=== PATIENT | male | born 1960 | race Caucasian/White ===

== ENCOUNTER 2016-11-15 13:38 | Inpatient (IN) | payer MEDICAID ==
[~2016-11-15] VITALS: Ht 180.3 cm; Wt 97.1 kg
[~2016-11-15 13:38] MED LIST: ALB5IS NEB; ALPR1TAB2 PO; ASPI-231 PO; DOXY-216 PO; FAM20T PO; FLUT250M9 IN; FURO40TA PO; GUA5DMLQ PO; HYDR12.56 PO; IPRIH INH; LEVE500T22 PO; NOR5T PO; POTA10TA51 PO; PRE5T PO; ROFL1TAB2 PO; SERT-275 PO
[2016-11-15] MEDS ORDERED: ALBUTEROL SULF 2.5 MG/0.5ML(0.5%) NEB SOLN NEB ONE (14:00)
[2016-11-15] MEDS ORDERED: IPRATROPIUM BROM 0.5 MG/2.5ML INH SOL NEB ONE (14:00)
[2016-11-15] MEDS ORDERED: LORazepam 2MG/ML-1ML VIAL IV ONE (14:30)
[2016-11-15] MEDS ORDERED: LEVETIRACETAM INJ 1,000 MG in SODIUM CHL 0.9% 100 ML IV ONE (14:30)
[2016-11-15] MEDS ORDERED: SODIUM CHLORIDE 0.9% 1,000 ML IV ONE (14:30)
[2016-11-15 14:45] LABS: Urine Bilirubin Negative (Negative); Urine Blood Negative /uL (Negative); Urine Color Colorless (Yellow); Urine Glucose Normal (Normal); Urine Ketone Negative (Negative); Urine Nitrite Negative (Negative); Urine RBC 1 /hpf (0 - 3); Urine Urobilinogen Normal (Negative)
[2016-11-15 15:04] LABS: Basophils # (auto) 0 uL; Basophils % (auto) 0.4 % (0.0-2.0); Eosinophils # (auto) 0 uL; Eosinophils % (auto) 0.2 % (0.0-7.0); Hematocrit 45.1 % (41.0-53.0); Hemoglobin 15.2 g/dL (13.5-17.5); Lymphocytes # (auto) 1.1 uL; Lymphocytes % (auto) 10.5 % (10.0-50.0); Mean Corpuscular Hemoglobin 33.1 pg (28.0-32.0); Mean Corpuscular Hgb Conc. 33.6 g/dL (32.0-36.0); Mean Corpuscular Volume 98.6 fL (80.0-100.0); Mean Platelet Volume 6.8 fL (7.4-10.4); Monocytes # (auto) 0.4 uL; Monocytes % (auto) 3.4 % (0.0-12.0); Neutrophils # (auto) 9.2 uL; Neutrophils % (auto) 85.5 % (37.0-80.0); Platelet Count (auto) 238 10^3/uL (140-450); Red Cell Distribution Width 13.1 % (11.6-16.0); White Blood Cell 10.8 10^3/uL (4.4-10.8)
[2016-11-15 15:14] LABS: Albumin 4.1 g/dL (3.4-5.0); Alkaline Phosphatase 65 U/L (45-117); Anion Gap 11 (5-15); Aspartate Aminotransferase 12 U/L (15-37); BUN/Creatinine Ratio 12.6; Bilirubin, Total 0.7 mg/dL (0.2-1.0); Blood Urea Nitrogen 13 mg/dL (7-18); Calcium 9.6 mg/dL (8.5-10.1); Carbon Dioxide 29 mmol/L (21-32); Chloride 102 mmol/L (98-107); GFR African American 96 mL/min; GFR Non-African American 79 mL/min; Glucose 173 mg/dL (74-106); Magnesium 2.3 mg/dL (1.6-2.6); Potassium 3.6 mmol/L (3.5-5.1); Sodium 142 mmol/L (136-145); Total Protein 7.1 g/dL (6.4-8.2)
[2016-11-15 15:15] LABS: INR 1.02 (0.9-1.15); Partial Thromboplastin Time 24.3 sec (22.64-33.71); Prothrombin Time 10.5 sec (9.37-12.3)
[2016-11-15] MEDS ORDERED: ALBUTEROL SULF 2.5 MG/0.5ML(0.5%) NEB SOLN NEB PRN (16:00)
[2016-11-15] MEDS ORDERED: FLUTICASONE SALMETEROL IN SCH (16:00)
[2016-11-15] MEDS ORDERED: DEXTROSE (50%) 50ML SYRG IV PRN (16:00)
[2016-11-15] MEDS ORDERED: ACETAMINOPHEN 500 MG TAB PO PRN (16:00)
[2016-11-15] MEDS ORDERED: TEMAZEPAM 15 MG CAP PO PRN (16:00)
[2016-11-15] MEDS ORDERED: LORazepam 0.5 MG TAB PO PRN (16:00)
[2016-11-15] MEDS ORDERED: HYDROcodone-ACET 5/325MG TAB PO PRN (16:00)
[2016-11-15] MEDS ORDERED: LACTULOSE 20Gm/30ML SOLN PO PRN (16:00)
[2016-11-15] MEDS ORDERED: NITROGLYCERIN 0.4 MG SL TAB SL PRN (16:00)
[2016-11-15] MEDS ORDERED: MORPHINE SULF INJ 2 MG/ML SYRINGE 1ML IV PRN ×2 (16:00)
[2016-11-15] MEDS ORDERED: PROMETHAZINE HCL 25 MG/ML 1ML IV PRN (16:00)
[2016-11-15] MEDS ORDERED: SERTRALINE HCL 50 MG TAB PO ONE (16:45)
[2016-11-15] MEDS: POTASSIUM CHLORIDE 8 MEQ TAB PO SCH (18:00)
[2016-11-15] MEDS: predniSONE 5 MG TAB PO SCH (18:00)
[2016-11-15] MEDS: ASPirin-EC 81 mg tab PO SCH (18:00)
[2016-11-15] MEDS: FUROSEMIDE 40 MG TAB PO SCH (18:00)
[2016-11-15] MEDS: ENOXAPARIN SOD 40 MG/0.4 ML SYRINGE SC SCH (18:07)
[2016-11-15] MEDS: ACCU-CHEK COMFORT CURVE STRIP VI SCH (18:18)
[2016-11-15] MEDS: ALBUTEROL SULF 2.5 MG/0.5ML(0.5%) NEB SOLN NEB SCH (18:18)
[2016-11-15] MEDS: IPRATROPIUM BROM 0.5 MG/2.5ML INH SOL NEB SCH (18:18)
[2016-11-15] MEDS: LEVETIRACETAM 500 MG TAB PO SCH (21:59)
[2016-11-15] MEDS: FAMOTIDINE 20 MG TAB PO SCH (21:59)
[2016-11-15] MEDS: ALPRAZolam 0.5 MG TAB PO SCH (21:59)
[2016-11-15 22:02] VITALS: BP 112/75
[2016-11-15 23:24] VITALS: BP 112/75
[2016-11-16] VITALS (9 sets, daily range): BP systolic 18–132; BP diastolic 64–81
[2016-11-16] MEDS: IPRATROPIUM BROM 0.5 MG/2.5ML INH SOL NEB SCH ×4 (00:18→18:52)
[2016-11-16] MEDS: ALBUTEROL SULF 2.5 MG/0.5ML(0.5%) NEB SOLN NEB SCH ×4 (00:18→18:52)
[2016-11-16] MEDS: ACCU-CHEK COMFORT CURVE STRIP VI SCH ×3 (00:19→12:12)
[2016-11-16] MEDS: ROFLUMILAST 500 MCG PO SCH (10:00)
[2016-11-16] MEDS: FAMOTIDINE 20 MG TAB PO SCH ×2 (10:00→21:36)
[2016-11-16] MEDS: ENOXAPARIN SOD 40 MG/0.4 ML SYRINGE SC SCH (10:00)
[2016-11-16] MEDS: ASPirin-EC 81 mg tab PO SCH (10:00)
[2016-11-16] MEDS: LORazepam 2MG/ML-1ML VIAL IV PRN ×2 (11:16→11:48)
[2016-11-16] MEDS: LEVETIRACETAM 500 MG TAB PO SCH ×2 (11:39→21:36)
[2016-11-16] MEDS: SERTRALINE HCL 50 MG TAB PO SCH (11:41)
[2016-11-16] MEDS: FUROSEMIDE 40 MG TAB PO SCH (11:42)
[2016-11-16] MEDS: POTASSIUM CHLORIDE 8 MEQ TAB PO SCH (11:43)
[2016-11-16] MEDS: ALPRAZolam 0.5 MG TAB PO SCH ×2 (11:43→21:37)
[2016-11-16] MEDS: predniSONE 5 MG TAB PO SCH (11:43)
[2016-11-16] MEDS ORDERED: LEVETIRACETAM INJ 1,000 MG in SODIUM CHL 0.9% 100 ML IV ONE (13:00)
[2016-11-17] VITALS (7 sets, daily range): BP systolic 93–132; BP diastolic 54–72
[2016-11-17] MEDS: ALBUTEROL SULF 2.5 MG/0.5ML(0.5%) NEB SOLN NEB SCH ×4 (00:17→18:50)
[2016-11-17] MEDS: IPRATROPIUM BROM 0.5 MG/2.5ML INH SOL NEB SCH ×4 (00:17→18:50)
[2016-11-17] MEDS: ENOXAPARIN SOD 40 MG/0.4 ML SYRINGE SC SCH (09:51)
[2016-11-17] MEDS: LEVETIRACETAM 500 MG TAB PO SCH ×2 (09:52→21:57)
[2016-11-17] MEDS: POTASSIUM CHLORIDE 8 MEQ TAB PO SCH (09:52)
[2016-11-17] MEDS: FAMOTIDINE 20 MG TAB PO SCH ×2 (09:52→21:56)
[2016-11-17] MEDS: ALPRAZolam 0.5 MG TAB PO SCH ×3 (09:52→21:56)
[2016-11-17] MEDS: SERTRALINE HCL 50 MG TAB PO SCH (09:52)
[2016-11-17] MEDS: predniSONE 5 MG TAB PO SCH (09:52)
[2016-11-17] MEDS: ASPirin-EC 81 mg tab PO SCH (09:52)
[2016-11-17] MEDS: FUROSEMIDE 40 MG TAB PO SCH (09:53)
[2016-11-17] MEDS: ROFLUMILAST 500 MCG PO SCH (10:00)
[2016-11-17] MEDS: LORazepam 2MG/ML-1ML VIAL IV PRN (10:45)
[2016-11-18] MEDS: IPRATROPIUM BROM 0.5 MG/2.5ML INH SOL NEB SCH ×3 (00:26→12:00)
[2016-11-18] MEDS: ALBUTEROL SULF 2.5 MG/0.5ML(0.5%) NEB SOLN NEB SCH ×3 (00:26→12:00)
[2016-11-18 05:00] VITALS: BP 127/69
[2016-11-18] MEDS: ALPRAZolam 0.5 MG TAB PO SCH ×2 (06:33→14:00)
[2016-11-18 09:20] VITALS: BP 127/83
[2016-11-18] MEDS: ROFLUMILAST 500 MCG PO SCH (10:00)
[2016-11-18] MEDS ORDERED: SERTRALINE HCL 50 MG TAB PO SCH (10:00)
[2016-11-18] MEDS: ENOXAPARIN SOD 40 MG/0.4 ML SYRINGE SC SCH (10:33)
[2016-11-18] MEDS: ASPirin-EC 81 mg tab PO SCH (10:33)
[2016-11-18] MEDS: predniSONE 5 MG TAB PO SCH (10:34)
[2016-11-18] MEDS: POTASSIUM CHLORIDE 8 MEQ TAB PO SCH (10:34)
[2016-11-18] MEDS: FUROSEMIDE 40 MG TAB PO SCH (10:35)
[2016-11-18] MEDS: FAMOTIDINE 20 MG TAB PO SCH (10:35)
[2016-11-18] MEDS: LEVETIRACETAM 500 MG TAB PO SCH (10:35)
[2016-11-18 13:00] VITALS: BP 122/76
[2016-11-18] MEDS ORDERED: SERT-275 PO (14:55)
[2016-11-18] MEDS ORDERED: LEVE500T22 PO (14:55)
[2016-11-18 16:07] VITALS: BP 122/76
== END 2016-11-18 17:15 | disposition home health service (06) | DRG 756 ==
LOC: EDBD 13:38 → ER 13:42 → TELE 13:43 → TELE-EAST 18:30
PROVIDERS: ADMIT Internal Medicine; ATTEND Hospitalist
PROC: 5A09457 Assistance with Respiratory Ventilation, 24-96 Consecutive Hours, Continuous Positive Airway Pressure (ICD-10-PCS; principal; 2016-11-16)
DX: F44.5 Conversion disorder with seizures or convulsions (principal); I50.9 Heart failure, unspecified; F41.9 Anxiety disorder, unspecified; F32.9 Major depressive disorder, single episode, unspecified; J44.9 Chronic obstructive pulmonary disease, unspecified; R73.9 Hyperglycemia, unspecified; J45.909 Unspecified asthma, uncomplicated; F12.90 Cannabis use, unspecified, uncomplicated; Z87.820 Personal history of traumatic brain injury; Z82.3 Family history of stroke; Z82.49 Family history of ischemic heart disease and other diseases of the circulatory system; Z90.89 Acquired absence of other organs; Z98.890 Other specified postprocedural states; Z82.5 Family history of asthma and other chronic lower respiratory diseases; Z80.0 Family history of malignant neoplasm of digestive organs; Z79.899 Other long term (current) drug therapy; Z79.82 Long term (current) use of aspirin
CPT/HCPCS: 36415; 71010; 80053; 80320; 81001; 82542; 82962; 83036; 83735; 85025; 85610; 85652; 85730; 93005; 94640; 94660; 96365; 96375; G0434

== ENCOUNTER 2017-07-09 12:03 | Inpatient (IN) | payer MEDICARE, OTHER, MEDICAID ==
[~2017-07-09] VITALS: Ht 180.3 cm; Wt 94.2 kg
[~2017-07-09 12:03] MED LIST changes: -ALB5IS NEB; +ALBUAER3 IN; +ALPR0.5T7 PO; -ALPR1TAB2 PO; +DEXTSYP8 PO; -DOXY-216 PO; +DOXY1CAP82 PO; -FAM20T PO; +FURO20TA3 PO; -FURO40TA PO; -GUA5DMLQ PO; -NOR5T PO; +OMEP20CA74 PO
[2017-07-09] MEDS ORDERED: LORazepam 2MG/ML-1ML VIAL ONE (12:18)
[2017-07-09] MEDS ORDERED: SODIUM CHLORIDE 0.9% 1,000 ML IVB ONE (12:40)
[2017-07-09] MEDS ORDERED: LORazepam 2MG/ML-1ML VIAL IV ONE (12:45)
[2017-07-09 13:53] LABS: Basophils # (auto) 0 uL; Basophils % (auto) 0.3 % (0.0-2.0); CONDITION Y; Eosinophils # (auto) 0 uL; Eosinophils % (auto) 0.4 % (0.0-7.0); Hematocrit 48.4 % (41.0-53.0); Hemoglobin 16.6 g/dL (13.5-17.5); Lymphocytes # (auto) 2.2 uL; Lymphocytes % (auto) 23.3 % (10.0-50.0); Mean Corpuscular Hemoglobin 33.5 pg (28.0-32.0); Mean Corpuscular Hgb Conc. 34.3 g/dL (32.0-36.0); Mean Corpuscular Volume 97.7 fL (80.0-100.0); Mean Platelet Volume 7.4 fL (7.4-10.4); Monocytes # (auto) 0.4 uL; Monocytes % (auto) 4.3 % (0.0-12.0); Neutrophils # (auto) 6.8 uL; Neutrophils % (auto) 71.7 % (37.0-80.0); Platelet Count (auto) 252 10^3/uL (140-450); Red Cell Distribution Width 13.3 % (11.6-16.0); White Blood Cell 9.4 10^3/uL (4.4-10.8)
[2017-07-09 14:06] LABS: INR 0.98 (0.9-1.15); Partial Thromboplastin Time 27.1 sec (22.64-33.71); Prothrombin Time 10.7 sec (9.37-12.3)
[2017-07-09 14:18] LABS: BUN/Creatinine Ratio 23.1; Bilirubin, Total 0.7 mg/dL (0.2-1.0); Calcium 9.7 mg/dL (8.5-10.1); Magnesium 2.7 mg/dL (1.6-2.6); Potassium 3.7 mmol/L (3.5-5.1); Total Protein 7.2 g/dL (6.4-8.2)
[2017-07-09] MEDS ORDERED: LORazepam 2MG/ML-1ML VIAL IV PRN (17:15)
[2017-07-09] MEDS ORDERED: LORazepam 0.5 MG TAB PO PRN (17:15)
[2017-07-09] MEDS ORDERED: ACETAMINOPHEN 500 MG TAB PO PRN (17:15)
[2017-07-09] MEDS ORDERED: HYDROcodone-ACET 5/325MG TAB PO PRN (17:15)
[2017-07-09] MEDS ORDERED: LEVETIRACETAM 500 MG TAB PO ONE ×3 (17:15→18:00)
[2017-07-09] MEDS ORDERED: ADVAIR 250 MCG IN SCH (17:15)
[2017-07-09] MEDS ORDERED: MORPHINE SULFATE 4 MG/ML SYRG IV PRN (17:15)
[2017-07-09] MEDS ORDERED: TEMAZEPAM 15 MG CAP PO PRN (17:15)
[2017-07-09] MEDS ORDERED: PROMETHAZINE HCL 25 MG/ML 1ML IV PRN (17:15)
[2017-07-09] MEDS ORDERED: MORPHINE SULF INJ 2 MG/ML SYRINGE 1ML IV PRN (17:15)
[2017-07-09] MEDS ORDERED: ALBUTEROL SULF 2.5 MG/0.5ML(0.5%) NEB SOLN NEB PRN (17:15)
[2017-07-09] MEDS ORDERED: NITROGLYCERIN 0.4 MG SL TAB SL PRN (17:15)
[2017-07-09] MEDS: ALBUTEROL SULF 2.5 MG/0.5ML(0.5%) NEB SOLN NEB SCH (18:13)
[2017-07-09] MEDS: BUDESONIDE (INHALATION) 0.5 MG/2 ML NEB NEB SCH (18:13)
[2017-07-09] MEDS: IPRATROPIUM BROM 0.5 MG/2.5ML INH SOL NEB SCH (18:13)
[2017-07-09] MEDS: SODIUM CHLORIDE 0.9% 1,000 ML IV SCH (18:19)
[2017-07-09] MEDS ORDERED: LEVETIRACETAM 500 MG TAB PO SCH ×2 (22:00)
[2017-07-09] MEDS: ALPRAZolam 0.5 MG TAB PO SCH (22:29)
[2017-07-09] MEDS: DOXYCYCLINE 100 MG TAB/CAP PO SCH (22:29)
[2017-07-10] VITALS (9 sets, daily range): BP systolic 91–124; BP diastolic 39–72
[2017-07-10] MEDS: ALBUTEROL SULF 2.5 MG/0.5ML(0.5%) NEB SOLN NEB SCH ×4 (00:22→18:49)
[2017-07-10] MEDS: IPRATROPIUM BROM 0.5 MG/2.5ML INH SOL NEB SCH ×4 (00:22→18:49)
[2017-07-10] MEDS: BUDESONIDE (INHALATION) 0.5 MG/2 ML NEB NEB SCH ×2 (06:01→18:49)
[2017-07-10] MEDS: SODIUM CHLORIDE 0.9% 1,000 ML IV SCH (06:22)
[2017-07-10 07:08] LABS: Cholesterol 251 mg/dL (< 200); HDL Cholesterol 37 mg/dL (40-59); LDL Cholesterol 179 mg/dL (< 100); Triglycerides 280 mg/dL (< 150)
[2017-07-10 07:23] LABS: Urine Bilirubin Negative (Negative); Urine Blood 1+ /uL (Negative); Urine Color Yellow (Yellow); Urine Glucose Normal (Normal); Urine Ketone Negative (Negative); Urine Nitrite Negative (Negative); Urine RBC 2 /hpf (0 - 3); Urine Urobilinogen Normal (Negative); Urine pH 5.5 (5.0-8.0)
[2017-07-10] MEDS: FUROSEMIDE 20 MG TAB PO SCH (10:00)
[2017-07-10] MEDS: POTASSIUM CHL 10 Meq TABLET PO SCH (11:19)
[2017-07-10] MEDS: predniSONE 5 MG TAB PO SCH (11:19)
[2017-07-10] MEDS: DOXYCYCLINE 100 MG TAB/CAP PO SCH ×2 (11:19→21:22)
[2017-07-10] MEDS: ASPirin-EC 81 mg tab PO SCH (11:19)
[2017-07-10] MEDS: ALPRAZolam 0.5 MG TAB PO SCH ×2 (11:20→21:21)
[2017-07-10] MEDS: SERTRALINE HCL 50 MG TAB PO SCH (11:20)
[2017-07-10] MEDS: PANTOPRAZOLE 40 MG TAB PO SCH (11:21)
[2017-07-10] MEDS ORDERED: ATORVASTATIN 20 MG TAB PO SCH (22:00)
[2017-07-11] MEDS: IPRATROPIUM BROM 0.5 MG/2.5ML INH SOL NEB SCH ×3 (00:29→12:05)
[2017-07-11] MEDS: ALBUTEROL SULF 2.5 MG/0.5ML(0.5%) NEB SOLN NEB SCH ×3 (00:29→12:05)
[2017-07-11 05:00] VITALS: BP 91/49
[2017-07-11 05:46] VITALS: BP 107/66
[2017-07-11] MEDS: BUDESONIDE (INHALATION) 0.5 MG/2 ML NEB NEB SCH (06:26)
[2017-07-11 09:00] VITALS: BP 115/71
[2017-07-11] MEDS: PANTOPRAZOLE 40 MG TAB PO SCH (10:15)
[2017-07-11] MEDS: DOXYCYCLINE 100 MG TAB/CAP PO SCH (10:16)
[2017-07-11] MEDS: SERTRALINE HCL 50 MG TAB PO SCH (10:16)
[2017-07-11] MEDS: POTASSIUM CHL 10 Meq TABLET PO SCH (10:16)
[2017-07-11] MEDS: FUROSEMIDE 20 MG TAB PO SCH (10:16)
[2017-07-11] MEDS: ALPRAZolam 0.5 MG TAB PO SCH (10:16)
[2017-07-11] MEDS: ASPirin-EC 81 mg tab PO SCH (10:16)
[2017-07-11] MEDS: predniSONE 5 MG TAB PO SCH (10:17)
[2017-07-11 12:45] VITALS: BP 115/64
[2017-07-11 13:23] VITALS: BP 115/71
== END 2017-07-11 14:10 | disposition home or self-care (01) | DRG 101 ==
LOC: EDBD 12:03 → ER 12:03 → TELE 12:04 → TELE-EAST 21:05
PROVIDERS: ADMIT Internal Medicine; ATTEND Internal Medicine Pulmonary Disease
PROC: 5A09357 Assistance with Respiratory Ventilation, Less than 24 Consecutive Hours, Continuous Positive Airway Pressure (ICD-10-PCS; principal; 2017-07-09)
DX: G40.409 Other generalized epilepsy and epileptic syndromes, not intractable, without status epilepticus (principal); I11.0 Hypertensive heart disease with heart failure; E88.01 Alpha-1-antitrypsin deficiency; I50.9 Heart failure, unspecified; J44.1 Chronic obstructive pulmonary disease with (acute) exacerbation; G47.00 Insomnia, unspecified; G47.33 Obstructive sleep apnea (adult) (pediatric); G43.909 Migraine, unspecified, not intractable, without status migrainosus; E66.9 Obesity, unspecified; Z68.29 Body mass index [BMI] 29.0-29.9, adult; F17.210 Nicotine dependence, cigarettes, uncomplicated; F32.9 Major depressive disorder, single episode, unspecified; F41.0 Panic disorder [episodic paroxysmal anxiety]; K21.9 Gastro-esophageal reflux disease without esophagitis; Z79.899 Other long term (current) drug therapy; Z82.3 Family history of stroke; Z82.49 Family history of ischemic heart disease and other diseases of the circulatory system; Z82.5 Family history of asthma and other chronic lower respiratory diseases; Z80.0 Family history of malignant neoplasm of digestive organs; Z83.6 Family history of other diseases of the respiratory system; Z87.820 Personal history of traumatic brain injury; Z90.89 Acquired absence of other organs; Z79.82 Long term (current) use of aspirin
CPT/HCPCS: 36415; 71010; 80053; 80061; 80307; 81001; 83735; 85025; 85610; 85730; 87070; 87081; 87205; 93005; 93306; 94640; 94660; 96361; 96374

== ENCOUNTER 2017-11-04 10:18 | Inpatient (IN) | payer MEDICARE, BC, MEDICAID ==
[~2017-11-04] VITALS: Ht 180.3 cm; Wt 92.6 kg
[~2017-11-04 10:18] MED LIST changes: -DEXTSYP8 PO; -DOXY1CAP82 PO; -LEVE500T22 PO
[2017-11-04 10:57] LABS: Basophils # (auto) 0 uL; Basophils % (auto) 0.3 % (0.0-2.0); Eosinophils # (auto) 0 uL; Eosinophils % (auto) 0.4 % (0.0-7.0); Hematocrit 44.2 % (41.0-53.0); Hemoglobin 15.3 g/dL (13.5-17.5); Lymphocytes # (auto) 0.6 uL; Mean Corpuscular Hgb Conc. 34.6 g/dL (32.0-36.0); Mean Corpuscular Volume 98.4 fL (80.0-100.0); Monocytes # (auto) 0.4 uL; Monocytes % (auto) 6.2 % (0.0-12.0); Neutrophils # (auto) 5.3 uL; Neutrophils % (auto) 84.1 % (37.0-80.0); Nucleated Red Blood Cells % 0.2 %; Platelet Count (auto) 160 10^3/uL (140-450); Red Cell Distribution Width 14.6 % (11.8-14.3); White Blood Cell 6.3 10^3/uL (4.4-10.8)
[2017-11-04] MEDS ORDERED: IPRATROPIUM BROM 0.5 MG/2.5ML INH SOL NEB ONE (11:30)
[2017-11-04] MEDS ORDERED: MAGNESIUM SULFATE 1GM/100ML 100 ML IV ONE (11:30)
[2017-11-04] MEDS ORDERED: methylPREDNISolone SOD SUCC 125 MG/2 ML VL IV ONE (11:30)
[2017-11-04] MEDS ORDERED: ALBUTEROL SULF 2.5 MG/0.5ML(0.5%) NEB SOLN NEB ONE (11:30)
[2017-11-04 11:33] LABS: Alanine Aminotransferase 41 U/L (16-61); Albumin 3.8 g/dL (3.4-5.0); Alkaline Phosphatase 95 U/L (45-117); Anion Gap 10 (5-15); Aspartate Aminotransferase 17 U/L (15-37); BUN/Creatinine Ratio 12.8; Bilirubin, Total 0.7 mg/dL (0.2-1.0); Blood Urea Nitrogen 16 mg/dL (7-18); Calcium 8.9 mg/dL (8.5-10.1); Carbon Dioxide 30 mmol/L (21-32); Chloride 98 mmol/L (98-107); GFR African American 76 mL/min; GFR Non-African American 63 mL/min; Glucose 209 mg/dL (74-106); Potassium 3.5 mmol/L (3.5-5.1); Sodium 138 mmol/L (136-145); Total Protein 7.2 g/dL (6.4-8.2)
[2017-11-04] MEDS ORDERED: PROMETHAZINE HCL 25 MG/ML 1ML IV PRN (13:15)
[2017-11-04] MEDS ORDERED: TEMAZEPAM 15 MG CAP PO PRN (13:15)
[2017-11-04] MEDS ORDERED: MORPHINE SULF INJ 2 MG/ML SYRINGE 1ML IV PRN (13:15)
[2017-11-04] MEDS ORDERED: DEXTROSE (50%) 50ML SYRG IV PRN (13:15)
[2017-11-04] MEDS ORDERED: HYDROcodone-ACET 5/325MG TAB PO PRN (13:15)
[2017-11-04] MEDS ORDERED: OSELTAMIVIR 75 MG CAP PO ONE (13:15)
[2017-11-04] MEDS ORDERED: LACTULOSE 20Gm/30ML SOLN PO PRN (13:15)
[2017-11-04] MEDS ORDERED: ALBUTEROL SULF 2.5 MG/0.5ML(0.5%) NEB SOLN NEB PRN (13:15)
[2017-11-04] MEDS ORDERED: ACETAMINOPHEN 500 MG TAB PO PRN (13:15)
[2017-11-04] MEDS ORDERED: LORazepam 0.5 MG TAB PO PRN (13:15)
[2017-11-04] MEDS ORDERED: MORPHINE SULFATE 4 MG/ML SYR/VIAL IV PRN (13:15)
[2017-11-04] MEDS ORDERED: NITROGLYCERIN 0.4 MG SL TAB SL PRN (13:15)
[2017-11-04] MEDS ORDERED: ASPirin-EC 81 mg tab PO ONE (13:45)
[2017-11-04] MEDS: SODIUM CHLORIDE 0.9% 1,000 ML IV SCH (13:46)
[2017-11-04] MEDS: DOXYCYCLINE HYC 100MG/250ML 250 ML IV SCH (13:52)
[2017-11-04] MEDS ORDERED: FUROSEMIDE 20 MG TAB PO ONE (14:15)
[2017-11-04] MEDS ORDERED: PANTOPRAZOLE 40 MG TAB PO ONE (14:15)
[2017-11-04] MEDS ORDERED: BUDESONIDE (INHALATION) 0.5 MG/2 ML NEB NEB SCH (14:18)
[2017-11-04 14:23] VITALS: BP 113/76
[2017-11-04] MEDS: POTASSIUM CHL 10 Meq TABLET PO SCH (14:49)
[2017-11-04] MEDS: ALPRAZolam 0.5 MG TAB PO SCH ×2 (14:49→22:42)
[2017-11-04] MEDS: ENOXAPARIN SOD 40 MG/0.4 ML SYRINGE SC SCH (14:49)
[2017-11-04] MEDS: ACCU-CHEK COMFORT CURVE STRIP VI SCH ×2 (17:22→22:00)
[2017-11-04] MEDS: InsuLIN REG 1unit/0.01ml Soln (100units/ml) SC SCH ×2 (17:25→22:43)
[2017-11-04] MEDS: methylPREDNISolone SOD SUCC 40 MG/ML VL IV SCH (17:44)
[2017-11-04] MEDS: ALBUTEROL SULF 2.5 MG/0.5ML(0.5%) NEB SOLN NEB SCH ×2 (17:55→23:55)
[2017-11-04] MEDS: IPRATROPIUM BROM 0.5 MG/2.5ML INH SOL NEB SCH ×2 (17:55→23:55)
[2017-11-04] MEDS: BUDESONIDE (INHALATION) 0.5 MG/2 ML NEB NEB SCH (17:55)
[2017-11-04] MEDS: OSELTAMIVIR 75 MG CAP PO SCH (21:35)
[2017-11-04 22:30] VITALS: BP 117/69
[2017-11-04] MEDS: SERTRALINE HCL 50 MG TAB PO SCH (22:43)
[2017-11-04 23:45] VITALS: BP 117/69
[2017-11-05] MEDS: methylPREDNISolone SOD SUCC 40 MG/ML VL IV SCH ×4 (00:53→17:24)
[2017-11-05] MEDS: DOXYCYCLINE HYC 100MG/250ML 250 ML IV SCH ×2 (00:55→13:45)
[2017-11-05] MEDS: SODIUM CHLORIDE 0.9% 1,000 ML IV SCH ×2 (02:40→17:22)
[2017-11-05 05:29] VITALS: BP 112/75
[2017-11-05] MEDS: ACCU-CHEK COMFORT CURVE STRIP VI SCH ×4 (06:07→22:20)
[2017-11-05] MEDS: InsuLIN REG 1unit/0.01ml Soln (100units/ml) SC SCH ×4 (06:10→22:40)
[2017-11-05 06:32] LABS: Basophils # (auto) 0 uL; Eosinophils # (auto) 0 uL; Monocytes # (auto) 0.2 uL; Neutrophils # (auto) 4.3 uL; Red Blood Cells 4.13 10^6/uL (4.5-5.90)
[2017-11-05 06:34] LABS: Basophils % (auto) 0.2 % (0.0-2.0); Hemoglobin 14.1 g/dL (13.5-17.5); Lymphocytes # (auto) 0.5 uL; Lymphocytes % (auto) 9.3 % (10.0-50.0); Mean Corpuscular Hemoglobin 34.1 pg (28.0-32.0); Mean Corpuscular Hgb Conc. 35.2 g/dL (32.0-36.0); Mean Corpuscular Volume 96.8 fL (80.0-100.0); Monocytes % (auto) 3.5 % (0.0-12.0); Nucleated Red Blood Cells % 0.1 %; Platelet Count (auto) 158 10^3/uL (140-450); Red Cell Distribution Width 14.3 % (11.8-14.3)
[2017-11-05 07:00] LABS: Albumin 3.3 g/dL (3.4-5.0); BUN/Creatinine Ratio 22.1; Bilirubin, Total 0.6 mg/dL (0.2-1.0); Calcium 8.5 mg/dL (8.5-10.1); Total Protein 6.4 g/dL (6.4-8.2)
[2017-11-05] MEDS: IPRATROPIUM BROM 0.5 MG/2.5ML INH SOL NEB SCH ×4 (07:33→21:06)
[2017-11-05] MEDS: ALBUTEROL SULF 2.5 MG/0.5ML(0.5%) NEB SOLN NEB SCH ×4 (07:34→21:06)
[2017-11-05] MEDS: BUDESONIDE (INHALATION) 0.5 MG/2 ML NEB NEB SCH ×2 (07:34→21:06)
[2017-11-05 08:00] VITALS: BP 108/75
[2017-11-05 09:00] VITALS: BP 108/75
[2017-11-05] MEDS: ENOXAPARIN SOD 40 MG/0.4 ML SYRINGE SC SCH (09:23)
[2017-11-05] MEDS: ALPRAZolam 0.5 MG TAB PO SCH ×2 (09:23→22:20)
[2017-11-05] MEDS: POTASSIUM CHL 10 Meq TABLET PO SCH (09:23)
[2017-11-05] MEDS: ASPirin-EC 81 mg tab PO SCH (09:23)
[2017-11-05] MEDS: OSELTAMIVIR 75 MG CAP PO SCH ×2 (09:23→22:20)
[2017-11-05] MEDS: PANTOPRAZOLE 40 MG TAB PO SCH (09:23)
[2017-11-05] MEDS: FUROSEMIDE 20 MG TAB PO SCH (09:24)
[2017-11-05 13:00] VITALS: BP 115/79
[2017-11-05 16:37] VITALS: BP 129/69
[2017-11-05 22:00] VITALS: BP 110/70
[2017-11-05] MEDS: SERTRALINE HCL 50 MG TAB PO SCH (22:20)
[2017-11-06] MEDS: methylPREDNISolone SOD SUCC 40 MG/ML VL IV SCH ×4 (00:01→17:20)
[2017-11-06] MEDS: ALBUTEROL SULF 2.5 MG/0.5ML(0.5%) NEB SOLN NEB SCH ×7 (00:10→22:53)
[2017-11-06] MEDS: IPRATROPIUM BROM 0.5 MG/2.5ML INH SOL NEB SCH ×7 (00:10→22:53)
[2017-11-06] MEDS: DOXYCYCLINE HYC 100MG/250ML 250 ML IV SCH ×2 (00:51→12:02)
[2017-11-06 05:00] VITALS: BP 108/63
[2017-11-06] MEDS: SODIUM CHLORIDE 0.9% 1,000 ML IV SCH ×2 (05:11→18:31)
[2017-11-06] MEDS: ACCU-CHEK COMFORT CURVE STRIP VI SCH ×4 (06:28→21:05)
[2017-11-06] MEDS: InsuLIN REG 1unit/0.01ml Soln (100units/ml) SC SCH ×4 (06:41→21:38)
[2017-11-06] MEDS: BUDESONIDE (INHALATION) 0.5 MG/2 ML NEB NEB SCH ×2 (07:23→19:17)
[2017-11-06] MEDS: OSELTAMIVIR 75 MG CAP PO SCH ×2 (08:57→21:37)
[2017-11-06] MEDS: ASPirin-EC 81 mg tab PO SCH (08:57)
[2017-11-06] MEDS: ALPRAZolam 0.5 MG TAB PO SCH ×2 (08:57→21:37)
[2017-11-06] MEDS: POTASSIUM CHL 10 Meq TABLET PO SCH (08:57)
[2017-11-06] MEDS: PANTOPRAZOLE 40 MG TAB PO SCH (08:57)
[2017-11-06] MEDS: ENOXAPARIN SOD 40 MG/0.4 ML SYRINGE SC SCH (08:57)
[2017-11-06] MEDS: FUROSEMIDE 20 MG TAB PO SCH (08:59)
[2017-11-06 09:00] VITALS: BP 102/54
[2017-11-06 13:00] VITALS: BP 114/57
[2017-11-06 17:00] VITALS: BP 117/68
[2017-11-06] MEDS: SERTRALINE HCL 50 MG TAB PO SCH (21:37)
[2017-11-06 22:00] VITALS: BP 131/76
[2017-11-07] VITALS (8 sets, daily range): BP systolic 112–133; BP diastolic 59–73
[2017-11-07] MEDS: methylPREDNISolone SOD SUCC 40 MG/ML VL IV SCH ×4 (00:03→18:08)
[2017-11-07] MEDS: DOXYCYCLINE HYC 100MG/250ML 250 ML IV SCH ×2 (01:17→13:15)
[2017-11-07] MEDS: ALBUTEROL SULF 2.5 MG/0.5ML(0.5%) NEB SOLN NEB SCH ×6 (02:40→22:25)
[2017-11-07] MEDS: IPRATROPIUM BROM 0.5 MG/2.5ML INH SOL NEB SCH ×6 (02:40→22:25)
[2017-11-07] MEDS: InsuLIN REG 1unit/0.01ml Soln (100units/ml) SC SCH ×4 (06:27→21:12)
[2017-11-07] MEDS: ACCU-CHEK COMFORT CURVE STRIP VI SCH ×4 (06:27→21:12)
[2017-11-07] MEDS: PANTOPRAZOLE 40 MG TAB PO SCH (10:51)
[2017-11-07] MEDS: ENOXAPARIN SOD 40 MG/0.4 ML SYRINGE SC SCH (10:51)
[2017-11-07] MEDS: ALPRAZolam 0.5 MG TAB PO SCH ×2 (10:51→20:57)
[2017-11-07] MEDS: OSELTAMIVIR 75 MG CAP PO SCH ×2 (10:51→20:56)
[2017-11-07] MEDS: POTASSIUM CHL 10 Meq TABLET PO SCH (10:51)
[2017-11-07] MEDS: FUROSEMIDE 20 MG TAB PO SCH (10:52)
[2017-11-07] MEDS: ASPirin-EC 81 mg tab PO SCH (10:52)
[2017-11-07] MEDS: BUDESONIDE (INHALATION) 0.5 MG/2 ML NEB NEB SCH ×2 (11:01→20:05)
[2017-11-07] MEDS: SODIUM CHLORIDE 0.9% 1,000 ML IV SCH ×2 (11:45→21:13)
[2017-11-07] MEDS ORDERED: DEXTROSE (50%) 50ML SYRG IV PRN (13:30)
[2017-11-07] MEDS: SERTRALINE HCL 50 MG TAB PO SCH (20:56)
[2017-11-08] MEDS: IPRATROPIUM BROM 0.5 MG/2.5ML INH SOL NEB SCH ×6 (02:28→22:27)
[2017-11-08] MEDS: ALBUTEROL SULF 2.5 MG/0.5ML(0.5%) NEB SOLN NEB SCH ×6 (02:28→22:26)
[2017-11-08] MEDS: methylPREDNISolone SOD SUCC 40 MG/ML VL IV SCH ×4 (02:45→18:32)
[2017-11-08] MEDS: DOXYCYCLINE HYC 100MG/250ML 250 ML IV SCH ×2 (02:46→13:40)
[2017-11-08 05:00] VITALS: BP 140/81
[2017-11-08] MEDS: ACCU-CHEK COMFORT CURVE STRIP VI SCH ×4 (06:50→22:00)
[2017-11-08] MEDS: InsuLIN REG 1unit/0.01ml Soln (100units/ml) SC SCH ×4 (06:51→22:50)
[2017-11-08 08:06] VITALS: BP 126/69
[2017-11-08] MEDS: OSELTAMIVIR 75 MG CAP PO SCH ×2 (10:00→22:42)
[2017-11-08] MEDS: SODIUM CHLORIDE 0.9% 1,000 ML IV SCH (10:31)
[2017-11-08] MEDS: BUDESONIDE (INHALATION) 0.5 MG/2 ML NEB NEB SCH ×2 (10:36→22:27)
[2017-11-08] MEDS: ENOXAPARIN SOD 40 MG/0.4 ML SYRINGE SC SCH (11:30)
[2017-11-08] MEDS: ALPRAZolam 0.5 MG TAB PO SCH ×2 (11:31→22:43)
[2017-11-08] MEDS: ASPirin-EC 81 mg tab PO SCH (11:31)
[2017-11-08] MEDS: FUROSEMIDE 20 MG TAB PO SCH (11:31)
[2017-11-08] MEDS: PANTOPRAZOLE 40 MG TAB PO SCH (11:32)
[2017-11-08] MEDS: POTASSIUM CHL 10 Meq TABLET PO SCH (11:32)
[2017-11-08 13:00] VITALS: BP 143/77
[2017-11-08 16:55] VITALS: BP 136/72
[2017-11-08 21:40] VITALS: BP 137/74
[2017-11-08] MEDS: SERTRALINE HCL 50 MG TAB PO SCH (22:43)
[2017-11-09] VITALS (8 sets, daily range): BP systolic 113–145; BP diastolic 68–81
[2017-11-09] MEDS: methylPREDNISolone SOD SUCC 40 MG/ML VL IV SCH ×4 (00:01→18:04)
[2017-11-09] MEDS: DOXYCYCLINE HYC 100MG/250ML 250 ML IV SCH ×2 (01:52→12:39)
[2017-11-09] MEDS: ALBUTEROL SULF 2.5 MG/0.5ML(0.5%) NEB SOLN NEB SCH ×6 (02:21→22:35)
[2017-11-09] MEDS: IPRATROPIUM BROM 0.5 MG/2.5ML INH SOL NEB SCH ×6 (02:21→22:35)
[2017-11-09] MEDS: ACCU-CHEK COMFORT CURVE STRIP VI SCH ×4 (06:16→22:34)
[2017-11-09] MEDS: BUDESONIDE (INHALATION) 0.5 MG/2 ML NEB NEB SCH ×2 (06:22→18:57)
[2017-11-09] MEDS: InsuLIN REG 1unit/0.01ml Soln (100units/ml) SC SCH ×4 (06:29→23:07)
[2017-11-09] MEDS: ASPirin-EC 81 mg tab PO SCH (11:18)
[2017-11-09] MEDS: POTASSIUM CHL 10 Meq TABLET PO SCH (11:18)
[2017-11-09] MEDS: PANTOPRAZOLE 40 MG TAB PO SCH (11:18)
[2017-11-09] MEDS: FUROSEMIDE 20 MG TAB PO SCH (11:18)
[2017-11-09] MEDS: ALPRAZolam 0.5 MG TAB PO SCH ×2 (11:19→22:34)
[2017-11-09] MEDS: ENOXAPARIN SOD 40 MG/0.4 ML SYRINGE SC SCH (11:19)
[2017-11-09] MEDS: SERTRALINE HCL 50 MG TAB PO SCH (22:34)
[2017-11-10] MEDS: methylPREDNISolone SOD SUCC 40 MG/ML VL IV SCH ×4 (00:11→16:59)
[2017-11-10 01:25] VITALS: BP 113/81
[2017-11-10] MEDS: DOXYCYCLINE HYC 100MG/250ML 250 ML IV SCH (01:54)
[2017-11-10] MEDS: IPRATROPIUM BROM 0.5 MG/2.5ML INH SOL NEB SCH ×6 (02:55→22:20)
[2017-11-10] MEDS: ALBUTEROL SULF 2.5 MG/0.5ML(0.5%) NEB SOLN NEB SCH ×6 (02:55→22:20)
[2017-11-10 05:00] VITALS: BP 136/81
[2017-11-10] MEDS: ACCU-CHEK COMFORT CURVE STRIP VI SCH ×4 (06:38→22:05)
[2017-11-10] MEDS: InsuLIN REG 1unit/0.01ml Soln (100units/ml) SC SCH ×4 (06:39→22:08)
[2017-11-10 07:51] VITALS: BP 120/70
[2017-11-10] MEDS: POTASSIUM CHL 10 Meq TABLET PO SCH (09:38)
[2017-11-10] MEDS: ALPRAZolam 0.5 MG TAB PO SCH ×2 (09:38→22:01)
[2017-11-10] MEDS: FUROSEMIDE 20 MG TAB PO SCH (09:38)
[2017-11-10] MEDS: PANTOPRAZOLE 40 MG TAB PO SCH (09:39)
[2017-11-10] MEDS: BUDESONIDE (INHALATION) 0.5 MG/2 ML NEB NEB SCH ×2 (09:53→19:10)
[2017-11-10] MEDS: ASPirin-EC 81 mg tab PO SCH (10:00)
[2017-11-10] MEDS: ENOXAPARIN SOD 40 MG/0.4 ML SYRINGE SC SCH (10:00)
[2017-11-10 11:49] VITALS: BP 128/70
[2017-11-10 16:55] VITALS: BP 127/70
[2017-11-10 22:00] VITALS: BP 120/84
[2017-11-10] MEDS: DOXYCYCLINE 100 MG TAB/CAP PO SCH (22:01)
[2017-11-10] MEDS: SERTRALINE HCL 50 MG TAB PO SCH (22:01)
[2017-11-11] MEDS: methylPREDNISolone SOD SUCC 40 MG/ML VL IV SCH ×4 (00:39→17:34)
[2017-11-11] MEDS: ALBUTEROL SULF 2.5 MG/0.5ML(0.5%) NEB SOLN NEB SCH ×6 (02:27→22:10)
[2017-11-11] MEDS: IPRATROPIUM BROM 0.5 MG/2.5ML INH SOL NEB SCH ×6 (02:27→22:10)
[2017-11-11 05:00] VITALS: BP 118/76
[2017-11-11] MEDS: InsuLIN REG 1unit/0.01ml Soln (100units/ml) SC SCH ×4 (06:28→22:23)
[2017-11-11] MEDS: ACCU-CHEK COMFORT CURVE STRIP VI SCH ×4 (06:28→22:20)
[2017-11-11] MEDS: BUDESONIDE (INHALATION) 0.5 MG/2 ML NEB NEB SCH ×2 (07:19→22:10)
[2017-11-11 08:00] VITALS: BP 110/63
[2017-11-11 08:51] VITALS: BP 110/63
[2017-11-11] MEDS: PANTOPRAZOLE 40 MG TAB PO SCH (09:46)
[2017-11-11] MEDS: DOXYCYCLINE 100 MG TAB/CAP PO SCH ×2 (09:46→22:19)
[2017-11-11] MEDS: ALPRAZolam 0.5 MG TAB PO SCH ×2 (09:46→22:19)
[2017-11-11] MEDS: POTASSIUM CHL 10 Meq TABLET PO SCH (09:46)
[2017-11-11] MEDS: FUROSEMIDE 20 MG TAB PO SCH (09:46)
[2017-11-11] MEDS: ENOXAPARIN SOD 40 MG/0.4 ML SYRINGE SC SCH (09:47)
[2017-11-11] MEDS: ASPirin-EC 81 mg tab PO SCH (09:47)
[2017-11-11 12:00] VITALS: BP 104/66
[2017-11-11 17:00] VITALS: BP 111/68
[2017-11-11 17:09] LABS: INR 0.98 (0.9-1.15); Partial Thromboplastin Time 23.5 sec (22.64-33.71); Prothrombin Time 10.7 sec (9.37-12.3)
[2017-11-11 18:27] LABS: Urine Bacteria NONE SEEN /hpf (None Seen); Urine Blood Negative /uL (Negative); Urine Specific Gravity 1.011 (1.001-1.035); Urine WBC 1 /hpf (0 - 3)
[2017-11-11 22:00] VITALS: BP 112/72
[2017-11-11] MEDS: SERTRALINE HCL 50 MG TAB PO SCH (22:20)
[2017-11-12] MEDS: methylPREDNISolone SOD SUCC 40 MG/ML VL IV SCH ×5 (00:08→23:25)
[2017-11-12] MEDS: IPRATROPIUM BROM 0.5 MG/2.5ML INH SOL NEB SCH ×6 (02:57→22:22)
[2017-11-12] MEDS: ALBUTEROL SULF 2.5 MG/0.5ML(0.5%) NEB SOLN NEB SCH ×6 (02:57→22:22)
[2017-11-12] MEDS: ACCU-CHEK COMFORT CURVE STRIP VI SCH ×4 (04:56→20:29)
[2017-11-12 05:00] VITALS: BP 117/80
[2017-11-12] MEDS: InsuLIN REG 1unit/0.01ml Soln (100units/ml) SC SCH ×4 (05:00→20:29)
[2017-11-12 06:55] LABS: BUN/Creatinine Ratio 28.6; Calcium 8.6 mg/dL (8.5-10.1); Potassium 3.9 mmol/L (3.5-5.1)
[2017-11-12 07:11] LABS: Basophils # (auto) 0 uL; Basophils % (auto) 0.2 % (0.0-2.0); Eosinophils # (auto) 0 uL; Hematocrit 40.6 % (41.0-53.0); Hemoglobin 14.1 g/dL (13.5-17.5); Lymphocytes # (auto) 1.8 uL; Lymphocytes % (auto) 15.1 % (10.0-50.0); Mean Corpuscular Hemoglobin 33.5 pg (28.0-32.0); Mean Corpuscular Hgb Conc. 34.7 g/dL (32.0-36.0); Mean Corpuscular Volume 96.7 fL (80.0-100.0); Monocytes # (auto) 0.9 uL; Monocytes % (auto) 7.4 % (0.0-12.0); Neutrophils % (auto) 77.3 % (37.0-80.0); Nucleated Red Blood Cells % 0.2 %; Platelet Count (auto) 188 10^3/uL (140-450); Red Cell Distribution Width 13.9 % (11.8-14.3); White Blood Cell 11.6 10^3/uL (4.4-10.8)
[2017-11-12 08:00] VITALS: BP 121/73
[2017-11-12] MEDS: PANTOPRAZOLE 40 MG TAB PO SCH (09:05)
[2017-11-12] MEDS: ASPirin-EC 81 mg tab PO SCH (09:05)
[2017-11-12] MEDS: DOXYCYCLINE 100 MG TAB/CAP PO SCH ×2 (09:05→20:28)
[2017-11-12] MEDS: ALPRAZolam 0.5 MG TAB PO SCH ×2 (09:06→20:28)
[2017-11-12] MEDS: ENOXAPARIN SOD 40 MG/0.4 ML SYRINGE SC SCH (09:06)
[2017-11-12] MEDS: POTASSIUM CHL 10 Meq TABLET PO SCH (09:27)
[2017-11-12] MEDS: FUROSEMIDE 20 MG TAB PO SCH (09:27)
[2017-11-12] MEDS: BUDESONIDE (INHALATION) 0.5 MG/2 ML NEB NEB SCH ×2 (10:30→18:14)
[2017-11-12] MEDS ORDERED: ceFAZolin 1GM/50ML 50 ML IV ONE (11:31)
[2017-11-12] MEDS ORDERED: ceFAZolin 1GM VL ONE (11:46)
[2017-11-12] MEDS ORDERED: HEPARIN 1,000 UNITS/ml 1ML VIAL ONE (11:46)
[2017-11-12] MEDS ORDERED: HEPARIN SODIUM (PORCINE) 5000 UNITS/ML 1ML VIAL ONE (11:46)
[2017-11-12] MEDS ORDERED: fentaNYL CITRATE 100 MCG/2 ML VL ONE (12:15)
[2017-11-12] MEDS ORDERED: MIDAZOLAM HCL 1MG/1ML-2 ML VIAL ONE (12:15)
[2017-11-12] MEDS ORDERED: KETOROLAC TROMETH 30 MG/ML 1ML VIAL IV ONE (12:45)
[2017-11-12] MEDS ORDERED: ONDANSETRON HCL 4 MG/2 ML VIAL IV ONE (12:45)
[2017-11-12] MEDS ORDERED: HYDROmorphone HCL 2 MG/ML VL IV PRN (12:45)
[2017-11-12] MEDS ORDERED: ePHEDrine SULFATE 50 MG/ML AMP IV PRN (12:45)
[2017-11-12] MEDS ORDERED: LABETALOL HCL 5 MG/ML 4ML SYRINGE IV PRN (12:45)
[2017-11-12] MEDS ORDERED: ACCU-CHEK COMFORT CURVE STRIP VI ONE (12:45)
[2017-11-12] MEDS ORDERED: PROPOFOL 10 MG/ML 20 ML IV ONE (12:54)
[2017-11-12] MEDS ORDERED: DEXAMETHASONE SOD PHOS 10MG/1ML VIAL INJ ONE (12:54)
[2017-11-12] MEDS ORDERED: MORPHINE SULF INJ 2 MG/ML SYRINGE 1ML IV ONE (14:00)
[2017-11-12 16:58] VITALS: BP 99/65
[2017-11-12] MEDS: SERTRALINE HCL 50 MG TAB PO SCH (20:28)
[2017-11-12 22:03] VITALS: BP 113/69
[2017-11-13 01:49] VITALS: BP 113/69
[2017-11-13] MEDS: IPRATROPIUM BROM 0.5 MG/2.5ML INH SOL NEB SCH ×6 (02:32→22:14)
[2017-11-13] MEDS: ALBUTEROL SULF 2.5 MG/0.5ML(0.5%) NEB SOLN NEB SCH ×6 (02:32→22:14)
[2017-11-13 05:27] VITALS: BP 116/66
[2017-11-13] MEDS: ACCU-CHEK COMFORT CURVE STRIP VI SCH ×4 (05:51→21:42)
[2017-11-13] MEDS: methylPREDNISolone SOD SUCC 40 MG/ML VL IV SCH ×3 (05:51→18:00)
[2017-11-13] MEDS: InsuLIN REG 1unit/0.01ml Soln (100units/ml) SC SCH ×4 (05:52→21:53)
[2017-11-13] MEDS: BUDESONIDE (INHALATION) 0.5 MG/2 ML NEB NEB SCH ×2 (07:29→18:44)
[2017-11-13 08:48] VITALS: BP 98/53
[2017-11-13] MEDS: DOXYCYCLINE 100 MG TAB/CAP PO SCH ×2 (10:15→21:52)
[2017-11-13] MEDS: POTASSIUM CHL 10 Meq TABLET PO SCH (10:15)
[2017-11-13] MEDS: PANTOPRAZOLE 40 MG TAB PO SCH (10:15)
[2017-11-13] MEDS: ENOXAPARIN SOD 40 MG/0.4 ML SYRINGE SC SCH (10:15)
[2017-11-13] MEDS: FUROSEMIDE 20 MG TAB PO SCH (10:16)
[2017-11-13] MEDS: ASPirin-EC 81 mg tab PO SCH (10:16)
[2017-11-13] MEDS: ALPRAZolam 0.5 MG TAB PO SCH ×2 (10:16→21:52)
[2017-11-13 13:00] VITALS: BP 111/67
[2017-11-13 17:00] VITALS: BP 99/68
[2017-11-13 21:42] VITALS: BP_SYST 130; BP_DIAS 1; BP_DIAS 61
[2017-11-13] MEDS: SERTRALINE HCL 50 MG TAB PO SCH (21:52)
[2017-11-13] MEDS ORDERED: DEXTROSE (50%) 50ML SYRG IV PRN (23:30)
[2017-11-14] MEDS ORDERED: methylPREDNISolone SOD SUCC 125 MG/2 ML VL IV SCH
[2017-11-14] MEDS: ACCU-CHEK COMFORT CURVE STRIP VI SCH ×6 (00:34→20:02)
[2017-11-14] MEDS: InsuLIN REG 1unit/0.01ml Soln (100units/ml) SC SCH ×6 (00:35→20:09)
[2017-11-14] MEDS: IPRATROPIUM BROM 0.5 MG/2.5ML INH SOL NEB SCH ×6 (02:15→22:31)
[2017-11-14] MEDS: ALBUTEROL SULF 2.5 MG/0.5ML(0.5%) NEB SOLN NEB SCH ×6 (02:16→22:31)
[2017-11-14 04:34] VITALS: BP 118/76
[2017-11-14] MEDS: BUDESONIDE (INHALATION) 0.5 MG/2 ML NEB NEB SCH ×2 (06:50→22:31)
[2017-11-14 09:00] VITALS: BP 108/60
[2017-11-14] MEDS: FUROSEMIDE 20 MG TAB PO SCH (09:49)
[2017-11-14] MEDS: PANTOPRAZOLE 40 MG TAB PO SCH (09:49)
[2017-11-14] MEDS: POTASSIUM CHL 10 Meq TABLET PO SCH (09:49)
[2017-11-14] MEDS: ASPirin-EC 81 mg tab PO SCH (09:50)
[2017-11-14] MEDS: ENOXAPARIN SOD 40 MG/0.4 ML SYRINGE SC SCH (09:50)
[2017-11-14] MEDS: DOXYCYCLINE 100 MG TAB/CAP PO SCH ×2 (09:50→21:44)
[2017-11-14] MEDS: ALPRAZolam 0.5 MG TAB PO SCH ×2 (09:50→21:44)
[2017-11-14] MEDS: methylPREDNISolone SOD SUCC 40 MG/ML VL IV SCH ×3 (10:00→21:43)
[2017-11-14 13:00] VITALS: BP 111/67
[2017-11-14 17:17] VITALS: BP 107/69
[2017-11-14] MEDS: SERTRALINE HCL 50 MG TAB PO SCH (21:44)
[2017-11-14 22:05] VITALS: BP 119/41
[2017-11-15] MEDS: ACCU-CHEK COMFORT CURVE STRIP VI SCH ×6 (01:29→20:05)
[2017-11-15] MEDS: InsuLIN REG 1unit/0.01ml Soln (100units/ml) SC SCH ×6 (01:30→20:10)
[2017-11-15] MEDS: IPRATROPIUM BROM 0.5 MG/2.5ML INH SOL NEB SCH ×6 (02:18→21:28)
[2017-11-15] MEDS: ALBUTEROL SULF 2.5 MG/0.5ML(0.5%) NEB SOLN NEB SCH ×6 (02:18→21:28)
[2017-11-15 04:47] VITALS: BP 104/58
[2017-11-15 09:11] VITALS: BP 116/70
[2017-11-15] MEDS: BUDESONIDE (INHALATION) 0.5 MG/2 ML NEB NEB SCH ×2 (10:15→21:28)
[2017-11-15] MEDS: PANTOPRAZOLE 40 MG TAB PO SCH (10:36)
[2017-11-15] MEDS: ALPRAZolam 0.5 MG TAB PO SCH ×2 (10:36→21:18)
[2017-11-15] MEDS: POTASSIUM CHL 10 Meq TABLET PO SCH (10:36)
[2017-11-15] MEDS: methylPREDNISolone SOD SUCC 40 MG/ML VL IV SCH ×2 (10:36→21:18)
[2017-11-15] MEDS: DOXYCYCLINE 100 MG TAB/CAP PO SCH ×2 (10:36→21:18)
[2017-11-15] MEDS: FUROSEMIDE 20 MG TAB PO SCH (10:36)
[2017-11-15] MEDS: ENOXAPARIN SOD 40 MG/0.4 ML SYRINGE SC SCH (10:37)
[2017-11-15] MEDS: ASPirin-EC 81 mg tab PO SCH (10:37)
[2017-11-15 12:18] VITALS: BP 126/71
[2017-11-15 17:21] VITALS: BP 113/59
[2017-11-15] MEDS: SERTRALINE HCL 50 MG TAB PO SCH (21:18)
[2017-11-15 22:09] VITALS: BP 101/63
[2017-11-16] MEDS: ACCU-CHEK COMFORT CURVE STRIP VI SCH ×6 (00:17→20:10)
[2017-11-16] MEDS: InsuLIN REG 1unit/0.01ml Soln (100units/ml) SC SCH ×6 (00:18→20:35)
[2017-11-16 02:06] VITALS: BP 101/63
[2017-11-16] MEDS: IPRATROPIUM BROM 0.5 MG/2.5ML INH SOL NEB SCH ×6 (02:19→22:30)
[2017-11-16] MEDS: ALBUTEROL SULF 2.5 MG/0.5ML(0.5%) NEB SOLN NEB SCH ×6 (02:20→22:30)
[2017-11-16 04:56] VITALS: BP 111/78
[2017-11-16] MEDS: BUDESONIDE (INHALATION) 0.5 MG/2 ML NEB NEB SCH ×2 (07:01→22:30)
[2017-11-16 09:06] VITALS: BP 124/66
[2017-11-16] MEDS: ENOXAPARIN SOD 40 MG/0.4 ML SYRINGE SC SCH (10:18)
[2017-11-16] MEDS: PANTOPRAZOLE 40 MG TAB PO SCH (10:18)
[2017-11-16] MEDS: POTASSIUM CHL 10 Meq TABLET PO SCH (10:18)
[2017-11-16] MEDS: DOXYCYCLINE 100 MG TAB/CAP PO SCH ×2 (10:18→21:33)
[2017-11-16] MEDS: ALPRAZolam 0.5 MG TAB PO SCH ×2 (10:18→21:33)
[2017-11-16] MEDS: FUROSEMIDE 20 MG TAB PO SCH (10:19)
[2017-11-16] MEDS: ASPirin-EC 81 mg tab PO SCH (10:19)
[2017-11-16] MEDS: methylPREDNISolone SOD SUCC 40 MG/ML VL IV SCH ×2 (10:20→21:32)
[2017-11-16 12:43] VITALS: BP 120/63
[2017-11-16 17:29] VITALS: BP 115/69
[2017-11-16] MEDS: SERTRALINE HCL 50 MG TAB PO SCH (21:33)
[2017-11-16 21:59] VITALS: BP 102/50
[2017-11-17] MEDS: ACCU-CHEK COMFORT CURVE STRIP VI SCH ×7 (00:14→23:39)
[2017-11-17] MEDS: InsuLIN REG 1unit/0.01ml Soln (100units/ml) SC SCH ×7 (00:18→23:43)
[2017-11-17] MEDS: IPRATROPIUM BROM 0.5 MG/2.5ML INH SOL NEB SCH ×6 (02:15→22:26)
[2017-11-17] MEDS: ALBUTEROL SULF 2.5 MG/0.5ML(0.5%) NEB SOLN NEB SCH ×6 (02:15→22:26)
[2017-11-17 05:05] VITALS: BP 112/64
[2017-11-17 05:51] LABS: Basophils # (auto) 0 uL; Eosinophils # (auto) 0 uL; Lymphocytes # (auto) 0.6 uL; Lymphocytes % (auto) 5.2 % (10.0-50.0); Neutrophils % (auto) 91.5 % (37.0-80.0); Red Cell Distribution Width 14.2 % (11.8-14.3)
[2017-11-17 05:55] LABS: Basophils % (auto) 0.1 % (0.0-2.0); Hematocrit 39.4 % (41.0-53.0); Hemoglobin 13.5 g/dL (13.5-17.5); Mean Corpuscular Hemoglobin 33.8 pg (28.0-32.0); Mean Corpuscular Hgb Conc. 34.3 g/dL (32.0-36.0); Mean Corpuscular Volume 98.5 fL (80.0-100.0); Monocytes # (auto) 0.4 uL; Monocytes % (auto) 3.2 % (0.0-12.0); Neutrophils # (auto) 10.3 uL; Platelet Count (auto) 136 10^3/uL (140-450); White Blood Cell 11.3 10^3/uL (4.4-10.8)
[2017-11-17 06:14] LABS: Calcium 8.6 mg/dL (8.5-10.1); Potassium 4.4 mmol/L (3.5-5.1)
[2017-11-17 06:19] LABS: Albumin 2.8 g/dL (3.4-5.0); BUN/Creatinine Ratio 27.8; Bilirubin, Total 0.4 mg/dL (0.2-1.0); Total Protein 5.5 g/dL (6.4-8.2)
[2017-11-17 08:00] VITALS: BP 121/64
[2017-11-17 08:01] VITALS: BP 121/65
[2017-11-17] MEDS: methylPREDNISolone SOD SUCC 40 MG/ML VL IV SCH (09:28)
[2017-11-17] MEDS: POTASSIUM CHL 10 Meq TABLET PO SCH (09:29)
[2017-11-17] MEDS: ASPirin-EC 81 mg tab PO SCH (09:29)
[2017-11-17] MEDS: ENOXAPARIN SOD 40 MG/0.4 ML SYRINGE SC SCH (09:29)
[2017-11-17] MEDS: DOXYCYCLINE 100 MG TAB/CAP PO SCH (09:30)
[2017-11-17] MEDS: PANTOPRAZOLE 40 MG TAB PO SCH (09:30)
[2017-11-17] MEDS: ALPRAZolam 0.5 MG TAB PO SCH ×2 (09:30→21:22)
[2017-11-17] MEDS: FUROSEMIDE 20 MG TAB PO SCH (09:31)
[2017-11-17] MEDS: BUDESONIDE (INHALATION) 0.5 MG/2 ML NEB NEB SCH ×2 (10:18→22:26)
[2017-11-17 11:42] VITALS: BP 123/66
[2017-11-17 16:52] VITALS: BP 101/69
[2017-11-17] MEDS: SERTRALINE HCL 50 MG TAB PO SCH (21:23)
[2017-11-17 21:47] VITALS: BP 140/82
[2017-11-18] MEDS: IPRATROPIUM BROM 0.5 MG/2.5ML INH SOL NEB SCH ×4 (03:09→15:11)
[2017-11-18] MEDS: ALBUTEROL SULF 2.5 MG/0.5ML(0.5%) NEB SOLN NEB SCH ×4 (03:09→15:11)
[2017-11-18] MEDS: ACCU-CHEK COMFORT CURVE STRIP VI SCH ×4 (04:08→17:43)
[2017-11-18] MEDS: InsuLIN REG 1unit/0.01ml Soln (100units/ml) SC SCH ×4 (04:11→17:43)
[2017-11-18 04:51] VITALS: BP 120/72
[2017-11-18 07:54] VITALS: BP 119/69
[2017-11-18 08:00] VITALS: BP 119/69
[2017-11-18] MEDS: ENOXAPARIN SOD 40 MG/0.4 ML SYRINGE SC SCH (09:14)
[2017-11-18] MEDS: methylPREDNISolone SOD SUCC 40 MG/ML VL IV SCH (09:14)
[2017-11-18] MEDS: FUROSEMIDE 20 MG TAB PO SCH (09:15)
[2017-11-18] MEDS: POTASSIUM CHL 10 Meq TABLET PO SCH (09:15)
[2017-11-18] MEDS: ALPRAZolam 0.5 MG TAB PO SCH (09:15)
[2017-11-18] MEDS: PANTOPRAZOLE 40 MG TAB PO SCH (09:16)
[2017-11-18] MEDS: ASPirin-EC 81 mg tab PO SCH (09:16)
[2017-11-18] MEDS: BUDESONIDE (INHALATION) 0.5 MG/2 ML NEB NEB SCH (10:15)
[2017-11-18 11:32] VITALS: BP 111/71
[2017-11-18 14:27] VITALS: BP 111/71
[2017-11-18 16:52] VITALS: BP 119/64
== END 2017-11-18 18:30 | DRG 189 ==
LOC: ER 10:18 → EDBD 10:18 → TELE 10:19 → TELE-EAST 22:00
PROVIDERS: ADMIT Internal Medicine; ATTEND Specialist
PROC: 5A09557 Assistance with Respiratory Ventilation, Greater than 96 Consecutive Hours, Continuous Positive Airway Pressure (ICD-10-PCS; principal; 2017-11-04)
PROC: 0JH63XZ Insertion of Tunneled Vascular Access Device into Chest Subcutaneous Tissue and Fascia, Percutaneous Approach (ICD-10-PCS; 2017-11-12)
PROC: 05H633Z Insertion of Infusion Device into Left Subclavian Vein, Percutaneous Approach (ICD-10-PCS; 2017-11-12)
DX: J96.21 Acute and chronic respiratory failure with hypoxia (principal); J84.9 Interstitial pulmonary disease, unspecified; E88.01 Alpha-1-antitrypsin deficiency; J44.0 Chronic obstructive pulmonary disease with (acute) lower respiratory infection; Z93.0 Tracheostomy status; J45.901 Unspecified asthma with (acute) exacerbation; E11.65 Type 2 diabetes mellitus with hyperglycemia; I11.0 Hypertensive heart disease with heart failure; I50.810 Right heart failure, unspecified; J44.1 Chronic obstructive pulmonary disease with (acute) exacerbation; K21.9 Gastro-esophageal reflux disease without esophagitis; G47.33 Obstructive sleep apnea (adult) (pediatric); I25.10 Atherosclerotic heart disease of native coronary artery without angina pectoris; F32.9 Major depressive disorder, single episode, unspecified; E66.9 Obesity, unspecified; T38.0X5A Adverse effect of glucocorticoids and synthetic analogues, initial encounter; F41.9 Anxiety disorder, unspecified; J20.9 Acute bronchitis, unspecified; Z80.0 Family history of malignant neoplasm of digestive organs; Z87.891 Personal history of nicotine dependence; Z82.3 Family history of stroke; Z82.49 Family history of ischemic heart disease and other diseases of the circulatory system; Z82.5 Family history of asthma and other chronic lower respiratory diseases; Z86.73 Personal history of transient ischemic attack (TIA), and cerebral infarction without residual deficits; Y92.89 Other specified places as the place of occurrence of the external cause; Z83.49 Family history of other endocrine, nutritional and metabolic diseases; Z68.28 Body mass index [BMI] 28.0-28.9, adult
CPT/HCPCS: 36415; 71010; 71045; 80048; 80053; 80061; 81001; 82962; 83036; 83880; 84484; 85025; 85610; 85730; 86850; 86900; 86901; 87070; 87081; 87205; 87400; 93005; 94640; 94660; 96361; 96365; 96375; 97163; C1788; J0690; J1100; J1815; J2250; J2704; J3490

== ENCOUNTER 2018-06-25 10:41 | Inpatient (IN) | payer MEDICARE, MEDICAID ==
[~2018-06-25] VITALS: Ht 30.5 cm; Wt 91.8 kg
[2018-06-25] MEDS ORDERED: SODIUM CHLORIDE 0.9% 1,000 ML IV ONE (10:48)
[2018-06-25] MEDS ORDERED: IPRATROPIUM BROM 0.5 MG/2.5ML INH SOL NEB ONE (11:00)
[2018-06-25] MEDS ORDERED: methylPREDNISolone SOD SUCC 125 MG/2 ML VL IV ONE (11:00)
[2018-06-25] MEDS ORDERED: ALBUTEROL SULF 2.5 MG/0.5ML(0.5%) NEB SOLN NEB ONE (11:00)
[2018-06-25 11:20] LABS: Basophils # (auto) 0.1 uL; Eosinophils # (auto) 0.2 uL
[2018-06-25 11:23] LABS: Basophils % (auto) 0.7 % (0.0-2.0); Eosinophils % (auto) 2.3 % (0.0-7.0); Hematocrit 45.1 % (41.0-53.0); Hemoglobin 16.3 g/dL (13.5-17.5); Lymphocytes # (auto) 2.3 uL; Lymphocytes % (auto) 26.5 % (10.0-50.0); Mean Corpuscular Hemoglobin 35.2 pg (28.0-32.0); Mean Corpuscular Hgb Conc. 36.2 g/dL (32.0-36.0); Mean Corpuscular Volume 97.4 fL (80.0-100.0); Monocytes # (auto) 0.5 uL; Monocytes % (auto) 5.5 % (0.0-12.0); Neutrophils # (auto) 5.6 uL; Nucleated Red Blood Cells % 0.4 %; Red Blood Cells 4.63 10^6/uL (4.5-5.90); Red Cell Distribution Width 13.3 % (11.8-14.3); White Blood Cell 8.6 10^3/uL (4.4-10.8)
[2018-06-25 11:36] LABS: INR 0.97 (0.9-1.15); Partial Thromboplastin Time 26.1 sec (23.78-33.04); Prothrombin Time 10.4 sec (9.27-12.13)
[2018-06-25 11:38] LABS: Platelet Count (auto) 183 10^3/uL (140-450)
[2018-06-25 11:47] LABS: Albumin 3.9 g/dL (3.4-5.0); BUN/Creatinine Ratio 13.6; Bilirubin, Total 0.5 mg/dL (0.2-1.0); Calcium 9.4 mg/dL (8.5-10.1); Potassium 3.5 mmol/L (3.5-5.1); Total Protein 7.4 g/dL (6.4-8.2)
[2018-06-25] MEDS ORDERED: MORPHINE SULF INJ 2 MG/ML SYRINGE 1ML IV PRN (13:30)
[2018-06-25] MEDS ORDERED: NITROGLYCERIN 0.4 MG SL TAB SL PRN (13:30)
[2018-06-25] MEDS ORDERED: cefTRIAXone 1GM/10ml IVPUSH 10 ML IV ONE (13:30)
[2018-06-25] MEDS ORDERED: ONDANSETRON HCL 4 MG/2 ML VIAL IV PRN (14:15)
[2018-06-25] MEDS ORDERED: DEXTROSE (50%) 50ML SYRG IV PRN (14:15)
[2018-06-25 15:48] LABS: Urine Bacteria NONE SEEN /hpf (None Seen); Urine Blood Negative /uL (Negative); Urine Specific Gravity 1.006 (1.001-1.035); Urine WBC <1 /hpf (0 - 3)
[2018-06-25] MEDS ORDERED: ALPRAZolam 0.5 MG TAB PO PRN (18:00)
[2018-06-25] MEDS: IPRATROPIUM BROM 0.5 MG/2.5ML INH SOL NEB SCH ×2 (18:05→22:17)
[2018-06-25] MEDS: ALBUTEROL SULF 2.5 MG/0.5ML(0.5%) NEB SOLN NEB SCH ×2 (18:06→22:16)
[2018-06-25 21:48] VITALS: BP 102/60
[2018-06-25] MEDS: methylPREDNISolone SOD SUCC 40 MG/ML VL IV SCH (22:21)
[2018-06-25] MEDS: InsuLIN REG 1unit/0.01ml Soln (100units/ml) SC SCH (22:21)
[2018-06-25] MEDS: ACCU-CHEK COMFORT CURVE STRIP VI SCH (22:21)
[2018-06-25] MEDS: FAMOTIDINE 20 MG TAB PO SCH (22:21)
[2018-06-25 23:45] VITALS: BP 110/73
[2018-06-25 23:50] VITALS: BP 110/73
[2018-06-26] MEDS: ALBUTEROL SULF 2.5 MG/0.5ML(0.5%) NEB SOLN NEB SCH ×6 (02:18→22:43)
[2018-06-26] MEDS: IPRATROPIUM BROM 0.5 MG/2.5ML INH SOL NEB SCH ×6 (02:18→22:43)
[2018-06-26 05:00] VITALS: BP 111/64
[2018-06-26 09:16] VITALS: BP 125/76
[2018-06-26] MEDS: FAMOTIDINE 20 MG TAB PO SCH ×2 (10:00→21:51)
[2018-06-26] MEDS: methylPREDNISolone SOD SUCC 40 MG/ML VL IV SCH ×2 (10:11→21:50)
[2018-06-26] MEDS: cefTRIAXone 1GM/10ml IVPUSH 10 ML IV SCH (10:11)
[2018-06-26] MEDS: ACCU-CHEK COMFORT CURVE STRIP VI SCH ×2 (10:22→21:51)
[2018-06-26] MEDS: InsuLIN REG 1unit/0.01ml Soln (100units/ml) SC SCH ×2 (10:30→21:51)
[2018-06-26 13:32] VITALS: BP 112/66
[2018-06-26 17:22] VITALS: BP 100/66
[2018-06-27] MEDS: IPRATROPIUM BROM 0.5 MG/2.5ML INH SOL NEB SCH ×4 (02:40→14:22)
[2018-06-27] MEDS: ALBUTEROL SULF 2.5 MG/0.5ML(0.5%) NEB SOLN NEB SCH ×4 (02:40→14:21)
[2018-06-27 05:52] VITALS: BP 106/64
[2018-06-27 09:04] VITALS: BP 86/47
[2018-06-27] MEDS: InsuLIN REG 1unit/0.01ml Soln (100units/ml) SC SCH (10:00)
[2018-06-27] MEDS: cefTRIAXone 1GM/10ml IVPUSH 10 ML IV SCH (10:19)
[2018-06-27] MEDS: ACCU-CHEK COMFORT CURVE STRIP VI SCH (10:20)
[2018-06-27] MEDS: FAMOTIDINE 20 MG TAB PO SCH (10:20)
[2018-06-27] MEDS: methylPREDNISolone SOD SUCC 40 MG/ML VL IV SCH (10:20)
[2018-06-27 12:24] VITALS: BP 108/62
[2018-06-27 14:17] VITALS: BP 108/62
== END 2018-06-27 15:20 | disposition home or self-care (01) | DRG 189 ==
LOC: ER 10:41 → EDBD 10:41 → EDUNIT# 10:41 → TELE 10:42 → TELE-WESTW 23:48
PROVIDERS: ADMIT Specialist; ATTEND Specialist
PROC: 5A09357 Assistance with Respiratory Ventilation, Less than 24 Consecutive Hours, Continuous Positive Airway Pressure (ICD-10-PCS; principal; 2018-06-25)
PROC: 5A09357 Assistance with Respiratory Ventilation, Less than 24 Consecutive Hours, Continuous Positive Airway Pressure (ICD-10-PCS; 2018-06-27)
DX: J96.20 Acute and chronic respiratory failure, unspecified whether with hypoxia or hypercapnia (principal); J44.1 Chronic obstructive pulmonary disease with (acute) exacerbation; G47.33 Obstructive sleep apnea (adult) (pediatric); F41.0 Panic disorder [episodic paroxysmal anxiety]; E88.01 Alpha-1-antitrypsin deficiency; I11.0 Hypertensive heart disease with heart failure; F32.9 Major depressive disorder, single episode, unspecified; R56.9 Unspecified convulsions; I50.9 Heart failure, unspecified; J98.4 Other disorders of lung; K21.9 Gastro-esophageal reflux disease without esophagitis; Z79.82 Long term (current) use of aspirin; Z79.899 Other long term (current) drug therapy; Z82.3 Family history of stroke; Z82.49 Family history of ischemic heart disease and other diseases of the circulatory system; Z85.038 Personal history of other malignant neoplasm of large intestine
CPT/HCPCS: 36415; 36600; 71045; 80053; 81001; 82805; 82962; 83880; 84484; 85025; 85610; 85730; 87040; 93005; 94640; 94644; 94660; 96372; 96374; 96375; J0696; J1815

== ENCOUNTER 2018-11-23 09:15 | Inpatient (IN) | payer MEDICARE, MEDICAID | END 2018-11-27 16:08 | disposition home health service (06) | LOC: TELE-WESTW 21:37 → ER 09:15 → TELE 13:42 → TELE-WESTW 21:35 | DX: J96.20 Acute and chronic respiratory failure, unspecified whether with hypoxia or hypercapnia (principal); J18.9 Pneumonia, unspecified organism; J44.1 Chronic obstructive pulmonary disease with (acute) exacerbation; I50.42 Chronic combined systolic (congestive) and diastolic (congestive) heart failure; J44.0 Chronic obstructive pulmonary disease with (acute) lower respiratory infection; J20.9 Acute bronchitis, unspecified; I11.0 Hypertensive heart disease with heart failure; G40.909 Epilepsy, unspecified, not intractable, without status epilepticus; Z79.52 Long term (current) use of systemic steroids; E78.5 Hyperlipidemia, unspecified; T38.0X5A Adverse effect of glucocorticoids and synthetic analogues, initial encounter; R06.03 Acute respiratory distress ==

== ENCOUNTER 2019-05-11 09:50 | Inpatient (IN) | payer MEDICARE, MEDICAID ==
[~2019-05-11] VITALS: Ht 177.8 cm; Wt 83.1 kg
[~2019-05-11 09:50] MED LIST changes: +LEVO500T21 PO; +PRE1T PO
[2019-05-11] MEDS ORDERED: methylPREDNISolone SOD SUCC 125 MG/2 ML VL IV ONE (10:30)
[2019-05-11] MEDS ORDERED: IPRATROPIUM BROM 0.5 MG/2.5ML INH SOL NEB ONE (10:30)
[2019-05-11] MEDS ORDERED: ALBUTEROL SULF 2.5 MG/0.5ML(0.5%) NEB SOLN NEB ONE (10:30)
[2019-05-11 11:00] LABS: Basophils # (auto) 0.1 uL; Basophils % (auto) 0.6 % (0.0-2.0); Eosinophils # (auto) 0.2 uL; Eosinophils % (auto) 1.5 % (0.0-7.0); Hematocrit 48.6 % (41.0-53.0); Hemoglobin 16.8 g/dL (13.5-17.5); Lymphocytes # (auto) 1.2 uL; Lymphocytes % (auto) 11.9 % (10.0-50.0); Mean Corpuscular Hemoglobin 33.1 pg (28.0-32.0); Mean Corpuscular Hgb Conc. 34.5 g/dL (32.0-36.0); Mean Corpuscular Volume 95.9 fL (80.0-100.0); Monocytes # (auto) 0.6 uL; Monocytes % (auto) 5.5 % (0.0-12.0); Neutrophils # (auto) 8.2 uL; Neutrophils % (auto) 80.5 % (37.0-80.0); Platelet Count (auto) 192 10^3/uL (140-450); Red Blood Cells 5.07 10^6/uL (4.5-5.90); Red Cell Distribution Width 13.8 % (11.8-14.3); White Blood Cell 10.1 10^3/uL (4.4-10.8)
[2019-05-11 11:15] LABS: Albumin 4.2 g/dL (3.4-5.0); Calcium 10.1 mg/dL (8.5-10.1); Magnesium 2.6 mg/dL (1.6-2.6); Potassium 3.4 mmol/L (3.5-5.1)
[2019-05-11 11:22] LABS: BUN/Creatinine Ratio 12.9; Bilirubin, Total 0.5 mg/dL (0.2-1.0); Total Protein 7.5 g/dL (6.4-8.2)
[2019-05-11] MEDS ORDERED: MORPHINE SULF INJ 2 MG/ML SYRINGE 1ML IV PRN ×2 (12:15)
[2019-05-11] MEDS ORDERED: POTASSIUM CHL 20 Meq TABLET PO ONE (12:15)
[2019-05-11] MEDS ORDERED: ONDANSETRON HCL 4 MG/2 ML VIAL IV PRN (12:15)
[2019-05-11] MEDS ORDERED: ACETAMINOPHEN 500 MG TAB PO PRN (12:15)
[2019-05-11] MEDS ORDERED: HYDROcodone-ACET 5/325MG TAB PO PRN (12:15)
[2019-05-11] MEDS ORDERED: NITROGLYCERIN 0.4 MG SL TAB SL PRN (12:15)
[2019-05-11] MEDS: ALPRAZolam 0.5 MG TAB PO SCH ×2 (12:44→22:00)
[2019-05-11] MEDS: cefTRIAXone 1GM/50ML D5W 50 ML IV SCH (12:44)
[2019-05-11 12:50] LABS: Urine Bacteria NONE SEEN /hpf (None Seen); Urine Blood Negative /uL (Negative); Urine Hyaline Cast FEW /lpf (0 - 2); Urine Specific Gravity 1.005 (1.001-1.035); Urine WBC 1 /hpf (0 - 3)
--- NOTE | 2019-05-11 14:00 | NUR ---
Patient arrived on unit Patient is A&O x4, no s/s of distress at this time, POC discussed with patient. Vital signs are stable: BP 108/68; HR95; O2 sat: 93%; RR 22. RT has been made aware that patient has a breathing treatment at 1400. Lung sounds are diminished on the L side throughout posteriorly. Wheeze to the right upper lobe anteriorly upon expiration, patient is on 3L nasal cannula. Will continue to monitor Q1h and PRN.
[2019-05-11] MEDS: IPRATROPIUM BROM 0.5 MG/2.5ML INH SOL NEB SCH ×3 (15:14→22:10)
[2019-05-11] MEDS: ALBUTEROL SULF 2.5 MG/0.5ML(0.5%) NEB SOLN NEB SCH ×3 (15:14→22:10)
[2019-05-11] MEDS ORDERED: [UNRECOGNIZED DRUG - CODE] IV (16:01)
[2019-05-11 16:27] VITALS: BP 114/61
[2019-05-11 16:41] VITALS: BP 102/60
[2019-05-11] MEDS: AZITHROMYCIN 500MG/ 250ML 250 ML IV SCH (17:46)
--- NOTE | 2019-05-11 19:15 | NUR ---
Opening Shift Note Assumed care of patient, awake and alert. No S/S of distress/SOB or pain. Instructed on POC and to call for assist PRN. This RN will continue to monitor for changes Q1hr and PRN. Pt wants Bipap placed hour early. Bed in low position. HOB in semi -Phan's position. Nurse call light within pt's reach.
[2019-05-11] MEDS: BUDESONIDE (INHALATION) 0.5 MG/2 ML NEB NEB SCH (19:17)
[2019-05-11 21:00] VITALS: BP 106/58
--- NOTE | 2019-05-11 21:09 | NUR ---
Pt moved successfully to Rm. 290A after this RN in room to assess pt. Pt talking with RN, then coughed three times, becoming verbally unresponsive. Rubric in color. Maintaining A/R pulses WNL and RR WNL but unresponsive. Initially eyes open then closed. Not responding to voice, sternal rub and initially to trapezius squeeze. More pressure with trap squeeze, pt jumped but cont unresponsive. RT called to room STAT, CN x2 -Libra and Sophia and RNs responding to room. Pt responsive, then coughing again and again loss of responsiveness. RT placing pt on O2; HOB in high Fowlers and pt talking to this RN while moved to room closer to nurses' station. Placed on BiPap by RT.
[2019-05-11] MEDS ORDERED: HYDROCORTONE 1% TOPICAL CREAM 30 GM TUBE TOP ONE (22:00)
--- NOTE | 2019-05-11 23:45 | NUR ---
Xanax pulled to give pt. Pt sleeping soundly on Bi-pap. Med held due to previous non-responsive episode and current sound sleep. This RN accidently dropped med; waste witnessed by SHAGUFTA Bray.
[2019-05-12] VITALS (7 sets, daily range): BP systolic 97–164; BP diastolic 48–80
[2019-05-12] MEDS: ALBUTEROL SULF 2.5 MG/0.5ML(0.5%) NEB SOLN NEB SCH ×5 (06:12→22:16)
[2019-05-12] MEDS: IPRATROPIUM BROM 0.5 MG/2.5ML INH SOL NEB SCH ×5 (06:12→22:16)
[2019-05-12 07:21] LABS: Basophils # (auto) 0 uL; Basophils % (auto) 0.3 % (0.0-2.0); Eosinophils # (auto) 0.1 uL; Eosinophils % (auto) 0.5 % (0.0-7.0); Hematocrit 44.1 % (41.0-53.0); Hemoglobin 15.2 g/dL (13.5-17.5); Lymphocytes # (auto) 2.2 uL; Lymphocytes % (auto) 18.7 % (10.0-50.0); Mean Corpuscular Hemoglobin 33.2 pg (28.0-32.0); Mean Corpuscular Hgb Conc. 34.6 g/dL (32.0-36.0); Mean Corpuscular Volume 96.1 fL (80.0-100.0); Monocytes # (auto) 0.8 uL; Monocytes % (auto) 6.6 % (0.0-12.0); Neutrophils # (auto) 8.8 uL; Neutrophils % (auto) 73.9 % (37.0-80.0); Nucleated Red Blood Cells % 0.1 %; Platelet Count (auto) 188 10^3/uL (140-450); Red Blood Cells 4.59 10^6/uL (4.5-5.90); Red Cell Distribution Width 13.6 % (11.8-14.3)
[2019-05-12 08:05] LABS: BUN/Creatinine Ratio 22.9; Calcium 9.5 mg/dL (8.5-10.1); Potassium 3.1 mmol/L (3.5-5.1)
[2019-05-12] MEDS: cefTRIAXone 1GM/50ML D5W 50 ML IV SCH (08:38)
[2019-05-12] MEDS: BUDESONIDE (INHALATION) 0.5 MG/2 ML NEB NEB SCH ×2 (09:47→22:16)
[2019-05-12] MEDS ORDERED: [UNRECOGNIZED DRUG - OTHER] IV SCH ×3 (10:00→18:00)
[2019-05-12] MEDS: HCTZ 25 MG TAB PO SCH (10:00)
[2019-05-12] MEDS: AZITHROMYCIN 500MG/ 250ML 250 ML IV SCH (10:11)
[2019-05-12] MEDS: ASPirin-EC 81 mg tab PO SCH (10:12)
[2019-05-12] MEDS: ALPRAZolam 0.5 MG TAB PO SCH ×2 (10:12→21:07)
[2019-05-12] MEDS: PANTOPRAZOLE 40 MG TAB PO SCH (10:12)
[2019-05-12] MEDS: FUROSEMIDE 20 MG TAB PO SCH (10:12)
[2019-05-12] MEDS: SERTRALINE HCL 50 MG TAB PO SCH (10:12)
[2019-05-12] MEDS ORDERED: PATIENTS OWN MEDICATION PO SCH (17:15)
[2019-05-12] MEDS: methylPREDNISolone SOD SUCC 40 MG/ML VL IV SCH ×2 (19:27→23:58)
--- NOTE | 2019-05-12 19:30 | NUR ---
Opening Shift Note Assumed care of patient, awake and alert. No S/S of distress/SOB or pain. Instructed on POC and to call for assist PRN, will continue to monitor for changes Q1hr and PRN. Pt wants Bipap placed hour early. Bed in low position. HOB in Phan's position. Nurse call light within pt's reach.
[2019-05-12] MEDS ORDERED: PROLASTIN C IV SCH ×2 (19:45→22:00)
[2019-05-13 05:00] VITALS: BP 95/63
[2019-05-13] MEDS: ALBUTEROL SULF 2.5 MG/0.5ML(0.5%) NEB SOLN NEB SCH ×5 (05:57→22:49)
[2019-05-13] MEDS: IPRATROPIUM BROM 0.5 MG/2.5ML INH SOL NEB SCH ×5 (05:57→22:49)
[2019-05-13] MEDS: methylPREDNISolone SOD SUCC 40 MG/ML VL IV SCH ×3 (06:45→19:02)
[2019-05-13 08:00] VITALS: BP 93/59
[2019-05-13] MEDS: cefTRIAXone 1GM/50ML D5W 50 ML IV SCH (08:46)
[2019-05-13 09:00] VITALS: BP 93/59
[2019-05-13] MEDS: HCTZ 25 MG TAB PO SCH (09:15)
[2019-05-13] MEDS: FUROSEMIDE 20 MG TAB PO SCH (09:16)
[2019-05-13] MEDS: ASPirin-EC 81 mg tab PO SCH (09:23)
[2019-05-13] MEDS: PANTOPRAZOLE 40 MG TAB PO SCH (09:23)
[2019-05-13] MEDS: SERTRALINE HCL 50 MG TAB PO SCH (09:24)
[2019-05-13] MEDS: ALPRAZolam 0.5 MG TAB PO SCH ×2 (09:24→22:06)
[2019-05-13] MEDS: AZITHROMYCIN 500MG/ 250ML 250 ML IV SCH (10:09)
[2019-05-13] MEDS: BUDESONIDE (INHALATION) 0.5 MG/2 ML NEB NEB SCH ×2 (10:12→22:49)
[2019-05-13 12:58] VITALS: BP 123/61
[2019-05-13 17:00] VITALS: BP 111/46
[2019-05-13] MEDS ORDERED: POTASSIUM CHL 20 Meq TABLET PO ONE (17:45)
--- NOTE | 2019-05-13 19:15 | NUR ---
Opening shift note: Assumed care from day nurse. Patient is alert and oriented x4. Patient is on 3L via nc with even and unlabored breathing. Patients get sob when speaking. Patient denies pain at this time. Instructed patient on poc and to call for assistance as need. patient verbalized understanding. Bed in lowest position, side rails x 2, and call light is within reach.3
--- NOTE | 2019-05-13 19:19 | NUR ---
Respiratory note: AT BEDSIDE FOR MED NEB TX. PT TOLERATING TX WELL VIA MASK.
--- NOTE | 2019-05-13 20:21 | NUR ---
Respiratory note: PLACED PT ON BIPAP, BIPAP CONNECTED TO RED OUTLET AND O2 SOURCE, ALARMS ARE SET AND AUDIBLE, AMBU BAG AND MASK AT BEDSIDE. PLACED ON (M) MASK, NO BREAKDOWN NOTED PRIOR TO PLACEMENT, BS ARE FINE COURSE T/O, POX PROBE PLACED ON RIGHT HAND INDEX FINGER. WILL CONTINUE TO MONITOR Q2H, RT NAME AND PAGER ASSIGNMENT WRITTEN ON PTS ROOM BOARD. SHAGUFTA [place] MADE AWARE OF PLACEMENT.
[2019-05-13 22:00] VITALS: BP 121/63
[2019-05-13] MEDS: TRIAMCINOLONE ACET0.5% TOPICAL CRE 15GM TOP SCH (22:06)
--- NOTE | 2019-05-13 22:41 | NUR ---
Respiratory note: AT BEDSIDE FOR ROUTINE BIPAP CHECK. NO CHANGES MADE. MED NEB TX GIVEN INLINE WITHOUT ADVERSE REACTION. WILL CONTINUE TO MONITOR.
[2019-05-14] MEDS: methylPREDNISolone SOD SUCC 40 MG/ML VL IV SCH ×3 (00:27→11:57)
--- NOTE | 2019-05-14 00:33 | NUR ---
Respiratory note: AT BEDSIDE FOR ROUTINE BIPAP CHECK. NO CHANGES MADE. WILL CONTINUE TO MONITOR.
--- NOTE | 2019-05-14 01:59 | NUR ---
Respiratory note: AT BEDSIDE FOR ROUTINE BIPAP CHECK. NO CHANGES MADE. PT COMFORTABLY SLEEPING. WILL CONTINUE TO MONITOR.
--- NOTE | 2019-05-14 04:05 | NUR ---
Respiratory note: AT BEDSIDE FOR END OF SHIFT BIPAP CHECK. PT COMFORTABLY SLEEPING, WILL HAVE DAY SHIFT CONTINUE POC.
[2019-05-14 05:00] VITALS: BP 94/51
[2019-05-14] MEDS: ALBUTEROL SULF 2.5 MG/0.5ML(0.5%) NEB SOLN NEB SCH ×3 (06:10→13:56)
[2019-05-14] MEDS: IPRATROPIUM BROM 0.5 MG/2.5ML INH SOL NEB SCH ×3 (06:10→13:56)
[2019-05-14 06:37] LABS: Basophils # (auto) 0 uL; Basophils % (auto) 0.1 % (0.0-2.0); Eosinophils # (auto) 0 uL; Hematocrit 41.8 % (41.0-53.0); Hemoglobin 14.4 g/dL (13.5-17.5); Lymphocytes # (auto) 0.9 uL; Lymphocytes % (auto) 6.5 % (10.0-50.0); Mean Corpuscular Hemoglobin 33.1 pg (28.0-32.0); Mean Corpuscular Hgb Conc. 34.5 g/dL (32.0-36.0); Mean Corpuscular Volume 95.7 fL (80.0-100.0); Monocytes # (auto) 0.3 uL; Monocytes % (auto) 2.6 % (0.0-12.0); Neutrophils # (auto) 12.1 uL; Neutrophils % (auto) 90.8 % (37.0-80.0); Platelet Count (auto) 172 10^3/uL (140-450); Red Blood Cells 4.36 10^6/uL (4.5-5.90); Red Cell Distribution Width 13.5 % (11.8-14.3); White Blood Cell 13.3 10^3/uL (4.4-10.8)
[2019-05-14 06:53] LABS: Calcium 9.7 mg/dL (8.5-10.1); Potassium 4.2 mmol/L (3.5-5.1)
[2019-05-14 07:26] VITALS: BP 94/51
--- NOTE | 2019-05-14 08:00 | NUR ---
Opening Shift Note Assumed care of patient, awake and alert. With mild S/S of distress/SOB, no complaints of pain. Maintained on O2 at 3lpm/nasal cannula. Instructed on POC and to call for assist PRN, will continue to monitor for changes Q1hr and PRN.
[2019-05-14 08:22] VITALS: BP 108/71
[2019-05-14] MEDS: cefTRIAXone 1GM/50ML D5W 50 ML IV SCH (08:57)
[2019-05-14] MEDS: BUDESONIDE (INHALATION) 0.5 MG/2 ML NEB NEB SCH (09:47)
[2019-05-14] MEDS: ALPRAZolam 0.5 MG TAB PO SCH (09:54)
[2019-05-14] MEDS: AZITHROMYCIN 500MG/ 250ML 250 ML IV SCH (09:54)
[2019-05-14] MEDS: TRIAMCINOLONE ACET0.5% TOPICAL CRE 15GM TOP SCH (09:54)
[2019-05-14] MEDS: ASPirin-EC 81 mg tab PO SCH (09:54)
[2019-05-14] MEDS: SERTRALINE HCL 50 MG TAB PO SCH (09:54)
[2019-05-14] MEDS: PANTOPRAZOLE 40 MG TAB PO SCH (09:54)
[2019-05-14 13:00] VITALS: BP 112/66
[2019-05-14 16:32] VITALS: BP 112/58
--- NOTE | 2019-05-14 18:01 | NUR ---
Discharge instructions given as ordered. Encourage to follow up with PMD Dr. Kim Mckeon on 05/28/19 at 11:20am #[phone] located at [address] [place] [address] [address] [place], [place] as instructed. All questions and concerns addressed. Patient verbalized understanding. Medication reconciliation form completed and copy given to patient. Home medications held in Pharmacy returned to patient. IV removed with catheter intact, pressure dressing applied. Telemetry unit returned to [facility]. Patient taken to vehicle via wheelchair with all personal belongings, accompanied by staff and family member. No distress noted at time of departure.
--- NOTE | 2019-05-14 18:38 | NUR ---
Prescription of Prednisone PO was found inserted inside the chart of the patient. Left a message to the patient voicemail to have the script picked up at the [facility]. Earlier before discharge, patient verbalized that he still has prednisone PO available at home. Waiting for usha back from the patient.
== END 2019-05-14 18:01 | disposition home or self-care (01) | DRG 189 ==
LOC: EDBD 09:50 → ER 09:57 → TELE 09:58 → TELE-WESTW 13:49
PROVIDERS: ADMIT Nurse Practitioner Acute Care; ATTEND Internal Medicine Pulmonary Disease
PROC: 5A09357 Assistance with Respiratory Ventilation, Less than 24 Consecutive Hours, Continuous Positive Airway Pressure (ICD-10-PCS; principal; 2019-05-11)
PROC: 5A09357 Assistance with Respiratory Ventilation, Less than 24 Consecutive Hours, Continuous Positive Airway Pressure (ICD-10-PCS; 2019-05-12)
PROC: 5A09357 Assistance with Respiratory Ventilation, Less than 24 Consecutive Hours, Continuous Positive Airway Pressure (ICD-10-PCS; 2019-05-13)
DX: J96.20 Acute and chronic respiratory failure, unspecified whether with hypoxia or hypercapnia (principal); J44.1 Chronic obstructive pulmonary disease with (acute) exacerbation; I50.42 Chronic combined systolic (congestive) and diastolic (congestive) heart failure; J98.11 Atelectasis; E88.01 Alpha-1-antitrypsin deficiency; E87.6 Hypokalemia; I11.0 Hypertensive heart disease with heart failure; F32.9 Major depressive disorder, single episode, unspecified; F41.9 Anxiety disorder, unspecified; K21.9 Gastro-esophageal reflux disease without esophagitis; L29.9 Pruritus, unspecified; L30.9 Dermatitis, unspecified; Z79.82 Long term (current) use of aspirin; Z80.0 Family history of malignant neoplasm of digestive organs; Z80.3 Family history of malignant neoplasm of breast; Z82.3 Family history of stroke; Z82.49 Family history of ischemic heart disease and other diseases of the circulatory system; Z82.5 Family history of asthma and other chronic lower respiratory diseases; Z99.81 Dependence on supplemental oxygen
CPT/HCPCS: 36415; 71045; 71046; 80048; 80053; 81001; 83735; 84132; 84484; 85025; 85379; 87804; 93005; 94640; 94660; 94761; 96365; 96367; 96375; G0378; J0696; J1642; J2405

== ENCOUNTER 2020-02-06 21:11 | Emergency (ER) | payer MEDICARE, MEDICAID ==
[~2020-02-06] VITALS: Ht 177.8 cm; Wt 77.6 kg
[~2020-02-06 21:11] MED LIST changes: +CLOP75TA28 PO; +DOXY-286 PO; +FLUT100I IN; -FLUT250M9 IN; -LEVO500T21 PO; -PRE5T PO; +PRED20TA2 PO; +TIOTCAP IN; +[UNRECOGNIZED DRUG - CODE] IV
[2020-02-06 22:24] VITALS: BP 121/70
[2020-02-06 22:29] LABS: Basophils # (auto) 0 10 ^3/uL (0-0.2); Basophils % (auto) 0.5 % (0.0-2.0); Eosinophils # (auto) 0.1 10 ^3/uL (0-0.8); Eosinophils % (auto) 1.3 % (0.0-7.0); Hematocrit 42.3 % (41.0-53.0); Hemoglobin 14.2 g/dL (13.5-17.5); Lymphocytes # (auto) 2.1 10 ^3/uL (0.4-5.4); Lymphocytes % (auto) 29.7 % (10.0-50.0); Mean Corpuscular Hemoglobin 32.9 pg (28.0-32.0); Mean Corpuscular Hgb Conc. 33.6 g/dL (32.0-36.0); Mean Corpuscular Volume 97.8 fL (80.0-100.0); Monocytes # (auto) 0.6 10 ^3/uL (0-1.3); Monocytes % (auto) 7.8 % (0.0-12.0); Neutrophils # (auto) 4.3 10 ^3/uL (1.6-8.6); Neutrophils % (auto) 60.7 % (37.0-80.0); Nucleated Red Blood Cells % 0.1 %; Platelet Count (auto) 160 10^3/uL (140-450); Red Blood Cells 4.33 10^6/uL (4.5-5.90); Red Cell Distribution Width 13.9 % (11.8-14.3); White Blood Cell 7.1 10^3/uL (4.4-10.8)
[2020-02-06 22:57] LABS: Albumin 3.5 g/dL (3.4-5.0); Calcium 9.1 mg/dL (8.5-10.1); Potassium 3.6 mmol/L (3.5-5.1)
[2020-02-06 23:01] LABS: BUN/Creatinine Ratio 17.1; Bilirubin, Total 0.3 mg/dL (0.2-1.0); Total Protein 6.7 g/dL (6.4-8.2)
== END 2020-02-07 00:10 | disposition left against medical advice (07) ==
LOC: ER 21:11 → EDBD 21:11 → ER 02-07 00:10
DX: S09.90XA Unspecified injury of head, initial encounter (principal); G40.909 Epilepsy, unspecified, not intractable, without status epilepticus; I11.0 Hypertensive heart disease with heart failure; I50.9 Heart failure, unspecified; J44.9 Chronic obstructive pulmonary disease, unspecified; K21.9 Gastro-esophageal reflux disease without esophagitis; Z87.891 Personal history of nicotine dependence; Z79.899 Other long term (current) drug therapy; X58.XXXA Exposure to other specified factors, initial encounter; Y93.89 Activity, other specified; Y92.89 Other specified places as the place of occurrence of the external cause; Y99.8 Other external cause status
CPT/HCPCS: 36415; 70450; 72125; 80053; 85025

== ENCOUNTER 2021-02-22 23:04 | Inpatient (IN) | payer MEDICARE, MEDICAID ==
[~2021-02-22] VITALS: Ht 170.2 cm; Wt 88.7 kg
[~2021-02-22 23:04] MED LIST changes: -SERT-275 PO; +SERT25TA14 PO
[2021-02-22] MEDS ORDERED: IPRATROPIUM BROM 0.5 MG/2.5ML INH SOL ONE (23:12)
[2021-02-22] MEDS ORDERED: ALBUTEROL SULF 2.5 MG/0.5ML(0.5%) NEB SOLN ONE (23:12)
[2021-02-22 23:51] LABS: Basophils # (auto) 0 10 ^3/uL (0-0.2); Basophils % (auto) 0.3 % (0.0-2.0); Eosinophils # (auto) 0 10 ^3/uL (0-0.8); Eosinophils % (auto) 0.3 % (0.0-7.0); Hematocrit 42.8 % (41.0-53.0); Lymphocytes # (auto) 0.8 10 ^3/uL (0.4-5.4); Lymphocytes % (auto) 6.4 % (10.0-50.0); Mean Corpuscular Hemoglobin 32.9 pg (28.0-32.0); Monocytes # (auto) 0.4 10 ^3/uL (0-1.3); Monocytes % (auto) 3.6 % (0.0-12.0); Neutrophils # (auto) 10.9 10 ^3/uL (1.6-8.6); Neutrophils % (auto) 89.4 % (37.0-80.0); Platelet Count (auto) 161 10^3/uL (140-450); Red Blood Cells 4.56 10^6/uL (4.5-5.90); Red Cell Distribution Width 14.1 % (11.8-14.3); White Blood Cell 12.2 10^3/uL (4.4-10.8)
[2021-02-23] VITALS (7 sets, daily range): BP systolic 101–120; BP diastolic 53–71
[2021-02-23 00:09] LABS: INR 0.98 (0.9-1.15); Partial Thromboplastin Time 22.9 sec (23.0-31.2)
[2021-02-23 00:12] LABS: BUN/Creatinine Ratio 19.7; Potassium 3.5 mmol/L (3.5-5.1)
[2021-02-23] MEDS ORDERED: methylPREDNISolone SOD SUCC 125 MG/2 ML VL IV ONE (00:15)
[2021-02-23] MEDS ORDERED: SODIUM CHLORIDE 0.9% 1,000 ML IV ONE (00:15)
[2021-02-23 00:17] LABS: Bilirubin, Total 0.7 mg/dL (0.2-1.0)
[2021-02-23] MEDS ORDERED: ONDANSETRON HCL 4 MG/2 ML VIAL IV ONE (00:45)
[2021-02-23] MEDS ORDERED: IOHEXOL 350 MG/ML 100ML IJ ONE (01:20)
[2021-02-23] MEDS ORDERED: ACETAMINOPHEN 500 MG TAB PO ONE (01:30)
[2021-02-23] MEDS ORDERED: LORazepam 2MG/ML-1ML VIAL ONE (02:06)
[2021-02-23] MEDS ORDERED: LORazepam 2MG/ML-1ML VIAL IV ONE (02:15)
[2021-02-23] MEDS ORDERED: DOCUSATE SOD 100 MG CAP PO PRN (04:45)
[2021-02-23] MEDS ORDERED: MORPHINE SULF INJ 2 MG/ML SYRINGE 1ML IV PRN (04:45)
[2021-02-23] MEDS ORDERED: DEXTROSE (50%) 50ML SYRG IV PRN (04:45)
[2021-02-23] MEDS ORDERED: NITROGLYCERIN 0.4 MG SL TAB SL PRN (04:45)
[2021-02-23] MEDS ORDERED: HYDROcodone-ACET 5/325MG TAB PO PRN (04:45)
[2021-02-23] MEDS ORDERED: ACETAMINOPHEN 325 MG TAB PO PRN (04:45)
[2021-02-23] MEDS ORDERED: ONDANSETRON HCL 4 MG/2 ML VIAL IV PRN (04:45)
[2021-02-23] MEDS: SODIUM CHLOR 0.9% PF (SALINE LOCK) 10ML VIAL/SYR IV SCH ×3 (06:31→21:05)
[2021-02-23] MEDS: methylPREDNISolone SOD SUCC 125 MG/2 ML VL IV SCH ×3 (06:32→17:58)
[2021-02-23] MEDS: PHENYTOIN SODIUM 100 MG CAP PO SCH ×2 (06:33→14:32)
[2021-02-23] MEDS: ACCU-CHEK COMFORT CURVE STRIP VI SCH ×4 (06:43→21:06)
[2021-02-23] MEDS ORDERED: ROFL1TAB2 PO (06:48)
[2021-02-23] MEDS: InsuLIN REG 1unit/0.01ml Soln (100units/ml) SC SCH ×4 (06:51→21:10)
[2021-02-23] MEDS: ENOXAPARIN SOD 40 MG/0.4 ML SYRINGE SC SCH (09:54)
[2021-02-23] MEDS: FAMOTIDINE (10MG/ML) 2ML VL IV SCH ×2 (09:54→21:05)
[2021-02-23] MEDS ORDERED: SERTRALINE HCL 50 MG TAB PO SCH (10:00)
[2021-02-23] MEDS: MULTIPLE VITAMIN TAB PO SCH (10:00)
[2021-02-23] MEDS: ALPRAZolam 0.5 MG TAB PO SCH ×2 (10:00→21:06)
[2021-02-23] MEDS: ZINC SULFATE 220mg CAP or TAB PO SCH (10:00)
[2021-02-23] MEDS: ASCORBIC ACID 500 MG TAB PO SCH ×2 (10:00→21:06)
[2021-02-23 10:59] LABS: Hematocrit 42.3 % (41.0-53.0); Hemoglobin 14.6 g/dL (13.5-17.5); Mean Corpuscular Hemoglobin 32.7 pg (28.0-32.0); Mean Corpuscular Hgb Conc. 34.4 g/dL (32.0-36.0); Mean Corpuscular Volume 95.1 fL (80.0-100.0); Platelet Count (auto) 168 10^3/uL (140-450); Red Blood Cells 4.45 10^6/uL (4.5-5.90); Red Cell Distribution Width 14.2 % (11.8-14.3); White Blood Cell 12.6 10^3/uL (4.4-10.8)
[2021-02-23 11:03] LABS: Basophils % (manual) 0 (0.0-2.0); Blast Cells 0; Eosinophils % (manual) 0 (0-7); Metamyelocytes % 0; Myelocytes % 0; Promyelocytes % 0; Reactive Lymphocytes 0
[2021-02-23 11:16] LABS: Albumin 3.6 g/dL (3.4-5.0); Calcium 9.2 mg/dL (8.5-10.1); Potassium 4.4 mmol/L (3.5-5.1)
[2021-02-23 11:22] LABS: BUN/Creatinine Ratio 17.8; Bilirubin, Total 0.6 mg/dL (0.2-1.0); Total Protein 6.5 g/dL (6.4-8.2)
[2021-02-23] MEDS ORDERED: ALBUTEROL SULF HFA 90MCG INH 200DOSE IN PRN (13:45)
[2021-02-23] MEDS ORDERED: FUROSEMIDE 20 MG TAB PO ONE (13:45)
[2021-02-23] MEDS ORDERED: ASPirin 81 mg TAB PO ONE (13:45)
[2021-02-23] MEDS ORDERED: CLOPIDOGREL BISULFATE 75 MG TAB PO ONE (13:45)
[2021-02-23] MEDS ORDERED: POTASSIUM CHL 10 Meq TABLET PO ONE (13:45)
[2021-02-23] MEDS ORDERED: HCTZ 25 MG TAB PO ONE (13:45)
[2021-02-23 14:49] LABS: Band Neutrophils % (manual) 5; Lymphocytes % (manual) 4 (10.0-50.0); Monocytes % (manual) 1 (0-12)
[2021-02-23] MEDS: LORazepam 2MG/ML-1ML VIAL IV PRN (14:57)
[2021-02-23] MEDS ORDERED: LORazepam 2MG/ML-1ML VIAL IV PRN (15:15)
[2021-02-23] MEDS: IPRATROPIUM BROM 0.5 MG/2.5ML INH SOL NEB SCH ×3 (15:36→22:49)
[2021-02-23] MEDS: ALBUTEROL SULF 2.5 MG/0.5ML(0.5%) NEB SOLN NEB SCH ×3 (15:37→22:48)
[2021-02-23 15:54] LABS: Urine Bacteria NONE SEEN /hpf (None Seen); Urine Blood TRACE /uL (Negative); Urine Specific Gravity 1.028 (1.001-1.035); Urine WBC 2 /hpf (0 - 3)
[2021-02-23] MEDS: busPIRone HCL 10 MG TAB PO SCH (21:05)
[2021-02-23] MEDS: DOXYCYCLINE 100 MG TAB/CAP PO SCH (21:06)
[2021-02-23] MEDS: BUDESONIDE (INHALATION) 0.5 MG/2 ML NEB NEB SCH (22:48)
[2021-02-24] MEDS: methylPREDNISolone SOD SUCC 125 MG/2 ML VL IV SCH ×5 (00:01→23:35)
[2021-02-24] MEDS: IPRATROPIUM BROM 0.5 MG/2.5ML INH SOL NEB SCH ×6 (02:30→22:32)
[2021-02-24] MEDS: ALBUTEROL SULF 2.5 MG/0.5ML(0.5%) NEB SOLN NEB SCH ×6 (02:30→22:32)
[2021-02-24 05:39] VITALS: BP 113/68
[2021-02-24] MEDS: SODIUM CHLOR 0.9% PF (SALINE LOCK) 10ML VIAL/SYR IV SCH ×3 (06:07→21:43)
[2021-02-24] MEDS: InsuLIN REG 1unit/0.01ml Soln (100units/ml) SC SCH ×4 (06:29→22:01)
[2021-02-24] MEDS: ACCU-CHEK COMFORT CURVE STRIP VI SCH ×4 (06:34→21:45)
[2021-02-24 09:00] VITALS: BP 110/67
[2021-02-24 09:46] LABS: Basophils # (auto) 0 10 ^3/uL (0-0.2); Basophils % (auto) 0.1 % (0.0-2.0); Eosinophils # (auto) 0 10 ^3/uL (0-0.8); Hematocrit 38.8 % (41.0-53.0); Hemoglobin 13.6 g/dL (13.5-17.5); Lymphocytes # (auto) 0.5 10 ^3/uL (0.4-5.4); Lymphocytes % (auto) 3.9 % (10.0-50.0); Mean Corpuscular Hemoglobin 33.3 pg (28.0-32.0); Monocytes # (auto) 0.3 10 ^3/uL (0-1.3); Monocytes % (auto) 2.4 % (0.0-12.0); Neutrophils # (auto) 11.6 10 ^3/uL (1.6-8.6); Neutrophils % (auto) 93.6 % (37.0-80.0); Nucleated Red Blood Cells % 0.1 %; Platelet Count (auto) 152 10^3/uL (140-450); Red Blood Cells 4.08 10^6/uL (4.5-5.90); White Blood Cell 12.4 10^3/uL (4.4-10.8)
[2021-02-24] MEDS: ROFLUMILAST 500 MCG PO SCH ×2 (10:00→13:35)
[2021-02-24] MEDS: BUDESONIDE (INHALATION) 0.5 MG/2 ML NEB NEB SCH ×2 (10:00→18:56)
[2021-02-24] MEDS: FLUTICASONE VILANTEROL IN SCH (10:00)
[2021-02-24] MEDS ORDERED: PROLASTIN C IV SCH (10:00)
[2021-02-24 10:10] LABS: Albumin 3.6 g/dL (3.4-5.0); Anion Gap 8 (5-15); Blood Urea Nitrogen 29 mg/dL (7-18); Calcium 8.9 mg/dL (8.5-10.1); Carbon Dioxide 27 mmol/L (21-32); Chloride 99 mmol/L (98-107); Glucose 302 mg/dL (74-106); Potassium 3.9 mmol/L (3.5-5.1); Sodium 134 mmol/L (136-145)
[2021-02-24 10:17] LABS: Alanine Aminotransferase 24 U/L (16-61); Alkaline Phosphatase 54 U/L (45-117); Aspartate Aminotransferase 9 U/L (15-37); BUN/Creatinine Ratio 22.1; Bilirubin, Total 0.6 mg/dL (0.2-1.0); GFR African American 72 mL/min; GFR Non-African American 59 mL/min; Total Protein 6.3 g/dL (6.4-8.2)
[2021-02-24] MEDS: ASPirin 81 mg TAB PO SCH (10:39)
[2021-02-24] MEDS: ZINC SULFATE 220mg CAP or TAB PO SCH (10:39)
[2021-02-24] MEDS: FAMOTIDINE (10MG/ML) 2ML VL IV SCH ×2 (10:39→21:42)
[2021-02-24] MEDS: busPIRone HCL 10 MG TAB PO SCH ×2 (10:40→21:44)
[2021-02-24] MEDS: HCTZ 25 MG TAB PO SCH (10:40)
[2021-02-24] MEDS: MULTIPLE VITAMIN TAB PO SCH (10:41)
[2021-02-24] MEDS: ASCORBIC ACID 500 MG TAB PO SCH ×2 (10:41→21:44)
[2021-02-24] MEDS: ALPRAZolam 0.5 MG TAB PO SCH ×2 (10:41→21:44)
[2021-02-24] MEDS: CLOPIDOGREL BISULFATE 75 MG TAB PO SCH (10:41)
[2021-02-24] MEDS: DOXYCYCLINE 100 MG TAB/CAP PO SCH ×2 (10:41→21:44)
[2021-02-24] MEDS: POTASSIUM CHL 10 Meq TABLET PO SCH (10:42)
[2021-02-24] MEDS: FUROSEMIDE 20 MG TAB PO SCH (10:44)
[2021-02-24] MEDS: ENOXAPARIN SOD 40 MG/0.4 ML SYRINGE SC SCH (10:45)
[2021-02-24] MEDS: SERTRALINE HCL 50 MG TAB PO SCH (10:45)
[2021-02-24] MEDS: LORazepam 2MG/ML-1ML VIAL IV PRN (10:50)
[2021-02-24 12:47] VITALS: BP 102/52
[2021-02-24] MEDS ORDERED: NYSTATIN TOPICAL POWDER 15GM TOP ONE (14:00)
[2021-02-24] MEDS: NYSTATIN TOPICAL POWDER 15GM TOP SCH ×2 (16:02→21:45)
[2021-02-24 17:00] VITALS: BP 122/74
[2021-02-24 22:00] VITALS: BP 108/68
[2021-02-25] MEDS: IPRATROPIUM BROM 0.5 MG/2.5ML INH SOL NEB SCH ×6 (02:13→22:09)
[2021-02-25] MEDS: ALBUTEROL SULF 2.5 MG/0.5ML(0.5%) NEB SOLN NEB SCH ×6 (02:14→22:09)
[2021-02-25 05:00] VITALS: BP 99/53
[2021-02-25] MEDS: SODIUM CHLOR 0.9% PF (SALINE LOCK) 10ML VIAL/SYR IV SCH ×3 (05:25→22:42)
[2021-02-25] MEDS: methylPREDNISolone SOD SUCC 125 MG/2 ML VL IV SCH ×3 (05:26→17:13)
[2021-02-25 06:11] LABS: Basophils # (auto) 0 10 ^3/uL (0-0.2); Basophils % (auto) 0.1 % (0.0-2.0); Eosinophils # (auto) 0 10 ^3/uL (0-0.8); Hematocrit 38.1 % (41.0-53.0); Hemoglobin 13.5 g/dL (13.5-17.5); Lymphocytes # (auto) 0.5 10 ^3/uL (0.4-5.4); Lymphocytes % (auto) 5.1 % (10.0-50.0); Mean Corpuscular Hemoglobin 33.5 pg (28.0-32.0); Mean Corpuscular Hgb Conc. 35.5 g/dL (32.0-36.0); Mean Corpuscular Volume 94.5 fL (80.0-100.0); Monocytes # (auto) 0.2 10 ^3/uL (0-1.3); Neutrophils # (auto) 9.3 10 ^3/uL (1.6-8.6); Neutrophils % (auto) 92.8 % (37.0-80.0); Nucleated Red Blood Cells % 0.1 %; Platelet Count (auto) 155 10^3/uL (140-450); Red Blood Cells 4.03 10^6/uL (4.5-5.90); Red Cell Distribution Width 14.1 % (11.8-14.3)
[2021-02-25] MEDS: ACCU-CHEK COMFORT CURVE STRIP VI SCH ×4 (06:17→22:41)
[2021-02-25] MEDS: InsuLIN REG 1unit/0.01ml Soln (100units/ml) SC SCH ×4 (06:18→22:45)
[2021-02-25 06:27] LABS: Albumin 3.5 g/dL (3.4-5.0); BUN/Creatinine Ratio 25.6; Calcium 8.9 mg/dL (8.5-10.1); Potassium 4.2 mmol/L (3.5-5.1)
[2021-02-25 06:29] LABS: Bilirubin, Total 0.4 mg/dL (0.2-1.0); Total Protein 6.4 g/dL (6.4-8.2)
[2021-02-25] MEDS: BUDESONIDE (INHALATION) 0.5 MG/2 ML NEB NEB SCH ×2 (06:45→18:54)
[2021-02-25 09:00] VITALS: BP 108/77
[2021-02-25] MEDS: FAMOTIDINE (10MG/ML) 2ML VL IV SCH ×2 (09:27→22:42)
[2021-02-25] MEDS: FLUTICASONE VILANTEROL IN SCH (09:27)
[2021-02-25] MEDS: ASPirin 81 mg TAB PO SCH (09:28)
[2021-02-25] MEDS: ALPRAZolam 0.5 MG TAB PO SCH ×2 (09:28→22:44)
[2021-02-25] MEDS: HCTZ 25 MG TAB PO SCH (09:29)
[2021-02-25] MEDS: SERTRALINE HCL 50 MG TAB PO SCH (09:30)
[2021-02-25] MEDS: ZINC SULFATE 220mg CAP or TAB PO SCH (09:30)
[2021-02-25] MEDS: POTASSIUM CHL 10 Meq TABLET PO SCH (09:30)
[2021-02-25] MEDS: ASCORBIC ACID 500 MG TAB PO SCH ×2 (09:30→22:44)
[2021-02-25] MEDS: FUROSEMIDE 20 MG TAB PO SCH (09:31)
[2021-02-25] MEDS: DOXYCYCLINE 100 MG TAB/CAP PO SCH ×2 (09:31→22:43)
[2021-02-25] MEDS: busPIRone HCL 10 MG TAB PO SCH ×2 (09:31→22:43)
[2021-02-25] MEDS: CLOPIDOGREL BISULFATE 75 MG TAB PO SCH (09:31)
[2021-02-25] MEDS: ENOXAPARIN SOD 40 MG/0.4 ML SYRINGE SC SCH (09:32)
[2021-02-25] MEDS: ROFLUMILAST 500 MCG PO SCH (09:32)
[2021-02-25] MEDS: NYSTATIN TOPICAL POWDER 15GM TOP SCH ×2 (09:32→22:41)
[2021-02-25] MEDS: MULTIPLE VITAMIN TAB PO SCH (09:37)
[2021-02-25 13:00] VITALS: BP 118/76
[2021-02-25] MEDS ORDERED: LACTULOSE 20Gm/30ML SOLN PO ONE (14:00)
[2021-02-25 17:00] VITALS: BP 132/76
[2021-02-25 20:01] VITALS: BP 132/76
[2021-02-25 22:00] VITALS: BP 135/73
[2021-02-25] MEDS: LACTULOSE 20Gm/30ML SOLN PO SCH (22:43)
[2021-02-26] MEDS: methylPREDNISolone SOD SUCC 125 MG/2 ML VL IV SCH ×2 (00:13→06:07)
[2021-02-26] MEDS: ALBUTEROL SULF 2.5 MG/0.5ML(0.5%) NEB SOLN NEB SCH ×3 (02:14→12:18)
[2021-02-26] MEDS: IPRATROPIUM BROM 0.5 MG/2.5ML INH SOL NEB SCH ×3 (02:14→12:19)
[2021-02-26 05:00] VITALS: BP 118/66
[2021-02-26] MEDS: SODIUM CHLOR 0.9% PF (SALINE LOCK) 10ML VIAL/SYR IV SCH ×2 (06:06→11:14)
[2021-02-26] MEDS: ACCU-CHEK COMFORT CURVE STRIP VI SCH ×3 (06:07→17:00)
[2021-02-26] MEDS: InsuLIN REG 1unit/0.01ml Soln (100units/ml) SC SCH ×3 (06:08→17:00)
[2021-02-26 06:41] LABS: Basophils # (auto) 0 10 ^3/uL (0-0.2); Eosinophils # (auto) 0 10 ^3/uL (0-0.8); Lymphocytes # (auto) 0.6 10 ^3/uL (0.4-5.4); Lymphocytes % (auto) 6.5 % (10.0-50.0); Mean Corpuscular Hemoglobin 33.1 pg (28.0-32.0); Mean Corpuscular Hgb Conc. 34.9 g/dL (32.0-36.0); Mean Corpuscular Volume 94.8 fL (80.0-100.0); Monocytes # (auto) 0.3 10 ^3/uL (0-1.3); Monocytes % (auto) 2.8 % (0.0-12.0); Neutrophils # (auto) 8.9 10 ^3/uL (1.6-8.6); Neutrophils % (auto) 90.7 % (37.0-80.0); Nucleated Red Blood Cells % 0.1 %; Platelet Count (auto) 170 10^3/uL (140-450); Red Blood Cells 4.22 10^6/uL (4.5-5.90); Red Cell Distribution Width 13.8 % (11.8-14.3); White Blood Cell 9.9 10^3/uL (4.4-10.8)
[2021-02-26 07:02] LABS: Calcium 8.9 mg/dL (8.5-10.1); Potassium 3.8 mmol/L (3.5-5.1)
[2021-02-26 07:04] LABS: BUN/Creatinine Ratio 24.3
[2021-02-26] MEDS: BUDESONIDE (INHALATION) 0.5 MG/2 ML NEB NEB SCH (07:05)
[2021-02-26 08:00] VITALS: BP 109/69
[2021-02-26] MEDS: FAMOTIDINE (10MG/ML) 2ML VL IV SCH (09:16)
[2021-02-26] MEDS: FLUTICASONE VILANTEROL IN SCH (09:16)
[2021-02-26] MEDS: ASPirin 81 mg TAB PO SCH (09:17)
[2021-02-26] MEDS: ENOXAPARIN SOD 40 MG/0.4 ML SYRINGE SC SCH (09:17)
[2021-02-26] MEDS: ALPRAZolam 0.5 MG TAB PO SCH (09:17)
[2021-02-26] MEDS: MULTIPLE VITAMIN TAB PO SCH (09:17)
[2021-02-26] MEDS: ASCORBIC ACID 500 MG TAB PO SCH (09:17)
[2021-02-26] MEDS: DOXYCYCLINE 100 MG TAB/CAP PO SCH (09:17)
[2021-02-26] MEDS: LACTULOSE 20Gm/30ML SOLN PO SCH (09:17)
[2021-02-26] MEDS: CLOPIDOGREL BISULFATE 75 MG TAB PO SCH (09:18)
[2021-02-26] MEDS: HCTZ 25 MG TAB PO SCH (09:18)
[2021-02-26] MEDS: ZINC SULFATE 220mg CAP or TAB PO SCH (09:19)
[2021-02-26] MEDS: POTASSIUM CHL 10 Meq TABLET PO SCH (09:19)
[2021-02-26] MEDS: FUROSEMIDE 20 MG TAB PO SCH (09:19)
[2021-02-26] MEDS: busPIRone HCL 10 MG TAB PO SCH (09:19)
[2021-02-26] MEDS: NYSTATIN TOPICAL POWDER 15GM TOP SCH (09:20)
[2021-02-26] MEDS: SERTRALINE HCL 50 MG TAB PO SCH (09:20)
[2021-02-26] MEDS: ROFLUMILAST 500 MCG PO SCH (10:00)
[2021-02-26 12:00] VITALS: BP 121/75
[2021-02-26 14:29] VITALS: BP 139/69
[2021-02-26] MEDS ORDERED: methylPREDNISolone SOD SUCC 40 MG/ML VL IV SCH (22:00)
== END 2021-02-26 17:32 | disposition home or self-care (01) | DRG 871 ==
LOC: ER 23:04 → EDBD 23:04 → TELE 02-23 04:33 → TELE-WESTW 02-23 06:00
PROVIDERS: ADMIT Nurse Practitioner Family; ATTEND Internal Medicine
PROC: 5A09357 Assistance with Respiratory Ventilation, Less than 24 Consecutive Hours, Continuous Positive Airway Pressure (ICD-10-PCS; principal; 2021-02-23)
PROC: 5A09357 Assistance with Respiratory Ventilation, Less than 24 Consecutive Hours, Continuous Positive Airway Pressure (ICD-10-PCS; 2021-02-24)
PROC: 5A09357 Assistance with Respiratory Ventilation, Less than 24 Consecutive Hours, Continuous Positive Airway Pressure (ICD-10-PCS; 2021-02-25)
PROC: 5A09357 Assistance with Respiratory Ventilation, Less than 24 Consecutive Hours, Continuous Positive Airway Pressure (ICD-10-PCS; 2021-02-26)
DX: A41.9 Sepsis, unspecified organism (principal); J96.21 Acute and chronic respiratory failure with hypoxia; I21.A1 Myocardial infarction type 2; J18.9 Pneumonia, unspecified organism; N17.0 Acute kidney failure with tubular necrosis; I50.32 Chronic diastolic (congestive) heart failure; E87.2 Acidosis; J43.9 Emphysema, unspecified; G40.409 Other generalized epilepsy and epileptic syndromes, not intractable, without status epilepticus; D72.829 Elevated white blood cell count, unspecified; N18.9 Chronic kidney disease, unspecified; E88.01 Alpha-1-antitrypsin deficiency; E11.22 Type 2 diabetes mellitus with diabetic chronic kidney disease; E11.65 Type 2 diabetes mellitus with hyperglycemia; E66.9 Obesity, unspecified; F17.210 Nicotine dependence, cigarettes, uncomplicated; F32.9 Major depressive disorder, single episode, unspecified; F41.0 Panic disorder [episodic paroxysmal anxiety]; F41.1 Generalized anxiety disorder; G47.33 Obstructive sleep apnea (adult) (pediatric); K21.9 Gastro-esophageal reflux disease without esophagitis; J20.9 Acute bronchitis, unspecified; G43.B0 Ophthalmoplegic migraine, not intractable; H53.2 Diplopia; I25.10 Atherosclerotic heart disease of native coronary artery without angina pectoris; K59.00 Constipation, unspecified; Z79.899 Other long term (current) drug therapy; Z80.0 Family history of malignant neoplasm of digestive organs; Z80.3 Family history of malignant neoplasm of breast; Z82.3 Family history of stroke; Z82.49 Family history of ischemic heart disease and other diseases of the circulatory system; Z82.5 Family history of asthma and other chronic lower respiratory diseases; Z86.73 Personal history of transient ischemic attack (TIA), and cerebral infarction without residual deficits; Z98.61 Coronary angioplasty status; Z20.822 Contact with and (suspected) exposure to COVID-19; I11.0 Hypertensive heart disease with heart failure; Z68.33 Body mass index [BMI] 33.0-33.9, adult
CPT/HCPCS: 36415; 36600; 71275; 74176; 80048; 80053; 80185; 81001; 82728; 82805; 82962; 83036; 83605; 83880; 84443; 84484; 85007; 85025; 85027; 85379; 85610; 85730; 87040; 87070; 87205; 87426; 93005; 94640; 94660; 96361; 96372; 96374; 96375; 97163; G0378; J1815; J2405; J3490

== ENCOUNTER 2021-05-01 20:38 | Emergency (ER) | payer MEDICARE, MEDICAID ==
[~2021-05-01] VITALS: Ht 180.3 cm; Wt 79.4 kg
[~2021-05-01 20:38] MED LIST changes: -ALPR0.5T7 PO; -DOXY-286 PO; -PRED20TA2 PO
[2021-05-01 20:40] VITALS: BP 122/75
== END 2021-05-01 23:00 | disposition left against medical advice (07) ==
LOC: EDBD 20:38 → ER 20:41
DX: R55 Syncope and collapse (principal); Z53.21 Procedure and treatment not carried out due to patient leaving prior to being seen by health care provider

== ENCOUNTER 2021-06-05 17:30 | Inpatient (IN) | payer MEDICARE, MEDICAID ==
[~2021-06-05] VITALS: Ht 177.8 cm; Wt 84.7 kg
[2021-06-05] MEDS ORDERED: LORazepam 2MG/ML-1ML VIAL ONE (18:27)
[2021-06-05 18:37] LABS: Basophils # (auto) 0 10 ^3/uL (0-0.2); Basophils % (auto) 0.2 % (0.0-2.0); Eosinophils # (auto) 0 10 ^3/uL (0-0.8); Eosinophils % (auto) 0.1 % (0.0-7.0); Hematocrit 48.1 % (41.0-53.0); Hemoglobin 16.6 g/dL (13.5-17.5); Lymphocytes # (auto) 1.6 10 ^3/uL (0.4-5.4); Lymphocytes % (auto) 12.6 % (10.0-50.0); Mean Corpuscular Hemoglobin 32.6 pg (28.0-32.0); Mean Corpuscular Hgb Conc. 34.5 g/dL (32.0-36.0); Mean Corpuscular Volume 94.3 fL (80.0-100.0); Monocytes # (auto) 0.4 10 ^3/uL (0-1.3); Monocytes % (auto) 3.6 % (0.0-12.0); Neutrophils # (auto) 10.6 10 ^3/uL (1.6-8.6); Neutrophils % (auto) 83.5 % (37.0-80.0); Nucleated Red Blood Cells % 0.1 %; Red Blood Cells 5.11 10^6/uL (4.5-5.90); Red Cell Distribution Width 13.6 % (11.8-14.3); White Blood Cell 12.6 10^3/uL (4.4-10.8)
[2021-06-05 18:50] LABS: Albumin 4.3 g/dL (3.4-5.0); Calcium 9.6 mg/dL (8.5-10.1); Potassium 3.5 mmol/L (3.5-5.1)
[2021-06-05 18:54] LABS: BUN/Creatinine Ratio 15.2; Bilirubin, Total 0.5 mg/dL (0.2-1.0); Total Protein 7.9 g/dL (6.4-8.2)
[2021-06-05] MEDS ORDERED: LORazepam 2MG/ML-1ML VIAL IV ONE (19:15)
[2021-06-05 20:15] LABS: Blood Alcohol < 3.0 mg/dL (0-5); Magnesium 2.4 mg/dL (1.6-2.6)
[2021-06-05 20:31] LABS: Urine Bacteria NONE SEEN /hpf (None Seen); Urine Blood TRACE /uL (Negative); Urine Specific Gravity 1.022 (1.001-1.035); Urine WBC <1 /hpf (0 - 3)
[2021-06-05] MEDS ORDERED: ONDANSETRON HCL 4 MG/2 ML VIAL IV PRN (23:30)
[2021-06-05] MEDS ORDERED: DEXTROSE (50%) 50ML SYRG IV PRN (23:30)
[2021-06-05] MEDS ORDERED: ALBUTEROL SULF 2.5 MG/0.5ML(0.5%) NEB SOLN NEB PRN (23:30)
[2021-06-05] MEDS ORDERED: SODIUM CHLORIDE 0.9% 500 ML IV ONE (23:30)
[2021-06-05] MEDS ORDERED: MORPHINE SULF INJ 2 MG/ML SYRINGE 1ML IV PRN (23:30)
[2021-06-05] MEDS ORDERED: ACETAMINOPHEN 325 MG TAB PO PRN (23:30)
[2021-06-05] MEDS ORDERED: NITROGLYCERIN 0.4 MG SL TAB SL PRN (23:30)
[2021-06-05] MEDS ORDERED: LORazepam 2MG/ML-1ML VIAL IV PRN (23:30)
[2021-06-05] MEDS ORDERED: TEMAZEPAM 15 MG CAP PO PRN (23:30)
[2021-06-06 00:24] VITALS: BP 122/81
[2021-06-06 06:40] LABS: Albumin 3.3 g/dL (3.4-5.0); Calcium 8.4 mg/dL (8.5-10.1); Potassium 3.3 mmol/L (3.5-5.1)
[2021-06-06 06:41] LABS: Eosinophils # (auto) 0.1 10 ^3/uL (0-0.8); Hematocrit 41.1 % (41.0-53.0); Lymphocytes # (auto) 2.5 10 ^3/uL (0.4-5.4); Monocytes # (auto) 0.6 10 ^3/uL (0-1.3); Red Blood Cells 4.38 10^6/uL (4.5-5.90); White Blood Cell 8.7 10^3/uL (4.4-10.8)
[2021-06-06] MEDS: InsuLIN REG 1unit/0.01ml Soln (100units/ml) SC SCH ×4 (06:42→22:03)
[2021-06-06] MEDS: ACCU-CHEK COMFORT CURVE STRIP VI SCH ×4 (06:42→22:00)
[2021-06-06 06:44] LABS: Bilirubin, Total 0.5 mg/dL (0.2-1.0); Total Protein 6.1 g/dL (6.4-8.2)
[2021-06-06 07:08] LABS: Basophils # (auto) 0 10 ^3/uL (0-0.2); Basophils % (auto) 0.5 % (0.0-2.0); Eosinophils % (auto) 0.9 % (0.0-7.0); Hemoglobin 14.7 g/dL (13.5-17.5); Lymphocytes % (auto) 28.7 % (10.0-50.0); Mean Corpuscular Hemoglobin 33.7 pg (28.0-32.0); Mean Corpuscular Hgb Conc. 35.8 g/dL (32.0-36.0); Neutrophils # (auto) 5.5 10 ^3/uL (1.6-8.6); Neutrophils % (auto) 62.9 % (37.0-80.0); Nucleated Red Blood Cells % 0.1 %; Red Cell Distribution Width 13.7 % (11.8-14.3)
[2021-06-06] MEDS: busPIRone HCL 10 MG TAB PO SCH ×2 (09:26→22:23)
[2021-06-06] MEDS: CLOPIDOGREL BISULFATE 75 MG TAB PO SCH (09:29)
[2021-06-06] MEDS: SERTRALINE HCL 50 MG TAB PO SCH (09:29)
[2021-06-06] MEDS: PANTOPRAZOLE 40 MG TAB PO SCH (09:30)
[2021-06-06] MEDS ORDERED: HCTZ 25 MG TAB PO SCH (10:00)
[2021-06-06] MEDS ORDERED: POTASSIUM CHL 20 Meq TABLET PO SCH (10:00)
[2021-06-06] MEDS ORDERED: ENOXAPARIN SOD 40 MG/0.4 ML SYRINGE SC SCH (10:00)
[2021-06-06] MEDS ORDERED: FUROSEMIDE 20 MG TAB PO SCH (10:00)
[2021-06-06] MEDS ORDERED: SERTRALINE HCL 50 MG TAB PO SCH (10:00)
[2021-06-06] MEDS: methylPREDNISolone SOD SUCC 40 MG/ML VL IV SCH ×2 (14:38→22:24)
[2021-06-06] MEDS: IPRATROPIUM BROM 0.5 MG/2.5ML INH SOL NEB SCH ×3 (14:51→22:52)
[2021-06-06] MEDS: ALBUTEROL SULF 2.5 MG/0.5ML(0.5%) NEB SOLN NEB SCH ×3 (14:51→22:52)
[2021-06-06] MEDS ORDERED: EMPA1TAB3 PO (16:23)
[2021-06-06] MEDS ORDERED: METF-370 PO (16:23)
[2021-06-06] MEDS ORDERED: TAMS0.4C36 PO (16:23)
[2021-06-06] MEDS ORDERED: BUSP15TA60 PO (16:23)
[2021-06-06] MEDS ORDERED: SERT-160 PO (16:23)
[2021-06-06] MEDS ORDERED: SIMV-8 PO (16:23)
[2021-06-06] MEDS ORDERED: PRED20TA2 PO (16:23)
[2021-06-06 16:58] VITALS: BP 105/68
[2021-06-06] MEDS ORDERED: SERT-377 PO (17:32)
[2021-06-06] MEDS ORDERED: PRED10TA PO (18:06)
[2021-06-06] MEDS ORDERED: DEXT1SYP9 PO (18:06)
[2021-06-06] MEDS ORDERED: CHOL500033 PO (18:06)
[2021-06-06] MEDS ORDERED: IBUP800T27 PO (18:06)
[2021-06-06] MEDS ORDERED: BUDE0.5S IN (18:06)
[2021-06-06] MEDS ORDERED: TIOT17SP IN (18:06)
[2021-06-06] MEDS ORDERED: OMEP-434 PO (18:06)
[2021-06-06] MEDS ORDERED: ATOR20TA50 PO (18:06)
[2021-06-06] MEDS ORDERED: TOPI25TA43 PO (18:06)
[2021-06-06] MEDS ORDERED: ASCO500C49 PO (18:06)
[2021-06-06 22:00] VITALS: BP 111/76
[2021-06-06] MEDS: ATORVASTATIN 20 MG TAB PO SCH (22:23)
[2021-06-06] MEDS: BUDESONIDE (INHALATION) 0.5 MG/2 ML NEB NEB SCH (22:52)
[2021-06-07] MEDS: ALBUTEROL SULF 2.5 MG/0.5ML(0.5%) NEB SOLN NEB SCH ×6 (02:22→22:06)
[2021-06-07] MEDS: IPRATROPIUM BROM 0.5 MG/2.5ML INH SOL NEB SCH ×6 (02:22→22:06)
[2021-06-07 05:00] VITALS: BP 117/69
[2021-06-07] MEDS: methylPREDNISolone SOD SUCC 40 MG/ML VL IV SCH ×2 (06:02→13:23)
[2021-06-07] MEDS: ACCU-CHEK COMFORT CURVE STRIP VI SCH ×4 (06:03→21:10)
[2021-06-07] MEDS: InsuLIN REG 1unit/0.01ml Soln (100units/ml) SC SCH ×4 (06:22→21:13)
[2021-06-07] MEDS: BUDESONIDE (INHALATION) 0.5 MG/2 ML NEB NEB SCH ×2 (06:40→17:59)
[2021-06-07 09:00] VITALS: BP 106/64
[2021-06-07] MEDS: busPIRone HCL 10 MG TAB PO SCH ×2 (09:35→22:00)
[2021-06-07] MEDS: CLOPIDOGREL BISULFATE 75 MG TAB PO SCH (09:35)
[2021-06-07] MEDS: PANTOPRAZOLE 40 MG TAB PO SCH (09:35)
[2021-06-07] MEDS: SERTRALINE HCL 50 MG TAB PO SCH (09:35)
[2021-06-07] MEDS ORDERED: ROFLUMILAST PO SCH (10:00)
[2021-06-07] MEDS: DALIRESP PO SCH (11:41)
[2021-06-07 13:00] VITALS: BP 117/69
[2021-06-07 17:00] VITALS: BP 105/77
[2021-06-07 20:00] VITALS: BP 118/73
[2021-06-07 22:00] VITALS: BP 118/73
[2021-06-07] MEDS: ATORVASTATIN 20 MG TAB PO SCH (22:00)
[2021-06-08] MEDS: IPRATROPIUM BROM 0.5 MG/2.5ML INH SOL NEB SCH ×5 (04:17→18:17)
[2021-06-08] MEDS: ALBUTEROL SULF 2.5 MG/0.5ML(0.5%) NEB SOLN NEB SCH ×5 (04:17→18:17)
[2021-06-08 05:00] VITALS: BP 108/73
[2021-06-08] MEDS: ACCU-CHEK COMFORT CURVE STRIP VI SCH ×3 (05:48→17:48)
[2021-06-08] MEDS: InsuLIN REG 1unit/0.01ml Soln (100units/ml) SC SCH ×3 (05:49→18:06)
[2021-06-08] MEDS: BUDESONIDE (INHALATION) 0.5 MG/2 ML NEB NEB SCH ×2 (07:43→18:17)
[2021-06-08 08:00] VITALS: BP 102/68
[2021-06-08 09:00] VITALS: BP 102/68
[2021-06-08] MEDS: SERTRALINE HCL 50 MG TAB PO SCH (09:33)
[2021-06-08] MEDS: PANTOPRAZOLE 40 MG TAB PO SCH (09:33)
[2021-06-08] MEDS: busPIRone HCL 10 MG TAB PO SCH (09:33)
[2021-06-08] MEDS: DALIRESP PO SCH (09:33)
[2021-06-08] MEDS: CLOPIDOGREL BISULFATE 75 MG TAB PO SCH (09:33)
[2021-06-08] MEDS ORDERED: predniSONE 20 MG TAB PO SCH (10:00)
[2021-06-08 10:19] LABS: Potassium 3.4 mmol/L (3.5-5.1)
[2021-06-08 10:25] LABS: BUN/Creatinine Ratio 24.8; Calcium 8.9 mg/dL (8.5-10.1)
[2021-06-08] MEDS ORDERED: POTASSIUM CHL 20 Meq TABLET PO ONE (11:30)
[2021-06-08 13:00] VITALS: BP 107/70
[2021-06-08 16:19] VITALS: BP 107/70
== END 2021-06-08 18:30 | disposition home health service (06) | DRG 100 ==
LOC: ER 17:30 → TELE 23:18 → TELE-WESTW 06-06 15:59
PROVIDERS: ADMIT Nurse Practitioner; ATTEND Internal Medicine
DX: G40.909 Epilepsy, unspecified, not intractable, without status epilepticus (principal); J96.20 Acute and chronic respiratory failure, unspecified whether with hypoxia or hypercapnia; J44.1 Chronic obstructive pulmonary disease with (acute) exacerbation; N17.9 Acute kidney failure, unspecified; I25.10 Atherosclerotic heart disease of native coronary artery without angina pectoris; E11.9 Type 2 diabetes mellitus without complications; I10 Essential (primary) hypertension; G47.33 Obstructive sleep apnea (adult) (pediatric); E78.5 Hyperlipidemia, unspecified; E87.6 Hypokalemia; Z20.822 Contact with and (suspected) exposure to COVID-19; F41.0 Panic disorder [episodic paroxysmal anxiety]; G43.909 Migraine, unspecified, not intractable, without status migrainosus; F32.9 Major depressive disorder, single episode, unspecified; K21.9 Gastro-esophageal reflux disease without esophagitis; J44.9 Chronic obstructive pulmonary disease, unspecified; Z79.84 Long term (current) use of oral hypoglycemic drugs; Z79.899 Other long term (current) drug therapy; Z80.0 Family history of malignant neoplasm of digestive organs; Z80.3 Family history of malignant neoplasm of breast; Z82.3 Family history of stroke; Z82.49 Family history of ischemic heart disease and other diseases of the circulatory system; Z82.5 Family history of asthma and other chronic lower respiratory diseases; Z87.891 Personal history of nicotine dependence; Z98.61 Coronary angioplasty status
CPT/HCPCS: 36415; 36600; 70450; 71045; 80048; 80053; 80320; 81001; 82805; 82962; 83605; 83735; 84484; 85025; 85379; 87426; 93005; 93306; 93886; 94640; 94660; 95819; 96361; 96374; G0378; J1815

== ENCOUNTER 2021-07-31 11:23 | Inpatient (IN) | payer MEDICARE, MEDICAID ==
[~2021-07-31] VITALS: Ht 175.3 cm; Wt 89.0 kg
[~2021-07-31 11:23] MED LIST changes: +ASCO500C49 PO; +ATOR20TA50 PO; +BUDE0.5S IN; +BUSP15TA60 PO; +CHOL500033 PO; -CLOP75TA28 PO; +DEXT1SYP9 PO; +EMPA1TAB3 PO; +IBUP800T27 PO; +METF-370 PO; +OMEP-434 PO; -OMEP20CA74 PO; -POTA10TA51 PO; -PRE1T PO; +PRED10TA PO; +SERT-160 PO; -SERT25TA14 PO; +SIMV-8 PO; +TAMS0.4C36 PO; +TIOT17SP IN; -TIOTCAP IN; +TOPI25TA43 PO; -[UNRECOGNIZED DRUG - CODE] IV
[2021-07-31] MEDS ORDERED: methylPREDNISolone SOD SUCC 125 MG/2 ML VL IV ONE (11:30)
[2021-07-31 11:58] LABS: Basophils # (auto) 0 10 ^3/uL (0-0.2); Basophils % (auto) 0.4 % (0.0-2.0); Eosinophils # (auto) 0 10 ^3/uL (0-0.8); Eosinophils % (auto) 0.4 % (0.0-7.0); Hematocrit 48.6 % (41.0-53.0); Lymphocytes # (auto) 1.9 10 ^3/uL (0.4-5.4); Lymphocytes % (auto) 15.6 % (10.0-50.0); Mean Corpuscular Hemoglobin 33.4 pg (28.0-32.0); Mean Corpuscular Hgb Conc. 35.1 g/dL (32.0-36.0); Mean Corpuscular Volume 95.2 fL (80.0-100.0); Monocytes # (auto) 0.6 10 ^3/uL (0-1.3); Monocytes % (auto) 5.2 % (0.0-12.0); Neutrophils # (auto) 9.4 10 ^3/uL (1.6-8.6); Neutrophils % (auto) 78.4 % (37.0-80.0); Nucleated Red Blood Cells % 0.3 %; Red Cell Distribution Width 15.2 % (11.8-14.3)
[2021-07-31 12:11] LABS: BUN/Creatinine Ratio 19.2; Blood Urea Nitrogen 25 mg/dL (7-18); Calcium 9.7 mg/dL (8.5-10.1); Carbon Dioxide 31 mmol/L (21-32); GFR African American 72 mL/min; GFR Non-African American 59 mL/min; Glucose 176 mg/dL (74-106)
[2021-07-31 12:24] LABS: Alanine Aminotransferase 29 U/L (16-61); Alkaline Phosphatase 66 U/L (45-117); Anion Gap 6 (5-15); Aspartate Aminotransferase 11 U/L (15-37); Bilirubin, Total 0.8 mg/dL (0.2-1.0); Chloride 103 mmol/L (98-107); Potassium 3.5 mmol/L (3.5-5.1); Sodium 140 mmol/L (136-145); Total Protein 7.3 g/dL (6.4-8.2)
[2021-07-31 13:31] LABS: Lactic Acid w/Reflex 2.6 mmol/L (0.4-2.0)
[2021-07-31 13:33] LABS: Urine Bacteria NONE SEEN /hpf (None Seen); Urine Blood Negative /uL (Negative); Urine Specific Gravity 1.011 (1.001-1.035); Urine WBC 2 /hpf (0 - 3)
[2021-07-31] MEDS ORDERED: ONDANSETRON HCL 4 MG/2 ML VIAL IV PRN (13:45)
[2021-07-31] MEDS ORDERED: NITROGLYCERIN 0.4 MG SL TAB SL PRN (13:45)
[2021-07-31] MEDS ORDERED: HYDROcodone-ACET 5/325MG TAB PO PRN (13:45)
[2021-07-31] MEDS ORDERED: ACETAMINOPHEN 500 MG TAB PO PRN (13:45)
[2021-07-31] MEDS ORDERED: MORPHINE SULFATE INJECTION 2 MG/ML SYRG IV PRN ×2 (13:45)
[2021-07-31] MEDS ORDERED: DEXTROSE (50%) 50ML SYRG IV PRN (13:45)
[2021-07-31] MEDS: cefTRIAXone 1GM/50ML D5W 50 ML IV SCH (14:08)
[2021-07-31] MEDS: AZITHROMYCIN 500MG/ 250ML 250 ML IV SCH (15:11)
[2021-07-31] MEDS: IPRATROPIUM BROM 0.5 MG/2.5ML INH SOL NEB SCH ×3 (15:19→22:02)
[2021-07-31] MEDS: ALBUTEROL SULF 2.5 MG/0.5ML(0.5%) NEB SOLN NEB SCH ×3 (15:19→22:02)
[2021-07-31] MEDS: ACCU-CHEK COMFORT CURVE STRIP VI SCH ×2 (16:55→22:23)
[2021-07-31] MEDS: InsuLIN REG 1unit/0.01ml Soln (100units/ml) SC SCH ×2 (16:56→22:31)
[2021-07-31] MEDS: BUDESONIDE (INHALATION) 0.5 MG/2 ML NEB NEB SCH (22:02)
[2021-07-31 22:14] VITALS: BP 110/70
[2021-07-31] MEDS: TOPIRAMATE 25 MG TAB PO SCH (22:30)
[2021-08-01 01:55] VITALS: BP 101/53
[2021-08-01] MEDS ORDERED: INFLUENZA QUAD 2020-2021 0.5 ML SYRG IM ONE (03:30)
[2021-08-01 05:00] VITALS: BP 111/66
[2021-08-01] MEDS: ACCU-CHEK COMFORT CURVE STRIP VI SCH ×4 (06:00→22:04)
[2021-08-01] MEDS: InsuLIN REG 1unit/0.01ml Soln (100units/ml) SC SCH ×4 (06:06→22:04)
[2021-08-01] MEDS: BUDESONIDE (INHALATION) 0.5 MG/2 ML NEB NEB SCH ×2 (06:34→21:55)
[2021-08-01] MEDS: IPRATROPIUM BROM 0.5 MG/2.5ML INH SOL NEB SCH ×5 (06:34→21:55)
[2021-08-01] MEDS: ALBUTEROL SULF 2.5 MG/0.5ML(0.5%) NEB SOLN NEB SCH ×5 (06:34→21:55)
[2021-08-01 07:48] LABS: Basophils # (auto) 0 10 ^3/uL (0-0.2); Basophils % (auto) 0.1 % (0.0-2.0); Eosinophils # (auto) 0 10 ^3/uL (0-0.8); Eosinophils % (auto) 0.3 % (0.0-7.0); Hematocrit 45.4 % (41.0-53.0); Hemoglobin 15.7 g/dL (13.5-17.5); Lymphocytes # (auto) 1.9 10 ^3/uL (0.4-5.4); Lymphocytes % (auto) 17.2 % (10.0-50.0); Mean Corpuscular Hemoglobin 33.1 pg (28.0-32.0); Mean Corpuscular Hgb Conc. 34.6 g/dL (32.0-36.0); Mean Corpuscular Volume 95.6 fL (80.0-100.0); Monocytes # (auto) 0.5 10 ^3/uL (0-1.3); Monocytes % (auto) 4.3 % (0.0-12.0); Neutrophils # (auto) 8.7 10 ^3/uL (1.6-8.6); Neutrophils % (auto) 78.1 % (37.0-80.0); Red Blood Cells 4.74 10^6/uL (4.5-5.90); White Blood Cell 11.1 10^3/uL (4.4-10.8)
[2021-08-01 08:06] LABS: Calcium 9.2 mg/dL (8.5-10.1); Potassium 3.5 mmol/L (3.5-5.1)
[2021-08-01 08:10] LABS: BUN/Creatinine Ratio 24.8
[2021-08-01 09:00] VITALS: BP 119/67
[2021-08-01] MEDS: cefTRIAXone 1GM/50ML D5W 50 ML IV SCH (09:44)
[2021-08-01] MEDS: FUROSEMIDE 20 MG TAB PO SCH (09:45)
[2021-08-01] MEDS: TAMSULOSIN HYDROCHLORIDE 0.4 MG CAP PO SCH (09:45)
[2021-08-01] MEDS: ASPirin-EC 81 mg tab PO SCH (09:45)
[2021-08-01] MEDS: TOPIRAMATE 25 MG TAB PO SCH ×2 (09:46→22:05)
[2021-08-01] MEDS: ATORVASTATIN 20 MG TAB PO SCH (09:46)
[2021-08-01] MEDS ORDERED: methylPREDNISolone SOD SUCC 40 MG/ML VL IV SCH (10:00)
[2021-08-01] MEDS: AZITHROMYCIN 500MG/ 250ML 250 ML IV SCH (11:00)
[2021-08-01 13:00] VITALS: BP 111/52
[2021-08-01] MEDS ORDERED: LORazepam 0.5 MG TAB PO PRN (15:30)
[2021-08-01 16:57] VITALS: BP 103/65
[2021-08-01 22:00] VITALS: BP 108/68
[2021-08-01] MEDS: methylPREDNISolone SOD SUCC 40 MG/ML VL IV SCH (22:06)
[2021-08-02 05:00] VITALS: BP 121/75
[2021-08-02] MEDS: ACCU-CHEK COMFORT CURVE STRIP VI SCH ×4 (06:27→21:56)
[2021-08-02] MEDS: InsuLIN REG 1unit/0.01ml Soln (100units/ml) SC SCH ×4 (06:29→22:04)
[2021-08-02] MEDS: BUDESONIDE (INHALATION) 0.5 MG/2 ML NEB NEB SCH ×2 (06:57→18:23)
[2021-08-02] MEDS: IPRATROPIUM BROM 0.5 MG/2.5ML INH SOL NEB SCH ×5 (06:57→21:57)
[2021-08-02] MEDS: ALBUTEROL SULF 2.5 MG/0.5ML(0.5%) NEB SOLN NEB SCH ×5 (06:57→21:57)
[2021-08-02 08:57] VITALS: BP 103/61
[2021-08-02] MEDS: cefTRIAXone 1GM/50ML D5W 50 ML IV SCH (09:45)
[2021-08-02] MEDS: methylPREDNISolone SOD SUCC 40 MG/ML VL IV SCH ×2 (09:45→21:55)
[2021-08-02] MEDS: DALIRESP 500 MCG PO SCH (09:45)
[2021-08-02] MEDS: ASPirin-EC 81 mg tab PO SCH (09:45)
[2021-08-02] MEDS: TAMSULOSIN HYDROCHLORIDE 0.4 MG CAP PO SCH (09:45)
[2021-08-02] MEDS: ATORVASTATIN 20 MG TAB PO SCH (09:46)
[2021-08-02] MEDS: FUROSEMIDE 20 MG TAB PO SCH (09:46)
[2021-08-02] MEDS: TOPIRAMATE 25 MG TAB PO SCH ×2 (09:46→21:56)
[2021-08-02] MEDS: SERTRALINE HCL 50 MG TAB PO SCH (09:46)
[2021-08-02] MEDS: AZITHROMYCIN 500MG/ 250ML 250 ML IV SCH (10:30)
[2021-08-02 13:25] VITALS: BP 101/60
[2021-08-02 17:03] VITALS: BP 94/61
[2021-08-03 06:31] VITALS: BP 113/70
[2021-08-03] MEDS: ACCU-CHEK COMFORT CURVE STRIP VI SCH ×2 (06:39→11:30)
[2021-08-03] MEDS: InsuLIN REG 1unit/0.01ml Soln (100units/ml) SC SCH ×2 (06:43→11:30)
[2021-08-03] MEDS: ALBUTEROL SULF 2.5 MG/0.5ML(0.5%) NEB SOLN NEB SCH ×2 (06:55→10:38)
[2021-08-03] MEDS: IPRATROPIUM BROM 0.5 MG/2.5ML INH SOL NEB SCH ×2 (06:55→10:38)
[2021-08-03] MEDS: BUDESONIDE (INHALATION) 0.5 MG/2 ML NEB NEB SCH (06:56)
[2021-08-03 08:00] VITALS: BP 103/61
[2021-08-03] MEDS: cefTRIAXone 1GM/50ML D5W 50 ML IV SCH (08:49)
[2021-08-03] MEDS: methylPREDNISolone SOD SUCC 40 MG/ML VL IV SCH (08:49)
[2021-08-03] MEDS: SERTRALINE HCL 50 MG TAB PO SCH (08:50)
[2021-08-03] MEDS: DALIRESP 500 MCG PO SCH (08:50)
[2021-08-03] MEDS: TOPIRAMATE 25 MG TAB PO SCH (08:50)
[2021-08-03] MEDS: ASPirin-EC 81 mg tab PO SCH (08:50)
[2021-08-03] MEDS: FUROSEMIDE 20 MG TAB PO SCH (08:51)
[2021-08-03 09:00] VITALS: BP 97/50
[2021-08-03] MEDS: AZITHROMYCIN 500MG/ 250ML 250 ML IV SCH (09:25)
[2021-08-03] MEDS ORDERED: DOXY-340 PO (09:51)
[2021-08-03] MEDS ORDERED: PRED20TA2 PO (09:51)
[2021-08-03 10:23] VITALS: BP 97/50
[2021-08-03] MEDS ORDERED: ATORVASTATIN 20 MG TAB PO SCH (22:00)
== END 2021-08-03 11:35 | disposition home health service (06) | DRG 190 ==
LOC: EDUNIT# 11:23 → EDBD 11:23 → ER 11:23 → EDSEX 11:23 → TELE 13:37 → TELE-WESTW 23:04
PROVIDERS: ADMIT Nurse Practitioner Acute Care; ATTEND Internal Medicine
PROC: 5A09357 Assistance with Respiratory Ventilation, Less than 24 Consecutive Hours, Continuous Positive Airway Pressure (ICD-10-PCS; principal; 2021-07-31)
PROC: 5A09357 Assistance with Respiratory Ventilation, Less than 24 Consecutive Hours, Continuous Positive Airway Pressure (ICD-10-PCS; 2021-08-01)
PROC: 5A09357 Assistance with Respiratory Ventilation, Less than 24 Consecutive Hours, Continuous Positive Airway Pressure (ICD-10-PCS; 2021-08-02)
DX: J44.0 Chronic obstructive pulmonary disease with (acute) lower respiratory infection (principal); J18.9 Pneumonia, unspecified organism; J98.11 Atelectasis; J96.10 Chronic respiratory failure, unspecified whether with hypoxia or hypercapnia; E11.65 Type 2 diabetes mellitus with hyperglycemia; I25.10 Atherosclerotic heart disease of native coronary artery without angina pectoris; E88.01 Alpha-1-antitrypsin deficiency; E78.5 Hyperlipidemia, unspecified; R56.9 Unspecified convulsions; F41.9 Anxiety disorder, unspecified; I11.0 Hypertensive heart disease with heart failure; Z20.822 Contact with and (suspected) exposure to COVID-19; F32.9 Major depressive disorder, single episode, unspecified; K21.9 Gastro-esophageal reflux disease without esophagitis; I50.9 Heart failure, unspecified; Z79.51 Long term (current) use of inhaled steroids; Z79.82 Long term (current) use of aspirin; Z79.84 Long term (current) use of oral hypoglycemic drugs; Z79.899 Other long term (current) drug therapy; Z80.3 Family history of malignant neoplasm of breast; Z82.3 Family history of stroke; Z82.49 Family history of ischemic heart disease and other diseases of the circulatory system; Z82.5 Family history of asthma and other chronic lower respiratory diseases; Z87.891 Personal history of nicotine dependence; Z95.5 Presence of coronary angioplasty implant and graft; J44.1 Chronic obstructive pulmonary disease with (acute) exacerbation
CPT/HCPCS: 36415; 36600; 71045; 80048; 80053; 81001; 82805; 82962; 83036; 83605; 83735; 83880; 84484; 85025; 85379; 87040; 87077; 87186; 87426; 87804; 93005; 94640; 94660; 96374; 99291; G0378; J0696; J1815

== ENCOUNTER 2021-09-20 13:31 | Inpatient (IN) | payer MEDICARE, MEDICAID ==
[~2021-09-20] VITALS: Ht 177.8 cm; Wt 78.0 kg
[~2021-09-20 13:31] MED LIST changes: -ASPI-231 PO; +ASPI1TAB20 PO; +DOXY-340 PO; +PRED20TA2 PO; -TAMS0.4C36 PO
[2021-09-20 14:09] LABS: Basophils # (auto) 0 10 ^3/uL (0-0.2); Basophils % (auto) 0.4 % (0.0-2.0); Eosinophils # (auto) 0 10 ^3/uL (0-0.8); Eosinophils % (auto) 0.5 % (0.0-7.0); Hematocrit 45.2 % (41.0-53.0); Hemoglobin 15.6 g/dL (13.5-17.5); Lymphocytes # (auto) 1.6 10 ^3/uL (0.4-5.4); Lymphocytes % (auto) 17.2 % (10.0-50.0); Mean Corpuscular Hemoglobin 33.6 pg (28.0-32.0); Mean Corpuscular Hgb Conc. 34.5 g/dL (32.0-36.0); Mean Corpuscular Volume 97.4 fL (80.0-100.0); Monocytes # (auto) 0.7 10 ^3/uL (0-1.3); Monocytes % (auto) 7.4 % (0.0-12.0); Neutrophils # (auto) 7.1 10 ^3/uL (1.6-8.6); Neutrophils % (auto) 74.5 % (37.0-80.0); Nucleated Red Blood Cells % 0.2 %; Red Blood Cells 4.65 10^6/uL (4.5-5.90); Red Cell Distribution Width 14.9 % (11.8-14.3); White Blood Cell 9.5 10^3/uL (4.4-10.8)
[2021-09-20 14:43] LABS: Alanine Aminotransferase 26 U/L (16-61); Albumin 3.7 g/dL (3.4-5.0); Anion Gap 2 (5-15); Blood Alcohol < 3.0 mg/dL (0-5); Blood Urea Nitrogen 29 mg/dL (7-18); Carbon Dioxide 34 mmol/L (21-32); Chloride 105 mmol/L (98-107); Glucose 110 mg/dL (74-106); Potassium 3.5 mmol/L (3.5-5.1); Sodium 141 mmol/L (136-145)
[2021-09-20 14:46] LABS: Alkaline Phosphatase 59 U/L (45-117); Aspartate Aminotransferase 10 U/L (15-37); BUN/Creatinine Ratio 29.3; Bilirubin, Total 0.7 mg/dL (0.2-1.0); GFR African American 99 mL/min; GFR Non-African American 81 mL/min; Total Protein 6.7 g/dL (6.4-8.2)
[2021-09-20] MEDS ORDERED: NITROGLYCERIN 0.4 MG SL TAB SL PRN (19:00)
[2021-09-20] MEDS ORDERED: IPRATROPIUM BROM 0.5 MG/2.5ML INH SOL NEB ONE (19:00)
[2021-09-20] MEDS ORDERED: HYDROcodone-ACET 5/325MG TAB PO PRN (19:00)
[2021-09-20] MEDS ORDERED: LORazepam 2MG/ML-1ML VIAL IV PRN (19:00)
[2021-09-20] MEDS ORDERED: MORPHINE SULFATE INJECTION 2 MG/ML SYRG IV PRN (19:00)
[2021-09-20] MEDS ORDERED: METOCLOPRAMIDE HCL 5MG/ml INJ 2ml VIAL IV PRN (19:00)
[2021-09-20] MEDS ORDERED: DEXTROSE (50%) 50ML SYRG IV PRN (19:00)
[2021-09-20] MEDS ORDERED: HYDROmorphone HCL 2 MG/ML VL IV PRN (19:00)
[2021-09-20] MEDS ORDERED: ALUM & MAG HYDROX-SIMETH LIQ(MAALOX) 30 ML PO PRN (19:00)
[2021-09-20] MEDS ORDERED: ALBUTEROL SULF 2.5 MG/0.5ML(0.5%) NEB SOLN NEB ONE (19:00)
[2021-09-20] MEDS ORDERED: TEMAZEPAM 15 MG CAP PO PRN (19:00)
[2021-09-20] MEDS: SODIUM CHLOR 0.9% PF (SALINE LOCK) 10ML VIAL/SYR IV SCH (21:36)
[2021-09-20] MEDS: ACCU-CHEK COMFORT CURVE STRIP VI SCH (21:36)
[2021-09-20] MEDS: InsuLIN REG 1unit/0.01ml Soln (100units/ml) SC SCH (21:42)
[2021-09-21 01:26] VITALS: BP 108/48
[2021-09-21 05:00] VITALS: BP 120/68
[2021-09-21] MEDS: ACCU-CHEK COMFORT CURVE STRIP VI SCH ×4 (06:11→21:44)
[2021-09-21] MEDS: InsuLIN REG 1unit/0.01ml Soln (100units/ml) SC SCH ×4 (06:14→21:56)
[2021-09-21] MEDS: SODIUM CHLOR 0.9% PF (SALINE LOCK) 10ML VIAL/SYR IV SCH ×3 (06:14→22:03)
[2021-09-21 06:45] LABS: Basophils # (auto) 0 10 ^3/uL (0-0.2); Basophils % (auto) 0.3 % (0.0-2.0); Eosinophils # (auto) 0 10 ^3/uL (0-0.8); Eosinophils % (auto) 0.1 % (0.0-7.0); Hematocrit 45.8 % (41.0-53.0); Hemoglobin 15.9 g/dL (13.5-17.5); Lymphocytes # (auto) 0.7 10 ^3/uL (0.4-5.4); Lymphocytes % (auto) 8.2 % (10.0-50.0); Mean Corpuscular Hemoglobin 34.4 pg (28.0-32.0); Mean Corpuscular Hgb Conc. 34.8 g/dL (32.0-36.0); Mean Corpuscular Volume 98.9 fL (80.0-100.0); Monocytes # (auto) 0.7 10 ^3/uL (0-1.3); Monocytes % (auto) 8.4 % (0.0-12.0); Nucleated Red Blood Cells % 0.1 %; Red Blood Cells 4.63 10^6/uL (4.5-5.90); Red Cell Distribution Width 14.6 % (11.8-14.3); White Blood Cell 8.4 10^3/uL (4.4-10.8)
[2021-09-21 06:56] LABS: Albumin 3.6 g/dL (3.4-5.0); Calcium 8.5 mg/dL (8.5-10.1); Magnesium 3.1 mg/dL (1.6-2.6); Potassium 3.7 mmol/L (3.5-5.1)
[2021-09-21 07:00] LABS: Bilirubin, Total 0.9 mg/dL (0.2-1.0); Phosphorus 2.8 mg/dL (2.5-4.90); Total Protein 6.3 g/dL (6.4-8.2)
[2021-09-21 09:32] VITALS: BP 128/79
[2021-09-21] MEDS: BUDESONIDE (INHALATION) 0.5 MG/2 ML NEB NEB SCH ×2 (10:00→19:06)
[2021-09-21] MEDS: PANTOPRAZOLE 40 MG TAB PO SCH (10:29)
[2021-09-21] MEDS: ENOXAPARIN SOD 40 MG/0.4 ML SYRINGE SC SCH (10:30)
[2021-09-21 12:49] VITALS: BP 103/78
[2021-09-21] MEDS: methylPREDNISolone SOD SUCC 40 MG/ML VL IV SCH ×2 (13:48→21:19)
[2021-09-21] MEDS: IPRATROPIUM BROM 0.5 MG/2.5ML INH SOL NEB SCH ×2 (14:25→19:06)
[2021-09-21] MEDS: ALBUTEROL SULF 2.5 MG/0.5ML(0.5%) NEB SOLN NEB SCH ×2 (14:25→19:06)
[2021-09-21 16:48] VITALS: BP 110/71
[2021-09-21] MEDS ORDERED: ALPRAZolam 0.5 MG TAB PO PRN (20:00)
[2021-09-21 20:54] VITALS: BP 92/63
[2021-09-21] MEDS: busPIRone HCL 10 MG TAB PO SCH (21:19)
[2021-09-21] MEDS: TOPIRAMATE 25 MG TAB PO SCH (21:21)
[2021-09-22] MEDS: IPRATROPIUM BROM 0.5 MG/2.5ML INH SOL NEB SCH ×4 (00:36→14:21)
[2021-09-22] MEDS: ALBUTEROL SULF 2.5 MG/0.5ML(0.5%) NEB SOLN NEB SCH ×4 (00:36→14:21)
[2021-09-22 04:37] VITALS: BP 111/59
[2021-09-22] MEDS: methylPREDNISolone SOD SUCC 40 MG/ML VL IV SCH ×2 (05:49→13:49)
[2021-09-22] MEDS: SODIUM CHLOR 0.9% PF (SALINE LOCK) 10ML VIAL/SYR IV SCH ×2 (05:50→13:48)
[2021-09-22] MEDS: ACCU-CHEK COMFORT CURVE STRIP VI SCH ×3 (06:25→17:00)
[2021-09-22] MEDS: InsuLIN REG 1unit/0.01ml Soln (100units/ml) SC SCH ×3 (06:26→17:00)
[2021-09-22] MEDS: BUDESONIDE (INHALATION) 0.5 MG/2 ML NEB NEB SCH (06:53)
[2021-09-22] MEDS: busPIRone HCL 10 MG TAB PO SCH (08:58)
[2021-09-22] MEDS: PANTOPRAZOLE 40 MG TAB PO SCH (08:59)
[2021-09-22 09:00] VITALS: BP 120/69
[2021-09-22] MEDS: ENOXAPARIN SOD 40 MG/0.4 ML SYRINGE SC SCH (09:00)
[2021-09-22] MEDS: TOPIRAMATE 25 MG TAB PO SCH (09:00)
[2021-09-22 12:00] VITALS: BP 104/65
[2021-09-22 13:01] VITALS: BP 104/65
[2021-09-22 16:14] VITALS: BP 124/74
[2021-09-22 16:52] VITALS: BP 114/73
== END 2021-09-22 17:33 | disposition home or self-care (01) | DRG 190 ==
LOC: ER 13:31 → EDBD 13:31 → TELE 18:51 → TELE-WESTW 23:13
PROVIDERS: ADMIT Internal Medicine; ATTEND Internal Medicine
PROC: 5A09457 Assistance with Respiratory Ventilation, 24-96 Consecutive Hours, Continuous Positive Airway Pressure (ICD-10-PCS; principal; 2021-09-21)
DX: J44.1 Chronic obstructive pulmonary disease with (acute) exacerbation (principal); J96.21 Acute and chronic respiratory failure with hypoxia; J98.11 Atelectasis; I50.32 Chronic diastolic (congestive) heart failure; I25.10 Atherosclerotic heart disease of native coronary artery without angina pectoris; E11.9 Type 2 diabetes mellitus without complications; Z66 Do not resuscitate; I11.0 Hypertensive heart disease with heart failure; E66.9 Obesity, unspecified; F41.0 Panic disorder [episodic paroxysmal anxiety]; G43.B0 Ophthalmoplegic migraine, not intractable; G47.33 Obstructive sleep apnea (adult) (pediatric); J98.4 Other disorders of lung; Z20.822 Contact with and (suspected) exposure to COVID-19; F32.A Depression, unspecified; G43.909 Migraine, unspecified, not intractable, without status migrainosus; K21.9 Gastro-esophageal reflux disease without esophagitis; Z68.24 Body mass index [BMI] 24.0-24.9, adult; Z79.82 Long term (current) use of aspirin; Z82.3 Family history of stroke; Z79.899 Other long term (current) drug therapy; Z80.0 Family history of malignant neoplasm of digestive organs; Z80.3 Family history of malignant neoplasm of breast; Z82.49 Family history of ischemic heart disease and other diseases of the circulatory system; Z82.5 Family history of asthma and other chronic lower respiratory diseases; Z85.038 Personal history of other malignant neoplasm of large intestine; Z87.891 Personal history of nicotine dependence; Z95.5 Presence of coronary angioplasty implant and graft; Z99.81 Dependence on supplemental oxygen; R56.9 Unspecified convulsions
CPT/HCPCS: 36415; 70450; 71045; 80053; 80320; 82962; 83735; 84100; 84439; 84443; 84484; 85025; 87426; 93005; 93306; 94640; 94660; 96365; G0378; J1815; J7060

== ENCOUNTER 2021-09-26 10:13 | Inpatient (IN) | payer MEDICARE, MEDICAID ==
[~2021-09-26] VITALS: Ht 177.8 cm; Wt 77.9 kg
[~2021-09-26 10:13] MED LIST changes: -DEXT1SYP9 PO; -DOXY-340 PO; -HYDR12.56 PO; -IBUP800T27 PO; -PRED10TA PO; -PRED20TA2 PO; -SIMV-8 PO
[2021-09-26] MEDS ORDERED: ACETAMINOPHEN 325 MG TAB PO ONE (10:30)
[2021-09-26] MEDS ORDERED: ALBUTEROL SULF 2.5 MG/0.5ML(0.5%) NEB SOLN NEB ONE ×2 (10:45→16:30)
[2021-09-26] MEDS ORDERED: IPRATROPIUM BROM 0.5 MG/2.5ML INH SOL NEB ONE ×2 (10:45→16:30)
[2021-09-26 10:55] LABS: Basophils # (auto) 0 10 ^3/uL (0-0.2); Basophils % (auto) 0.4 % (0.0-2.0); Eosinophils # (auto) 0 10 ^3/uL (0-0.8); Hematocrit 45.3 % (41.0-53.0); Hemoglobin 15.5 g/dL (13.5-17.5); Lymphocytes # (auto) 0.7 10 ^3/uL (0.4-5.4); Lymphocytes % (auto) 8.3 % (10.0-50.0); Mean Corpuscular Hemoglobin 33.3 pg (28.0-32.0); Mean Corpuscular Hgb Conc. 34.3 g/dL (32.0-36.0); Mean Corpuscular Volume 97.1 fL (80.0-100.0); Monocytes # (auto) 0.5 10 ^3/uL (0-1.3); Monocytes % (auto) 6.7 % (0.0-12.0); Neutrophils # (auto) 6.7 10 ^3/uL (1.6-8.6); Neutrophils % (auto) 84.6 % (37.0-80.0); Nucleated Red Blood Cells % 0.1 %; Red Blood Cells 4.66 10^6/uL (4.5-5.90); Red Cell Distribution Width 14.4 % (11.8-14.3); White Blood Cell 7.9 10^3/uL (4.4-10.8)
[2021-09-26 11:14] LABS: Calcium 9.1 mg/dL (8.5-10.1); Potassium 3.2 mmol/L (3.5-5.1)
[2021-09-26 11:22] LABS: Albumin 3.3 g/dL (3.4-5.0); BUN/Creatinine Ratio 21.7; Bilirubin, Total 1.1 mg/dL (0.2-1.0); Total Protein 6.8 g/dL (6.4-8.2)
[2021-09-26] MEDS ORDERED: cefTRIAXone 1GM/50ML D5W 50 ML IV ONE (13:45)
[2021-09-26] MEDS ORDERED: methylPREDNISolone SOD SUCC 125 MG/2 ML VL IV ONE (14:30)
[2021-09-26] MEDS ORDERED: MORPHINE SULFATE INJECTION 2 MG/ML SYRG IV PRN ×3 (14:30→16:30)
[2021-09-26] MEDS ORDERED: NITROGLYCERIN 0.4 MG SL TAB SL PRN ×2 (14:30→16:30)
[2021-09-26] MEDS ORDERED: DOXY100C2 PO (15:42)
[2021-09-26] MEDS ORDERED: PRED20TA2 PO (15:42)
[2021-09-26 15:53] VITALS: BP 98/64
[2021-09-26] MEDS ORDERED: POTASSIUM CHL 20MEQ/100ML 100 ML IV ONE ×2 (16:15→21:00)
[2021-09-26] MEDS ORDERED: ACETAMINOPHEN 500 MG TAB PO PRN (16:30)
[2021-09-26] MEDS ORDERED: DOCUSATE SOD 100 MG CAP PO PRN (16:30)
[2021-09-26] MEDS ORDERED: BUDESONIDE (INHALATION) 0.5 MG/2 ML NEB NEB ONE (16:30)
[2021-09-26] MEDS ORDERED: DEXTROSE (50%) 50ML SYRG IV PRN (16:30)
[2021-09-26] MEDS ORDERED: ALUM & MAG HYDROX-SIMETH LIQ(MAALOX) 30 ML PO PRN (16:30)
[2021-09-26] MEDS ORDERED: LORazepam 0.5 MG TAB PO PRN (16:30)
[2021-09-26] MEDS ORDERED: ONDANSETRON HCL 4 MG/2 ML VIAL IV PRN (16:30)
[2021-09-26] MEDS ORDERED: AZITHROMYCIN 500MG/ 250ML 250 ML IV ONE (16:30)
[2021-09-26] MEDS ORDERED: HYDROcodone-ACET 5/325MG TAB PO PRN (16:30)
[2021-09-26] MEDS ORDERED: REMDESIVIR PER PHARMACY 0 ML IV SCH (16:30)
[2021-09-26] MEDS ORDERED: ALBUTEROL SULF 2.5 MG/0.5ML(0.5%) NEB SOLN NEB PRN (16:30)
[2021-09-26] MEDS ORDERED: FAMOTIDINE (10MG/ML) 2ML VL IV ONE (16:30)
[2021-09-26 16:57] LABS: Albumin 3.2 g/dL (3.4-5.0); Calcium 9.1 mg/dL (8.5-10.1); Magnesium 3.2 mg/dL (1.6-2.6); Potassium 3.4 mmol/L (3.5-5.1)
[2021-09-26] MEDS: ACCU-CHEK COMFORT CURVE STRIP VI SCH ×2 (17:00→22:34)
[2021-09-26 17:04] LABS: BUN/Creatinine Ratio 22.8; Bilirubin, Total 0.9 mg/dL (0.2-1.0); CRP High Sensitivity 10.2 mg/dL (< 0.3)
[2021-09-26 17:39] LABS: Thyroid Stimulating Hormone 0.58 uIU/mL (0.358-3.74)
[2021-09-26 18:00] LABS: Basophils # (auto) 0 10 ^3/uL (0-0.2); Basophils % (auto) 0.3 % (0.0-2.0); Eosinophils # (auto) 0 10 ^3/uL (0-0.8); Hematocrit 43.7 % (41.0-53.0); Hemoglobin 15.1 g/dL (13.5-17.5); Lymphocytes # (auto) 0.3 10 ^3/uL (0.4-5.4); Lymphocytes % (auto) 5.1 % (10.0-50.0); Mean Corpuscular Hemoglobin 33.4 pg (28.0-32.0); Mean Corpuscular Hgb Conc. 34.6 g/dL (32.0-36.0); Mean Corpuscular Volume 96.5 fL (80.0-100.0); Monocytes # (auto) 0.3 10 ^3/uL (0-1.3); Neutrophils # (auto) 5.7 10 ^3/uL (1.6-8.6); Neutrophils % (auto) 89.6 % (37.0-80.0); Nucleated Red Blood Cells % 0.3 %; Red Blood Cells 4.52 10^6/uL (4.5-5.90); Red Cell Distribution Width 14.3 % (11.8-14.3); White Blood Cell 6.4 10^3/uL (4.4-10.8)
[2021-09-26] MEDS ORDERED: REMDESIVIR 200 MG in NS 210ml LOADING DOSE ADULT IV ONE ×2 (18:00→23:00)
[2021-09-26] MEDS: InsuLIN REG 1unit/0.01ml Soln (100units/ml) SC SCH ×2 (18:49→22:35)
[2021-09-26] MEDS: FUROSEMIDE 20 MG/2 ML VIAL IV SCH (18:49)
[2021-09-26 18:57] VITALS: BP 110/79
[2021-09-26] MEDS: ALBUTEROL SULF 2.5 MG/0.5ML(0.5%) NEB SOLN NEB SCH ×2 (20:10→23:21)
[2021-09-26] MEDS: IPRATROPIUM BROM 0.5 MG/2.5ML INH SOL NEB SCH ×2 (20:14→23:22)
[2021-09-26] MEDS: BUDESONIDE (INHALATION) 0.5 MG/2 ML NEB NEB SCH (20:17)
[2021-09-26 20:22] LABS: Urine Bacteria NONE SEEN /hpf (None Seen); Urine Blood TRACE /uL (Negative); Urine Specific Gravity 1.017 (1.001-1.035); Urine WBC 1 /hpf (0 - 3)
[2021-09-26 20:38] LABS: Amphetamine Screen, Urine NEGATIVE (NEGATIVE); Barbiturate Scree,Urine NEGATIVE (NEGATIVE); Benzodiazephine Screen, Urine NEGATIVE (NEGATIVE); Cannabinoid Screen, Urine NEGATIVE (NEGATIVE); Cocaine Screen, Urine NEGATIVE (NEGATIVE); Opiate Scree,Urine NEGATIVE (NEGATIVE); Phencyclidine Screen, Urine NEGATIVE (NEGATIVE)
[2021-09-26] MEDS ORDERED: LORazepam 2MG/ML-1ML VIAL ONE (21:17)
[2021-09-26] MEDS ORDERED: LORazepam 2MG/ML-1ML VIAL IV ONE (21:45)
[2021-09-26 22:00] VITALS: BP 149/77
[2021-09-26] MEDS: busPIRone HCL 10 MG TAB PO SCH (22:33)
[2021-09-26] MEDS: POTASSIUM CHL 20 Meq TABLET PO SCH (22:33)
[2021-09-26] MEDS: ATORVASTATIN 20 MG TAB PO SCH (22:33)
[2021-09-26] MEDS: TOPIRAMATE 25 MG TAB PO SCH (22:33)
[2021-09-26] MEDS: ENOXAPARIN SOD 40 MG/0.4 ML SYRINGE SC SCH (22:34)
[2021-09-26] MEDS ORDERED: INFLUENZA QUAD 2021-2022 0.5 ML SYRG IM ONE (23:45)
[2021-09-26] MEDS ORDERED: HYDR12.56 PO (23:48)
[2021-09-27] MEDS: IPRATROPIUM BROM 0.5 MG/2.5ML INH SOL NEB SCH ×6 (02:20→21:49)
[2021-09-27] MEDS: ALBUTEROL SULF 2.5 MG/0.5ML(0.5%) NEB SOLN NEB SCH ×6 (02:20→21:48)
[2021-09-27 05:00] VITALS: BP 101/79
[2021-09-27] MEDS: BUDESONIDE (INHALATION) 0.5 MG/2 ML NEB NEB SCH ×2 (05:59→17:09)
[2021-09-27] MEDS: InsuLIN REG 1unit/0.01ml Soln (100units/ml) SC SCH ×4 (06:29→21:35)
[2021-09-27] MEDS: ACCU-CHEK COMFORT CURVE STRIP VI SCH ×4 (06:29→21:35)
[2021-09-27] MEDS: FUROSEMIDE 20 MG/2 ML VIAL IV SCH ×2 (06:29→18:00)
[2021-09-27 06:31] VITALS: BP 115/69
[2021-09-27 07:20] LABS: Basophils # (auto) 0 10 ^3/uL (0-0.2); Basophils % (auto) 0.1 % (0.0-2.0); Eosinophils # (auto) 0 10 ^3/uL (0-0.8); Hematocrit 43.9 % (41.0-53.0); Hemoglobin 15.3 g/dL (13.5-17.5); Lymphocytes # (auto) 0.5 10 ^3/uL (0.4-5.4); Lymphocytes % (auto) 8.4 % (10.0-50.0); Mean Corpuscular Hemoglobin 33.9 pg (28.0-32.0); Mean Corpuscular Hgb Conc. 34.7 g/dL (32.0-36.0); Mean Corpuscular Volume 97.7 fL (80.0-100.0); Monocytes # (auto) 0.3 10 ^3/uL (0-1.3); Monocytes % (auto) 6.2 % (0.0-12.0); Neutrophils # (auto) 4.8 10 ^3/uL (1.6-8.6); Neutrophils % (auto) 85.3 % (37.0-80.0); Nucleated Red Blood Cells % 0.2 %; Red Cell Distribution Width 14.3 % (11.8-14.3); White Blood Cell 5.7 10^3/uL (4.4-10.8)
[2021-09-27 07:28] LABS: INR 0.95 (0.9-1.15)
[2021-09-27 07:32] LABS: Calcium 8.6 mg/dL (8.5-10.1); Magnesium 3.3 mg/dL (1.6-2.6); Potassium 3.6 mmol/L (3.5-5.1)
[2021-09-27 07:39] LABS: BUN/Creatinine Ratio 26.8; Phosphorus 3.8 mg/dL (2.5-4.90); Total Protein 6.7 g/dL (6.4-8.2); Uric Acid 5.7 mg/dL (3.5-7.2)
[2021-09-27 09:00] VITALS: BP 113/65
[2021-09-27] MEDS: ROFLUMILAST 500 MCG PO SCH (10:00)
[2021-09-27] MEDS: FAMOTIDINE (10MG/ML) 2ML VL IV SCH ×2 (10:35→21:47)
[2021-09-27] MEDS: cefTRIAXone 1GM/50ML D5W 50 ML IV SCH ×2 (10:35→13:00)
[2021-09-27] MEDS: ZINC SULFATE 220mg CAP or TAB PO SCH (10:36)
[2021-09-27] MEDS: ASCORBIC ACID 1,000 MG TAB PO SCH (10:36)
[2021-09-27] MEDS: TOPIRAMATE 25 MG TAB PO SCH ×2 (10:36→21:48)
[2021-09-27] MEDS: ASPirin-EC 81 mg tab PO SCH (10:36)
[2021-09-27] MEDS: IVERMECTIN 3 MG TAB PO SCH (10:36)
[2021-09-27] MEDS: SERTRALINE HCL 50 MG TAB PO SCH (10:37)
[2021-09-27] MEDS: POTASSIUM CHL 20 Meq TABLET PO SCH ×2 (10:37→21:47)
[2021-09-27] MEDS: ENOXAPARIN SOD 40 MG/0.4 ML SYRINGE SC SCH ×2 (10:37→21:48)
[2021-09-27] MEDS: busPIRone HCL 10 MG TAB PO SCH ×2 (10:37→21:47)
[2021-09-27] MEDS: CHOLECALCIFEROL (VITD3) 2,000 UNIT CAP/TAB PO SCH (10:37)
[2021-09-27] MEDS: AZITHROMYCIN 500MG/ 250ML 250 ML IV SCH ×2 (10:38→14:00)
[2021-09-27] MEDS: DexAMETHasone SOD PHOS 10MG/1ML VIAL INJ IV SCH (10:39)
[2021-09-27 13:00] VITALS: BP 107/63
[2021-09-27 17:00] VITALS: BP 132/94
[2021-09-27] MEDS: REMDESIVIR 100mg 100 MG in SODIUM CHL 0.9% 230 ML IV SCH (18:10)
[2021-09-27] MEDS: ATORVASTATIN 20 MG TAB PO SCH (21:48)
[2021-09-27 22:00] VITALS: BP 99/71
[2021-09-28] MEDS: ALBUTEROL SULF 2.5 MG/0.5ML(0.5%) NEB SOLN NEB SCH ×6 (01:47→21:38)
[2021-09-28] MEDS: IPRATROPIUM BROM 0.5 MG/2.5ML INH SOL NEB SCH ×6 (01:47→21:38)
[2021-09-28] MEDS: FUROSEMIDE 20 MG/2 ML VIAL IV SCH (05:06)
[2021-09-28 05:47] VITALS: BP 99/68
[2021-09-28] MEDS: ACCU-CHEK COMFORT CURVE STRIP VI SCH ×4 (06:13→22:12)
[2021-09-28] MEDS: InsuLIN REG 1unit/0.01ml Soln (100units/ml) SC SCH ×4 (06:14→22:00)
[2021-09-28] MEDS: BUDESONIDE (INHALATION) 0.5 MG/2 ML NEB NEB SCH ×2 (06:17→21:38)
[2021-09-28 07:23] LABS: Potassium 3.6 mmol/L (3.5-5.1)
[2021-09-28 07:38] LABS: Albumin 2.8 g/dL (3.4-5.0); BUN/Creatinine Ratio 35.3; Calcium 8.4 mg/dL (8.5-10.1); Total Protein 5.4 g/dL (6.4-8.2)
[2021-09-28 09:00] VITALS: BP 101/73
[2021-09-28] MEDS: cefTRIAXone 1GM/50ML D5W 50 ML IV SCH (09:04)
[2021-09-28] MEDS: CHOLECALCIFEROL (VITD3) 2,000 UNIT CAP/TAB PO SCH (09:05)
[2021-09-28] MEDS: ASPirin-EC 81 mg tab PO SCH (09:05)
[2021-09-28] MEDS: TOPIRAMATE 25 MG TAB PO SCH ×2 (09:05→22:11)
[2021-09-28] MEDS: busPIRone HCL 10 MG TAB PO SCH ×2 (09:05→22:11)
[2021-09-28] MEDS: ASCORBIC ACID 1,000 MG TAB PO SCH (09:05)
[2021-09-28] MEDS: ZINC SULFATE 220mg CAP or TAB PO SCH (09:05)
[2021-09-28] MEDS: POTASSIUM CHL 20 Meq TABLET PO SCH (09:06)
[2021-09-28] MEDS: ENOXAPARIN SOD 40 MG/0.4 ML SYRINGE SC SCH ×2 (09:06→22:11)
[2021-09-28] MEDS: SERTRALINE HCL 50 MG TAB PO SCH (09:06)
[2021-09-28] MEDS: IVERMECTIN 3 MG TAB PO SCH (09:06)
[2021-09-28] MEDS: FAMOTIDINE (10MG/ML) 2ML VL IV SCH ×2 (09:24→22:10)
[2021-09-28] MEDS: DexAMETHasone SOD PHOS 10MG/1ML VIAL INJ IV SCH (09:24)
[2021-09-28] MEDS: AZITHROMYCIN 500MG/ 250ML 250 ML IV SCH (09:24)
[2021-09-28] MEDS: ROFLUMILAST 500 MCG PO SCH (10:00)
[2021-09-28 13:00] VITALS: BP 106/72
[2021-09-28] MEDS ORDERED: IOHEXOL 350 MG/ML 100ML IJ ONE (14:54)
[2021-09-28] MEDS: REMDESIVIR 100mg 100 MG in SODIUM CHL 0.9% 230 ML IV SCH (16:45)
[2021-09-28 17:00] VITALS: BP 96/64
[2021-09-28 22:00] VITALS: BP 103/65
[2021-09-28] MEDS: ATORVASTATIN 20 MG TAB PO SCH (22:11)
[2021-09-29] VITALS (7 sets, daily range): BP systolic 93–108; BP diastolic 56–70
[2021-09-29] MEDS: ALBUTEROL SULF 2.5 MG/0.5ML(0.5%) NEB SOLN NEB SCH ×6 (02:30→22:53)
[2021-09-29] MEDS: IPRATROPIUM BROM 0.5 MG/2.5ML INH SOL NEB SCH ×6 (02:30→22:53)
[2021-09-29] MEDS: InsuLIN REG 1unit/0.01ml Soln (100units/ml) SC SCH ×4 (06:05→21:27)
[2021-09-29] MEDS: ACCU-CHEK COMFORT CURVE STRIP VI SCH ×4 (06:06→21:14)
[2021-09-29] MEDS: BUDESONIDE (INHALATION) 0.5 MG/2 ML NEB NEB SCH ×2 (06:07→19:16)
[2021-09-29 07:30] LABS: Albumin 2.5 g/dL (3.4-5.0); Calcium 8.2 mg/dL (8.5-10.1); Potassium 3.8 mmol/L (3.5-5.1)
[2021-09-29 07:36] LABS: BUN/Creatinine Ratio 37.5; Bilirubin, Total 0.7 mg/dL (0.2-1.0); Total Protein 5.1 g/dL (6.4-8.2)
[2021-09-29] MEDS: cefTRIAXone 1GM/50ML D5W 50 ML IV SCH (09:46)
[2021-09-29] MEDS: ENOXAPARIN SOD 40 MG/0.4 ML SYRINGE SC SCH ×2 (09:46→21:21)
[2021-09-29] MEDS: ASPirin-EC 81 mg tab PO SCH (09:46)
[2021-09-29] MEDS: busPIRone HCL 10 MG TAB PO SCH ×2 (09:47→21:20)
[2021-09-29] MEDS: TOPIRAMATE 25 MG TAB PO SCH ×2 (09:47→21:19)
[2021-09-29] MEDS: ZINC SULFATE 220mg CAP or TAB PO SCH (09:47)
[2021-09-29] MEDS: ASCORBIC ACID 1,000 MG TAB PO SCH (09:47)
[2021-09-29] MEDS: FAMOTIDINE (10MG/ML) 2ML VL IV SCH ×2 (09:47→21:18)
[2021-09-29] MEDS: SERTRALINE HCL 50 MG TAB PO SCH (09:47)
[2021-09-29] MEDS: DexAMETHasone SOD PHOS 10MG/1ML VIAL INJ IV SCH (09:48)
[2021-09-29] MEDS: CHOLECALCIFEROL (VITD3) 2,000 UNIT CAP/TAB PO SCH (09:48)
[2021-09-29] MEDS: POTASSIUM CHL 20 Meq TABLET PO SCH (09:55)
[2021-09-29] MEDS: FUROSEMIDE 20 MG/2 ML VIAL IV SCH (10:00)
[2021-09-29] MEDS: ROFLUMILAST 500 MCG PO SCH (10:00)
[2021-09-29] MEDS: AZITHROMYCIN 500MG/ 250ML 250 ML IV SCH (11:18)
[2021-09-29] MEDS: REMDESIVIR 100mg 100 MG in SODIUM CHL 0.9% 230 ML IV SCH (15:25)
[2021-09-29] MEDS: ATORVASTATIN 20 MG TAB PO SCH (21:19)
[2021-09-30 05:00] VITALS: BP 102/67
[2021-09-30] MEDS: InsuLIN REG 1unit/0.01ml Soln (100units/ml) SC SCH ×4 (06:18→21:45)
[2021-09-30] MEDS: ACCU-CHEK COMFORT CURVE STRIP VI SCH ×4 (06:18→21:43)
[2021-09-30 06:35] LABS: Basophils # (auto) 0 10 ^3/uL (0-0.2); Basophils % (auto) 0.1 % (0.0-2.0); Eosinophils # (auto) 0 10 ^3/uL (0-0.8); Eosinophils % (auto) 0.1 % (0.0-7.0); Hematocrit 37.7 % (41.0-53.0); Lymphocytes # (auto) 0.7 10 ^3/uL (0.4-5.4); Lymphocytes % (auto) 10.5 % (10.0-50.0); Mean Corpuscular Hgb Conc. 34.4 g/dL (32.0-36.0); Monocytes # (auto) 0.4 10 ^3/uL (0-1.3); Neutrophils % (auto) 84.3 % (37.0-80.0); Nucleated Red Blood Cells % 0.1 %; Red Blood Cells 3.92 10^6/uL (4.5-5.90); Red Cell Distribution Width 14.2 % (11.8-14.3); White Blood Cell 7.1 10^3/uL (4.4-10.8)
[2021-09-30] MEDS: IPRATROPIUM BROM 0.5 MG/2.5ML INH SOL NEB SCH ×5 (06:35→22:01)
[2021-09-30] MEDS: ALBUTEROL SULF 2.5 MG/0.5ML(0.5%) NEB SOLN NEB SCH ×5 (06:35→22:01)
[2021-09-30] MEDS: BUDESONIDE (INHALATION) 0.5 MG/2 ML NEB NEB SCH ×2 (06:35→22:01)
[2021-09-30 07:11] LABS: Albumin 2.4 g/dL (3.4-5.0); BUN/Creatinine Ratio 37.5; Bilirubin, Total 0.5 mg/dL (0.2-1.0)
[2021-09-30] MEDS: cefTRIAXone 1GM/50ML D5W 50 ML IV SCH (08:31)
[2021-09-30 09:00] VITALS: BP 95/58
[2021-09-30] MEDS: DexAMETHasone SOD PHOS 10MG/1ML VIAL INJ IV SCH (10:53)
[2021-09-30] MEDS: FAMOTIDINE (10MG/ML) 2ML VL IV SCH ×2 (10:53→21:42)
[2021-09-30] MEDS: ZINC SULFATE 220mg CAP or TAB PO SCH (10:54)
[2021-09-30] MEDS: AZITHROMYCIN 500MG/ 250ML 250 ML IV SCH (10:54)
[2021-09-30] MEDS: ASPirin-EC 81 mg tab PO SCH (10:54)
[2021-09-30] MEDS: busPIRone HCL 10 MG TAB PO SCH ×2 (10:54→21:42)
[2021-09-30] MEDS: CHOLECALCIFEROL (VITD3) 2,000 UNIT CAP/TAB PO SCH (10:55)
[2021-09-30] MEDS: ASCORBIC ACID 1,000 MG TAB PO SCH (10:55)
[2021-09-30] MEDS: SERTRALINE HCL 50 MG TAB PO SCH (10:55)
[2021-09-30] MEDS: POTASSIUM CHL 20 Meq TABLET PO SCH (10:55)
[2021-09-30] MEDS: TOPIRAMATE 25 MG TAB PO SCH ×2 (10:55→21:43)
[2021-09-30] MEDS: ENOXAPARIN SOD 40 MG/0.4 ML SYRINGE SC SCH ×2 (10:56→21:43)
[2021-09-30] MEDS: ROFLUMILAST 500 MCG PO SCH (10:56)
[2021-09-30] MEDS: FUROSEMIDE 20 MG/2 ML VIAL IV SCH (10:56)
[2021-09-30 13:00] VITALS: BP 94/65
[2021-09-30] MEDS: REMDESIVIR 100mg 100 MG in SODIUM CHL 0.9% 230 ML IV SCH (14:51)
[2021-09-30] MEDS ORDERED: LORazepam 2MG/ML-1ML VIAL IV PRN (15:45)
[2021-09-30 17:00] VITALS: BP 93/52
[2021-09-30] MEDS: ATORVASTATIN 20 MG TAB PO SCH (21:43)
[2021-09-30 22:00] VITALS: BP 99/59
[2021-10-01] MEDS: ALBUTEROL SULF 2.5 MG/0.5ML(0.5%) NEB SOLN NEB SCH ×5 (02:08→21:23)
[2021-10-01] MEDS: IPRATROPIUM BROM 0.5 MG/2.5ML INH SOL NEB SCH ×5 (02:08→21:23)
[2021-10-01 05:00] VITALS: BP 95/58
[2021-10-01] MEDS: InsuLIN REG 1unit/0.01ml Soln (100units/ml) SC SCH ×4 (06:19→22:12)
[2021-10-01] MEDS: ACCU-CHEK COMFORT CURVE STRIP VI SCH ×4 (06:19→21:55)
[2021-10-01 06:35] LABS: Basophils # (auto) 0 10 ^3/uL (0-0.2); Basophils % (auto) 0.1 % (0.0-2.0); Eosinophils # (auto) 0 10 ^3/uL (0-0.8); Eosinophils % (auto) 0.1 % (0.0-7.0); Hematocrit 36.1 % (41.0-53.0); Hemoglobin 12.5 g/dL (13.5-17.5); Lymphocytes # (auto) 0.7 10 ^3/uL (0.4-5.4); Lymphocytes % (auto) 8.6 % (10.0-50.0); Mean Corpuscular Hemoglobin 33.8 pg (28.0-32.0); Mean Corpuscular Hgb Conc. 34.8 g/dL (32.0-36.0); Mean Corpuscular Volume 97.2 fL (80.0-100.0); Monocytes # (auto) 0.4 10 ^3/uL (0-1.3); Monocytes % (auto) 5.1 % (0.0-12.0); Neutrophils # (auto) 7.2 10 ^3/uL (1.6-8.6); Neutrophils % (auto) 86.1 % (37.0-80.0); Red Blood Cells 3.71 10^6/uL (4.5-5.90); Red Cell Distribution Width 14.3 % (11.8-14.3); White Blood Cell 8.4 10^3/uL (4.4-10.8)
[2021-10-01 06:48] LABS: BUN/Creatinine Ratio 41.3; Calcium 8.4 mg/dL (8.5-10.1)
[2021-10-01 08:49] VITALS: BP 93/52
[2021-10-01] MEDS: cefTRIAXone 1GM/50ML D5W 50 ML IV SCH (10:46)
[2021-10-01] MEDS: FUROSEMIDE 20 MG/2 ML VIAL IV SCH (10:46)
[2021-10-01] MEDS: DexAMETHasone SOD PHOS 10MG/1ML VIAL INJ IV SCH (10:46)
[2021-10-01] MEDS: FAMOTIDINE (10MG/ML) 2ML VL IV SCH ×2 (10:47→21:54)
[2021-10-01] MEDS: ROFLUMILAST 500 MCG PO SCH (10:47)
[2021-10-01] MEDS: AZITHROMYCIN 500MG/ 250ML 250 ML IV SCH (10:47)
[2021-10-01] MEDS: ZINC SULFATE 220mg CAP or TAB PO SCH (10:48)
[2021-10-01] MEDS: busPIRone HCL 10 MG TAB PO SCH ×2 (10:48→21:54)
[2021-10-01] MEDS: POTASSIUM CHL 20 Meq TABLET PO SCH (10:49)
[2021-10-01] MEDS: TOPIRAMATE 25 MG TAB PO SCH ×2 (10:49→21:55)
[2021-10-01] MEDS: ASCORBIC ACID 1,000 MG TAB PO SCH (10:49)
[2021-10-01] MEDS: CHOLECALCIFEROL (VITD3) 2,000 UNIT CAP/TAB PO SCH (10:49)
[2021-10-01] MEDS: ASPirin-EC 81 mg tab PO SCH (10:49)
[2021-10-01] MEDS: SERTRALINE HCL 50 MG TAB PO SCH (10:50)
[2021-10-01] MEDS: ENOXAPARIN SOD 40 MG/0.4 ML SYRINGE SC SCH ×2 (10:50→21:55)
[2021-10-01 12:34] VITALS: BP 105/63
[2021-10-01] MEDS: BUDESONIDE (INHALATION) 0.5 MG/2 ML NEB NEB SCH ×2 (15:38→18:30)
[2021-10-01 16:48] VITALS: BP 102/65
[2021-10-01] MEDS: ATORVASTATIN 20 MG TAB PO SCH (21:54)
[2021-10-01 22:18] VITALS: BP 94/58
[2021-10-02] MEDS: ALBUTEROL SULF 2.5 MG/0.5ML(0.5%) NEB SOLN NEB SCH ×4 (01:58→15:07)
[2021-10-02] MEDS: IPRATROPIUM BROM 0.5 MG/2.5ML INH SOL NEB SCH ×4 (01:58→15:07)
[2021-10-02 05:00] VITALS: BP 105/64
[2021-10-02] MEDS: ACCU-CHEK COMFORT CURVE STRIP VI SCH ×3 (06:53→17:45)
[2021-10-02] MEDS: InsuLIN REG 1unit/0.01ml Soln (100units/ml) SC SCH ×3 (06:53→17:45)
[2021-10-02 07:36] LABS: Basophils # (auto) 0 10 ^3/uL (0-0.2); Basophils % (auto) 0.1 % (0.0-2.0); Eosinophils # (auto) 0 10 ^3/uL (0-0.8); Eosinophils % (auto) 0.1 % (0.0-7.0); Hematocrit 36.5 % (41.0-53.0); Hemoglobin 12.6 g/dL (13.5-17.5); Lymphocytes % (auto) 11.1 % (10.0-50.0); Mean Corpuscular Hemoglobin 33.2 pg (28.0-32.0); Mean Corpuscular Hgb Conc. 34.5 g/dL (32.0-36.0); Mean Corpuscular Volume 96.4 fL (80.0-100.0); Monocytes # (auto) 0.5 10 ^3/uL (0-1.3); Monocytes % (auto) 5.9 % (0.0-12.0); Neutrophils # (auto) 7.5 10 ^3/uL (1.6-8.6); Neutrophils % (auto) 82.8 % (37.0-80.0); Red Blood Cells 3.79 10^6/uL (4.5-5.90); Red Cell Distribution Width 14.2 % (11.8-14.3); White Blood Cell 9.1 10^3/uL (4.4-10.8)
[2021-10-02 08:06] LABS: Potassium 3.8 mmol/L (3.5-5.1)
[2021-10-02 08:14] LABS: BUN/Creatinine Ratio 32.4; Calcium 8.2 mg/dL (8.5-10.1)
[2021-10-02] MEDS: BUDESONIDE (INHALATION) 0.5 MG/2 ML NEB NEB SCH (08:23)
[2021-10-02 09:00] VITALS: BP 85/55
[2021-10-02] MEDS: FUROSEMIDE 20 MG/2 ML VIAL IV SCH (10:00)
[2021-10-02] MEDS: ROFLUMILAST 500 MCG PO SCH (10:00)
[2021-10-02] MEDS: cefTRIAXone 1GM/50ML D5W 50 ML IV SCH (11:28)
[2021-10-02] MEDS: DexAMETHasone SOD PHOS 10MG/1ML VIAL INJ IV SCH (11:28)
[2021-10-02] MEDS: FAMOTIDINE (10MG/ML) 2ML VL IV SCH (11:29)
[2021-10-02] MEDS: busPIRone HCL 10 MG TAB PO SCH (11:31)
[2021-10-02] MEDS: ZINC SULFATE 220mg CAP or TAB PO SCH (11:31)
[2021-10-02] MEDS: ASPirin-EC 81 mg tab PO SCH (11:36)
[2021-10-02] MEDS: POTASSIUM CHL 20 Meq TABLET PO SCH (11:44)
[2021-10-02] MEDS: ASCORBIC ACID 1,000 MG TAB PO SCH (11:44)
[2021-10-02] MEDS: SERTRALINE HCL 50 MG TAB PO SCH (11:45)
[2021-10-02] MEDS: ENOXAPARIN SOD 40 MG/0.4 ML SYRINGE SC SCH (11:45)
[2021-10-02] MEDS: CHOLECALCIFEROL (VITD3) 2,000 UNIT CAP/TAB PO SCH (11:45)
[2021-10-02] MEDS: TOPIRAMATE 25 MG TAB PO SCH (12:10)
[2021-10-02 13:00] VITALS: BP 92/59
[2021-10-02 16:30] VITALS: BP 107/67
[2021-10-02 16:44] VITALS: BP 107/67
== END 2021-10-02 17:45 | disposition home or self-care (01) | DRG 177 ==
LOC: EDUNIT# 10:13 → EDSEX 10:13 → EDBD 10:13 → ER 10:13 → TELE 14:19 → TELE-EAST 18:26
PROVIDERS: ADMIT Hospitalist; ATTEND Internal Medicine
PROC: XW033E5 Introduction of Remdesivir Anti-infective into Peripheral Vein, Percutaneous Approach, New Technology Group 5 (ICD-10-PCS; principal; 2021-09-26)
PROC: 5A09357 Assistance with Respiratory Ventilation, Less than 24 Consecutive Hours, Continuous Positive Airway Pressure (ICD-10-PCS; 2021-09-29)
PROC: 5A09357 Assistance with Respiratory Ventilation, Less than 24 Consecutive Hours, Continuous Positive Airway Pressure (ICD-10-PCS; 2021-09-30)
PROC: 5A09357 Assistance with Respiratory Ventilation, Less than 24 Consecutive Hours, Continuous Positive Airway Pressure (ICD-10-PCS; 2021-10-01)
DX: U07.1 COVID-19 (principal); J96.21 Acute and chronic respiratory failure with hypoxia; J12.82 Pneumonia due to coronavirus disease 2019; I50.33 Acute on chronic diastolic (congestive) heart failure; E44.1 Mild protein-calorie malnutrition; J45.901 Unspecified asthma with (acute) exacerbation; J98.11 Atelectasis; E87.6 Hypokalemia; F32.9 Major depressive disorder, single episode, unspecified; F41.9 Anxiety disorder, unspecified; I25.5 Ischemic cardiomyopathy; E88.01 Alpha-1-antitrypsin deficiency; E78.5 Hyperlipidemia, unspecified; G40.909 Epilepsy, unspecified, not intractable, without status epilepticus; G47.33 Obstructive sleep apnea (adult) (pediatric); I11.0 Hypertensive heart disease with heart failure; I25.10 Atherosclerotic heart disease of native coronary artery without angina pectoris; J43.9 Emphysema, unspecified; F32.A Depression, unspecified; K21.9 Gastro-esophageal reflux disease without esophagitis; Z66 Do not resuscitate; Z79.82 Long term (current) use of aspirin; Z79.899 Other long term (current) drug therapy; Z98.61 Coronary angioplasty status; Z68.24 Body mass index [BMI] 24.0-24.9, adult; Z80.3 Family history of malignant neoplasm of breast; Z82.3 Family history of stroke; Z82.49 Family history of ischemic heart disease and other diseases of the circulatory system; Z82.5 Family history of asthma and other chronic lower respiratory diseases; Z85.038 Personal history of other malignant neoplasm of large intestine; Z87.891 Personal history of nicotine dependence; E11.65 Type 2 diabetes mellitus with hyperglycemia
CPT/HCPCS: 36415; 36600; 71045; 71275; 80048; 80053; 80307; 81001; 82306; 82728; 82805; 82962; 83036; 83605; 83615; 83735; 83880; 84100; 84443; 84484; 84550; 85025; 85379; 85610; 85730; 86141; 87040; 87081; 87086; 87426; 93005; 93970; 94640; 94644; 94660; 96365; 97110; 97116; 97530; G0378; J0696; J1100; J1815; J2405; J3480; J3490

== ENCOUNTER 2022-01-08 21:04 | Inpatient (IN) | payer MEDICARE, MEDICAID ==
[~2022-01-08] VITALS: Ht 172.7 cm; Wt 77.1 kg
[~2022-01-08 21:04] MED LIST changes: +DOXY100C2 PO; +HYDR12.56 PO; -IPRIH INH; -OMEP-434 PO; +PRED20TA2 PO
[2022-01-08] MEDS ORDERED: LORazepam 2MG/ML-1ML VIAL ONE (21:07)
[2022-01-08] MEDS ORDERED: LORazepam 2MG/ML-1ML VIAL IV ONE (21:15)
[2022-01-08] MEDS ORDERED: ACCU-CHEK COMFORT CURVE STRIP VI ONE (21:15)
[2022-01-08] MEDS ORDERED: IPRATROPIUM BROM 0.5 MG/2.5ML INH SOL NEB ONE (22:00)
[2022-01-08] MEDS ORDERED: ALBUTEROL SULF 2.5 MG/0.5ML(0.5%) NEB SOLN NEB ONE (22:00)
[2022-01-08] MEDS ORDERED: methylPREDNISolone SOD SUCC 125 MG/2 ML VL IV ONE (22:15)
[2022-01-08] MEDS ORDERED: levETIRAcetam 500 MG/5ML INJ IV ONE (22:33)
[2022-01-08 23:03] LABS: Basophils # (auto) 0 10 ^3/uL (0-0.2); Basophils % (auto) 0.2 % (0.0-2.0); Eosinophils # (auto) 0 10 ^3/uL (0-0.8); Hematocrit 39.4 % (41.0-53.0); Hemoglobin 13.9 g/dL (13.5-17.5); Lymphocytes # (auto) 0.3 10 ^3/uL (0.4-5.4); Mean Corpuscular Hemoglobin 33.4 pg (28.0-32.0); Mean Corpuscular Hgb Conc. 35.2 g/dL (32.0-36.0); Mean Corpuscular Volume 94.7 fL (80.0-100.0); Monocytes # (auto) 0.2 10 ^3/uL (0-1.3); Neutrophils # (auto) 8.1 10 ^3/uL (1.6-8.6); Neutrophils % (auto) 93.8 % (37.0-80.0); Nucleated Red Blood Cells % 0.2 %; Red Blood Cells 4.16 10^6/uL (4.5-5.90); Red Cell Distribution Width 14.3 % (11.8-14.3); White Blood Cell 8.7 10^3/uL (4.4-10.8)
[2022-01-08 23:15] LABS: Urine Bacteria NONE SEEN /hpf (None Seen); Urine Blood Negative /uL (Negative); Urine Specific Gravity 1.024 (1.001-1.035); Urine WBC 11 /hpf (0 - 3)
[2022-01-08 23:23] LABS: Albumin 3.5 g/dL (3.4-5.0); Calcium 9.5 mg/dL (8.5-10.1); Potassium 3.9 mmol/L (3.5-5.1)
[2022-01-08 23:26] LABS: BUN/Creatinine Ratio 16.6
[2022-01-08 23:41] LABS: Bilirubin, Total 0.4 mg/dL (0.2-1.0); Total Protein 6.5 g/dL (6.4-8.2)
[2022-01-09] MEDS ORDERED: DEXTROSE (50%) 50ML SYRG IV PRN (05:00)
[2022-01-09] MEDS ORDERED: NITROGLYCERIN 0.4 MG SL TAB SL PRN (05:00)
[2022-01-09] MEDS ORDERED: MORPHINE SULFATE INJECTION 2 MG/ML SYRG IV PRN (05:00)
[2022-01-09] MEDS: InsuLIN REG 1unit/0.01ml Soln (100units/ml) SC SCH ×3 (08:00→17:00)
[2022-01-09] MEDS: ACCU-CHEK COMFORT CURVE STRIP VI SCH ×4 (08:00→23:08)
[2022-01-09] MEDS ORDERED: ACETAMINOPHEN 325 MG TAB PO PRN (09:15)
[2022-01-09] MEDS ORDERED: ALPRAZolam 0.25 MG TAB PO PRN (09:15)
[2022-01-09 09:45] VITALS: BP 110/70
[2022-01-09] MEDS: TOPIRAMATE 25 MG TAB PO SCH ×2 (10:00→23:08)
[2022-01-09] MEDS: SERTRALINE HCL 50 MG TAB PO SCH (10:00)
[2022-01-09 13:00] VITALS: BP 131/74
[2022-01-09] MEDS ORDERED: diphenhdrAMINE HCL 50 MG/1 ML VL IV PRN (14:00)
[2022-01-09] MEDS ORDERED: LORazepam 2MG/ML-1ML VIAL IV PRN (14:00)
[2022-01-09 16:15] VITALS: BP 131/74
[2022-01-09 17:00] VITALS: BP 102/65
[2022-01-09] MEDS: IPRATROPIUM BROM 0.5 MG/2.5ML INH SOL NEB SCH (18:59)
[2022-01-09] MEDS: ALBUTEROL SULF 2.5 MG/0.5ML(0.5%) NEB SOLN NEB SCH (18:59)
[2022-01-09 22:00] VITALS: BP 106/70
[2022-01-09] MEDS ORDERED: InsuLIN REG 1unit/0.01ml Soln (100units/ml) SC SCH (22:00)
[2022-01-10] MEDS: ALBUTEROL SULF 2.5 MG/0.5ML(0.5%) NEB SOLN NEB SCH ×3 (00:35→12:45)
[2022-01-10] MEDS: IPRATROPIUM BROM 0.5 MG/2.5ML INH SOL NEB SCH ×3 (00:35→12:45)
[2022-01-10 05:00] VITALS: BP 94/65
[2022-01-10 06:14] LABS: Basophils # (auto) 0 10 ^3/uL (0-0.2); Basophils % (auto) 0.3 % (0.0-2.0); Eosinophils # (auto) 0 10 ^3/uL (0-0.8); Eosinophils % (auto) 0.2 % (0.0-7.0); Hematocrit 39.1 % (41.0-53.0); Hemoglobin 13.8 g/dL (13.5-17.5); Lymphocytes # (auto) 2.1 10 ^3/uL (0.4-5.4); Mean Corpuscular Hemoglobin 33.1 pg (28.0-32.0); Mean Corpuscular Hgb Conc. 35.2 g/dL (32.0-36.0); Mean Corpuscular Volume 94.1 fL (80.0-100.0); Monocytes # (auto) 0.6 10 ^3/uL (0-1.3); Monocytes % (auto) 5.9 % (0.0-12.0); Neutrophils # (auto) 6.8 10 ^3/uL (1.6-8.6); Neutrophils % (auto) 71.6 % (37.0-80.0); Red Blood Cells 4.16 10^6/uL (4.5-5.90); Red Cell Distribution Width 14.2 % (11.8-14.3); White Blood Cell 9.5 10^3/uL (4.4-10.8)
[2022-01-10 06:18] LABS: Albumin 3.1 g/dL (3.4-5.0); BUN/Creatinine Ratio 34.7; Calcium 8.7 mg/dL (8.5-10.1); Potassium 3.6 mmol/L (3.5-5.1)
[2022-01-10 06:21] LABS: Bilirubin, Total 0.4 mg/dL (0.2-1.0); Total Protein 5.6 g/dL (6.4-8.2)
[2022-01-10] MEDS: InsuLIN REG 1unit/0.01ml Soln (100units/ml) SC SCH ×2 (06:50→11:28)
[2022-01-10 08:00] VITALS: BP 97/60
[2022-01-10 09:00] VITALS: BP 97/60
[2022-01-10] MEDS ORDERED: PHEN1TAB38 PO (09:47)
[2022-01-10] MEDS ORDERED: LEVO-28 PO (09:47)
[2022-01-10] MEDS: SERTRALINE HCL 50 MG TAB PO SCH (10:00)
[2022-01-10] MEDS: TOPIRAMATE 25 MG TAB PO SCH (10:00)
[2022-01-10] MEDS: ACCU-CHEK COMFORT CURVE STRIP VI SCH (11:26)
[2022-01-10 13:00] VITALS: BP 103/70
[2022-01-10 14:28] VITALS: BP 125/75
== END 2022-01-10 16:00 | disposition home or self-care (01) | DRG 101 ==
LOC: EDBD 21:04 → ER 21:06 → TELE 01-09 04:57 → TELE-WESTW 01-09 09:05
PROVIDERS: ADMIT Internal Medicine; ATTEND Internal Medicine
PROC: 5A09357 Assistance with Respiratory Ventilation, Less than 24 Consecutive Hours, Continuous Positive Airway Pressure (ICD-10-PCS; principal; 2022-01-09)
DX: G40.901 Epilepsy, unspecified, not intractable, with status epilepticus (principal); N17.9 Acute kidney failure, unspecified; J44.1 Chronic obstructive pulmonary disease with (acute) exacerbation; I13.0 Hypertensive heart and chronic kidney disease with heart failure and stage 1 through stage 4 chronic kidney disease, or unspecified chronic kidney disease; N39.0 Urinary tract infection, site not specified; J96.11 Chronic respiratory failure with hypoxia; R29.6 Repeated falls; N18.9 Chronic kidney disease, unspecified; E11.65 Type 2 diabetes mellitus with hyperglycemia; F41.0 Panic disorder [episodic paroxysmal anxiety]; G47.33 Obstructive sleep apnea (adult) (pediatric); R21 Rash and other nonspecific skin eruption; E11.22 Type 2 diabetes mellitus with diabetic chronic kidney disease; Z20.822 Contact with and (suspected) exposure to COVID-19; G43.B0 Ophthalmoplegic migraine, not intractable; I50.9 Heart failure, unspecified; Z79.51 Long term (current) use of inhaled steroids; Z79.82 Long term (current) use of aspirin; Z79.84 Long term (current) use of oral hypoglycemic drugs; Z79.899 Other long term (current) drug therapy; Z80.0 Family history of malignant neoplasm of digestive organs; Z80.3 Family history of malignant neoplasm of breast; Z82.3 Family history of stroke; Z82.49 Family history of ischemic heart disease and other diseases of the circulatory system; Z82.5 Family history of asthma and other chronic lower respiratory diseases; Z87.891 Personal history of nicotine dependence
CPT/HCPCS: 36415; 70450; 71045; 80053; 81001; 82962; 83036; 84484; 85025; 87426; 93005; 94640; 94660; 95819; 96365; 96375; 97110; 97116; 97163; 97530; G0378; J1815; J7060

== ENCOUNTER 2022-02-24 19:54 | Emergency (ER) | payer MEDICARE, MEDICAID ==
[~2022-02-24] VITALS: Ht 177.8 cm; Wt 79.4 kg
[~2022-02-24 19:54] MED LIST changes: -DOXY100C2 PO; +LEVO-28 PO; +PHEN1TAB38 PO
[2022-02-24 21:41] LABS: Basophils # (auto) 0 10 ^3/uL (0-0.2); Basophils % (auto) 0.2 % (0.0-2.0); Eosinophils # (auto) 0 10 ^3/uL (0-0.8); Eosinophils % (auto) 0.1 % (0.0-7.0); Hematocrit 39.3 % (41.0-53.0); Hemoglobin 13.8 g/dL (13.5-17.5); Lymphocytes # (auto) 0.3 10 ^3/uL (0.4-5.4); Lymphocytes % (auto) 3.7 % (10.0-50.0); Mean Corpuscular Hemoglobin 33.6 pg (28.0-32.0); Mean Corpuscular Hgb Conc. 35.1 g/dL (32.0-36.0); Mean Corpuscular Volume 95.9 fL (80.0-100.0); Monocytes # (auto) 0.1 10 ^3/uL (0-1.3); Monocytes % (auto) 1.7 % (0.0-12.0); Neutrophils # (auto) 7.8 10 ^3/uL (1.6-8.6); Neutrophils % (auto) 94.3 % (37.0-80.0); Red Cell Distribution Width 15.1 % (11.8-14.3); White Blood Cell 8.2 10^3/uL (4.4-10.8)
[2022-02-24 21:58] LABS: Albumin 3.6 g/dL (3.4-5.0); Calcium 8.6 mg/dL (8.5-10.1); Potassium 4.6 mmol/L (3.5-5.1)
[2022-02-24 22:00] LABS: BUN/Creatinine Ratio 18.6
[2022-02-24] MEDS ORDERED: IPRATROPIUM BROM 0.5 MG/2.5ML INH SOL NEB ONE (22:00)
[2022-02-24] MEDS ORDERED: ALBUTEROL SULF 2.5 MG/0.5ML(0.5%) NEB SOLN NEB ONE (22:00)
[2022-02-24 22:13] LABS: Bilirubin, Total 0.4 mg/dL (0.2-1.0)
[2022-02-24] MEDS ORDERED: LIDOCAINE 1% HCL (LOCAL ANESTH.) INJ 20ML MDV ID ONE (22:45)
[2022-02-24 23:45] VITALS: BP 100/54
== END 2022-02-25 00:02 | disposition home or self-care (01) ==
LOC: ER 19:54 → EDUNIT# 19:54 → EDBD 19:54 → ER 02-25 00:02
DX: J44.1 Chronic obstructive pulmonary disease with (acute) exacerbation (principal); I11.0 Hypertensive heart disease with heart failure; I50.9 Heart failure, unspecified; E11.9 Type 2 diabetes mellitus without complications; K21.9 Gastro-esophageal reflux disease without esophagitis; Z87.891 Personal history of nicotine dependence; Z90.89 Acquired absence of other organs
CPT/HCPCS: 36415; 71045; 80053; 83880; 84484; 85025; 85379; 93005; 94640; 99285; J7644

== ENCOUNTER 2022-05-03 13:23 | Emergency (ER) | payer MEDICARE, MEDICAID ==
[~2022-05-03] VITALS: Ht 177.8 cm; Wt 83.9 kg
[2022-05-03] MEDS ORDERED: SODIUM CHLORIDE 0.9% 1,000 ML IVB ONE (14:15)
[2022-05-03 14:31] LABS: Basophils # (auto) 0.1 10 ^3/uL (0-0.2); Eosinophils # (auto) 0 10 ^3/uL (0-0.8); Eosinophils % (auto) 0.3 % (0.0-7.0); Hematocrit 40.1 % (41.0-53.0); Hemoglobin 13.5 g/dL (13.5-17.5); Lymphocytes # (auto) 0.9 10 ^3/uL (0.4-5.4); Lymphocytes % (auto) 8.9 % (10.0-50.0); Mean Corpuscular Hemoglobin 32.5 pg (28.0-32.0); Mean Corpuscular Hgb Conc. 33.8 g/dL (32.0-36.0); Mean Corpuscular Volume 96.1 fL (80.0-100.0); Monocytes # (auto) 0.4 10 ^3/uL (0-1.3); Monocytes % (auto) 3.9 % (0.0-12.0); Neutrophils % (auto) 85.9 % (37.0-80.0); Red Blood Cells 4.17 10^6/uL (4.5-5.90); Red Cell Distribution Width 14.6 % (11.8-14.3); White Blood Cell 10.5 10^3/uL (4.4-10.8)
[2022-05-03 14:45] LABS: Albumin 3.5 g/dL (3.4-5.0); Anion Gap 5 (5-15); Blood Alcohol < 3.0 mg/dL (0-5); Blood Urea Nitrogen 20 mg/dL (7-18); Carbon Dioxide 28 mmol/L (21-32); Chloride 108 mmol/L (98-107); Glucose 188 mg/dL (74-106); Magnesium 2.5 mg/dL (1.6-2.6); Sodium 141 mmol/L (136-145)
[2022-05-03 14:48] LABS: Alanine Aminotransferase 23 U/L (16-61); Alkaline Phosphatase 63 U/L (45-117); Aspartate Aminotransferase 12 U/L (15-37); BUN/Creatinine Ratio 16.9; Bilirubin, Total 0.4 mg/dL (0.2-1.0); GFR African American 80 mL/min; GFR Non-African American 66 mL/min; Total Protein 6.7 g/dL (6.4-8.2)
[2022-05-03 18:06] VITALS: BP 112/69
== END 2022-05-03 18:12 | disposition home or self-care (01) ==
LOC: EDBD 13:23 → ER 13:23
DX: R56.9 Unspecified convulsions (principal); I11.0 Hypertensive heart disease with heart failure; I50.9 Heart failure, unspecified; J44.9 Chronic obstructive pulmonary disease, unspecified; E11.9 Type 2 diabetes mellitus without complications; K21.9 Gastro-esophageal reflux disease without esophagitis; Z87.891 Personal history of nicotine dependence
CPT/HCPCS: 36415; 70450; 80053; 80320; 83735; 85025; 93005; 96365; 99285; J1953; J7030; J7060

== ENCOUNTER 2022-06-22 12:51 | Inpatient (IN) | payer MEDICARE, MEDICAID ==
[~2022-06-22] VITALS: Ht 177.8 cm; Wt 86.0 kg
[2022-06-22 14:15] LABS: Basophils # (auto) 0 10 ^3/uL (0-0.2); Basophils % (auto) 0.2 % (0.0-2.0); Eosinophils # (auto) 0 10 ^3/uL (0-0.8); Eosinophils % (auto) 0.3 % (0.0-7.0); Lymphocytes # (auto) 0.7 10 ^3/uL (0.4-5.4); Lymphocytes % (auto) 6.5 % (10.0-50.0); Mean Corpuscular Hemoglobin 31.9 pg (28.0-32.0); Mean Corpuscular Hgb Conc. 33.4 g/dL (32.0-36.0); Mean Corpuscular Volume 95.4 fL (80.0-100.0); Monocytes # (auto) 0.6 10 ^3/uL (0-1.3); Monocytes % (auto) 4.9 % (0.0-12.0); Neutrophils # (auto) 9.9 10 ^3/uL (1.6-8.6); Neutrophils % (auto) 88.1 % (37.0-80.0); Nucleated Red Blood Cells % 0.1 %; Red Cell Distribution Width 14.4 % (11.8-14.3); White Blood Cell 11.2 10^3/uL (4.4-10.8)
[2022-06-22 14:20] LABS: INR 0.97 (0.9-1.15); Partial Thromboplastin Time 26.1 sec (24.6-33.4)
[2022-06-22 14:23] LABS: Albumin 3.8 g/dL (3.4-5.0); Calcium 9.2 mg/dL (8.5-10.1); Potassium 3.7 mmol/L (3.5-5.1)
[2022-06-22 14:26] LABS: BUN/Creatinine Ratio 16.8
[2022-06-22 14:36] LABS: Bilirubin, Total 0.7 mg/dL (0.2-1.0); Total Protein 7.2 g/dL (6.4-8.2)
[2022-06-22] MEDS ORDERED: methylPREDNISolone SOD SUCC 125 MG/2 ML VL IV ONE (16:00)
[2022-06-22] MEDS ORDERED: IPRATROPIUM BROM 0.5 MG/2.5ML INH SOL NEB ONE (16:00)
[2022-06-22] MEDS ORDERED: AZITHROMYCIN 500MG/ 250ML 250 ML IV ONE (16:00)
[2022-06-22] MEDS ORDERED: ALBUTEROL SULF 2.5 MG/0.5ML(0.5%) NEB SOLN NEB ONE (16:00)
[2022-06-22 17:54] LABS: Urine Bacteria NONE SEEN /hpf (None Seen); Urine Blood Negative /uL (Negative); Urine Specific Gravity 1.018 (1.001-1.035); Urine WBC 3 /hpf (0 - 3)
[2022-06-22] MEDS ORDERED: ALBUTEROL SULF 2.5 MG/0.5ML(0.5%) NEB SOLN ONE (22:44)
[2022-06-22] MEDS ORDERED: IPRATROPIUM BROM 0.5 MG/2.5ML INH SOL ONE (22:44)
[2022-06-22] MEDS ORDERED: DEXTROSE (50%) 50ML SYRG IV PRN (23:45)
[2022-06-22] MEDS ORDERED: NITROGLYCERIN 0.4 MG SL TAB SL PRN (23:45)
[2022-06-22] MEDS ORDERED: ONDANSETRON HCL 4 MG/2 ML VIAL IV PRN (23:45)
[2022-06-22] MEDS ORDERED: DOCUSATE SOD 100 MG CAP PO PRN (23:45)
[2022-06-22] MEDS ORDERED: ACETAMINOPHEN 325 MG TAB PO PRN (23:45)
[2022-06-22] MEDS ORDERED: MORPHINE SULFATE INJ 2 MG/ml SYRG IV PRN (23:45)
[2022-06-23 00:10] VITALS: BP 128/73
[2022-06-23] MEDS: ALBUTEROL SULF 2.5 MG/0.5ML(0.5%) NEB SOLN NEB PRN ×3 (06:11→20:38)
[2022-06-23] MEDS: IPRATROPIUM BROM 0.5 MG/2.5ML INH SOL NEB PRN ×3 (06:11→20:38)
[2022-06-23] MEDS: HYDROcodone-ACET 5/325MG TAB PO PRN ×2 (06:26→16:01)
[2022-06-23] MEDS: SODIUM CHLOR 0.9% PF (SALINE LOCK) 10ML VIAL/SYR IV SCH ×3 (06:28→22:00)
[2022-06-23] MEDS: methylPREDNISolone SOD SUCC 40 MG/ML VL IV SCH ×3 (06:28→22:00)
[2022-06-23 06:38] LABS: Basophils # (auto) 0 10 ^3/uL (0-0.2); Basophils % (auto) 0.1 % (0.0-2.0); Eosinophils # (auto) 0 10 ^3/uL (0-0.8); Hemoglobin 14.1 g/dL (13.5-17.5); Lymphocytes # (auto) 0.6 10 ^3/uL (0.4-5.4); Lymphocytes % (auto) 7.3 % (10.0-50.0); Mean Corpuscular Hemoglobin 33.7 pg (28.0-32.0); Mean Corpuscular Hgb Conc. 35.3 g/dL (32.0-36.0); Mean Corpuscular Volume 95.5 fL (80.0-100.0); Monocytes # (auto) 0.3 10 ^3/uL (0-1.3); Neutrophils # (auto) 7.4 10 ^3/uL (1.6-8.6); Neutrophils % (auto) 89.6 % (37.0-80.0); Red Blood Cells 4.19 10^6/uL (4.5-5.90); Red Cell Distribution Width 14.2 % (11.8-14.3); White Blood Cell 8.3 10^3/uL (4.4-10.8)
[2022-06-23 06:53] LABS: Albumin 3.6 g/dL (3.4-5.0); Calcium 9.1 mg/dL (8.5-10.1); Potassium 4.2 mmol/L (3.5-5.1)
[2022-06-23 06:59] LABS: BUN/Creatinine Ratio 18.4; Bilirubin, Total 0.6 mg/dL (0.2-1.0); Total Protein 6.8 g/dL (6.4-8.2)
[2022-06-23] MEDS: ACCU-CHEK COMFORT CURVE STRIP VI SCH ×4 (06:59→22:00)
[2022-06-23] MEDS: InsuLIN REG 1unit/0.01ml Soln (100units/ml) SC SCH ×4 (07:10→22:02)
[2022-06-23] MEDS: CARVEDILOL 3.125 MG TAB PO SCH ×2 (09:30→22:07)
[2022-06-23] MEDS: ASPirin 81 mg TAB PO SCH (09:30)
[2022-06-23] MEDS: FAMOTIDINE (10MG/ML) 2ML VL IV SCH ×2 (09:30→22:00)
[2022-06-23] MEDS: ENOXAPARIN SOD 40 MG/0.4 ML SYRINGE SC SCH (09:31)
[2022-06-23] MEDS: ALBUTEROL SULF 2.5 MG/0.5ML(0.5%) NEB SOLN NEB SCH ×3 (18:00→22:09)
[2022-06-23] MEDS: IPRATROPIUM BROM 0.5 MG/2.5ML INH SOL NEB SCH ×3 (18:00→22:09)
[2022-06-23 20:38] VITALS: BP 143/56
[2022-06-23] MEDS ORDERED: LORazepam 2MG/ML-1ML VIAL IV PRN (20:50)
[2022-06-23] MEDS: ATORVASTATIN 20 MG TAB PO SCH (22:07)
[2022-06-23 22:09] VITALS: BP 117/67
[2022-06-24] VITALS (8 sets, daily range): BP systolic 107–122; BP diastolic 51–78
[2022-06-24] MEDS: ALBUTEROL SULF 2.5 MG/0.5ML(0.5%) NEB SOLN NEB SCH ×5 (02:06→22:56)
[2022-06-24] MEDS: IPRATROPIUM BROM 0.5 MG/2.5ML INH SOL NEB SCH ×5 (02:06→22:56)
[2022-06-24] MEDS: SODIUM CHLOR 0.9% PF (SALINE LOCK) 10ML VIAL/SYR IV SCH ×3 (06:03→23:22)
[2022-06-24] MEDS: methylPREDNISolone SOD SUCC 40 MG/ML VL IV SCH ×3 (06:04→22:01)
[2022-06-24] MEDS: ACCU-CHEK COMFORT CURVE STRIP VI SCH ×4 (06:04→23:22)
[2022-06-24] MEDS: InsuLIN REG 1unit/0.01ml Soln (100units/ml) SC SCH ×4 (06:05→21:58)
[2022-06-24] MEDS ORDERED: predniSONE 20 MG TAB PO SCH (10:00)
[2022-06-24] MEDS: ASPirin 81 mg TAB PO SCH (10:02)
[2022-06-24] MEDS: ENOXAPARIN SOD 40 MG/0.4 ML SYRINGE SC SCH (10:02)
[2022-06-24] MEDS: FAMOTIDINE (10MG/ML) 2ML VL IV SCH ×2 (10:03→22:01)
[2022-06-24] MEDS: CARVEDILOL 3.125 MG TAB PO SCH ×2 (10:03→22:00)
[2022-06-24] MEDS: BUDESONIDE (INHALATION) 0.5 MG/2 ML NEB NEB SCH (19:58)
[2022-06-24] MEDS: ATORVASTATIN 20 MG TAB PO SCH (21:59)
[2022-06-24] MEDS: TOPIRAMATE 25 MG TAB PO SCH (22:00)
[2022-06-24] MEDS ORDERED: MIDAZOLAM HCL 2MG/2ML 2ml VIAL (1mg/ml) IV PRN (22:45)
[2022-06-25] MEDS: ALBUTEROL SULF 2.5 MG/0.5ML(0.5%) NEB SOLN NEB SCH ×4 (02:52→14:12)
[2022-06-25] MEDS: IPRATROPIUM BROM 0.5 MG/2.5ML INH SOL NEB SCH ×4 (02:53→14:12)
[2022-06-25 05:00] VITALS: BP 128/64
[2022-06-25] MEDS: SODIUM CHLOR 0.9% PF (SALINE LOCK) 10ML VIAL/SYR IV SCH ×2 (05:17→13:15)
[2022-06-25 05:37] LABS: Basophils # (auto) 0 10 ^3/uL (0-0.2); Basophils % (auto) 0.1 % (0.0-2.0); Eosinophils # (auto) 0 10 ^3/uL (0-0.8); Hematocrit 39.5 % (41.0-53.0); Hemoglobin 13.4 g/dL (13.5-17.5); Lymphocytes # (auto) 0.7 10 ^3/uL (0.4-5.4); Lymphocytes % (auto) 6.2 % (10.0-50.0); Mean Corpuscular Hemoglobin 32.6 pg (28.0-32.0); Mean Corpuscular Hgb Conc. 33.9 g/dL (32.0-36.0); Mean Corpuscular Volume 96.1 fL (80.0-100.0); Monocytes # (auto) 0.4 10 ^3/uL (0-1.3); Monocytes % (auto) 3.6 % (0.0-12.0); Neutrophils # (auto) 10.1 10 ^3/uL (1.6-8.6); Neutrophils % (auto) 90.1 % (37.0-80.0); Red Blood Cells 4.11 10^6/uL (4.5-5.90); Red Cell Distribution Width 13.9 % (11.8-14.3); White Blood Cell 11.2 10^3/uL (4.4-10.8)
[2022-06-25 05:57] LABS: Potassium 4.1 mmol/L (3.5-5.1)
[2022-06-25 05:59] LABS: BUN/Creatinine Ratio 23.4
[2022-06-25] MEDS: methylPREDNISolone SOD SUCC 40 MG/ML VL IV SCH ×2 (06:08→13:15)
[2022-06-25] MEDS: ACCU-CHEK COMFORT CURVE STRIP VI SCH ×3 (06:09→17:34)
[2022-06-25] MEDS: InsuLIN REG 1unit/0.01ml Soln (100units/ml) SC SCH ×3 (06:15→17:34)
[2022-06-25 09:00] VITALS: BP 123/67
[2022-06-25] MEDS: FAMOTIDINE (10MG/ML) 2ML VL IV SCH (09:35)
[2022-06-25] MEDS: ENOXAPARIN SOD 40 MG/0.4 ML SYRINGE SC SCH (09:35)
[2022-06-25] MEDS: ASPirin 81 mg TAB PO SCH (09:35)
[2022-06-25] MEDS: TOPIRAMATE 25 MG TAB PO SCH (09:35)
[2022-06-25] MEDS: CARVEDILOL 3.125 MG TAB PO SCH (09:36)
[2022-06-25] MEDS: BUDESONIDE (INHALATION) 0.5 MG/2 ML NEB NEB SCH (09:58)
[2022-06-25] MEDS ORDERED: ASPirin-EC 81 mg tab PO SCH (10:00)
[2022-06-25] MEDS ORDERED: FUROSEMIDE 20 MG TAB PO SCH (10:00)
[2022-06-25] MEDS ORDERED: ROFLUMILAST 250 MCG PO SCH (10:00)
[2022-06-25] MEDS ORDERED: PRED20TA2 PO (10:26)
[2022-06-25 11:23] VITALS: BP 123/67
[2022-06-25 13:00] VITALS: BP 118/70
[2022-06-25 16:42] VITALS: BP 141/69
== END 2022-06-25 17:25 | disposition home or self-care (01) | DRG 191 ==
LOC: ER 12:51 → EDBD 12:51 → TELE 23:33 → TELE-WESTW 06-24 01:51
PROVIDERS: ADMIT Nurse Practitioner Family; ATTEND Internal Medicine Pulmonary Disease
PROC: 5A09357 Assistance with Respiratory Ventilation, Less than 24 Consecutive Hours, Continuous Positive Airway Pressure (ICD-10-PCS; principal; 2022-06-23)
PROC: 5A09357 Assistance with Respiratory Ventilation, Less than 24 Consecutive Hours, Continuous Positive Airway Pressure (ICD-10-PCS; 2022-06-24)
PROC: 5A09357 Assistance with Respiratory Ventilation, Less than 24 Consecutive Hours, Continuous Positive Airway Pressure (ICD-10-PCS; 2022-06-25)
DX: J44.1 Chronic obstructive pulmonary disease with (acute) exacerbation (principal); J96.11 Chronic respiratory failure with hypoxia; R65.10 Systemic inflammatory response syndrome (SIRS) of non-infectious origin without acute organ dysfunction; F41.1 Generalized anxiety disorder; I11.0 Hypertensive heart disease with heart failure; I25.10 Atherosclerotic heart disease of native coronary artery without angina pectoris; F41.0 Panic disorder [episodic paroxysmal anxiety]; G43.B0 Ophthalmoplegic migraine, not intractable; G47.33 Obstructive sleep apnea (adult) (pediatric); Z20.822 Contact with and (suspected) exposure to COVID-19; E11.9 Type 2 diabetes mellitus without complications; J45.909 Unspecified asthma, uncomplicated; G40.909 Epilepsy, unspecified, not intractable, without status epilepticus; Z79.899 Other long term (current) drug therapy; Z80.0 Family history of malignant neoplasm of digestive organs; Z82.5 Family history of asthma and other chronic lower respiratory diseases
CPT/HCPCS: 36415; 71045; 71250; 80048; 80053; 81001; 82962; 83036; 83880; 84484; 85025; 85610; 85730; 93005; 93306; 94640; 94660; 96365; 96375; G0378; J1815; J2405; J3490

== ENCOUNTER 2022-07-08 13:10 | Inpatient (IN) | payer MEDICARE, MEDICAID ==
[~2022-07-08] VITALS: Ht 177.8 cm; Wt 83.6 kg
[~2022-07-08 13:10] MED LIST changes: -ATOR20TA50 PO; -EMPA1TAB3 PO; -LEVO-28 PO; -METF-370 PO; -PHEN1TAB38 PO; -SERT-160 PO
[2022-07-08] MEDS ORDERED: methylPREDNISolone SOD SUCC 125 MG/2 ML VL ONE (15:06)
[2022-07-08] MEDS ORDERED: methylPREDNISolone SOD SUCC 125 MG/2 ML VL IV ONE (15:15)
[2022-07-08] MEDS ORDERED: ALBUTEROL SULF 2.5 MG/0.5ML(0.5%) NEB SOLN ONE (15:20)
[2022-07-08] MEDS ORDERED: IPRATROPIUM BROM 0.5 MG/2.5ML INH SOL ONE (15:20)
[2022-07-08] MEDS ORDERED: ALBUTEROL SULF 2.5 MG/0.5ML(0.5%) NEB SOLN HHN ONE (15:30)
[2022-07-08] MEDS ORDERED: IPRATROPIUM BROM 0.5 MG/2.5ML INH SOL HHN ONE (15:30)
[2022-07-08 15:52] LABS: Basophils # (auto) 0 10 ^3/uL (0-0.2); Basophils % (auto) 0.2 % (0.0-2.0); Eosinophils # (auto) 0 10 ^3/uL (0-0.8); Eosinophils % (auto) 0.1 % (0.0-7.0); Hematocrit 39.6 % (41.0-53.0); Hemoglobin 13.2 g/dL (13.5-17.5); Lymphocytes # (auto) 0.7 10 ^3/uL (0.4-5.4); Lymphocytes % (auto) 5.6 % (10.0-50.0); Mean Corpuscular Hemoglobin 32.2 pg (28.0-32.0); Mean Corpuscular Hgb Conc. 33.2 g/dL (32.0-36.0); Mean Corpuscular Volume 96.9 fL (80.0-100.0); Monocytes # (auto) 0.5 10 ^3/uL (0-1.3); Monocytes % (auto) 3.9 % (0.0-12.0); Neutrophils # (auto) 11.4 10 ^3/uL (1.6-8.6); Neutrophils % (auto) 90.2 % (37.0-80.0); Red Blood Cells 4.09 10^6/uL (4.5-5.90); Red Cell Distribution Width 14.2 % (11.8-14.3); White Blood Cell 12.6 10^3/uL (4.4-10.8)
[2022-07-08 16:09] LABS: Albumin 3.1 g/dL (3.4-5.0); BUN/Creatinine Ratio 14.4; Calcium 8.6 mg/dL (8.5-10.1); Potassium 4.6 mmol/L (3.5-5.1)
[2022-07-08 16:12] LABS: Bilirubin, Total 0.7 mg/dL (0.2-1.0); Total Protein 5.8 g/dL (6.4-8.2)
[2022-07-08 19:04] VITALS: BP 107/69
[2022-07-08 19:43] LABS: Urine Bacteria NONE SEEN /hpf (None Seen); Urine Blood Negative /uL (Negative); Urine Specific Gravity 1.015 (1.001-1.035); Urine WBC <1 /hpf (0 - 3)
[2022-07-08] MEDS ORDERED: HYDROcodone-ACET 5/325MG TAB PO PRN (22:00)
[2022-07-08] MEDS ORDERED: MORPHINE SULFATE INJ 2 MG/ml SYRG IV PRN ×2 (22:00→23:30)
[2022-07-08] MEDS ORDERED: ACETAMINOPHEN 325 MG TAB PO PRN (22:00)
[2022-07-08] MEDS ORDERED: DEXTROSE (50%) 50ML SYRG IV PRN (22:00)
[2022-07-08] MEDS ORDERED: TEMAZEPAM 15 MG CAP PO PRN (22:00)
[2022-07-08] MEDS ORDERED: ONDANSETRON HCL 4 MG/2 ML VIAL IV PRN (22:00)
[2022-07-08 22:16] VITALS: BP 128/74
[2022-07-08] MEDS: ALBUTEROL SULF 2.5 MG/0.5ML(0.5%) NEB SOLN NEB PRN (22:19)
[2022-07-08] MEDS: BUDESONIDE (INHALATION) 0.5 MG/2 ML NEB NEB SCH (22:19)
[2022-07-08] MEDS: busPIRone HCL 10 MG TAB PO SCH (22:54)
[2022-07-08] MEDS: TOPIRAMATE 25 MG TAB PO SCH (22:55)
[2022-07-08] MEDS ORDERED: NITROGLYCERIN 0.4 MG SL TAB SL PRN (23:30)
[2022-07-08] MEDS ORDERED: FLEET ENEMA(ADULT) 135 ML PR ONE (23:30)
[2022-07-09] VITALS (11 sets, daily range): BP systolic 100–116; BP diastolic 42–67
[2022-07-09] MEDS: ACCU-CHEK COMFORT CURVE STRIP VI SCH ×5 (00:13→23:22)
[2022-07-09] MEDS: InsuLIN REG 1unit/0.01ml Soln (100units/ml) SC SCH ×5 (00:15→23:23)
[2022-07-09 07:14] LABS: Basophils # (auto) 0.1 10 ^3/uL (0-0.2); Basophils % (auto) 1.5 % (0.0-2.0); Eosinophils # (auto) 0 10 ^3/uL (0-0.8); Hematocrit 38.1 % (41.0-53.0); Lymphocytes # (auto) 0.5 10 ^3/uL (0.4-5.4); Lymphocytes % (auto) 7.2 % (10.0-50.0); Mean Corpuscular Hemoglobin 32.6 pg (28.0-32.0); Mean Corpuscular Hgb Conc. 34.2 g/dL (32.0-36.0); Mean Corpuscular Volume 95.3 fL (80.0-100.0); Monocytes # (auto) 0.4 10 ^3/uL (0-1.3); Monocytes % (auto) 5.2 % (0.0-12.0); Neutrophils # (auto) 6.4 10 ^3/uL (1.6-8.6); Neutrophils % (auto) 86.1 % (37.0-80.0); Red Cell Distribution Width 13.9 % (11.8-14.3); White Blood Cell 7.4 10^3/uL (4.4-10.8)
[2022-07-09 07:35] LABS: Calcium 9.1 mg/dL (8.5-10.1); Potassium 4.3 mmol/L (3.5-5.1)
[2022-07-09 07:38] LABS: BUN/Creatinine Ratio 21.7; Bilirubin, Total 0.6 mg/dL (0.2-1.0); Total Protein 6.5 g/dL (6.4-8.2)
[2022-07-09] MEDS: ALBUTEROL SULF 2.5 MG/0.5ML(0.5%) NEB SOLN NEB PRN ×2 (08:31→18:27)
[2022-07-09] MEDS: ASPirin 81 mg TAB PO SCH (09:14)
[2022-07-09] MEDS: predniSONE 20 MG TAB PO SCH (09:14)
[2022-07-09] MEDS: busPIRone HCL 10 MG TAB PO SCH ×2 (09:15→22:35)
[2022-07-09] MEDS: CLOPIDOGREL BISULFATE 75 MG TAB PO SCH (09:16)
[2022-07-09] MEDS: FUROSEMIDE 20 MG TAB PO SCH (09:17)
[2022-07-09] MEDS: TOPIRAMATE 25 MG TAB PO SCH ×2 (09:17→22:35)
[2022-07-09] MEDS: ENOXAPARIN SOD 40 MG/0.4 ML SYRINGE SC SCH (09:22)
[2022-07-09] MEDS: BUDESONIDE (INHALATION) 0.5 MG/2 ML NEB NEB SCH ×2 (09:56→18:27)
[2022-07-09] MEDS ORDERED: DOCUSATE SOD 100 MG CAP PO SCH (10:00)
[2022-07-09] MEDS: HCTZ 25 MG TAB PO SCH (11:48)
[2022-07-09] MEDS ORDERED: MILK OF MAGNESIA 30ML SUSP PO ONE (12:15)
[2022-07-09] MEDS ORDERED: POLYETHYLENE GLYCOL 17 GM PWDR PO ONE (17:15)
[2022-07-09] MEDS: DOCUSATE SOD 100 MG CAP PO SCH (22:35)
[2022-07-09] MEDS: PANTOPRAZOLE 40 MG TAB PO SCH (22:36)
[2022-07-09] MEDS: LACTULOSE 20Gm/30ML SOLN PO SCH (22:36)
[2022-07-10] VITALS (7 sets, daily range): BP systolic 87–114; BP diastolic 40–77
[2022-07-10] MEDS: ALBUTEROL SULF 2.5 MG/0.5ML(0.5%) NEB SOLN NEB PRN ×2 (00:27→07:09)
[2022-07-10] MEDS: ACCU-CHEK COMFORT CURVE STRIP VI SCH ×3 (06:00→18:13)
[2022-07-10] MEDS: InsuLIN REG 1unit/0.01ml Soln (100units/ml) SC SCH ×3 (06:36→18:40)
[2022-07-10] MEDS: BUDESONIDE (INHALATION) 0.5 MG/2 ML NEB NEB SCH ×2 (07:09→23:20)
[2022-07-10] MEDS: ENOXAPARIN SOD 40 MG/0.4 ML SYRINGE SC SCH (09:51)
[2022-07-10] MEDS: POLYETHYLENE GLYCOL 17 GM PWDR PO SCH (09:51)
[2022-07-10] MEDS: DOCUSATE SOD 100 MG CAP PO SCH ×2 (09:52→22:01)
[2022-07-10] MEDS: LACTULOSE 20Gm/30ML SOLN PO SCH ×2 (09:52→22:00)
[2022-07-10] MEDS: FUROSEMIDE 20 MG TAB PO SCH (09:54)
[2022-07-10] MEDS: PANTOPRAZOLE 40 MG TAB PO SCH ×2 (09:55→22:01)
[2022-07-10] MEDS: predniSONE 20 MG TAB PO SCH (09:55)
[2022-07-10] MEDS: ASPirin 81 mg TAB PO SCH (09:55)
[2022-07-10] MEDS: busPIRone HCL 10 MG TAB PO SCH ×2 (09:55→22:01)
[2022-07-10] MEDS: CLOPIDOGREL BISULFATE 75 MG TAB PO SCH (09:55)
[2022-07-10] MEDS: HCTZ 25 MG TAB PO SCH (09:57)
[2022-07-10] MEDS: TOPIRAMATE 25 MG TAB PO SCH ×2 (09:57→22:01)
[2022-07-10] MEDS: IPRATROPIUM BROM 0.5 MG/2.5ML INH SOL NEB SCH ×4 (10:10→23:20)
[2022-07-10] MEDS: ALBUTEROL SULF 2.5 MG/0.5ML(0.5%) NEB SOLN NEB SCH ×4 (10:10→23:20)
[2022-07-10] MEDS ORDERED: ERGOCALCIFEROL 50,000 UNIT(1.25MG) CAP PO SCH (10:45)
[2022-07-10 11:00] LABS: Cholesterol 185 mg/dL (< 200); Triglycerides 191 mg/dL (< 150)
[2022-07-10 11:04] LABS: HDL Cholesterol 47 mg/dL (40-59); LDL Cholesterol 121 mg/dL (< 100)
[2022-07-10] MEDS ORDERED: GOLYTELY 4L KIT PO ONE (12:15)
[2022-07-11] MEDS: ALBUTEROL SULF 2.5 MG/0.5ML(0.5%) NEB SOLN NEB SCH ×4 (02:51→14:22)
[2022-07-11] MEDS: IPRATROPIUM BROM 0.5 MG/2.5ML INH SOL NEB SCH ×4 (02:51→14:22)
[2022-07-11 04:53] VITALS: BP 111/69
[2022-07-11] MEDS: InsuLIN REG 1unit/0.01ml Soln (100units/ml) SC SCH ×3 (05:58→12:17)
[2022-07-11] MEDS: ACCU-CHEK COMFORT CURVE STRIP VI SCH ×3 (05:58→12:10)
[2022-07-11] MEDS: BUDESONIDE (INHALATION) 0.5 MG/2 ML NEB NEB SCH (06:34)
[2022-07-11 08:00] VITALS: BP 99/62
[2022-07-11 09:00] VITALS: BP 99/62
[2022-07-11] MEDS: FUROSEMIDE 20 MG TAB PO SCH (10:00)
[2022-07-11] MEDS: HCTZ 25 MG TAB PO SCH (10:00)
[2022-07-11] MEDS: ENOXAPARIN SOD 40 MG/0.4 ML SYRINGE SC SCH (10:02)
[2022-07-11] MEDS: predniSONE 20 MG TAB PO SCH (10:02)
[2022-07-11] MEDS: CLOPIDOGREL BISULFATE 75 MG TAB PO SCH (10:03)
[2022-07-11] MEDS: LACTULOSE 20Gm/30ML SOLN PO SCH (10:03)
[2022-07-11] MEDS: DOCUSATE SOD 100 MG CAP PO SCH (10:03)
[2022-07-11] MEDS: TOPIRAMATE 25 MG TAB PO SCH (10:03)
[2022-07-11] MEDS: PANTOPRAZOLE 40 MG TAB PO SCH (10:03)
[2022-07-11] MEDS: busPIRone HCL 10 MG TAB PO SCH (10:03)
[2022-07-11] MEDS: POLYETHYLENE GLYCOL 17 GM PWDR PO SCH (10:04)
[2022-07-11] MEDS: ASPirin 81 mg TAB PO SCH (10:05)
[2022-07-11] MEDS ORDERED: ERGO1CAP23 PO (12:02)
[2022-07-11] MEDS ORDERED: PANT40T PO (12:02)
[2022-07-11 12:19] VITALS: BP 101/62
[2022-07-11 13:00] VITALS: BP 91/55
== END 2022-07-11 16:16 | disposition home or self-care (01) | DRG 392 ==
LOC: EDBD 13:10 → ER 13:10 → TELE 23:18 → TELE-WESTW 07-09 01:42
PROVIDERS: ADMIT Nurse Practitioner; ATTEND Internal Medicine
PROC: 5A09357 Assistance with Respiratory Ventilation, Less than 24 Consecutive Hours, Continuous Positive Airway Pressure (ICD-10-PCS; principal; 2022-07-08)
PROC: 5A09357 Assistance with Respiratory Ventilation, Less than 24 Consecutive Hours, Continuous Positive Airway Pressure (ICD-10-PCS; 2022-07-09)
PROC: 5A09357 Assistance with Respiratory Ventilation, Less than 24 Consecutive Hours, Continuous Positive Airway Pressure (ICD-10-PCS; 2022-07-10)
PROC: 5A09357 Assistance with Respiratory Ventilation, Less than 24 Consecutive Hours, Continuous Positive Airway Pressure (ICD-10-PCS; 2022-07-11)
DX: R10.9 Unspecified abdominal pain (principal); E44.0 Moderate protein-calorie malnutrition; K59.00 Constipation, unspecified; K80.20 Calculus of gallbladder without cholecystitis without obstruction; Z20.822 Contact with and (suspected) exposure to COVID-19; Z66 Do not resuscitate; Z68.26 Body mass index [BMI] 26.0-26.9, adult; E11.9 Type 2 diabetes mellitus without complications; E55.9 Vitamin D deficiency, unspecified; I11.0 Hypertensive heart disease with heart failure; I50.9 Heart failure, unspecified; Z80.0 Family history of malignant neoplasm of digestive organs; Z80.3 Family history of malignant neoplasm of breast; Z82.3 Family history of stroke; Z82.49 Family history of ischemic heart disease and other diseases of the circulatory system; Z82.5 Family history of asthma and other chronic lower respiratory diseases; Z87.891 Personal history of nicotine dependence; Z95.5 Presence of coronary angioplasty implant and graft; J44.9 Chronic obstructive pulmonary disease, unspecified
CPT/HCPCS: 36415; 36600; 71045; 74176; 80053; 80061; 81001; 82150; 82306; 82378; 82805; 82962; 83690; 84439; 84443; 85025; 86677; 87081; 93005; 94640; 94644; 94660; 96374; 99291; G0378; J1815

== ENCOUNTER 2023-04-20 09:33 | Emergency (ER) | payer MEDICARE, MEDICAID ==
[~2023-04-20] VITALS: Ht 177.8 cm; Wt 72.8 kg
[~2023-04-20 09:33] MED LIST changes: +ERGO1CAP23 PO; -HYDR12.56 PO; +HYDR12.59 PO; +PANT40T PO
[2023-04-20] MEDS ORDERED: LORazepam 2MG/ML-1ML VIAL ONE (10:30)
[2023-04-20] MEDS ORDERED: methylPREDNISolone SOD SUCC 125 MG/2 ML VL IV ONE (10:45)
[2023-04-20] MEDS ORDERED: ALBUTEROL SULF 2.5 MG/0.5ML(0.5%) NEB SOLN NEB ONE (10:45)
[2023-04-20] MEDS ORDERED: IPRATROPIUM BROM 0.5 MG/2.5ML INH SOL NEB ONE (10:45)
[2023-04-20] MEDS ORDERED: SODIUM CHLORIDE 0.9% 1,000 ML IV ONE (10:45)
[2023-04-20 11:10] LABS: Basophils # (auto) 0.1 10 ^3/uL (0-0.2); Basophils % (auto) 0.5 % (0.0-2.0); Eosinophils # (auto) 0.1 10 ^3/uL (0-0.8); Eosinophils % (auto) 1.1 % (0.0-7.0); Hematocrit 46.6 % (41.0-53.0); Hemoglobin 16.1 g/dL (13.5-17.5); Lymphocytes # (auto) 3.7 10 ^3/uL (0.4-5.4); Lymphocytes % (auto) 28.6 % (10.0-50.0); Mean Corpuscular Hemoglobin 33.6 pg (28.0-32.0); Mean Corpuscular Hgb Conc. 34.5 g/dL (32.0-36.0); Mean Corpuscular Volume 97.2 fL (80.0-100.0); Monocytes # (auto) 0.7 10 ^3/uL (0-1.3); Monocytes % (auto) 5.6 % (0.0-12.0); Neutrophils # (auto) 8.2 10 ^3/uL (1.6-8.6); Neutrophils % (auto) 64.2 % (37.0-80.0); Nucleated Red Blood Cells % 0.1 %; Red Blood Cells 4.79 10^6/uL (4.5-5.90); White Blood Cell 12.8 10^3/uL (4.4-10.8)
[2023-04-20 11:15] LABS: INR 0.92 (0.9-1.15)
[2023-04-20] MEDS ORDERED: LIDOCAINE 1% HCL (LOCAL ANESTH.) INJ 20ML MDV ID ONE (11:15)
[2023-04-20 11:19] LABS: Albumin 4.4 g/dL (3.4-5.0); Anion Gap 11 (5-15); Blood Urea Nitrogen 14 mg/dL (7-18); Calcium 9.3 mg/dL (8.5-10.1); Carbon Dioxide 27 mmol/L (21-32); Chloride 106 mmol/L (98-107); Glucose 88 mg/dL (74-106); Lipase 166 U/L (73-393); Magnesium 2.7 mg/dL (1.6-2.6); Sodium 144 mmol/L (136-145)
[2023-04-20] MEDS ORDERED: LORazepam 2MG/ML-1ML VIAL IV ONE (11:30)
[2023-04-20 11:35] LABS: Alanine Aminotransferase 41 U/L (16-61); Alkaline Phosphatase 70 U/L (45-117); Aspartate Aminotransferase 26 U/L (15-37); BUN/Creatinine Ratio 12.2 (10.0-20.0); Bilirubin, Total 0.5 mg/dL (0.2-1.0); Blood Alcohol < 3.0 mg/dL (0-5); Creatine Kinase IFCC 111 U/L (39-308); GFR African American 83 mL/min; GFR Non-African American 68 mL/min; Total Protein 7.4 g/dL (6.4-8.2)
[2023-04-20] MEDS ORDERED: TOPIRAMATE 25 MG TAB PO ONE (12:45)
[2023-04-20 13:08] LABS: Lactic Acid w/Reflex 3.9 mmol/L (0.4-2.0)
[2023-04-20 14:10] LABS: Urine Bacteria NONE SEEN /hpf (None Seen); Urine Blood Negative /uL (Negative); Urine Specific Gravity 1.006 (1.001-1.035); Urine WBC <1 /hpf (0 - 3)
[2023-04-20 14:34] LABS: Alcohol, Urine < 3.0 mg/dL (0-10); Amphetamine Screen, Urine NEGATIVE (NEGATIVE); Barbiturate Scree,Urine NEGATIVE (NEGATIVE); Benzodiazephine Screen, Urine NEGATIVE (NEGATIVE); Cannabinoid Screen, Urine NEGATIVE (NEGATIVE); Cocaine Screen, Urine NEGATIVE (NEGATIVE); Opiate Scree,Urine NEGATIVE (NEGATIVE); Phencyclidine Screen, Urine NEGATIVE (NEGATIVE)
[2023-04-20 14:35] VITALS: BP 120/76
== END 2023-04-20 14:39 | disposition home or self-care (01) ==
LOC: ER 09:33
DX: S01.111A Laceration without foreign body of right eyelid and periocular area, initial encounter (principal); J44.1 Chronic obstructive pulmonary disease with (acute) exacerbation; I11.0 Hypertensive heart disease with heart failure; I50.9 Heart failure, unspecified; K21.9 Gastro-esophageal reflux disease without esophagitis; R51.9 Headache, unspecified; Z87.891 Personal history of nicotine dependence; Z79.899 Other long term (current) drug therapy; W18.39XA Other fall on same level, initial encounter; Y93.89 Activity, other specified; Y92.89 Other specified places as the place of occurrence of the external cause; Y99.8 Other external cause status
CPT/HCPCS: 12011; 36415; 36600; 70450; 71045; 80053; 80307; 80320; 81001; 82010; 82140; 82550; 82805; 82962; 83605; 83690; 83735; 84484; 85025; 85610; 86850; 86900; 86901; 87040; 94640; 96361; 96365; 96366; 96375; 99285; J1953; J2001; J2060; J2930; J7030; J7060; J7644

== ENCOUNTER 2023-05-30 20:36 | Inpatient (IN) | payer MEDICARE, MEDICAID ==
[~2023-05-30] VITALS: Ht 172.7 cm; Wt 89.9 kg
[2023-05-30 21:00] VITALS: O2SAT 92
[2023-05-30 21:18] LABS: Basophils # (auto) 0 10 ^3/uL (0-0.2); Basophils % (auto) 0.5 % (0.0-2.0); Eosinophils # (auto) 0 10 ^3/uL (0-0.8); Eosinophils % (auto) 0.4 % (0.0-7.0); Hematocrit 40.5 % (41.0-53.0); Hemoglobin 13.9 g/dL (13.5-17.5); Lymphocytes # (auto) 1.6 10 ^3/uL (0.4-5.4); Mean Corpuscular Hemoglobin 33.5 pg (28.0-32.0); Mean Corpuscular Hgb Conc. 34.4 g/dL (32.0-36.0); Mean Corpuscular Volume 97.5 fL (80.0-100.0); Monocytes # (auto) 0.4 10 ^3/uL (0-1.3); Monocytes % (auto) 4.3 % (0.0-12.0); Neutrophils # (auto) 7.7 10 ^3/uL (1.6-8.6); Neutrophils % (auto) 78.8 % (37.0-80.0); Red Blood Cells 4.16 10^6/uL (4.5-5.90); Red Cell Distribution Width 14.7 % (11.8-14.3); White Blood Cell 9.8 10^3/uL (4.4-10.8)
[2023-05-30 21:36] LABS: Albumin 3.7 g/dL (3.4-5.0); Calcium 9.1 mg/dL (8.5-10.1); Potassium 3.8 mmol/L (3.5-5.1)
[2023-05-30 21:39] LABS: Lactic Acid w/Reflex 3.6 mmol/L (0.4-2.0)
[2023-05-30 21:40] LABS: BUN/Creatinine Ratio 14.1 (10.0-20.0); Bilirubin, Total 0.3 mg/dL (0.2-1.0); Total Protein 6.8 g/dL (6.4-8.2)
[2023-05-30] MEDS ORDERED: cefTRIAXone 1GM/50ML D5W 50 ML IV ONE (22:15)
[2023-05-30] MEDS ORDERED: AZITHROMYCIN 500MG/ 250ML 250 ML IV ONE (22:15)
[2023-05-30] MEDS ORDERED: IPRATROPIUM BROM 0.5 MG/2.5ML INH SOL NEB ONE ×2 (22:15)
[2023-05-30] MEDS ORDERED: ASPirin 81 mg TAB PO ONE (22:15)
[2023-05-30] MEDS ORDERED: ALBUTEROL SULF 2.5 MG/0.5ML(0.5%) NEB SOLN NEB ONE ×2 (22:15)
[2023-05-30] MEDS ORDERED: methylPREDNISolone SOD SUCC 40 MG/ML VL IV ONE (22:15)
[2023-05-30] MEDS ORDERED: ACETAMINOPHEN 325 MG TAB PO PRN ×2 (22:15→23:45)
[2023-05-30] MEDS ORDERED: ONDANSETRON HCL 4 MG/2 ML VIAL IV ONE (22:15)
[2023-05-30] MEDS ORDERED: SODIUM CHLORIDE 0.9% 1,000 ML IV ONE ×2 (23:00→23:15)
[2023-05-30] MEDS ORDERED: CLINDAMYCIN 900MG IV 50 ML IV ONE (23:15)
[2023-05-30 23:22] LABS: INR 0.96 (0.9-1.15)
[2023-05-30 23:45] VITALS: BP 102/55; PULSE 89; O2SAT 92; O2SAT 96
[2023-05-30] MEDS ORDERED: MORPHINE SULFATE INJ 2 MG/ml SYRG IV PRN (23:45)
[2023-05-30] MEDS ORDERED: ALBUTEROL SULF 2.5 MG/0.5ML(0.5%) NEB SOLN NEB PRN (23:45)
[2023-05-30] MEDS ORDERED: ONDANSETRON HCL 4 MG/2 ML VIAL IV PRN (23:45)
[2023-05-30] MEDS ORDERED: DOCUSATE SOD 100 MG CAP PO PRN (23:45)
[2023-05-30] MEDS ORDERED: NITROGLYCERIN 0.4 MG SL TAB SL PRN (23:45)
[2023-05-31] VITALS (13 sets, daily range): BP systolic 112–129; BP diastolic 57–76; PULSE 75–102; RESP 18–22; TEMP 98.5; O2SAT 92–99
[2023-05-31] MEDS: SODIUM CHLOR 0.9% PF (SALINE LOCK) 10ML VIAL/SYR IV SCH ×3 (06:00→22:00)
[2023-05-31 06:24] LABS: Basophils # (auto) 0 10 ^3/uL (0-0.2); Eosinophils # (auto) 0 10 ^3/uL (0-0.8); Eosinophils % (auto) 0.1 % (0.0-7.0); Hematocrit 41.7 % (41.0-53.0); Hemoglobin 14.1 g/dL (13.5-17.5); Lymphocytes # (auto) 0.4 10 ^3/uL (0.4-5.4); Lymphocytes % (auto) 4.7 % (10.0-50.0); Mean Corpuscular Hemoglobin 33.3 pg (28.0-32.0); Mean Corpuscular Hgb Conc. 33.9 g/dL (32.0-36.0); Mean Corpuscular Volume 98.2 fL (80.0-100.0); Monocytes # (auto) 0.1 10 ^3/uL (0-1.3); Monocytes % (auto) 0.6 % (0.0-12.0); Neutrophils # (auto) 8.2 10 ^3/uL (1.6-8.6); Neutrophils % (auto) 94.6 % (37.0-80.0); Nucleated Red Blood Cells % 0.1 %; Red Blood Cells 4.24 10^6/uL (4.5-5.90); Red Cell Distribution Width 15.1 % (11.8-14.3); White Blood Cell 8.6 10^3/uL (4.4-10.8)
[2023-05-31 06:45] LABS: Potassium 4.6 mmol/L (3.5-5.1)
[2023-05-31 06:51] LABS: Albumin 3.8 g/dL (3.4-5.0); BUN/Creatinine Ratio 17.2 (10.0-20.0); Calcium 8.8 mg/dL (8.5-10.1)
[2023-05-31 07:14] LABS: Bilirubin, Total 0.3 mg/dL (0.2-1.0)
[2023-05-31] MEDS: ALBUTEROL SULF 2.5 MG/0.5ML(0.5%) NEB SOLN NEB SCH ×3 (07:44→18:41)
[2023-05-31] MEDS: BUDESONIDE (INHALATION) 0.5 MG/2 ML NEB NEB SCH ×2 (07:44→18:41)
[2023-05-31] MEDS: IPRATROPIUM BROM 0.5 MG/2.5ML INH SOL NEB SCH ×3 (07:44→18:41)
[2023-05-31] MEDS ORDERED: DEXTROSE (50%) 50ML SYRG IV PRN (07:45)
[2023-05-31] MEDS ORDERED: DexAMETHasone SOD PHOS 10MG/1ML VIAL INJ IV SCH (10:00)
[2023-05-31] MEDS ORDERED: TOPIRAMATE 25 MG TAB PO SCH (10:00)
[2023-05-31] MEDS: ASPirin 81 mg TAB PO SCH ×2 (10:00→11:39)
[2023-05-31] MEDS: ACCU-CHEK COMFORT CURVE STRIP VI SCH ×3 (11:30→23:15)
[2023-05-31] MEDS: FAMOTIDINE (10MG/ML) 2ML VL IV SCH ×2 (11:39→23:24)
[2023-05-31 12:29] LABS: Urine Bacteria NONE SEEN /hpf (None Seen); Urine Blood Negative /uL (Negative); Urine Budding Yeast FEW /hpf (None Seen); Urine Mucus FEW (None Seen); Urine Specific Gravity 1.019 (1.001-1.035); Urine WBC 21 /hpf (0 - 3)
[2023-05-31 12:30] LABS: Alcohol, Urine < 3.0 mg/dL (0-10); Cannabinoid Screen, Urine NEGATIVE (NEGATIVE); Cocaine Screen, Urine NEGATIVE (NEGATIVE); Phencyclidine Screen, Urine NEGATIVE (NEGATIVE)
[2023-05-31 12:32] LABS: Amphetamine Screen, Urine NEGATIVE (NEGATIVE); Barbiturate Scree,Urine NEGATIVE (NEGATIVE); Benzodiazephine Screen, Urine NEGATIVE (NEGATIVE); Opiate Scree,Urine NEGATIVE (NEGATIVE)
[2023-05-31] MEDS: InsuLIN REG 1unit/0.01ml Soln (100units/ml) SC SCH ×3 (13:50→23:15)
[2023-05-31] MEDS: PIPERACILLIN-TAZOB 3.375GM 100 ML IV SCH (14:06)
[2023-05-31] MEDS ORDERED: FUROSEMIDE 20 MG/2 ML VIAL IV ONE (14:30)
[2023-05-31] MEDS ORDERED: LORazepam 2MG/ML-1ML VIAL ONE (18:06)
[2023-05-31] MEDS: LORazepam 2MG/ML-1ML VIAL IV PRN (18:48)
[2023-05-31] MEDS ORDERED: LORazepam 0.5 MG TAB PO PRN (22:00)
[2023-05-31] MEDS ORDERED: cefTRIAXone 1GM/50ML D5W 50 ML IV SCH (22:00)
[2023-05-31] MEDS: TOPIRAMATE 25 MG TAB PO SCH (23:23)
[2023-05-31] MEDS: AZITHROMYCIN 500MG/ 250ML 250 ML IV SCH (23:24)
[2023-06-01] VITALS (19 sets, daily range): BP systolic 110–126; BP diastolic 58–85; PULSE 74–102; RESP 17–28; TEMP 97–98.9; O2SAT 92–100
[2023-06-01] MEDS: ALBUTEROL SULF 2.5 MG/0.5ML(0.5%) NEB SOLN NEB SCH ×4 (00:09→19:02)
[2023-06-01] MEDS: IPRATROPIUM BROM 0.5 MG/2.5ML INH SOL NEB SCH ×4 (00:09→19:02)
[2023-06-01] MEDS: PIPERACILLIN-TAZOB 3.375GM 100 ML IV SCH ×4 (01:47→23:58)
[2023-06-01] MEDS: SODIUM CHLOR 0.9% PF (SALINE LOCK) 10ML VIAL/SYR IV SCH ×3 (06:00→21:42)
[2023-06-01 06:34] LABS: Potassium 3.6 mmol/L (3.5-5.1)
[2023-06-01 06:42] LABS: BUN/Creatinine Ratio 20.8 (10.0-20.0); Calcium 9.1 mg/dL (8.5-10.1); Magnesium 2.7 mg/dL (1.6-2.6)
[2023-06-01] MEDS: InsuLIN REG 1unit/0.01ml Soln (100units/ml) SC SCH ×4 (07:00→22:59)
[2023-06-01] MEDS: ACCU-CHEK COMFORT CURVE STRIP VI SCH ×4 (07:30→22:58)
[2023-06-01] MEDS: BUDESONIDE (INHALATION) 0.5 MG/2 ML NEB NEB SCH (07:33)
[2023-06-01] MEDS: ASPirin 81 mg TAB PO SCH (09:53)
[2023-06-01] MEDS: FAMOTIDINE (10MG/ML) 2ML VL IV SCH ×2 (09:53→22:58)
[2023-06-01] MEDS: TOPIRAMATE 25 MG TAB PO SCH ×2 (09:53→22:59)
[2023-06-01] MEDS: FUROSEMIDE 20 MG/2 ML VIAL IV SCH (09:54)
[2023-06-01] MEDS: AZITHROMYCIN 500MG/ 250ML 250 ML IV SCH (21:40)
[2023-06-02] VITALS (17 sets, daily range): BP systolic 96–126; BP diastolic 62–75; PULSE 70–107; RESP 17–24; TEMP 97.6–98.5; O2SAT 96–100
[2023-06-02] MEDS: IPRATROPIUM BROM 0.5 MG/2.5ML INH SOL NEB SCH ×4 (00:03→18:35)
[2023-06-02] MEDS: ALBUTEROL SULF 2.5 MG/0.5ML(0.5%) NEB SOLN NEB SCH ×4 (00:03→18:35)
[2023-06-02] MEDS: BUDESONIDE (INHALATION) 0.5 MG/2 ML NEB NEB SCH ×3 (00:03→22:00)
[2023-06-02] MEDS: PIPERACILLIN-TAZOB 3.375GM 100 ML IV SCH ×3 (05:29→22:53)
[2023-06-02] MEDS: SODIUM CHLOR 0.9% PF (SALINE LOCK) 10ML VIAL/SYR IV SCH ×3 (05:32→22:53)
[2023-06-02] MEDS: ACCU-CHEK COMFORT CURVE STRIP VI SCH ×4 (06:38→22:53)
[2023-06-02] MEDS: InsuLIN REG 1unit/0.01ml Soln (100units/ml) SC SCH ×4 (06:38→22:00)
[2023-06-02 09:31] LABS: Folate (Folic Acid) > 24.00 ng/mL (5.38-24)
[2023-06-02 09:34] LABS: Folate (Folic Acid) 20.17 ng/mL (5.38-24)
[2023-06-02] MEDS: FUROSEMIDE 20 MG/2 ML VIAL IV SCH (09:53)
[2023-06-02] MEDS: TOPIRAMATE 25 MG TAB PO SCH ×2 (09:53→22:48)
[2023-06-02] MEDS: FAMOTIDINE (10MG/ML) 2ML VL IV SCH (09:53)
[2023-06-02] MEDS: ASPirin 81 mg TAB PO SCH (09:53)
[2023-06-02] MEDS: HYDROcodone-ACET 5/325MG TAB PO PRN (10:00)
[2023-06-02] MEDS: AZITHROMYCIN 500MG/ 250ML 250 ML IV SCH (22:49)
[2023-06-03] VITALS (22 sets, daily range): BP systolic 92–110; BP diastolic 59–68; PULSE 77–106; RESP 16–24; TEMP 97.7–98.7; O2SAT 94–100
[2023-06-03] MEDS: IPRATROPIUM BROM 0.5 MG/2.5ML INH SOL NEB SCH ×4 (00:20→18:24)
[2023-06-03] MEDS: ALBUTEROL SULF 2.5 MG/0.5ML(0.5%) NEB SOLN NEB SCH ×4 (00:20→18:24)
[2023-06-03] MEDS: BUDESONIDE (INHALATION) 0.5 MG/2 ML NEB NEB SCH ×2 (06:10→22:00)
[2023-06-03] MEDS: ACCU-CHEK COMFORT CURVE STRIP VI SCH ×4 (06:30→21:57)
[2023-06-03] MEDS: SODIUM CHLOR 0.9% PF (SALINE LOCK) 10ML VIAL/SYR IV SCH ×3 (06:30→21:57)
[2023-06-03] MEDS: PIPERACILLIN-TAZOB 3.375GM 100 ML IV SCH ×3 (06:30→23:42)
[2023-06-03] MEDS: InsuLIN REG 1unit/0.01ml Soln (100units/ml) SC SCH ×4 (06:52→22:02)
[2023-06-03] MEDS: TOPIRAMATE 25 MG TAB PO SCH ×2 (09:46→21:55)
[2023-06-03] MEDS: ASPirin 81 mg TAB PO SCH (09:46)
[2023-06-03] MEDS: FUROSEMIDE 20 MG/2 ML VIAL IV SCH (09:46)
[2023-06-03] MEDS: PANTOPRAZOLE 40 MG TAB PO SCH (09:46)
[2023-06-03] MEDS: HYDROcodone-ACET 5/325MG TAB PO PRN (09:53)
[2023-06-03] MEDS: LORazepam 2MG/ML-1ML VIAL IV PRN (10:37)
[2023-06-03] MEDS: AZITHROMYCIN 500MG/ 250ML 250 ML IV SCH (21:55)
[2023-06-04] VITALS (12 sets, daily range): BP systolic 100–106; BP diastolic 65–77; PULSE 81–105; RESP 16–22; TEMP 97.9–98.4; O2SAT 94–99
[2023-06-04] MEDS: ALBUTEROL SULF 2.5 MG/0.5ML(0.5%) NEB SOLN NEB SCH ×3 (00:17→13:12)
[2023-06-04] MEDS: IPRATROPIUM BROM 0.5 MG/2.5ML INH SOL NEB SCH ×3 (00:17→13:12)
[2023-06-04] MEDS: BUDESONIDE (INHALATION) 0.5 MG/2 ML NEB NEB SCH (06:50)
[2023-06-04] MEDS: InsuLIN REG 1unit/0.01ml Soln (100units/ml) SC SCH ×2 (07:00→11:30)
[2023-06-04] MEDS: ACCU-CHEK COMFORT CURVE STRIP VI SCH ×2 (07:01→11:30)
[2023-06-04] MEDS: SODIUM CHLOR 0.9% PF (SALINE LOCK) 10ML VIAL/SYR IV SCH ×2 (07:01→13:46)
[2023-06-04] MEDS: PIPERACILLIN-TAZOB 3.375GM 100 ML IV SCH ×2 (07:18→13:46)
[2023-06-04] MEDS: PANTOPRAZOLE 40 MG TAB PO SCH (09:26)
[2023-06-04] MEDS: HYDROcodone-ACET 5/325MG TAB PO PRN (09:26)
[2023-06-04] MEDS: ASPirin 81 mg TAB PO SCH (09:26)
[2023-06-04] MEDS: TOPIRAMATE 25 MG TAB PO SCH (09:26)
[2023-06-04] MEDS: FUROSEMIDE 20 MG/2 ML VIAL IV SCH (10:00)
[2023-06-04] MEDS ORDERED: AUG875T PO (13:28)
== END 2023-06-04 15:38 | disposition home health service (06) | DRG 177 ==
LOC: ER 20:36 → EDBD 20:36 → TELE 23:50 → TELE-WESTW 06-01 18:08
PROVIDERS: ADMIT Internal Medicine; ATTEND Internal Medicine
PROC: 5A09357 Assistance with Respiratory Ventilation, Less than 24 Consecutive Hours, Continuous Positive Airway Pressure (ICD-10-PCS; principal; 2023-05-30)
PROC: 5A09357 Assistance with Respiratory Ventilation, Less than 24 Consecutive Hours, Continuous Positive Airway Pressure (ICD-10-PCS; 2023-05-31)
PROC: 5A09357 Assistance with Respiratory Ventilation, Less than 24 Consecutive Hours, Continuous Positive Airway Pressure (ICD-10-PCS; 2023-06-01)
PROC: 5A09357 Assistance with Respiratory Ventilation, Less than 24 Consecutive Hours, Continuous Positive Airway Pressure (ICD-10-PCS; 2023-06-02)
PROC: 5A09357 Assistance with Respiratory Ventilation, Less than 24 Consecutive Hours, Continuous Positive Airway Pressure (ICD-10-PCS; 2023-06-03)
PROC: 5A09357 Assistance with Respiratory Ventilation, Less than 24 Consecutive Hours, Continuous Positive Airway Pressure (ICD-10-PCS; 2023-06-04)
DX: J69.0 Pneumonitis due to inhalation of food and vomit (principal); I50.33 Acute on chronic diastolic (congestive) heart failure; J96.21 Acute and chronic respiratory failure with hypoxia; N39.0 Urinary tract infection, site not specified; J44.1 Chronic obstructive pulmonary disease with (acute) exacerbation; M48.54XA Collapsed vertebra, not elsewhere classified, thoracic region, initial encounter for fracture; F41.9 Anxiety disorder, unspecified; E11.9 Type 2 diabetes mellitus without complications; G47.30 Sleep apnea, unspecified; G43.909 Migraine, unspecified, not intractable, without status migrainosus; G40.909 Epilepsy, unspecified, not intractable, without status epilepticus; I11.0 Hypertensive heart disease with heart failure; I27.20 Pulmonary hypertension, unspecified; Z80.3 Family history of malignant neoplasm of breast; Z82.3 Family history of stroke; Z82.49 Family history of ischemic heart disease and other diseases of the circulatory system; Z82.5 Family history of asthma and other chronic lower respiratory diseases; Z87.891 Personal history of nicotine dependence; Z99.81 Dependence on supplemental oxygen; F32.A Depression, unspecified; K21.9 Gastro-esophageal reflux disease without esophagitis
CPT/HCPCS: 36415; 36600; 70450; 71045; 71250; 80048; 80053; 80307; 81001; 82306; 82607; 82746; 82805; 82962; 83036; 83605; 83735; 83880; 84443; 84484; 85025; 85379; 85610; 85730; 86850; 86900; 86901; 87040; 87081; 93005; 93306; 94640; 94660; 96365; 96367; 97110; 97116; 97163; 97530; 99291; G0378; J0696; J1815; J2543; J3490

== ENCOUNTER 2023-08-08 18:13 | Inpatient (IN) | payer MEDICARE, MEDICAID ==
[~2023-08-08] VITALS: Ht 175.3 cm; Wt 76.6 kg
[~2023-08-08 18:13] MED LIST changes: -ASPI1TAB20 PO; +AUG875T PO; -PRED20TA2 PO
[2023-08-08] MEDS ORDERED: IPRATROPIUM BROM 0.5 MG/2.5ML INH SOL NEB ONE (18:45)
[2023-08-08] MEDS ORDERED: ALBUTEROL SULF 2.5 MG/0.5ML(0.5%) NEB SOLN NEB ONE (18:45)
[2023-08-08 18:54] LABS: Base Excess 2.8 mmol/L (-2.0-2.0)
[2023-08-08 19:02] LABS: Bilirubin, Direct 0.1 mg/dL (<0.3); Bilirubin, Total 0.6 mg/dL (0.2-1.0)
[2023-08-08 19:03] LABS: Total Protein 7.1 g/dL (5.7-8.2)
[2023-08-08 19:09] VITALS: PULSE 96; RESP 24; O2SAT 96
[2023-08-08 19:09] LABS: Alkaline Phosphatase 71 U/L (46-116); Anion Gap 8 (5-15); BUN/Creatinine Ratio 13.1 (10.0-20.0); Blood Urea Nitrogen 14 mg/dL (9-23); Carbon Dioxide 27 mmol/L (20-30); Chloride 105 mmol/L (98-107); Glucose 151 mg/dL (74-106); Lipase 45 U/L (12-53); Potassium 3.9 mmol/L (3.5-5.1); Sodium 140 mmol/L (136-145)
[2023-08-08 19:10] LABS: Alanine Aminotransferase 31 U/L (7-40); Albumin 4.6 g/dL (3.2-4.8); Aspartate Aminotransferase 14 U/L (13-40); Calcium 9.9 mg/dL (8.7-10.4)
[2023-08-08 19:50] VITALS: PULSE 91; RESP 22; O2SAT 97
[2023-08-08 19:50] LABS: Basophils # (auto) 0 10 ^3/uL (0-0.2); Basophils % (auto) 0.3 % (0.0-2.0); Eosinophils # (auto) 0.1 10 ^3/uL (0-0.8); Eosinophils % (auto) 1.1 % (0.0-7.0); Hematocrit 42.7 % (41.0-53.0); Hemoglobin 14.8 g/dL (13.5-17.5); Lymphocytes # (auto) 1.3 10 ^3/uL (0.4-5.4); Lymphocytes % (auto) 14.9 % (10.0-50.0); Mean Corpuscular Hemoglobin 34.2 pg (28.0-32.0); Mean Corpuscular Hgb Conc. 34.8 g/dL (32.0-36.0); Mean Corpuscular Volume 98.3 fL (80.0-100.0); Monocytes # (auto) 0.4 10 ^3/uL (0-1.3); Monocytes % (auto) 4.8 % (0.0-12.0); Neutrophils # (auto) 7.1 10 ^3/uL (1.6-8.6); Neutrophils % (auto) 78.9 % (37.0-80.0); Nucleated Red Blood Cells % 0.1 %; Red Blood Cells 4.35 10^6/uL (4.5-5.90); Red Cell Distribution Width 14.4 % (11.8-14.3)
[2023-08-08 20:20] LABS: INR 0.98 (0.9-1.15); Prothrombin Time 10.3 sec (9.3-11.8)
[2023-08-08] MEDS ORDERED: DEXTROSE (50%) 50ML SYRG IV PRN (21:15)
[2023-08-08] MEDS ORDERED: ACETAMINOPHEN 325 MG TAB PO PRN (21:15)
[2023-08-08] MEDS ORDERED: HYDROcodone-ACET 5/325MG TAB PO PRN (21:15)
[2023-08-08] MEDS ORDERED: DOCUSATE SOD 100 MG CAP PO PRN (21:15)
[2023-08-08] MEDS ORDERED: ALBUTEROL SULF 2.5 MG/0.5ML(0.5%) NEB SOLN NEB PRN (21:15)
[2023-08-08] MEDS ORDERED: IPRATROPIUM BROM 0.5 MG/2.5ML INH SOL NEB PRN (21:15)
[2023-08-08 22:00] VITALS: BP 117/89; PULSE 85; RESP 20
[2023-08-08] MEDS: InsuLIN REG 1unit/0.01ml Soln (100units/ml) SC SCH (22:00)
[2023-08-08] MEDS: ACCU-CHEK COMFORT CURVE STRIP VI SCH (22:59)
[2023-08-08 23:00] VITALS: PULSE 75; O2SAT 99
[2023-08-08] MEDS: SODIUM CHLOR 0.9% PF (SALINE LOCK) 10ML VIAL/SYR IV SCH (23:00)
[2023-08-08] MEDS: FAMOTIDINE (10MG/ML) 2ML VL IV SCH (23:03)
[2023-08-08] MEDS ORDERED: NITROGLYCERIN 0.4 MG SL TAB SL PRN (23:45)
[2023-08-08] MEDS ORDERED: MORPHINE SULFATE INJ 2 MG/ml SYRG IV PRN (23:45)
[2023-08-09] VITALS (19 sets, daily range): BP systolic 107–126; BP diastolic 66–78; PULSE 61–99; RESP 20–32; TEMP 97.7; O2SAT 93–99
[2023-08-09] MEDS: ALBUTEROL SULF 2.5 MG/0.5ML(0.5%) NEB SOLN NEB SCH ×6 (00:25→22:14)
[2023-08-09] MEDS: IPRATROPIUM BROM 0.5 MG/2.5ML INH SOL NEB SCH ×6 (00:25→22:14)
[2023-08-09 05:14] LABS: Basophils # (auto) 0 10 ^3/uL (0-0.2); Basophils % (auto) 0.4 % (0.0-2.0); Eosinophils # (auto) 0.2 10 ^3/uL (0-0.8); Hemoglobin 14.4 g/dL (13.5-17.5); Mean Corpuscular Hemoglobin 34.2 pg (28.0-32.0)
[2023-08-09 05:15] LABS: Alanine Aminotransferase 28 U/L (7-40); Albumin 4.2 g/dL (3.2-4.8); Alkaline Phosphatase 62 U/L (46-116); Anion Gap 7 (5-15); Aspartate Aminotransferase 12 U/L (13-40); BUN/Creatinine Ratio 17.3 (10.0-20.0); Blood Urea Nitrogen 17 mg/dL (9-23); Calcium 9.3 mg/dL (8.7-10.4); Carbon Dioxide 30 mmol/L (20-30); Chloride 107 mmol/L (98-107); Glucose 92 mg/dL (74-106); Potassium 3.8 mmol/L (3.5-5.1); Sodium 144 mmol/L (136-145)
[2023-08-09 05:16] LABS: Bilirubin, Total 0.6 mg/dL (0.2-1.0); Total Protein 6.5 g/dL (5.7-8.2)
[2023-08-09 05:22] LABS: Eosinophils % (auto) 2.8 % (0.0-7.0); Lymphocytes # (auto) 1.9 10 ^3/uL (0.4-5.4); Lymphocytes % (auto) 20.9 % (10.0-50.0); Mean Corpuscular Volume 97.6 fL (80.0-100.0); Monocytes # (auto) 0.5 10 ^3/uL (0-1.3); Neutrophils # (auto) 6.3 10 ^3/uL (1.6-8.6); Neutrophils % (auto) 69.9 % (37.0-80.0); Nucleated Red Blood Cells % 0.2 %; Red Cell Distribution Width 14.1 % (11.8-14.3)
[2023-08-09 05:45] LABS: Urine Bacteria NONE SEEN /hpf (None Seen); Urine Blood Negative /uL (Negative); Urine Clarity Clear (Clear); Urine Color Yellow (Yellow); Urine Mucus FEW (None Seen); Urine Protein, UAD Negative (Negative); Urine Specific Gravity 1.026 (1.001-1.035); Urine Urobilinogen Normal (Negative); Urine WBC 4 /hpf (0 - 3); Urine pH 5.5 (5.0-8.0)
[2023-08-09] MEDS: SODIUM CHLOR 0.9% PF (SALINE LOCK) 10ML VIAL/SYR IV SCH ×3 (06:10→22:33)
[2023-08-09] MEDS: ACCU-CHEK COMFORT CURVE STRIP VI SCH ×4 (06:34→22:33)
[2023-08-09] MEDS: InsuLIN REG 1unit/0.01ml Soln (100units/ml) SC SCH ×4 (06:35→22:00)
[2023-08-09] MEDS: DexAMETHasone SOD PHOS 10MG/1ML VIAL INJ IV SCH (09:32)
[2023-08-09] MEDS: FAMOTIDINE (10MG/ML) 2ML VL IV SCH ×2 (09:32→22:32)
[2023-08-09] MEDS: ENOXAPARIN SOD 40 MG/0.4 ML SYRINGE SC SCH (09:33)
[2023-08-09] MEDS ORDERED: HYDR-4798 PO (10:34)
[2023-08-09] MEDS ORDERED: BACL10TA PO (10:34)
[2023-08-09] MEDS ORDERED: HYDROcodone-ACET 10/325MG TAB PO PRN (11:00)
[2023-08-09 13:06] LABS: COVID19 ANTIGEN SOFIA FIA NEGATIVE (NEGATIVE)
[2023-08-09] MEDS ORDERED: HYDROcodone-ACET 10/325MG TAB PO SCH (22:00)
[2023-08-09] MEDS ORDERED: BACLOFEN 10 MG TAB PO SCH (22:00)
[2023-08-09] MEDS: TOPIRAMATE 25 MG TAB PO SCH (22:32)
[2023-08-10] VITALS (20 sets, daily range): BP systolic 100–133; BP diastolic 60–78; PULSE 58–102; RESP 20–24; TEMP 97.7–98; O2SAT 96–100
[2023-08-10 00:10] LABS: Rapid Influenza A Negative (Negative); Rapid Influenza B Negative (Negative)
[2023-08-10] MEDS: IPRATROPIUM BROM 0.5 MG/2.5ML INH SOL NEB SCH ×6 (02:10→22:30)
[2023-08-10] MEDS: ALBUTEROL SULF 2.5 MG/0.5ML(0.5%) NEB SOLN NEB SCH ×6 (02:10→22:30)
[2023-08-10] MEDS: InsuLIN REG 1unit/0.01ml Soln (100units/ml) SC SCH ×4 (06:21→21:31)
[2023-08-10] MEDS: ACCU-CHEK COMFORT CURVE STRIP VI SCH ×4 (06:21→21:18)
[2023-08-10] MEDS: SODIUM CHLOR 0.9% PF (SALINE LOCK) 10ML VIAL/SYR IV SCH ×3 (06:21→22:00)
[2023-08-10] MEDS: levoFLOXacin 500MG 100 ML IV SCH (10:32)
[2023-08-10] MEDS: ENOXAPARIN SOD 40 MG/0.4 ML SYRINGE SC SCH (10:33)
[2023-08-10] MEDS: FAMOTIDINE (10MG/ML) 2ML VL IV SCH ×2 (10:34→21:16)
[2023-08-10] MEDS: DexAMETHasone SOD PHOS 10MG/1ML VIAL INJ IV SCH (10:34)
[2023-08-10] MEDS: TOPIRAMATE 25 MG TAB PO SCH ×2 (10:34→21:16)
[2023-08-10 16:24] LABS: Base Excess 0.4 mmol/L (-2.0-2.0)
[2023-08-11] VITALS (30 sets, daily range): BP systolic 95–138; BP diastolic 52–83; PULSE 64–90; RESP 14–99; TEMP 97.6–98.5; O2SAT 2–100
[2023-08-11] MEDS: IPRATROPIUM BROM 0.5 MG/2.5ML INH SOL NEB SCH ×6 (02:27→22:09)
[2023-08-11] MEDS: ALBUTEROL SULF 2.5 MG/0.5ML(0.5%) NEB SOLN NEB SCH ×6 (02:27→22:09)
[2023-08-11] MEDS: SODIUM CHLOR 0.9% PF (SALINE LOCK) 10ML VIAL/SYR IV SCH ×3 (06:12→21:55)
[2023-08-11] MEDS: InsuLIN REG 1unit/0.01ml Soln (100units/ml) SC SCH ×4 (06:13→22:00)
[2023-08-11] MEDS: ACCU-CHEK COMFORT CURVE STRIP VI SCH ×4 (06:13→21:55)
[2023-08-11 06:35] LABS: Basophils # (auto) 0 10 ^3/uL (0-0.2); Eosinophils # (auto) 0.1 10 ^3/uL (0-0.8); Hematocrit 39.1 % (41.0-53.0); Hemoglobin 13.7 g/dL (13.5-17.5)
[2023-08-11 06:37] LABS: Basophils % (auto) 0.3 % (0.0-2.0); Eosinophils % (auto) 0.9 % (0.0-7.0); Lymphocytes % (auto) 21.3 % (10.0-50.0); Mean Corpuscular Volume 97.3 fL (80.0-100.0); Monocytes # (auto) 0.6 10 ^3/uL (0-1.3); Neutrophils # (auto) 6.6 10 ^3/uL (1.6-8.6); Neutrophils % (auto) 71.5 % (37.0-80.0); Nucleated Red Blood Cells % 1.9 %; Red Blood Cells 4.02 10^6/uL (4.5-5.90); White Blood Cell 9.2 10^3/uL (4.4-10.8)
[2023-08-11 06:47] LABS: Chloride 107 mmol/L (98-107); Potassium 3.6 mmol/L (3.5-5.1); Sodium 142 mmol/L (136-145)
[2023-08-11 06:48] LABS: Anion Gap 7 (5-15); Carbon Dioxide 28 mmol/L (20-30)
[2023-08-11 06:49] LABS: Calcium 9.4 mg/dL (8.5-10.1)
[2023-08-11 06:53] LABS: Glucose 99 mg/dL (74-106)
[2023-08-11 06:54] LABS: BUN/Creatinine Ratio 17.5 (10.0-20.0); Blood Urea Nitrogen 18 mg/dL (9-23)
[2023-08-11] MEDS: levoFLOXacin 500MG 100 ML IV SCH (09:11)
[2023-08-11] MEDS: FAMOTIDINE (10MG/ML) 2ML VL IV SCH ×2 (09:12→21:55)
[2023-08-11] MEDS: DexAMETHasone SOD PHOS 10MG/1ML VIAL INJ IV SCH (09:12)
[2023-08-11] MEDS: ENOXAPARIN SOD 40 MG/0.4 ML SYRINGE SC SCH (09:12)
[2023-08-11] MEDS: TOPIRAMATE 25 MG TAB PO SCH ×2 (09:13→21:55)
[2023-08-11 09:54] LABS: Base Excess -0.8 mmol/L (-2.0-2.0)
[2023-08-11] MEDS ORDERED: AZITHROMYCIN 500MG/ 250ML 250 ML IV ONE (10:00)
[2023-08-11] MEDS: AZITHROMYCIN 500MG/ 250ML 250 ML IV SCH (10:50)
[2023-08-11] MEDS: ONDANSETRON HCL 4 MG/2 ML VIAL IV PRN (11:56)
[2023-08-11] MEDS: BACLOFEN 10 MG TAB PO PRN (22:04)
[2023-08-12] VITALS (40 sets, daily range): BP systolic 102–149; BP diastolic 58–95; PULSE 64–106; RESP 17–28; TEMP 98–98.4; O2SAT 94–100
[2023-08-12] MEDS: IPRATROPIUM BROM 0.5 MG/2.5ML INH SOL NEB SCH ×6 (02:04→22:14)
[2023-08-12] MEDS: ALBUTEROL SULF 2.5 MG/0.5ML(0.5%) NEB SOLN NEB SCH ×6 (02:04→22:14)
[2023-08-12 04:29] LABS: Basophils # (auto) 0 10 ^3/uL (0-0.2); Basophils % (auto) 0.4 % (0.0-2.0); Eosinophils # (auto) 0 10 ^3/uL (0-0.8); Eosinophils % (auto) 0.5 % (0.0-7.0); Hemoglobin 13.7 g/dL (13.5-17.5); Lymphocytes % (auto) 21.5 % (10.0-50.0); Mean Corpuscular Hemoglobin 33.9 pg (28.0-32.0); Mean Corpuscular Hgb Conc. 34.3 g/dL (32.0-36.0); Monocytes # (auto) 0.5 10 ^3/uL (0-1.3); Monocytes % (auto) 5.5 % (0.0-12.0); Neutrophils # (auto) 6.7 10 ^3/uL (1.6-8.6); Neutrophils % (auto) 72.1 % (37.0-80.0); Nucleated Red Blood Cells % 0.1 %; Red Blood Cells 4.04 10^6/uL (4.5-5.90); White Blood Cell 9.3 10^3/uL (4.4-10.8)
[2023-08-12] MEDS: SODIUM CHLOR 0.9% PF (SALINE LOCK) 10ML VIAL/SYR IV SCH ×3 (05:40→22:59)
[2023-08-12] MEDS: InsuLIN REG 1unit/0.01ml Soln (100units/ml) SC SCH ×4 (07:00→23:10)
[2023-08-12] MEDS: ACCU-CHEK COMFORT CURVE STRIP VI SCH ×4 (07:06→22:59)
[2023-08-12 07:59] LABS: Chloride 107 mmol/L (98-107); Potassium 3.8 mmol/L (3.5-5.1); Sodium 141 mmol/L (136-145)
[2023-08-12 08:00] LABS: Anion Gap 5 (5-15); Carbon Dioxide 29 mmol/L (20-30)
[2023-08-12 08:01] LABS: Calcium 9.4 mg/dL (8.5-10.1)
[2023-08-12 08:05] LABS: BUN/Creatinine Ratio 18.3 (10.0-20.0); Blood Urea Nitrogen 17 mg/dL (9-23); Glucose 83 mg/dL (74-106)
[2023-08-12 08:39] LABS: Magnesium 2.1 mg/dL (1.6-2.6)
[2023-08-12] MEDS: DexAMETHasone SOD PHOS 10MG/1ML VIAL INJ IV SCH (10:32)
[2023-08-12] MEDS: AZITHROMYCIN 500MG/ 250ML 250 ML IV SCH (10:32)
[2023-08-12] MEDS: FAMOTIDINE (10MG/ML) 2ML VL IV SCH ×2 (10:32→22:59)
[2023-08-12] MEDS: TOPIRAMATE 25 MG TAB PO SCH ×2 (10:33→22:59)
[2023-08-12] MEDS: ENOXAPARIN SOD 40 MG/0.4 ML SYRINGE SC SCH (10:33)
[2023-08-12] MEDS: ONDANSETRON HCL 4 MG/2 ML VIAL IV PRN (16:58)
[2023-08-12] MEDS ORDERED: LORazepam 2MG/ML-1ML VIAL IV PRN (17:15)
[2023-08-12] MEDS: BACLOFEN 10 MG TAB PO PRN (23:05)
[2023-08-13] VITALS (25 sets, daily range): BP systolic 102–151; BP diastolic 50–104; PULSE 66–88; RESP 17–30; TEMP 97.9–98.6; O2SAT 94–100
[2023-08-13] MEDS: ALBUTEROL SULF 2.5 MG/0.5ML(0.5%) NEB SOLN NEB SCH ×6 (01:57→22:38)
[2023-08-13] MEDS: IPRATROPIUM BROM 0.5 MG/2.5ML INH SOL NEB SCH ×6 (01:57→22:38)
[2023-08-13] MEDS: SODIUM CHLOR 0.9% PF (SALINE LOCK) 10ML VIAL/SYR IV SCH ×3 (06:17→21:28)
[2023-08-13] MEDS: ACCU-CHEK COMFORT CURVE STRIP VI SCH ×4 (06:17→21:28)
[2023-08-13] MEDS: InsuLIN REG 1unit/0.01ml Soln (100units/ml) SC SCH ×4 (06:19→21:36)
[2023-08-13] MEDS: DexAMETHasone SOD PHOS 10MG/1ML VIAL INJ IV SCH (09:55)
[2023-08-13] MEDS: ENOXAPARIN SOD 40 MG/0.4 ML SYRINGE SC SCH (09:55)
[2023-08-13] MEDS: TOPIRAMATE 25 MG TAB PO SCH ×2 (09:55→21:27)
[2023-08-13] MEDS: AZITHROMYCIN 500MG/ 250ML 250 ML IV SCH (09:55)
[2023-08-13] MEDS: FAMOTIDINE (10MG/ML) 2ML VL IV SCH ×2 (09:55→21:28)
[2023-08-13 10:28] LABS: Anion Gap 7 (5-15); Carbon Dioxide 29 mmol/L (20-30); Chloride 104 mmol/L (98-107); Potassium 3.3 mmol/L (3.5-5.1); Sodium 140 mmol/L (136-145)
[2023-08-13 10:29] LABS: Calcium 9.2 mg/dL (8.5-10.1)
[2023-08-13 10:34] LABS: Blood Urea Nitrogen 15 mg/dL (9-23)
[2023-08-13 10:35] LABS: Glucose 210 mg/dL (74-106)
[2023-08-13] MEDS ORDERED: POTASSIUM EFFERVESENT TAB 25 MEQ GT ONE (16:45)
[2023-08-13] MEDS ORDERED: POTASSIUM EFFERVESENT TAB 25 MEQ PO ONE (17:30)
[2023-08-13] MEDS: BACLOFEN 10 MG TAB PO PRN (21:27)
[2023-08-13 23:39] LABS: Base Excess -4.9 mmol/L (-2.0-2.0)
[2023-08-14] VITALS (39 sets, daily range): BP systolic 104–147; BP diastolic 40–94; PULSE 66–108; RESP 15–30; TEMP 98.2–98.7; O2SAT 89–100
[2023-08-14] MEDS: IPRATROPIUM BROM 0.5 MG/2.5ML INH SOL NEB SCH ×6 (02:32→22:55)
[2023-08-14] MEDS: ALBUTEROL SULF 2.5 MG/0.5ML(0.5%) NEB SOLN NEB SCH ×6 (02:32→22:54)
[2023-08-14 04:53] LABS: Chloride 109 mmol/L (98-107); Potassium 3.7 mmol/L (3.5-5.1); Sodium 143 mmol/L (136-145)
[2023-08-14 04:54] LABS: Anion Gap 5 (5-15); Calcium 9.6 mg/dL (8.7-10.4); Carbon Dioxide 29 mmol/L (20-30)
[2023-08-14 04:59] LABS: BUN/Creatinine Ratio 11.7 (10.0-20.0); Blood Urea Nitrogen 11 mg/dL (9-23); Magnesium 2.3 mg/dL (1.6-2.6)
[2023-08-14 05:00] LABS: Basophils # (auto) 0 10 ^3/uL (0-0.2); Basophils % (auto) 0.5 % (0.0-2.0); Eosinophils # (auto) 0.1 10 ^3/uL (0-0.8); Eosinophils % (auto) 0.7 % (0.0-7.0); Hematocrit 39.9 % (41.0-53.0); Hemoglobin 13.7 g/dL (13.5-17.5); Lymphocytes # (auto) 2.1 10 ^3/uL (0.4-5.4); Lymphocytes % (auto) 22.7 % (10.0-50.0); Mean Corpuscular Hemoglobin 33.8 pg (28.0-32.0); Mean Corpuscular Hgb Conc. 34.4 g/dL (32.0-36.0); Mean Corpuscular Volume 98.3 fL (80.0-100.0); Monocytes # (auto) 0.6 10 ^3/uL (0-1.3); Neutrophils # (auto) 6.6 10 ^3/uL (1.6-8.6); Neutrophils % (auto) 70.1 % (37.0-80.0); Nucleated Red Blood Cells % 0.2 %; Red Blood Cells 4.06 10^6/uL (4.5-5.90); Red Cell Distribution Width 14.2 % (11.8-14.3); White Blood Cell 9.4 10^3/uL (4.4-10.8)
[2023-08-14 05:05] LABS: Glucose 106 mg/dL (74-106)
[2023-08-14] MEDS: SODIUM CHLOR 0.9% PF (SALINE LOCK) 10ML VIAL/SYR IV SCH ×3 (06:21→21:59)
[2023-08-14] MEDS: ACCU-CHEK COMFORT CURVE STRIP VI SCH ×4 (06:21→21:50)
[2023-08-14] MEDS: InsuLIN REG 1unit/0.01ml Soln (100units/ml) SC SCH ×4 (06:21→22:00)
[2023-08-14] MEDS: TOPIRAMATE 25 MG TAB PO SCH ×2 (08:45→21:50)
[2023-08-14] MEDS: DexAMETHasone SOD PHOS 10MG/1ML VIAL INJ IV SCH (08:46)
[2023-08-14] MEDS: FAMOTIDINE (10MG/ML) 2ML VL IV SCH ×2 (08:46→21:50)
[2023-08-14] MEDS: ENOXAPARIN SOD 40 MG/0.4 ML SYRINGE SC SCH (08:46)
[2023-08-14] MEDS: AZITHROMYCIN 500MG/ 250ML 250 ML IV SCH (08:46)
[2023-08-14 11:36] LABS: Base Excess -0.5 mmol/L (-2.0-2.0)
[2023-08-14] MEDS: ONDANSETRON HCL 4 MG/2 ML VIAL IV PRN (20:17)
[2023-08-14] MEDS: BACLOFEN 10 MG TAB PO PRN (21:58)
[2023-08-15] VITALS (28 sets, daily range): BP systolic 100–141; BP diastolic 59–90; PULSE 59–96; RESP 18–30; TEMP 97.7–98.9; O2SAT 96–100
[2023-08-15] MEDS: ALBUTEROL SULF 2.5 MG/0.5ML(0.5%) NEB SOLN NEB SCH ×4 (02:29→15:05)
[2023-08-15] MEDS: IPRATROPIUM BROM 0.5 MG/2.5ML INH SOL NEB SCH ×4 (02:30→15:06)
[2023-08-15 04:41] LABS: Basophils # (auto) 0 10 ^3/uL (0-0.2); Eosinophils # (auto) 0.1 10 ^3/uL (0-0.8); Mean Corpuscular Hgb Conc. 35.3 g/dL (32.0-36.0); Monocytes # (auto) 0.5 10 ^3/uL (0-1.3)
[2023-08-15 04:43] LABS: Basophils % (auto) 0.4 % (0.0-2.0); Eosinophils % (auto) 0.9 % (0.0-7.0); Hematocrit 38.8 % (41.0-53.0); Hemoglobin 13.7 g/dL (13.5-17.5); Lymphocytes # (auto) 2.1 10 ^3/uL (0.4-5.4); Lymphocytes % (auto) 24.1 % (10.0-50.0); Mean Corpuscular Hemoglobin 34.2 pg (28.0-32.0); Mean Corpuscular Volume 96.7 fL (80.0-100.0); Monocytes % (auto) 5.6 % (0.0-12.0); Nucleated Red Blood Cells % 0.1 %; Red Blood Cells 4.01 10^6/uL (4.5-5.90); White Blood Cell 8.7 10^3/uL (4.4-10.8)
[2023-08-15 04:53] LABS: Chloride 109 mmol/L (98-107); Potassium 3.6 mmol/L (3.5-5.1); Sodium 141 mmol/L (136-145)
[2023-08-15 04:54] LABS: Anion Gap 5 (5-15); Calcium 9.2 mg/dL (8.7-10.4); Carbon Dioxide 27 mmol/L (20-30)
[2023-08-15 04:59] LABS: BUN/Creatinine Ratio 10.3 (10.0-20.0); Blood Urea Nitrogen 9 mg/dL (9-23); Glucose 99 mg/dL (74-106)
[2023-08-15 05:00] LABS: Magnesium 2.1 mg/dL (1.6-2.6)
[2023-08-15] MEDS: ACCU-CHEK COMFORT CURVE STRIP VI SCH (06:42)
[2023-08-15] MEDS: SODIUM CHLOR 0.9% PF (SALINE LOCK) 10ML VIAL/SYR IV SCH (06:42)
[2023-08-15] MEDS: InsuLIN REG 1unit/0.01ml Soln (100units/ml) SC SCH (06:42)
[2023-08-15] MEDS ORDERED: DEXTROSE (50%) 50ML SYRG IV PRN (08:15)
[2023-08-15] MEDS: AZITHROMYCIN 500MG/ 250ML 250 ML IV SCH (08:33)
[2023-08-15] MEDS: DexAMETHasone SOD PHOS 10MG/1ML VIAL INJ IV SCH (08:34)
[2023-08-15] MEDS: ENOXAPARIN SOD 40 MG/0.4 ML SYRINGE SC SCH (08:34)
[2023-08-15] MEDS: TOPIRAMATE 25 MG TAB PO SCH (08:34)
[2023-08-15] MEDS ORDERED: ACCU-CHEK COMFORT CURVE STRIP VI SCH (11:30)
[2023-08-15] MEDS ORDERED: InsuLIN REG 1unit/0.01ml Soln (100units/ml) SC SCH (11:30)
== END 2023-08-15 15:42 | disposition home or self-care (01) | DRG 189 ==
LOC: ER 18:13 → EDBD 18:13 → TELE 23:33 → TELE-WESTW 08-09 09:00 → ICU WEST 08-11 09:49
PROVIDERS: ADMIT Nurse Practitioner Family; ATTEND Internal Medicine Pulmonary Disease
PROC: 5A09357 Assistance with Respiratory Ventilation, Less than 24 Consecutive Hours, Continuous Positive Airway Pressure (ICD-10-PCS; principal; 2023-08-08)
PROC: 5A09357 Assistance with Respiratory Ventilation, Less than 24 Consecutive Hours, Continuous Positive Airway Pressure (ICD-10-PCS; 2023-08-09)
PROC: 5A09357 Assistance with Respiratory Ventilation, Less than 24 Consecutive Hours, Continuous Positive Airway Pressure (ICD-10-PCS; 2023-08-10)
PROC: 5A09357 Assistance with Respiratory Ventilation, Less than 24 Consecutive Hours, Continuous Positive Airway Pressure (ICD-10-PCS; 2023-08-11)
PROC: 5A09357 Assistance with Respiratory Ventilation, Less than 24 Consecutive Hours, Continuous Positive Airway Pressure (ICD-10-PCS; 2023-08-12)
PROC: 5A09357 Assistance with Respiratory Ventilation, Less than 24 Consecutive Hours, Continuous Positive Airway Pressure (ICD-10-PCS; 2023-08-13)
PROC: 5A09357 Assistance with Respiratory Ventilation, Less than 24 Consecutive Hours, Continuous Positive Airway Pressure (ICD-10-PCS; 2023-08-14)
PROC: 5A09357 Assistance with Respiratory Ventilation, Less than 24 Consecutive Hours, Continuous Positive Airway Pressure (ICD-10-PCS; 2023-08-15)
DX: J96.21 Acute and chronic respiratory failure with hypoxia (principal); J44.1 Chronic obstructive pulmonary disease with (acute) exacerbation; I50.32 Chronic diastolic (congestive) heart failure; R55 Syncope and collapse; I11.0 Hypertensive heart disease with heart failure; E11.9 Type 2 diabetes mellitus without complications; F32.A Depression, unspecified; F41.8 Other specified anxiety disorders; K27.9 Peptic ulcer, site unspecified, unspecified as acute or chronic, without hemorrhage or perforation; Z20.822 Contact with and (suspected) exposure to COVID-19; E87.6 Hypokalemia; K21.9 Gastro-esophageal reflux disease without esophagitis; R56.9 Unspecified convulsions; Z79.899 Other long term (current) drug therapy; Z80.3 Family history of malignant neoplasm of breast; Z82.3 Family history of stroke; Z82.49 Family history of ischemic heart disease and other diseases of the circulatory system; Z87.891 Personal history of nicotine dependence; Z80.0 Family history of malignant neoplasm of digestive organs
CPT/HCPCS: 36415; 36600; 70450; 70551; 71045; 80048; 80053; 81001; 82140; 82248; 82805; 82962; 83036; 83605; 83690; 83735; 83880; 84484; 85025; 85379; 85610; 87081; 87426; 87804; 92610; 93005; 94640; 94660; 96365; 97163; G0378; J1100; J1815; J1956; J2405; J3490

== ENCOUNTER 2023-09-16 00:02 | Inpatient (IN) | payer MEDICARE, MEDICAID ==
[2023-09-16] VITALS (34 sets, daily range): BP systolic 82–126; BP diastolic 53–79; PULSE 56–179; RESP 16–35; TEMP 97.3–101; O2SAT 94–99
[~2023-09-16] VITALS: Ht 182.9 cm; Wt 84.0 kg
[~2023-09-16 00:02] MED LIST changes: -AUG875T PO; +BACL10TA PO; +HYDR-4798 PO
[2023-09-16] MEDS ORDERED: SODIUM BICARBONATE 8.4% INJ 50ML SYRINGE ONE (00:09)
[2023-09-16] MEDS ORDERED: ROCURONIUM 10MG/ML 10ML VIAL IV ONE (00:09)
[2023-09-16] MEDS ORDERED: ETOMIDATE (2MG/ML) 20ML VIAL IV ONE (00:09)
[2023-09-16] MEDS ORDERED: CALCIUM GLUC 1,000mg/50ml-NS 50 ML IV ONE ×2 (00:10→00:45)
[2023-09-16] MEDS ORDERED: ADENOSINE 6 MG/2 ML INJ IV ONE ×2 (00:12→00:45)
[2023-09-16] MEDS ORDERED: METOPROLOL TARTRATE 1MG/1ML-5ML VIAL IV ONE ×2 (00:21→00:45)
[2023-09-16] MEDS ORDERED: MAGNESIUM SULFATE 1GM/100ML 200 ML IV ONE (00:21)
[2023-09-16] MEDS ORDERED: MAGNESIUM SULFATE 1GM/100ML 100 ML IV ONE (00:45)
[2023-09-16] MEDS ORDERED: SODIUM BICARBONATE 8.4 % INJ 50ML VIAL IV ONE ×2 (00:45)
[2023-09-16] MEDS ORDERED: dilTIAZem 25 MG/5 ML VIAL IV ONE (00:45)
[2023-09-16 00:55] LABS: Basophils # (auto) 0 10 ^3/uL (0-0.2); Basophils % (auto) 0.1 % (0.0-2.0); Eosinophils # (auto) 0.3 10 ^3/uL (0-0.8); Eosinophils % (auto) 2.2 % (0.0-7.0); Hemoglobin 16.1 g/dL (13.5-17.5); Lymphocytes # (auto) 2.7 10 ^3/uL (0.4-5.4); Lymphocytes % (auto) 17.4 % (10.0-50.0); Mean Corpuscular Hgb Conc. 33.5 g/dL (32.0-36.0); Mean Corpuscular Volume 101.5 fL (80.0-100.0); Monocytes # (auto) 0.7 10 ^3/uL (0-1.3); Monocytes % (auto) 4.9 % (0.0-12.0); Neutrophils # (auto) 11.5 10 ^3/uL (1.6-8.6); Neutrophils % (auto) 75.4 % (37.0-80.0); Red Blood Cells 4.74 10^6/uL (4.5-5.90); Red Cell Distribution Width 15.1 % (11.8-14.3); White Blood Cell 15.2 10^3/uL (4.4-10.8)
[2023-09-16 01:04] LABS: Lactic Acid w/Reflex 3.6 mmol/L (0.4-2.0)
[2023-09-16 01:09] LABS: INR 1.09 (0.9-1.15); Partial Thromboplastin Time 20.3 SEC (24.5-34.5); Prothrombin Time 11.4 sec (9.3-11.8)
[2023-09-16 01:18] LABS: Alanine Aminotransferase 24 U/L (7-40); Albumin 3.8 g/dL (3.2-4.8); Alkaline Phosphatase 50 U/L (46-116); Anion Gap 6 (5-15); Aspartate Aminotransferase 13 U/L (13-40); BUN/Creatinine Ratio 14.5 (10.0-20.0); Bilirubin, Total 0.9 mg/dL (0.2-1.0); Blood Urea Nitrogen 17 mg/dL (9-23); Calcium 8.8 mg/dL (8.7-10.4); Carbon Dioxide 31 mmol/L (20-30); Chloride 104 mmol/L (98-107); Glucose 226 mg/dL (74-106); Potassium 4.2 mmol/L (3.5-5.1); Sodium 141 mmol/L (136-145); Total Protein 5.8 g/dL (5.7-8.2)
[2023-09-16] MEDS ORDERED: cefTRIAXone 1GM/50ML D5W 50 ML IV ONE (02:00)
[2023-09-16] MEDS ORDERED: LEVALBUTEROL 1.25 MG INH SCH ×2 (02:00→02:15)
[2023-09-16] MEDS ORDERED: DexAMETHasone SOD PHOS 10MG/1ML VIAL INJ IV ONE (02:00)
[2023-09-16] MEDS ORDERED: AZITHROMYCIN 500MG/ 250ML 250 ML IV ONE (02:00)
[2023-09-16] MEDS ORDERED: MIDAZOLAM DRIP 50 mg/50mL 0 ML IV ONE (02:26)
[2023-09-16] MEDS: MIDAZOLAM DRIP 50 mg/50mL 50 ML IV SCH ×2 (02:35→19:44)
[2023-09-16] MEDS: fentaNYL Drip 2500mCg/250mlNS 250 ML IV SCH (02:36)
[2023-09-16 03:23] LABS: Base Excess 1.5 mmol/L (-2.0-2.0)
[2023-09-16] MEDS ORDERED: SODIUM CHLORIDE 0.9% 2,000 ML IV ONE (04:20)
[2023-09-16 04:28] LABS: Base Excess 1.9 mmol/L (-2.0-2.0)
[2023-09-16] MEDS ORDERED: PHENYLEPHRINE IV 250 ML IV ONE (05:51)
[2023-09-16] MEDS ORDERED: ACETAMINOPHEN 325 MG TAB PO PRN (06:45)
[2023-09-16] MEDS ORDERED: DEXTROSE (50%) 50ML SYRG IV PRN (06:45)
[2023-09-16] MEDS ORDERED: NITROGLYCERIN 0.4 MG SL TAB SL PRN (06:45)
[2023-09-16] MEDS ORDERED: ONDANSETRON HCL 4 MG/2 ML VIAL IV PRN (06:45)
[2023-09-16] MEDS ORDERED: MORPHINE SULFATE INJ 2 MG/ml SYRG IV PRN (06:45)
[2023-09-16 07:07] LABS: Base Excess -2.1 mmol/L (-2.0-2.0)
[2023-09-16 07:12] LABS: Urine Bacteria NONE SEEN /hpf (None Seen); Urine Blood 2+ /uL (Negative); Urine Clarity CLOUDY (Clear); Urine Color Yellow (Yellow); Urine Mucus FEW (None Seen); Urine Protein, UAD 1+ (Negative); Urine Specific Gravity 1.026 (1.001-1.035); Urine WBC 1 /hpf (0 - 3); Urine pH 5.5 (5.0-8.0)
[2023-09-16] MEDS: PHENYLEPHRINE IV 250 ML IV SCH ×3 (07:45→20:40)
[2023-09-16] MEDS ORDERED: LEVALBUTEROL HCL 1.25 MG/3 ML NEB NEB ONE (08:00)
[2023-09-16] MEDS: SODIUM CHLORIDE 0.9% 1,000 ML IV SCH ×2 (08:31→20:05)
[2023-09-16] MEDS: IPRATROPIUM BROM 0.5 MG/2.5ML INH SOL NEB PRN (09:33)
[2023-09-16] MEDS: ENOXAPARIN SOD 40 MG/0.4 ML SYRINGE SC SCH (09:40)
[2023-09-16] MEDS: methylPREDNISolone SOD SUCC 125 MG/2 ML VL IV SCH ×2 (09:40→21:48)
[2023-09-16 10:49] LABS: Base Excess -0.4 mmol/L (-2.0-2.0)
[2023-09-16] MEDS: ACCU-CHEK COMFORT CURVE STRIP VI SCH ×2 (11:54→18:03)
[2023-09-16] MEDS: InsuLIN REG 1unit/0.01ml Soln (100units/ml) SC SCH ×2 (12:03→18:11)
[2023-09-16] MEDS ORDERED: IOHEXOL 350 MG/ML 100ML IJ ONE (12:55)
[2023-09-16] MEDS ORDERED: LIDOCAINE 1% (LOCAL ANESTH.) PF 5ml SDV ID ONE (14:45)
[2023-09-16 15:18] LABS: Base Excess 0.7 mmol/L (-2.0-2.0)
[2023-09-16] MEDS: SODIUM CHLOR 0.9% PF (SALINE LOCK) 10ML VIAL/SYR IV SCH (21:48)
[2023-09-16] MEDS ORDERED: VANCOMYCIN 1GM/200ML 250 ML IV NR (23:15)
[2023-09-16] MEDS ORDERED: VANCOMYCIN PER PHARMACY 0 MG IV SCH (23:15)
[2023-09-17] VITALS (108 sets, daily range): BP systolic 78–157; BP diastolic 48–83; PULSE 47–79; RESP 20–22; TEMP 97.3–98.6; O2SAT 91–99
[2023-09-17] MEDS: fentaNYL Drip 2500mCg/250mlNS 250 ML IV SCH
[2023-09-17] MEDS: ACCU-CHEK COMFORT CURVE STRIP VI SCH ×5 (00:18→23:32)
[2023-09-17] MEDS: cefTRIAXone 1GM/50ML D5W 50 ML IV SCH (02:00)
[2023-09-17] MEDS: AZITHROMYCIN 500MG/ 250ML 250 ML IV SCH (03:00)
[2023-09-17] MEDS: MIDAZOLAM DRIP 50 mg/50mL 50 ML IV SCH ×3 (03:45→23:32)
[2023-09-17 04:25] LABS: Basophils # (auto) 0 10 ^3/uL (0-0.2); Basophils % (auto) 0.1 % (0.0-2.0); Eosinophils # (auto) 0.2 10 ^3/uL (0-0.8); Eosinophils % (auto) 1.4 % (0.0-7.0); Hemoglobin 13.1 g/dL (13.5-17.5); Lymphocytes # (auto) 0.7 10 ^3/uL (0.4-5.4); Mean Corpuscular Volume 99.4 fL (80.0-100.0); Monocytes # (auto) 0.4 10 ^3/uL (0-1.3)
[2023-09-17 04:27] LABS: Lymphocytes % (auto) 4.6 % (10.0-50.0); Mean Corpuscular Hemoglobin 34.2 pg (28.0-32.0); Mean Corpuscular Hgb Conc. 34.4 g/dL (32.0-36.0); Monocytes % (auto) 2.5 % (0.0-12.0); Neutrophils # (auto) 13.7 10 ^3/uL (1.6-8.6); Neutrophils % (auto) 91.4 % (37.0-80.0); Red Blood Cells 3.82 10^6/uL (4.5-5.90)
[2023-09-17 04:42] LABS: Alanine Aminotransferase 25 U/L (7-40); Albumin 3.7 g/dL (3.2-4.8); Alkaline Phosphatase 43 U/L (46-116); Anion Gap 4 (5-15); Aspartate Aminotransferase 8 U/L (13-40); BUN/Creatinine Ratio 22.7 (10.0-20.0); Blood Urea Nitrogen 20 mg/dL (9-23); Calcium 8.5 mg/dL (8.5-10.1); Carbon Dioxide 28 mmol/L (20-30); Chloride 108 mmol/L (98-107); Cholesterol 163 mg/dL (< 200); Glucose 147 mg/dL (74-106); HDL Cholesterol 45 mg/dL (40-59); LDL Cholesterol 100 mg/dL (< 100); Potassium 4.4 mmol/L (3.5-5.1); Sodium 140 mmol/L (136-145); Triglycerides 115 mg/dL (< 150)
[2023-09-17 04:43] LABS: Bilirubin, Total 0.5 mg/dL (0.2-1.0); Total Protein 5.8 g/dL (5.7-8.2)
[2023-09-17 04:56] LABS: Magnesium 2.2 mg/dL (1.6-2.6)
[2023-09-17] MEDS: InsuLIN REG 1unit/0.01ml Soln (100units/ml) SC SCH ×5 (06:20→23:37)
[2023-09-17] MEDS: PHENYLEPHRINE IV 250 ML IV SCH ×3 (06:26→23:40)
[2023-09-17 07:26] LABS: Base Excess 0.3 mmol/L (-2.0-2.0)
[2023-09-17] MEDS ORDERED: VANCOMYCIN 1GM/200ML 250 ML IV ONE (08:45)
[2023-09-17 08:51] LABS: Free T3 1.98 pg/mL (2.3-4.2)
[2023-09-17 08:52] LABS: Free T4 (Free Thyroxine) 0.98 ng/dL (0.89-1.76)
[2023-09-17] MEDS ORDERED: TOPIRAMATE 25 MG TAB PO SCH (10:00)
[2023-09-17] MEDS ORDERED: DULA1INJ SC (10:05)
[2023-09-17] MEDS: methylPREDNISolone SOD SUCC 125 MG/2 ML VL IV SCH ×2 (10:20→22:23)
[2023-09-17] MEDS: ENOXAPARIN SOD 40 MG/0.4 ML SYRINGE SC SCH (10:21)
[2023-09-17] MEDS: SODIUM CHLORIDE 0.9% 1,000 ML IV SCH ×2 (10:21→23:41)
[2023-09-17] MEDS: SODIUM CHLOR 0.9% PF (SALINE LOCK) 10ML VIAL/SYR IV SCH ×2 (10:47→22:24)
[2023-09-17] MEDS: CLOPIDOGREL BISULFATE 75 MG TAB PO SCH (10:55)
[2023-09-17] MEDS ORDERED: LORazepam 2MG/ML-1ML VIAL ONE (11:29)
[2023-09-17] MEDS ORDERED: LORazepam 2MG/ML-1ML VIAL IV PRN ×2 (11:30→20:00)
[2023-09-17] MEDS ORDERED: PANTOPRAZOLE 40 MG/10 ML VIAL INJ IV ONE (12:00)
[2023-09-17] MEDS ORDERED: NOREPINEPHRINE 8 MG/250ML KIT 250 ML IV SCH (18:45)
[2023-09-17] MEDS: VANCOMYCIN 1GM/200ML 250 ML IV SCH (20:56)
[2023-09-17] MEDS: ATORVASTATIN 20 MG TAB PO SCH (22:23)
[2023-09-17] MEDS: TOPIRAMATE 25 MG TAB PO SCH (22:23)
[2023-09-18] VITALS (107 sets, daily range): BP systolic 90–159; BP diastolic 57–92; PULSE 51–107; RESP 13–38; TEMP 97.7–98.8; O2SAT 87–100
[2023-09-18 01:44] LABS: Amphetamine Screen, Urine Neg (NEGATIVE); Barbiturate Scree,Urine Neg (NEGATIVE); Benzodiazephine Screen, Urine Pos (NEGATIVE); Cannabinoid Screen, Urine Neg (NEGATIVE); Cocaine Screen, Urine Neg (NEGATIVE); Opiate Scree,Urine Neg (NEGATIVE); Phencyclidine Screen, Urine Neg (NEGATIVE)
[2023-09-18] MEDS: cefTRIAXone 1GM/50ML D5W 50 ML IV SCH (01:56)
[2023-09-18] MEDS: AZITHROMYCIN 500MG/ 250ML 250 ML IV SCH (03:00)
[2023-09-18] MEDS: ACCU-CHEK COMFORT CURVE STRIP VI SCH ×4 (06:04→23:56)
[2023-09-18] MEDS: InsuLIN REG 1unit/0.01ml Soln (100units/ml) SC SCH ×4 (06:09→23:57)
[2023-09-18] MEDS: fentaNYL Drip 2500mCg/250mlNS 250 ML IV SCH (06:53)
[2023-09-18] MEDS: VANCOMYCIN 1GM/200ML 250 ML IV SCH ×2 (07:04→17:41)
[2023-09-18] MEDS: PHENYLEPHRINE IV 250 ML IV SCH ×2 (08:00→16:20)
[2023-09-18] MEDS: NOREPINEPHRINE 8 MG/250ML KIT 250 ML IV SCH (08:15)
[2023-09-18 08:22] LABS: Base Excess 0.9 mmol/L (-2.0-2.0)
[2023-09-18 08:28] LABS: Alanine Aminotransferase 17 U/L (7-40); Albumin 3.5 g/dL (3.2-4.8); Alkaline Phosphatase 42 U/L (46-116); Anion Gap 8 (5-15); Aspartate Aminotransferase 11 U/L (13-40); BUN/Creatinine Ratio 25.3 (10.0-20.0); Blood Urea Nitrogen 22 mg/dL (9-23); Calcium 8.7 mg/dL (8.5-10.1); Carbon Dioxide 25 mmol/L (20-30); Chloride 109 mmol/L (98-107); Glucose 157 mg/dL (74-106); Potassium 4.4 mmol/L (3.5-5.1); Sodium 142 mmol/L (136-145)
[2023-09-18 08:29] LABS: Bilirubin, Total 0.4 mg/dL (0.2-1.0); Total Protein 5.7 g/dL (5.7-8.2)
[2023-09-18 08:57] LABS: Basophils # (auto) 0 10 ^3/uL (0-0.2); Basophils % (auto) 0.2 % (0.0-2.0); Eosinophils # (auto) 0.1 10 ^3/uL (0-0.8); Hematocrit 36.7 % (41.0-53.0); Hemoglobin 12.4 g/dL (13.5-17.5); Lymphocytes # (auto) 0.7 10 ^3/uL (0.4-5.4); Lymphocytes % (auto) 4.9 % (10.0-50.0); Mean Corpuscular Hgb Conc. 33.9 g/dL (32.0-36.0); Mean Corpuscular Volume 100.4 fL (80.0-100.0); Monocytes # (auto) 0.4 10 ^3/uL (0-1.3); Monocytes % (auto) 3.1 % (0.0-12.0); Neutrophils % (auto) 90.8 % (37.0-80.0); Red Blood Cells 3.66 10^6/uL (4.5-5.90); Red Cell Distribution Width 14.7 % (11.8-14.3); White Blood Cell 13.3 10^3/uL (4.4-10.8)
[2023-09-18] MEDS: MIDAZOLAM DRIP 50 mg/50mL 50 ML IV SCH ×3 (09:18→21:13)
[2023-09-18] MEDS: PANTOPRAZOLE 40 MG/10 ML VIAL INJ IV SCH (09:18)
[2023-09-18] MEDS: methylPREDNISolone SOD SUCC 125 MG/2 ML VL IV SCH ×2 (09:20→22:37)
[2023-09-18] MEDS: CLOPIDOGREL BISULFATE 75 MG TAB PO SCH (09:21)
[2023-09-18] MEDS: ENOXAPARIN SOD 40 MG/0.4 ML SYRINGE SC SCH (09:22)
[2023-09-18] MEDS: SODIUM CHLOR 0.9% PF (SALINE LOCK) 10ML VIAL/SYR IV SCH ×2 (09:29→22:36)
[2023-09-18] MEDS: TOPIRAMATE 25 MG TAB PO SCH ×2 (09:45→22:44)
[2023-09-18] MEDS: SODIUM CHLORIDE 0.9% 1,000 ML IV SCH (12:05)
[2023-09-18] MEDS: CEFEPIME 2GM/50ML NS 50 ML IV SCH ×2 (14:20→22:36)
[2023-09-18 14:27] LABS: Base Excess 0.8 mmol/L (-2.0-2.0)
[2023-09-18] MEDS: DOCUSATE ORAL LIQUID 100 MG/10 ML UD GT SCH (15:47)
[2023-09-18] MEDS: ATORVASTATIN 20 MG TAB PO SCH (22:44)
[2023-09-19] VITALS (103 sets, daily range): BP systolic 96–163; BP diastolic 60–102; PULSE 59–118; RESP 14–32; TEMP 98.1–99.3; O2SAT 87–98
[2023-09-19] MEDS: PHENYLEPHRINE IV 250 ML IV SCH ×3 (00:40→16:46)
[2023-09-19] MEDS: SODIUM CHLORIDE 0.9% 1,000 ML IV SCH ×2 (01:55→14:45)
[2023-09-19] MEDS: AZITHROMYCIN 500MG/ 250ML 250 ML IV SCH (02:06)
[2023-09-19] MEDS: fentaNYL Drip 2500mCg/250mlNS 250 ML IV SCH (02:30)
[2023-09-19] MEDS: VANCOMYCIN 1GM/200ML 250 ML IV SCH ×3 (03:29→23:07)
[2023-09-19 04:15] LABS: Basophils # (auto) 0 10 ^3/uL (0-0.2); Basophils % (auto) 0.1 % (0.0-2.0); Eosinophils # (auto) 0.1 10 ^3/uL (0-0.8); Hematocrit 34.7 % (41.0-53.0); Hemoglobin 11.9 g/dL (13.5-17.5); Lymphocytes # (auto) 0.5 10 ^3/uL (0.4-5.4); Monocytes # (auto) 0.3 10 ^3/uL (0-1.3); Red Blood Cells 3.48 10^6/uL (4.5-5.90)
[2023-09-19 04:17] LABS: Lymphocytes % (auto) 5.9 % (10.0-50.0); Mean Corpuscular Hemoglobin 34.1 pg (28.0-32.0); Mean Corpuscular Hgb Conc. 34.1 g/dL (32.0-36.0); Mean Corpuscular Volume 99.8 fL (80.0-100.0); Monocytes % (auto) 3.9 % (0.0-12.0); Neutrophils # (auto) 7.1 10 ^3/uL (1.6-8.6); Neutrophils % (auto) 89.1 % (37.0-80.0); Red Cell Distribution Width 14.8 % (11.8-14.3); White Blood Cell 7.9 10^3/uL (4.4-10.8)
[2023-09-19 04:47] LABS: Alanine Aminotransferase 15 U/L (7-40); Albumin 3.3 g/dL (3.2-4.8); Alkaline Phosphatase 41 U/L (46-116); Anion Gap 6 (5-15); Aspartate Aminotransferase < 8 U/L (13-40); Calcium 8.6 mg/dL (8.7-10.4); Carbon Dioxide 27 mmol/L (20-30); Chloride 105 mmol/L (98-107); Glucose 187 mg/dL (74-106); Potassium 4.3 mmol/L (3.5-5.1); Sodium 138 mmol/L (136-145)
[2023-09-19 04:48] LABS: Bilirubin, Total 0.5 mg/dL (0.2-1.0); Total Protein 5.4 g/dL (5.7-8.2)
[2023-09-19 05:09] LABS: BUN/Creatinine Ratio 24.2 (10.0-20.0); Blood Urea Nitrogen 24 mg/dL (9-23)
[2023-09-19] MEDS: CEFEPIME 2GM/50ML NS 50 ML IV SCH ×3 (05:27→21:34)
[2023-09-19] MEDS: ACCU-CHEK COMFORT CURVE STRIP VI SCH ×4 (05:27→23:53)
[2023-09-19] MEDS: MIDAZOLAM DRIP 50 mg/50mL 50 ML IV SCH (05:27)
[2023-09-19] MEDS: InsuLIN REG 1unit/0.01ml Soln (100units/ml) SC SCH ×4 (05:30→23:53)
[2023-09-19] MEDS: NOREPINEPHRINE 8 MG/250ML KIT 250 ML IV SCH (08:15)
[2023-09-19] MEDS: TOPIRAMATE 25 MG TAB PO SCH ×2 (09:21→21:15)
[2023-09-19] MEDS: FUROSEMIDE 20 MG/2 ML VIAL IV SCH (09:21)
[2023-09-19] MEDS: SODIUM CHLOR 0.9% PF (SALINE LOCK) 10ML VIAL/SYR IV SCH ×2 (09:21→21:14)
[2023-09-19] MEDS: DOCUSATE ORAL LIQUID 100 MG/10 ML UD GT SCH (09:21)
[2023-09-19] MEDS: CLOPIDOGREL BISULFATE 75 MG TAB PO SCH (09:21)
[2023-09-19] MEDS: PANTOPRAZOLE 40 MG/10 ML VIAL INJ IV SCH (09:22)
[2023-09-19] MEDS: methylPREDNISolone SOD SUCC 125 MG/2 ML VL IV SCH ×2 (09:22→21:34)
[2023-09-19] MEDS: ENOXAPARIN SOD 40 MG/0.4 ML SYRINGE SC SCH (09:22)
[2023-09-19 12:39] LABS: Base Excess 3.4 mmol/L (-2.0-2.0)
[2023-09-19 15:18] LABS: Base Excess 3.7 mmol/L (-2.0-2.0)
[2023-09-19] MEDS: ALBUTEROL SULF 2.5 MG/0.5ML(0.5%) NEB SOLN NEB PRN (19:07)
[2023-09-19] MEDS: IPRATROPIUM BROM 0.5 MG/2.5ML INH SOL NEB PRN (19:07)
[2023-09-19] MEDS: ATORVASTATIN 20 MG TAB PO SCH (21:14)
[2023-09-20] VITALS (45 sets, daily range): BP systolic 102–194; BP diastolic 54–96; PULSE 50–134; RESP 12–31; TEMP 98.5–99.9; O2SAT 92–99
[2023-09-20] MEDS: IPRATROPIUM BROM 0.5 MG/2.5ML INH SOL NEB PRN (01:34)
[2023-09-20] MEDS: ALBUTEROL SULF 2.5 MG/0.5ML(0.5%) NEB SOLN NEB PRN (01:34)
[2023-09-20] MEDS: PHENYLEPHRINE IV 250 ML IV SCH ×2 (01:40→10:00)
[2023-09-20] MEDS: LORazepam 0.5 MG TAB PO PRN (01:56)
[2023-09-20] MEDS: fentaNYL Drip 2500mCg/250mlNS 250 ML IV SCH (02:30)
[2023-09-20] MEDS: SODIUM CHLORIDE 0.9% 1,000 ML IV SCH ×2 (04:05→17:58)
[2023-09-20 04:11] LABS: Basophils # (auto) 0 10 ^3/uL (0-0.2); Eosinophils # (auto) 0 10 ^3/uL (0-0.8); Hemoglobin 11.9 g/dL (13.5-17.5); Monocytes # (auto) 0.3 10 ^3/uL (0-1.3); Monocytes % (auto) 4.7 % (0.0-12.0); Neutrophils # (auto) 6.4 10 ^3/uL (1.6-8.6)
[2023-09-20 04:13] LABS: Basophils % (auto) 0.3 % (0.0-2.0); Eosinophils % (auto) 0.6 % (0.0-7.0); Hematocrit 33.7 % (41.0-53.0); Lymphocytes # (auto) 0.4 10 ^3/uL (0.4-5.4); Mean Corpuscular Hemoglobin 34.7 pg (28.0-32.0); Mean Corpuscular Hgb Conc. 35.2 g/dL (32.0-36.0); Mean Corpuscular Volume 98.5 fL (80.0-100.0); Neutrophils % (auto) 89.4 % (37.0-80.0); Nucleated Red Blood Cells % 0.1 %; Red Blood Cells 3.42 10^6/uL (4.5-5.90); Red Cell Distribution Width 14.1 % (11.8-14.3); White Blood Cell 7.2 10^3/uL (4.4-10.8)
[2023-09-20 04:41] LABS: Alanine Aminotransferase 14 U/L (7-40); Albumin 3.3 g/dL (3.2-4.8); Alkaline Phosphatase 42 U/L (46-116); Anion Gap 6 (5-15); Aspartate Aminotransferase 10 U/L (13-40); BUN/Creatinine Ratio 22.8 (10.0-20.0); Blood Urea Nitrogen 23 mg/dL (9-23); Calcium 8.3 mg/dL (8.7-10.4); Carbon Dioxide 28 mmol/L (20-30); Chloride 108 mmol/L (98-107); Glucose 156 mg/dL (74-106); Potassium 3.7 mmol/L (3.5-5.1); Sodium 142 mmol/L (136-145); Total Protein 5.3 g/dL (5.7-8.2)
[2023-09-20 04:57] LABS: Bilirubin, Total 0.6 mg/dL (0.2-1.0)
[2023-09-20] MEDS: AZITHROMYCIN 500MG/ 250ML 250 ML IV SCH (05:07)
[2023-09-20] MEDS: ACCU-CHEK COMFORT CURVE STRIP VI SCH ×4 (05:52→23:22)
[2023-09-20] MEDS: InsuLIN REG 1unit/0.01ml Soln (100units/ml) SC SCH ×4 (05:52→23:21)
[2023-09-20] MEDS ORDERED: ALBUTEROL MEDNEB 2.5 mg/3ml NEB ONE ×5 (05:57→23:01)
[2023-09-20] MEDS: ALBUTEROL SULF 2.5 MG/0.5ML(0.5%) NEB SOLN NEB SCH ×5 (06:19→22:45)
[2023-09-20] MEDS: IPRATROPIUM BROM 0.5 MG/2.5ML INH SOL NEB SCH ×5 (06:19→22:45)
[2023-09-20] MEDS: CEFEPIME 2GM/50ML NS 50 ML IV SCH ×3 (07:31→22:23)
[2023-09-20] MEDS: NOREPINEPHRINE 8 MG/250ML KIT 250 ML IV SCH (08:15)
[2023-09-20] MEDS: DOCUSATE ORAL LIQUID 100 MG/10 ML UD GT SCH (10:20)
[2023-09-20] MEDS: VANCOMYCIN 1GM/200ML 250 ML IV SCH ×2 (10:20→17:57)
[2023-09-20] MEDS: methylPREDNISolone SOD SUCC 125 MG/2 ML VL IV SCH ×2 (10:20→22:23)
[2023-09-20] MEDS: TOPIRAMATE 25 MG TAB PO SCH ×2 (10:21→22:22)
[2023-09-20] MEDS: ENOXAPARIN SOD 40 MG/0.4 ML SYRINGE SC SCH (10:21)
[2023-09-20] MEDS: CLOPIDOGREL BISULFATE 75 MG TAB PO SCH (10:21)
[2023-09-20] MEDS: FUROSEMIDE 20 MG/2 ML VIAL IV SCH (10:21)
[2023-09-20] MEDS: SODIUM CHLOR 0.9% PF (SALINE LOCK) 10ML VIAL/SYR IV SCH ×2 (10:24→22:23)
[2023-09-20] MEDS: PANTOPRAZOLE 40 MG/10 ML VIAL INJ IV SCH (10:24)
[2023-09-20] MEDS ORDERED: IPRATROPIUM BROM 0.5 MG/2.5ML INH SOL ONE (18:16)
[2023-09-20] MEDS: ATORVASTATIN 20 MG TAB PO SCH (22:22)
[2023-09-21] VITALS (20 sets, daily range): BP systolic 121–136; BP diastolic 72–85; PULSE 50–95; RESP 18–24; TEMP 97.3–98.3; O2SAT 94–100
[2023-09-21] MEDS: AZITHROMYCIN 500MG/ 250ML 250 ML IV SCH (03:14)
[2023-09-21] MEDS: VANCOMYCIN 1GM/200ML 250 ML IV SCH ×2 (05:20→15:44)
[2023-09-21] MEDS ORDERED: ALBUTEROL MEDNEB 2.5 mg/3ml NEB ONE ×5 (05:51→21:09)
[2023-09-21] MEDS: IPRATROPIUM BROM 0.5 MG/2.5ML INH SOL NEB SCH ×5 (05:59→21:39)
[2023-09-21] MEDS: ALBUTEROL SULF 2.5 MG/0.5ML(0.5%) NEB SOLN NEB SCH ×5 (06:00→21:39)
[2023-09-21] MEDS: ACCU-CHEK COMFORT CURVE STRIP VI SCH ×4 (06:06→23:33)
[2023-09-21] MEDS: SODIUM CHLORIDE 0.9% 1,000 ML IV SCH ×2 (06:06→20:05)
[2023-09-21] MEDS: InsuLIN REG 1unit/0.01ml Soln (100units/ml) SC SCH ×4 (06:08→23:37)
[2023-09-21] MEDS: CEFEPIME 2GM/50ML NS 50 ML IV SCH ×3 (06:14→22:33)
[2023-09-21] MEDS: ENOXAPARIN SOD 40 MG/0.4 ML SYRINGE SC SCH (10:40)
[2023-09-21] MEDS: DOCUSATE ORAL LIQUID 100 MG/10 ML UD GT SCH (10:40)
[2023-09-21] MEDS: PANTOPRAZOLE 40 MG/10 ML VIAL INJ IV SCH (10:41)
[2023-09-21] MEDS: methylPREDNISolone SOD SUCC 125 MG/2 ML VL IV SCH ×2 (10:41→22:33)
[2023-09-21] MEDS: TOPIRAMATE 25 MG TAB PO SCH ×2 (10:42→22:33)
[2023-09-21] MEDS: CLOPIDOGREL BISULFATE 75 MG TAB PO SCH (10:42)
[2023-09-21] MEDS: FUROSEMIDE 20 MG/2 ML VIAL IV SCH (10:43)
[2023-09-21] MEDS: SODIUM CHLOR 0.9% PF (SALINE LOCK) 10ML VIAL/SYR IV SCH ×2 (10:43→22:33)
[2023-09-21] MEDS ORDERED: LACTULOSE 20Gm/30ML SOLN PO PRN (13:45)
[2023-09-21 14:12] LABS: Basophils # (auto) 0 10 ^3/uL (0-0.2); Eosinophils # (auto) 0.1 10 ^3/uL (0-0.8); Monocytes # (auto) 0.3 10 ^3/uL (0-1.3); Monocytes % (auto) 3.8 % (0.0-12.0); Nucleated Red Blood Cells % 0.1 %
[2023-09-21 14:14] LABS: Basophils % (auto) 0.1 % (0.0-2.0); Eosinophils % (auto) 1.1 % (0.0-7.0); Hematocrit 40.3 % (41.0-53.0); Hemoglobin 13.9 g/dL (13.5-17.5); Lymphocytes # (auto) 0.6 10 ^3/uL (0.4-5.4); Lymphocytes % (auto) 6.4 % (10.0-50.0); Mean Corpuscular Hemoglobin 34.4 pg (28.0-32.0); Mean Corpuscular Hgb Conc. 34.5 g/dL (32.0-36.0); Mean Corpuscular Volume 99.8 fL (80.0-100.0); Neutrophils % (auto) 88.6 % (37.0-80.0); Red Blood Cells 4.04 10^6/uL (4.5-5.90); Red Cell Distribution Width 14.3 % (11.8-14.3)
[2023-09-21 14:32] LABS: Alanine Aminotransferase 26 U/L (7-40); Alkaline Phosphatase 49 U/L (46-116); Anion Gap 8 (5-15); Aspartate Aminotransferase 17 U/L (13-40); BUN/Creatinine Ratio 21.9 (10.0-20.0); Bilirubin, Total 1.1 mg/dL (0.2-1.0); Blood Urea Nitrogen 21 mg/dL (9-23); Calcium 9.4 mg/dL (8.5-10.1); Carbon Dioxide 30 mmol/L (20-30); Chloride 105 mmol/L (98-107); Glucose 200 mg/dL (74-106); Potassium 3.9 mmol/L (3.5-5.1); Sodium 143 mmol/L (136-145); Total Protein 6.2 g/dL (5.7-8.2)
[2023-09-21] MEDS: ATORVASTATIN 20 MG TAB PO SCH (22:32)
[2023-09-22] VITALS (20 sets, daily range): BP systolic 121–134; BP diastolic 71–80; PULSE 64–99; RESP 18–22; TEMP 97.4–98.2; O2SAT 91–100
[2023-09-22] MEDS: LORazepam 0.5 MG TAB PO PRN ×2 (00:42→22:14)
[2023-09-22] MEDS: VANCOMYCIN 1GM/200ML 250 ML IV SCH (00:47)
[2023-09-22] MEDS: AZITHROMYCIN 500MG/ 250ML 250 ML IV SCH (02:35)
[2023-09-22] MEDS: SODIUM CHLORIDE 0.9% 1,000 ML IV SCH (02:35)
[2023-09-22] MEDS ORDERED: ALBUTEROL MEDNEB 2.5 mg/3ml NEB ONE ×5 (06:03→21:55)
[2023-09-22] MEDS: ALBUTEROL SULF 2.5 MG/0.5ML(0.5%) NEB SOLN NEB SCH ×5 (06:13→22:08)
[2023-09-22] MEDS: ACCU-CHEK COMFORT CURVE STRIP VI SCH ×3 (06:13→17:48)
[2023-09-22] MEDS: IPRATROPIUM BROM 0.5 MG/2.5ML INH SOL NEB SCH ×5 (06:13→22:08)
[2023-09-22] MEDS: CEFEPIME 2GM/50ML NS 50 ML IV SCH ×3 (06:13→22:23)
[2023-09-22] MEDS: InsuLIN REG 1unit/0.01ml Soln (100units/ml) SC SCH ×3 (06:26→17:50)
[2023-09-22 07:01] LABS: Basophils # (auto) 0 10 ^3/uL (0-0.2); Basophils % (auto) 0.2 % (0.0-2.0); Eosinophils # (auto) 0 10 ^3/uL (0-0.8); Eosinophils % (auto) 0.5 % (0.0-7.0); Hematocrit 38.1 % (41.0-53.0); Lymphocytes % (auto) 9.7 % (10.0-50.0); Mean Corpuscular Hemoglobin 33.7 pg (28.0-32.0); Mean Corpuscular Hgb Conc. 34.1 g/dL (32.0-36.0); Mean Corpuscular Volume 98.9 fL (80.0-100.0); Monocytes # (auto) 0.4 10 ^3/uL (0-1.3); Monocytes % (auto) 3.8 % (0.0-12.0); Neutrophils # (auto) 8.8 10 ^3/uL (1.6-8.6); Neutrophils % (auto) 85.8 % (37.0-80.0); Red Blood Cells 3.85 10^6/uL (4.5-5.90); Red Cell Distribution Width 14.3 % (11.8-14.3); White Blood Cell 10.3 10^3/uL (4.4-10.8)
[2023-09-22 07:51] LABS: Alanine Aminotransferase 30 U/L (7-40); Albumin 3.7 g/dL (3.2-4.8); Alkaline Phosphatase 47 U/L (46-116); Anion Gap 6 (5-15); Aspartate Aminotransferase 15 U/L (13-40); BUN/Creatinine Ratio 15.1 (10.0-20.0); Blood Urea Nitrogen 13 mg/dL (9-23); Calcium 9.2 mg/dL (8.5-10.1); Carbon Dioxide 27 mmol/L (20-30); Chloride 106 mmol/L (98-107); Glucose 181 mg/dL (74-106); Potassium 4.2 mmol/L (3.5-5.1); Sodium 139 mmol/L (136-145)
[2023-09-22 07:52] LABS: Bilirubin, Total 0.9 mg/dL (0.2-1.0)
[2023-09-22] MEDS: ENOXAPARIN SOD 40 MG/0.4 ML SYRINGE SC SCH (09:19)
[2023-09-22] MEDS: DOCUSATE ORAL LIQUID 100 MG/10 ML UD GT SCH (09:19)
[2023-09-22] MEDS: SODIUM CHLOR 0.9% PF (SALINE LOCK) 10ML VIAL/SYR IV SCH ×2 (09:20→22:24)
[2023-09-22] MEDS: FUROSEMIDE 20 MG/2 ML VIAL IV SCH (09:20)
[2023-09-22] MEDS: PANTOPRAZOLE 40 MG/10 ML VIAL INJ IV SCH (09:20)
[2023-09-22] MEDS: TOPIRAMATE 25 MG TAB PO SCH ×2 (09:20→22:14)
[2023-09-22] MEDS: CLOPIDOGREL BISULFATE 75 MG TAB PO SCH (09:20)
[2023-09-22] MEDS: methylPREDNISolone SOD SUCC 125 MG/2 ML VL IV SCH ×2 (09:20→22:14)
[2023-09-22] MEDS ORDERED: FLEET ENEMA(ADULT) 135 ML PR ONE (09:45)
[2023-09-22] MEDS: ATORVASTATIN 20 MG TAB PO SCH (22:14)
[2023-09-23] VITALS (19 sets, daily range): BP systolic 109–128; BP diastolic 64–78; PULSE 69–108; RESP 18–21; TEMP 97.8–98.2; O2SAT 93–100
[2023-09-23] MEDS: ACCU-CHEK COMFORT CURVE STRIP VI SCH ×5 (00:13→23:58)
[2023-09-23] MEDS: SODIUM CHLORIDE 0.9% 1,000 ML IV SCH ×3 (00:13→23:58)
[2023-09-23] MEDS: InsuLIN REG 1unit/0.01ml Soln (100units/ml) SC SCH ×4 (00:22→18:26)
[2023-09-23] MEDS: AZITHROMYCIN 500MG/ 250ML 250 ML IV SCH (02:47)
[2023-09-23] MEDS: CEFEPIME 2GM/50ML NS 50 ML IV SCH ×3 (06:11→22:31)
[2023-09-23] MEDS ORDERED: ALBUTEROL MEDNEB 2.5 mg/3ml NEB ONE ×3 (06:19→13:42)
[2023-09-23] MEDS: ALBUTEROL SULF 2.5 MG/0.5ML(0.5%) NEB SOLN NEB SCH ×5 (07:27→22:12)
[2023-09-23] MEDS: IPRATROPIUM BROM 0.5 MG/2.5ML INH SOL NEB SCH ×5 (07:27→22:12)
[2023-09-23] MEDS: PANTOPRAZOLE 40 MG/10 ML VIAL INJ IV SCH (11:11)
[2023-09-23] MEDS: FUROSEMIDE 20 MG/2 ML VIAL IV SCH (11:11)
[2023-09-23] MEDS: DOCUSATE ORAL LIQUID 100 MG/10 ML UD GT SCH ×2 (11:11→11:15)
[2023-09-23] MEDS: ENOXAPARIN SOD 40 MG/0.4 ML SYRINGE SC SCH (11:12)
[2023-09-23] MEDS: CLOPIDOGREL BISULFATE 75 MG TAB PO SCH (11:12)
[2023-09-23] MEDS: TOPIRAMATE 25 MG TAB PO SCH ×2 (11:12→22:26)
[2023-09-23] MEDS: SODIUM CHLOR 0.9% PF (SALINE LOCK) 10ML VIAL/SYR IV SCH ×2 (11:13→22:19)
[2023-09-23] MEDS: methylPREDNISolone SOD SUCC 125 MG/2 ML VL IV SCH ×2 (11:54→22:16)
[2023-09-23] MEDS: DOCUSATE ORAL LIQUID 100 MG/10 ML UD PO SCH (11:54)
[2023-09-23] MEDS: ATORVASTATIN 20 MG TAB PO SCH (22:17)
[2023-09-23] MEDS: LORazepam 0.5 MG TAB PO PRN (22:36)
[2023-09-24] VITALS (20 sets, daily range): BP systolic 105–119; BP diastolic 48–69; PULSE 64–104; RESP 17–22; TEMP 97.9–98.1; O2SAT 94–100
[2023-09-24] MEDS: InsuLIN REG 1unit/0.01ml Soln (100units/ml) SC SCH ×4 (00:05→17:17)
[2023-09-24] MEDS: ACCU-CHEK COMFORT CURVE STRIP VI SCH ×3 (05:49→17:17)
[2023-09-24] MEDS: CEFEPIME 2GM/50ML NS 50 ML IV SCH ×3 (05:58→22:10)
[2023-09-24] MEDS ORDERED: ALBUTEROL MEDNEB 2.5 mg/3ml NEB ONE ×5 (05:58→21:53)
[2023-09-24] MEDS: IPRATROPIUM BROM 0.5 MG/2.5ML INH SOL NEB SCH ×5 (06:18→22:26)
[2023-09-24] MEDS: ALBUTEROL SULF 2.5 MG/0.5ML(0.5%) NEB SOLN NEB SCH ×5 (06:18→22:26)
[2023-09-24] MEDS: CLOPIDOGREL BISULFATE 75 MG TAB PO SCH (08:18)
[2023-09-24] MEDS: DOCUSATE ORAL LIQUID 100 MG/10 ML UD PO SCH (08:18)
[2023-09-24] MEDS: FUROSEMIDE 20 MG/2 ML VIAL IV SCH (08:18)
[2023-09-24] MEDS: PANTOPRAZOLE 40 MG TAB PO SCH (08:18)
[2023-09-24] MEDS: SODIUM CHLOR 0.9% PF (SALINE LOCK) 10ML VIAL/SYR IV SCH ×2 (08:19→22:09)
[2023-09-24] MEDS: methylPREDNISolone SOD SUCC 125 MG/2 ML VL IV SCH ×2 (08:19→22:10)
[2023-09-24] MEDS: ENOXAPARIN SOD 40 MG/0.4 ML SYRINGE SC SCH (08:19)
[2023-09-24] MEDS: TOPIRAMATE 25 MG TAB PO SCH ×2 (08:38→22:08)
[2023-09-24] MEDS: SODIUM CHLORIDE 0.9% 1,000 ML IV SCH (14:45)
[2023-09-24] MEDS: ATORVASTATIN 20 MG TAB PO SCH (22:08)
[2023-09-25] VITALS (15 sets, daily range): BP systolic 100–120; BP diastolic 48–72; PULSE 70–92; RESP 16–23; TEMP 97.8–98.4; O2SAT 96–100
[2023-09-25] MEDS: SODIUM CHLORIDE 0.9% 1,000 ML IV SCH (00:13)
[2023-09-25] MEDS: ACCU-CHEK COMFORT CURVE STRIP VI SCH ×3 (00:13→12:03)
[2023-09-25] MEDS: InsuLIN REG 1unit/0.01ml Soln (100units/ml) SC SCH ×3 (00:21→12:03)
[2023-09-25] MEDS: CEFEPIME 2GM/50ML NS 50 ML IV SCH ×2 (05:51→14:00)
[2023-09-25] MEDS ORDERED: ALBUTEROL MEDNEB 2.5 mg/3ml NEB ONE ×5 (06:08→18:06)
[2023-09-25] MEDS: ALBUTEROL SULF 2.5 MG/0.5ML(0.5%) NEB SOLN NEB SCH ×3 (07:05→14:23)
[2023-09-25] MEDS: IPRATROPIUM BROM 0.5 MG/2.5ML INH SOL NEB SCH ×3 (07:05→14:23)
[2023-09-25] MEDS: ENOXAPARIN SOD 40 MG/0.4 ML SYRINGE SC SCH (08:41)
[2023-09-25] MEDS: SODIUM CHLOR 0.9% PF (SALINE LOCK) 10ML VIAL/SYR IV SCH (08:41)
[2023-09-25] MEDS: DOCUSATE ORAL LIQUID 100 MG/10 ML UD PO SCH (08:42)
[2023-09-25] MEDS: methylPREDNISolone SOD SUCC 125 MG/2 ML VL IV SCH (08:42)
[2023-09-25] MEDS: PANTOPRAZOLE 40 MG TAB PO SCH (08:42)
[2023-09-25] MEDS: CLOPIDOGREL BISULFATE 75 MG TAB PO SCH (08:42)
[2023-09-25] MEDS: FUROSEMIDE 20 MG/2 ML VIAL IV SCH (08:43)
[2023-09-25] MEDS: TOPIRAMATE 25 MG TAB PO SCH (10:00)
[2023-09-25] MEDS ORDERED: LEVO500T91 PO (10:09)
[2023-09-25] MEDS ORDERED: CLOP75TA70 PO (10:09)
[2023-09-25] MEDS ORDERED: AZIT500T66 PO (10:09)
[2023-09-25] MEDS ORDERED: METH4PAK PO (10:09)
[2023-09-25] MEDS ORDERED: ATOR80TA PO (10:09)
== END 2023-09-25 18:17 | disposition home health service (06) | DRG 871 ==
LOC: ER 00:02 → EDSEX 00:02 → EDBD 00:02 → TELE 06:49 → ICU WEST 23:46 → TELE-EAST 09-20 16:25
PROVIDERS: ADMIT Nurse Practitioner; ATTEND Nurse Practitioner
PROC: 5A1945Z Respiratory Ventilation, 24-96 Consecutive Hours (ICD-10-PCS; principal; 2023-09-16)
PROC: 0BH17EZ Insertion of Endotracheal Airway into Trachea, Via Natural or Artificial Opening (ICD-10-PCS; 2023-09-16)
PROC: 02HV33Z Insertion of Infusion Device into Superior Vena Cava, Percutaneous Approach (ICD-10-PCS; 2023-09-16)
PROC: B548ZZA Ultrasonography of Superior Vena Cava, Guidance (ICD-10-PCS; 2023-09-16)
PROC: 5A09357 Assistance with Respiratory Ventilation, Less than 24 Consecutive Hours, Continuous Positive Airway Pressure (ICD-10-PCS; 2023-09-16)
PROC: 5A09357 Assistance with Respiratory Ventilation, Less than 24 Consecutive Hours, Continuous Positive Airway Pressure (ICD-10-PCS; 2023-09-19)
PROC: 5A09357 Assistance with Respiratory Ventilation, Less than 24 Consecutive Hours, Continuous Positive Airway Pressure (ICD-10-PCS; 2023-09-20)
PROC: 5A09357 Assistance with Respiratory Ventilation, Less than 24 Consecutive Hours, Continuous Positive Airway Pressure (ICD-10-PCS; 2023-09-21)
PROC: 5A09357 Assistance with Respiratory Ventilation, Less than 24 Consecutive Hours, Continuous Positive Airway Pressure (ICD-10-PCS; 2023-09-22)
PROC: 5A09357 Assistance with Respiratory Ventilation, Less than 24 Consecutive Hours, Continuous Positive Airway Pressure (ICD-10-PCS; 2023-09-23)
PROC: 5A09357 Assistance with Respiratory Ventilation, Less than 24 Consecutive Hours, Continuous Positive Airway Pressure (ICD-10-PCS; 2023-09-24)
PROC: 5A09357 Assistance with Respiratory Ventilation, Less than 24 Consecutive Hours, Continuous Positive Airway Pressure (ICD-10-PCS; 2023-09-25)
DX: A41.9 Sepsis, unspecified organism (principal); G93.41 Metabolic encephalopathy; J18.9 Pneumonia, unspecified organism; I50.43 Acute on chronic combined systolic (congestive) and diastolic (congestive) heart failure; J96.21 Acute and chronic respiratory failure with hypoxia; I21.A1 Myocardial infarction type 2; J96.22 Acute and chronic respiratory failure with hypercapnia; E87.29 Other acidosis; G93.1 Anoxic brain damage, not elsewhere classified; Z66 Do not resuscitate; D75.89 Other specified diseases of blood and blood-forming organs; E11.65 Type 2 diabetes mellitus with hyperglycemia; I11.0 Hypertensive heart disease with heart failure; I25.10 Atherosclerotic heart disease of native coronary artery without angina pectoris; F41.9 Anxiety disorder, unspecified; G40.909 Epilepsy, unspecified, not intractable, without status epilepticus; J43.9 Emphysema, unspecified; G43.909 Migraine, unspecified, not intractable, without status migrainosus; K59.00 Constipation, unspecified; Z79.899 Other long term (current) drug therapy; Z80.0 Family history of malignant neoplasm of digestive organs; Z80.3 Family history of malignant neoplasm of breast; Z82.3 Family history of stroke; Z82.49 Family history of ischemic heart disease and other diseases of the circulatory system; Z82.5 Family history of asthma and other chronic lower respiratory diseases
CPT/HCPCS: 31500; 36415; 36569; 36600; 71045; 71275; 74018; 80053; 80061; 80202; 80307; 81001; 82306; 82565; 82607; 82805; 82962; 83036; 83605; 83735; 83880; 84439; 84443; 84481; 84484; 85025; 85379; 85610; 85730; 87040; 87070; 87077; 87081; 87186; 87205; 93005; 93306; 93970; 94002; 94003; 94640; 94660; 96361; 96365; 96366; 96367; 96368; 96375; 97110; 97116; 97163; 97530; 99291; C9113; G0378; J0153; J0692; J0696; J1100; J1815; J2250; J7060

== ENCOUNTER 2023-10-20 16:30 | Inpatient (IN) | payer MEDICARE, MEDICAID ==
[~2023-10-20] VITALS: Ht 177.8 cm; Wt 80.0 kg
[~2023-10-20 16:30] MED LIST changes: +ATOR80TA PO; +AZIT500T66 PO; +CLOP75TA70 PO; +DULA1INJ SC; +LEVO500T91 PO; +METH4PAK PO
[2023-10-20 17:42] LABS: Basophils # (auto) 0 10 ^3/uL (0-0.2); Basophils % (auto) 0.3 % (0.0-2.0); Eosinophils # (auto) 0 10 ^3/uL (0-0.8); Eosinophils % (auto) 0.3 % (0.0-7.0); Hematocrit 37.9 % (41.0-53.0); Hemoglobin 12.9 g/dL (13.5-17.5); Lymphocytes # (auto) 0.8 10 ^3/uL (0.4-5.4); Lymphocytes % (auto) 8.2 % (10.0-50.0); Mean Corpuscular Hemoglobin 33.4 pg (28.0-32.0); Mean Corpuscular Volume 98.4 fL (80.0-100.0); Monocytes # (auto) 0.2 10 ^3/uL (0-1.3); Neutrophils % (auto) 89.2 % (37.0-80.0); Red Blood Cells 3.85 10^6/uL (4.5-5.90); Red Cell Distribution Width 15.9 % (11.8-14.3); White Blood Cell 10.1 10^3/uL (4.4-10.8)
[2023-10-20 17:54] LABS: Alanine Aminotransferase 47 U/L (7-40); Albumin 4.2 g/dL (3.2-4.8); Alkaline Phosphatase 89 U/L (46-116); Anion Gap 7 (5-15); Aspartate Aminotransferase 27 U/L (13-40); BUN/Creatinine Ratio 10.3 (10.0-20.0); Blood Urea Nitrogen 10 mg/dL (9-23); Calcium 10.3 mg/dL (8.5-10.1); Carbon Dioxide 29 mmol/L (20-30); Chloride 105 mmol/L (98-107); Glucose 173 mg/dL (74-106); Potassium 4.4 mmol/L (3.5-5.1); Sodium 141 mmol/L (136-145)
[2023-10-20 17:55] LABS: Bilirubin, Total 0.7 mg/dL (0.2-1.0); Total Protein 6.8 g/dL (5.7-8.2)
[2023-10-20] MEDS ORDERED: TETRACAINE HCL 0.5% OPTH(EYE) SOLN 4ML LEFTEYE ONE ×2 (19:45→20:45)
[2023-10-20] MEDS ORDERED: ALBUTEROL SULF 2.5 MG/0.5ML(0.5%) NEB SOLN NEB ONE (21:30)
[2023-10-20] MEDS ORDERED: IPRATROPIUM BROM 0.5 MG/2.5ML INH SOL NEB ONE (21:30)
[2023-10-20] MEDS ORDERED: AZITHROMYCIN 500MG/ 250ML 250 ML IV ONE (21:30)
[2023-10-20] MEDS ORDERED: MAGNESIUM SULFATE 1GM/100ML 100 ML IV ONE (21:30)
[2023-10-20] MEDS ORDERED: DexAMETHasone SOD PHOS 10MG/1ML VIAL INJ IV ONE (21:30)
[2023-10-20] MEDS ORDERED: ONDANSETRON HCL 4 MG/2 ML VIAL IV PRN (23:00)
[2023-10-20] MEDS ORDERED: MORPHINE SULFATE INJ 2 MG/ml SYRG IV PRN ×2 (23:00)
[2023-10-20] MEDS ORDERED: DOCUSATE SOD 100 MG CAP PO PRN (23:00)
[2023-10-20] MEDS ORDERED: ACETAMINOPHEN 325 MG TAB PO PRN (23:00)
[2023-10-20] MEDS ORDERED: NITROGLYCERIN 0.4 MG SL TAB SL PRN (23:00)
[2023-10-20] MEDS ORDERED: HYDROcodone-ACET 5/325MG TAB PO PRN (23:00)
[2023-10-20] MEDS ORDERED: TOPIRAMATE 25 MG TAB PO ONE (23:30)
[2023-10-20] MEDS ORDERED: LORazepam 2MG/ML-1ML VIAL IV ONE (23:30)
[2023-10-20 23:43] VITALS: PULSE 104; RESP 24; O2SAT 98
[2023-10-21] VITALS (17 sets, daily range): BP systolic 100–114; BP diastolic 64–65; PULSE 56–105; RESP 18–24; TEMP 97.4–98.6; O2SAT 91–100
[2023-10-21] MEDS: DOXYCYCLINE 100MG/250ML 250 ML IV SCH ×3 (00:01→23:11)
[2023-10-21] MEDS: methylPREDNISolone SOD SUCC 40 MG/ML VL IV SCH ×3 (06:05→23:12)
[2023-10-21] MEDS: ALBUTEROL SULF 2.5 MG/0.5ML(0.5%) NEB SOLN NEB PRN ×3 (06:17→14:09)
[2023-10-21 06:27] LABS: Basophils # (auto) 0 10 ^3/uL (0-0.2); Basophils % (auto) 0.1 % (0.0-2.0); Eosinophils # (auto) 0 10 ^3/uL (0-0.8); Hematocrit 35.9 % (41.0-53.0); Hemoglobin 12.4 g/dL (13.5-17.5); Lymphocytes # (auto) 0.6 10 ^3/uL (0.4-5.4); Lymphocytes % (auto) 7.1 % (10.0-50.0); Mean Corpuscular Hemoglobin 33.6 pg (28.0-32.0); Mean Corpuscular Hgb Conc. 34.4 g/dL (32.0-36.0); Mean Corpuscular Volume 97.8 fL (80.0-100.0); Monocytes # (auto) 0.1 10 ^3/uL (0-1.3); Neutrophils % (auto) 91.8 % (37.0-80.0); Nucleated Red Blood Cells % 0.1 %; Red Blood Cells 3.68 10^6/uL (4.5-5.90); Red Cell Distribution Width 15.8 % (11.8-14.3); White Blood Cell 8.7 10^3/uL (4.4-10.8)
[2023-10-21 06:34] LABS: Alanine Aminotransferase 44 U/L (7-40); Albumin 4.1 g/dL (3.2-4.8); Alkaline Phosphatase 85 U/L (46-116); Anion Gap 9 (5-15); Aspartate Aminotransferase 21 U/L (13-40); BUN/Creatinine Ratio 14.6 (10.0-20.0); Bilirubin, Total 0.7 mg/dL (0.2-1.0); Blood Urea Nitrogen 14 mg/dL (9-23); Calcium 9.6 mg/dL (8.5-10.1); Carbon Dioxide 26 mmol/L (20-30); Chloride 103 mmol/L (98-107); Glucose 187 mg/dL (74-106); Potassium 4.2 mmol/L (3.5-5.1); Sodium 138 mmol/L (136-145); Total Protein 6.6 g/dL (5.7-8.2)
[2023-10-21 08:39] LABS: Urine Bacteria FEW /hpf (None Seen); Urine Blood Negative /uL (Negative); Urine Clarity Clear (Clear); Urine Color Yellow (Yellow); Urine Mucus FEW (None Seen); Urine Protein, UAD Negative (Negative); Urine Urobilinogen Normal (Negative); Urine WBC 1 /hpf (0 - 3); Urine pH 5.5 (5.0-8.0)
[2023-10-21] MEDS: BUDESONIDE (INHALATION) 0.5 MG/2 ML NEB NEB SCH ×2 (10:05→20:37)
[2023-10-21] MEDS: PANTOPRAZOLE 40 MG/10 ML VIAL INJ IV SCH (10:24)
[2023-10-21] MEDS: ENOXAPARIN SOD 40 MG/0.4 ML SYRINGE SC SCH (10:25)
[2023-10-21] MEDS ORDERED: DEXTROSE (50%) 50ML SYRG IV PRN (13:45)
[2023-10-21] MEDS: InsuLIN REG 1unit/0.01ml Soln (100units/ml) SC SCH (17:00)
[2023-10-21] MEDS: ACCU-CHEK COMFORT CURVE STRIP VI SCH ×2 (17:00→23:04)
[2023-10-21] MEDS ORDERED: TAMS1CAP25 PO (18:20)
[2023-10-21] MEDS ORDERED: FLUT1AER3 IN (18:22)
[2023-10-21] MEDS ORDERED: SERT-206 PO (18:22)
[2023-10-21] MEDS ORDERED: PRED-1055 PO (18:24)
[2023-10-21] MEDS: ALBUTEROL SULF 2.5 MG/0.5ML(0.5%) NEB SOLN NEB SCH ×2 (20:36→22:22)
[2023-10-21] MEDS ORDERED: InsuLIN REG 1unit/0.01ml Soln (100units/ml) SC SCH (22:00)
[2023-10-21] MEDS: busPIRone HCL 10 MG TAB PO SCH (23:00)
[2023-10-21] MEDS: TOPIRAMATE 25 MG TAB PO SCH (23:03)
[2023-10-22] VITALS (15 sets, daily range): BP systolic 106–112; BP diastolic 58–67; PULSE 72–99; RESP 16–22; TEMP 97.6–98.2; O2SAT 96–100
[2023-10-22] MEDS: ALBUTEROL SULF 2.5 MG/0.5ML(0.5%) NEB SOLN NEB SCH ×4 (01:33→14:40)
[2023-10-22] MEDS: BUDESONIDE (INHALATION) 0.5 MG/2 ML NEB NEB SCH (06:38)
[2023-10-22] MEDS: methylPREDNISolone SOD SUCC 40 MG/ML VL IV SCH ×2 (06:50→14:18)
[2023-10-22] MEDS: ACCU-CHEK COMFORT CURVE STRIP VI SCH ×2 (06:51→11:30)
[2023-10-22] MEDS: InsuLIN REG 1unit/0.01ml Soln (100units/ml) SC SCH ×2 (06:57→11:30)
[2023-10-22] MEDS ORDERED: ATORVASTATIN 20 MG TAB PO SCH (10:00)
[2023-10-22] MEDS ORDERED: TIOTROPIUM BROMIDE MONOHYDRATE IN SCH (10:00)
[2023-10-22] MEDS ORDERED: CLOPIDOGREL BISULFATE 75 MG TAB PO SCH (10:00)
[2023-10-22] MEDS ORDERED: FUROSEMIDE 20 MG TAB PO SCH (10:00)
[2023-10-22] MEDS ORDERED: ASCORBIC ACID 500 MG TAB PO SCH (10:00)
[2023-10-22] MEDS: DOXYCYCLINE 100MG/250ML 250 ML IV SCH (10:38)
[2023-10-22] MEDS: PANTOPRAZOLE 40 MG/10 ML VIAL INJ IV SCH (10:38)
[2023-10-22] MEDS: ENOXAPARIN SOD 40 MG/0.4 ML SYRINGE SC SCH (10:39)
[2023-10-22] MEDS: TOPIRAMATE 25 MG TAB PO SCH (10:39)
[2023-10-22] MEDS: busPIRone HCL 10 MG TAB PO SCH (10:40)
[2023-10-22] MEDS ORDERED: DOXY-447 PO (11:58)
[2023-10-22] MEDS ORDERED: METH4PAK PO (11:58)
[2023-10-22] MEDS ORDERED: DOXYCYCLINE 100 MG TAB/CAP PO SCH (22:00)
== END 2023-10-22 16:35 | disposition home health service (06) | DRG 189 ==
LOC: EDBD 16:30 → ER 16:30 → TELE 22:58 → TELE-WESTW 10-21 15:35
PROVIDERS: ADMIT Nurse Practitioner; ATTEND Nurse Practitioner
PROC: 5A09357 Assistance with Respiratory Ventilation, Less than 24 Consecutive Hours, Continuous Positive Airway Pressure (ICD-10-PCS; principal; 2023-10-21)
DX: J96.21 Acute and chronic respiratory failure with hypoxia (principal); J44.1 Chronic obstructive pulmonary disease with (acute) exacerbation; E11.65 Type 2 diabetes mellitus with hyperglycemia; K21.9 Gastro-esophageal reflux disease without esophagitis; G40.909 Epilepsy, unspecified, not intractable, without status epilepticus; I11.0 Hypertensive heart disease with heart failure; I50.9 Heart failure, unspecified; Z80.0 Family history of malignant neoplasm of digestive organs; Z80.3 Family history of malignant neoplasm of breast; Z82.3 Family history of stroke; Z82.49 Family history of ischemic heart disease and other diseases of the circulatory system; Z82.5 Family history of asthma and other chronic lower respiratory diseases; Z87.891 Personal history of nicotine dependence
CPT/HCPCS: 36415; 71045; 80053; 81001; 82962; 85025; 93005; 94640; 94660; 97163; 99291; C9113; G0378; J1100; J1815; J3490

== ENCOUNTER 2024-01-13 13:38 | Inpatient (IN) | payer MEDICARE, MEDICAID ==
[~2024-01-13] VITALS: Ht 177.8 cm; Wt 74.3 kg
[2024-01-13] VITALS (9 sets, daily range): BP systolic 103–119; BP diastolic 63–76; PULSE 97–137; RESP 18–25; TEMP 97.9–98.9; O2SAT 95–100
[~2024-01-13 13:38] MED LIST changes: -AZIT500T66 PO; +DOXY-447 PO; +FLUT1AER3 IN; -LEVO500T91 PO; +SERT-206 PO; +TAMS1CAP25 PO
[2024-01-13] MEDS: LORazepam MDV 2MG/ML 10 ML IV ONE (13:42)
[2024-01-13] MEDS: MAGNESIUM SULFATE 1GM/100ML 100 ML IV ONE (13:56)
[2024-01-13] MEDS: methylPREDNISolone SOD SUCC 125 MG/2 ML VL IV ONE (13:56)
[2024-01-13] MEDS: IPRATROPIUM BROM 0.5 MG/2.5ML INH SOL NEB ONE (13:58)
[2024-01-13] MEDS: ALBUTEROL SULF 2.5 MG/0.5ML(0.5%) NEB SOLN NEB ONE (13:59)
[2024-01-13 14:13] LABS: Basophils # (auto) 0 10 ^3/uL (0-0.2); Basophils % (auto) 0.3 % (0.0-2.0); Eosinophils # (auto) 0 10 ^3/uL (0-0.8); Eosinophils % (auto) 0.3 % (0.0-7.0); Hemoglobin 14.7 g/dL (13.5-17.5); Lymphocytes # (auto) 0.8 10 ^3/uL (0.4-5.4); Lymphocytes % (auto) 7.9 % (10.0-50.0); Mean Corpuscular Hemoglobin 33.3 pg (28.0-32.0); Mean Corpuscular Hgb Conc. 34.2 g/dL (32.0-36.0); Mean Corpuscular Volume 97.2 fL (80.0-100.0); Monocytes # (auto) 0.1 10 ^3/uL (0-1.3); Monocytes % (auto) 1.2 % (0.0-12.0); Neutrophils % (auto) 90.3 % (37.0-80.0); Nucleated Red Blood Cells % 0.1 %; Red Blood Cells 4.43 10^6/uL (4.5-5.90); Red Cell Distribution Width 14.6 % (11.8-14.3); White Blood Cell 9.9 10^3/uL (4.4-10.8)
[2024-01-13 14:17] LABS: Alanine Aminotransferase 60 U/L (7-40); Albumin 4.7 g/dL (3.2-4.8); Alkaline Phosphatase 93 U/L (46-116); Anion Gap 8 (5-15); Aspartate Aminotransferase 29 U/L (13-40); BUN/Creatinine Ratio 16.2 (10.0-20.0); Blood Urea Nitrogen 18 mg/dL (9-23); Carbon Dioxide 28 mmol/L (20-30); Chloride 105 mmol/L (98-107); Glucose 218 mg/dL (74-106); Potassium 4.5 mmol/L (3.5-5.1); Sodium 141 mmol/L (136-145)
[2024-01-13 14:18] LABS: Bilirubin, Total 0.8 mg/dL (0.2-1.0); Total Protein 6.8 g/dL (5.7-8.2)
[2024-01-13] MEDS: LORazepam 2MG/ML-1ML VIAL IV ONE ×2 (14:21→15:30)
[2024-01-13 14:31] LABS: Base Excess 3.1 mmol/L (-2.0-2.0)
[2024-01-13] MEDS ORDERED: DEXTROSE (50%) 50ML SYRG IV PRN (16:15)
[2024-01-13] MEDS ORDERED: ACETAMINOPHEN 325 MG TAB PO PRN (16:15)
[2024-01-13] MEDS ORDERED: HYDROcodone-ACET 5/325MG TAB PO PRN (16:15)
[2024-01-13] MEDS ORDERED: NITROGLYCERIN 0.4 MG SL TAB SL PRN (16:15)
[2024-01-13] MEDS ORDERED: ONDANSETRON HCL 4 MG/2 ML VIAL IV PRN (16:15)
[2024-01-13] MEDS ORDERED: MORPHINE SULFATE INJ 2 MG/ml SYRG IV PRN ×2 (16:15)
[2024-01-13] MEDS ORDERED: DOCUSATE SOD 100 MG CAP PO PRN (16:15)
[2024-01-13] MEDS: ACCU-CHEK COMFORT CURVE STRIP VI SCH (17:17)
[2024-01-13] MEDS: InsuLIN REG 1unit/0.01ml Soln (100units/ml) SC SCH ×2 (17:21→23:23)
[2024-01-13] MEDS: BUDESONIDE (INHALATION) 0.5 MG/2 ML NEB NEB SCH (18:24)
[2024-01-13] MEDS: ALBUTEROL SULF 2.5 MG/0.5ML(0.5%) NEB SOLN NEB PRN (18:24)
[2024-01-13] MEDS: ASPirin 81 mg TAB PO ONE (18:51)
[2024-01-13] MEDS: ENOXAPARIN SOD 100 MG/1 ML SYRINGE SC ONE (18:52)
[2024-01-13 21:04] LABS: Urine Bacteria NONE SEEN /hpf (None Seen); Urine Blood TRACE /uL (Negative); Urine Clarity Clear (Clear); Urine Color Yellow (Yellow); Urine Mucus FEW (None Seen); Urine Protein, UAD Negative (Negative); Urine WBC <1 /hpf (0 - 3)
[2024-01-13] MEDS: METOPROLOL TARTRATE 25 MG TAB PO SCH (22:00)
[2024-01-13] MEDS: BACLOFEN 10 MG TAB PO SCH (22:15)
[2024-01-13] MEDS: TOPIRAMATE 25 MG TAB PO SCH (22:15)
[2024-01-13] MEDS: busPIRone HCL 10 MG TAB PO SCH (22:15)
[2024-01-13] MEDS: DOXYCYCLINE 100MG/250ML 250 ML IV SCH (22:16)
[2024-01-14] VITALS (21 sets, daily range): BP systolic 107–117; BP diastolic 66–80; PULSE 78–109; RESP 18–22; TEMP 97.6–98.2; O2SAT 95–100
[2024-01-14] MEDS ORDERED: ALBUAER3 IN (05:09)
[2024-01-14] MEDS ORDERED: REVE175S IN (05:09)
[2024-01-14] MEDS ORDERED: BUSP15TA60 PO (05:09)
[2024-01-14] MEDS ORDERED: ATOR80TA PO (05:09)
[2024-01-14] MEDS ORDERED: TOPI25CA5 PO (05:09)
[2024-01-14] MEDS ORDERED: CLOP75TA70 PO (05:09)
[2024-01-14] MEDS ORDERED: PRED10TA PO (05:09)
[2024-01-14] MEDS ORDERED: FLUT1AER17 INH (05:09)
[2024-01-14] MEDS ORDERED: BACL10TA PO (05:09)
[2024-01-14] MEDS ORDERED: FURO20TA3 PO (05:09)
[2024-01-14] MEDS ORDERED: TAMS1CAP25 PO (05:09)
[2024-01-14] MEDS ORDERED: ALBU1.258 IN (05:09)
[2024-01-14] MEDS ORDERED: HYDR-4798 PO (05:09)
[2024-01-14] MEDS ORDERED: POTA-180 PO (05:09)
[2024-01-14] MEDS ORDERED: ROFL1TAB2 PO (05:09)
[2024-01-14] MEDS: PANTOPRAZOLE 40 MG/10 ML VIAL INJ IV SCH (11:01)
[2024-01-14] MEDS: ENOXAPARIN SOD 40 MG/0.4 ML SYRINGE SC SCH (11:01)
[2024-01-14] MEDS: FUROSEMIDE 20 MG TAB PO SCH (11:02)
[2024-01-14] MEDS: TAMSULOSIN HYDROCHLORIDE 0.4 MG CAP PO SCH (11:03)
[2024-01-14] MEDS: ASPirin 81 mg TAB PO SCH (11:03)
[2024-01-14] MEDS: SERTRALINE HCL 50 MG TAB PO SCH (11:05)
[2024-01-14] MEDS: ALBUTEROL SULF 2.5 MG/0.5ML(0.5%) NEB SOLN NEB SCH (14:57)
[2024-01-14] MEDS: LORazepam 2MG/ML-1ML VIAL IV PRN (19:58)
[2024-01-14] MEDS ORDERED: LORazepam 0.5 MG TAB PO PRN (20:45)
[2024-01-14] MEDS: ATORVASTATIN 20 MG TAB PO SCH (22:07)
[2024-01-14] MEDS: TOPIRAMATE 25 MG TAB PO SCH (22:08)
[2024-01-15] VITALS (21 sets, daily range): BP systolic 99–120; BP diastolic 51–73; PULSE 80–101; RESP 16–28; TEMP 97.9–98.9; O2SAT 94–100
[2024-01-15] MEDS: DOXYCYCLINE 100 MG TAB/CAP PO SCH (09:35)
[2024-01-15] MEDS: PANTOPRAZOLE 40 MG TAB PO SCH (09:36)
[2024-01-16] VITALS (21 sets, daily range): BP systolic 102–131; BP diastolic 59–80; PULSE 72–98; RESP 16–22; TEMP 97.9–98.4; O2SAT 86–98
[2024-01-17] VITALS (20 sets, daily range): BP systolic 100–137; BP diastolic 50–97; PULSE 60–104; RESP 16–24; TEMP 97.6–98.3; O2SAT 96–100
[2024-01-17] MEDS: methylPREDNISolone SOD SUCC 125 MG/2 ML VL IV SCH (14:00)
[2024-01-18] VITALS (21 sets, daily range): BP systolic 87–109; BP diastolic 51–71; PULSE 61–106; RESP 18–20; TEMP 97.9–98.5; O2SAT 94–99
[2024-01-18 06:02] LABS: Alanine Aminotransferase 35 U/L (7-40); Albumin 3.9 g/dL (3.2-4.8); Alkaline Phosphatase 78 U/L (46-116); Anion Gap 5 (5-15); Aspartate Aminotransferase 20 U/L (13-40); BUN/Creatinine Ratio 15.4 (10.0-20.0); Blood Urea Nitrogen 16 mg/dL (9-23); Calcium 9.5 mg/dL (8.7-10.4); Carbon Dioxide 27 mmol/L (20-30); Chloride 104 mmol/L (98-107); Glucose 152 mg/dL (74-106); Magnesium 2.3 mg/dL (1.6-2.6); Potassium 4.1 mmol/L (3.5-5.1); Sodium 136 mmol/L (136-145)
[2024-01-18 06:03] LABS: Bilirubin, Total 0.9 mg/dL (0.2-1.0); Total Protein 6.1 g/dL (5.7-8.2)
[2024-01-18 06:04] LABS: Basophils # (auto) 0 10 ^3/uL (0-0.2); Eosinophils # (auto) 0 10 ^3/uL (0-0.8); Hematocrit 40.1 % (41.0-53.0); Hemoglobin 13.7 g/dL (13.5-17.5); Lymphocytes # (auto) 0.8 10 ^3/uL (0.4-5.4); Lymphocytes % (auto) 10.6 % (10.0-50.0); Monocytes # (auto) 0.1 10 ^3/uL (0-1.3); Monocytes % (auto) 0.9 % (0.0-12.0); Neutrophils # (auto) 6.3 10 ^3/uL (1.6-8.6); Neutrophils % (auto) 88.5 % (37.0-80.0); Nucleated Red Blood Cells % 0.1 %; Red Blood Cells 4.14 10^6/uL (4.5-5.90); Red Cell Distribution Width 14.2 % (11.8-14.3); White Blood Cell 7.2 10^3/uL (4.4-10.8)
[2024-01-19] VITALS (22 sets, daily range): BP systolic 93–111; BP diastolic 56–68; PULSE 68–91; RESP 15–22; TEMP 97.6–98.3; O2SAT 96–99
[2024-01-20] VITALS (15 sets, daily range): BP systolic 94–117; BP diastolic 36–62; PULSE 62–84; RESP 16–22; TEMP 98–98.3; O2SAT 96–100
[2024-01-20] MEDS ORDERED: POTA-228 PO (09:54)
[2024-01-20] MEDS ORDERED: IPRA0.00 NEB (10:08)
[2024-01-20] MEDS ORDERED: METH4PAK PO (11:50)
[2024-01-20] MEDS ORDERED: DOXY-447 PO (11:50)
== END 2024-01-20 14:58 | disposition home health service (06) | DRG 189 ==
LOC: ER 13:38 → EDBD 13:38 → TELE 16:14 → TELE-WESTW 21:59
PROVIDERS: ADMIT Nurse Practitioner; ATTEND Nurse Practitioner
PROC: 5A09357 Assistance with Respiratory Ventilation, Less than 24 Consecutive Hours, Continuous Positive Airway Pressure (ICD-10-PCS; principal; 2024-01-13)
PROC: 5A09357 Assistance with Respiratory Ventilation, Less than 24 Consecutive Hours, Continuous Positive Airway Pressure (ICD-10-PCS; 2024-01-14)
PROC: 5A09357 Assistance with Respiratory Ventilation, Less than 24 Consecutive Hours, Continuous Positive Airway Pressure (ICD-10-PCS; 2024-01-15)
PROC: 5A09357 Assistance with Respiratory Ventilation, Less than 24 Consecutive Hours, Continuous Positive Airway Pressure (ICD-10-PCS; 2024-01-16)
PROC: 5A09357 Assistance with Respiratory Ventilation, Less than 24 Consecutive Hours, Continuous Positive Airway Pressure (ICD-10-PCS; 2024-01-17)
PROC: 5A09357 Assistance with Respiratory Ventilation, Less than 24 Consecutive Hours, Continuous Positive Airway Pressure (ICD-10-PCS; 2024-01-18)
PROC: 5A09357 Assistance with Respiratory Ventilation, Less than 24 Consecutive Hours, Continuous Positive Airway Pressure (ICD-10-PCS; 2024-01-19)
PROC: 5A09357 Assistance with Respiratory Ventilation, Less than 24 Consecutive Hours, Continuous Positive Airway Pressure (ICD-10-PCS; 2024-01-20)
DX: J96.20 Acute and chronic respiratory failure, unspecified whether with hypoxia or hypercapnia (principal); J44.1 Chronic obstructive pulmonary disease with (acute) exacerbation; I50.32 Chronic diastolic (congestive) heart failure; K21.9 Gastro-esophageal reflux disease without esophagitis; G43.909 Migraine, unspecified, not intractable, without status migrainosus; G40.909 Epilepsy, unspecified, not intractable, without status epilepticus; E10.65 Type 1 diabetes mellitus with hyperglycemia; E78.5 Hyperlipidemia, unspecified; Z66 Do not resuscitate; E88.01 Alpha-1-antitrypsin deficiency; G47.30 Sleep apnea, unspecified; I11.0 Hypertensive heart disease with heart failure; I25.10 Atherosclerotic heart disease of native coronary artery without angina pectoris; J43.9 Emphysema, unspecified; F41.9 Anxiety disorder, unspecified; Z87.891 Personal history of nicotine dependence; Z80.0 Family history of malignant neoplasm of digestive organs; Z80.59 Family history of malignant neoplasm of other urinary tract organ; Z80.3 Family history of malignant neoplasm of breast; Z82.3 Family history of stroke
CPT/HCPCS: 36415; 36600; 70450; 71045; 80053; 81001; 82805; 82962; 83735; 83880; 84443; 84484; 85025; 85379; 87081; 93005; 93306; 94640; 94660; 95819; 96365; 96372; 96375; 96376; C9113; G0378; J1815; J3490

== ENCOUNTER 2024-03-29 16:34 | Inpatient (IN) | payer MEDICARE, MEDICAID ==
[~2024-03-29] VITALS: Ht 177.8 cm; Wt 81.3 kg
[~2024-03-29 16:34] MED LIST changes: +ALBU1.258 IN; -CHOL500033 PO; -ERGO1CAP23 PO; -FLUT100I IN; +FLUT1AER17 INH; -FLUT1AER3 IN; +IPRA0.00 NEB; +POTA-228 PO; +REVE175S NEB
[2024-03-29 17:27] VITALS: RESP 22; O2SAT 93
[2024-03-29 19:29] LABS: Hematocrit 39.5 % (41.0-53.0); Hemoglobin 13.2 g/dL (13.5-17.5); Mean Corpuscular Hemoglobin 33.2 pg (28.0-32.0); Mean Corpuscular Hgb Conc. 33.4 g/dL (32.0-36.0); Mean Corpuscular Volume 99.5 fL (80.0-100.0); Red Blood Cells 3.97 10^6/uL (4.5-5.90); White Blood Cell 11.1 10^3/uL (4.4-10.8)
[2024-03-29 19:30] VITALS: PULSE 104; RESP 24; O2SAT 97
[2024-03-29 19:33] LABS: Basophils % (manual) 0 (0.0-2.0); Blast Cells 0; Eosinophils % (manual) 0 (0-7); Metamyelocytes % 0; Myelocytes % 0; Promyelocytes % 0; Reactive Lymphocytes 0
[2024-03-29] MEDS: ASPirin 81 mg TAB PO ONE (19:37)
[2024-03-29 19:38] LABS: Alanine Aminotransferase 36 U/L (7-40); Alkaline Phosphatase 87 U/L (46-116); Anion Gap 7 (5-15); Aspartate Aminotransferase 12 U/L (13-40); BUN/Creatinine Ratio 14.2 (10.0-20.0); Bilirubin, Total 0.7 mg/dL (0.2-1.0); Blood Urea Nitrogen 16 mg/dL (9-23); Calcium 10.3 mg/dL (8.7-10.4); Carbon Dioxide 28 mmol/L (20-30); Chloride 105 mmol/L (98-107); Glucose 338 mg/dL (74-106); Potassium 4.3 mmol/L (3.5-5.1); Sodium 140 mmol/L (136-145); Total Protein 6.4 g/dL (5.7-8.2)
[2024-03-29 19:44] LABS: INR 0.97 (0.9-1.15); Prothrombin Time 10.3 sec (9.3-11.8)
[2024-03-29 20:30] LABS: Band Neutrophils % (manual) 9; Lymphocytes % (manual) 6 (10.0-50.0); Monocytes % (manual) 2 (0-12); Platelet Estimate Adequate
[2024-03-29 21:41] LABS: Urine Bacteria None Seen /hpf (None Seen)
[2024-03-29 21:50] LABS: Urine Blood Negative /uL (Negative); Urine Budding Yeast OCCASIONAL /hpf (None Seen); Urine Clarity Clear (Clear); Urine Color Light-Yellow (Yellow); Urine Protein, UAD Negative (Negative); Urine Urobilinogen Normal (Negative); Urine WBC 42 /hpf (0 - 3); Urine pH 5.5 (5.0-9.0)
[2024-03-29] MEDS ORDERED: VANCOMYCIN PER PHARMACY 0 MG IV SCH (22:30)
[2024-03-29] MEDS: SODIUM CHLORIDE 0.9% 1,000 ML IV ONE (22:32)
[2024-03-29] MEDS: cefTRIAXone 1GM/50ML D5W 50 ML IV ONE (22:32)
[2024-03-29 22:34] VITALS: PULSE 89; RESP 18; O2SAT 98
[2024-03-29] MEDS: ALBUTEROL SULF 2.5 MG/0.5ML(0.5%) NEB SOLN NEB ONE (22:34)
[2024-03-29 22:41] VITALS: PULSE 91; RESP 18; O2SAT 100
[2024-03-29] MEDS: InsuLIN REG 1unit/0.01ml Soln (100units/ml) IV ONE (22:44)
[2024-03-29] MEDS: methylPREDNISolone SOD SUCC 125 MG/2 ML VL IV ONE (22:44)
[2024-03-29] MEDS: ACETAMINOPHEN 325 MG TAB PO ONE (22:45)
[2024-03-29] MEDS: ONDANSETRON HCL 4 MG/2 ML VIAL IV ONE (22:45)
[2024-03-29 23:00] VITALS: BP 123/68; PULSE 87; O2SAT 97
[2024-03-29] MEDS ORDERED: HYDROcodone-ACET 5/325MG TAB PO PRN (23:00)
[2024-03-29] MEDS ORDERED: DEXTROSE (50%) 50ML SYRG IV PRN (23:00)
[2024-03-29] MEDS ORDERED: DOCUSATE SOD 100 MG CAP PO PRN (23:00)
[2024-03-29] MEDS ORDERED: ACETAMINOPHEN 325 MG TAB PO PRN (23:00)
[2024-03-29] MEDS ORDERED: NITROGLYCERIN 0.4 MG SL TAB SL PRN (23:00)
[2024-03-29] MEDS ORDERED: MORPHINE SULFATE INJ 2 MG/ml SYRG IV PRN ×2 (23:00)
[2024-03-29] MEDS ORDERED: ONDANSETRON HCL 4 MG/2 ML VIAL IV PRN (23:00)
[2024-03-29 23:15] VITALS: BP 128/74; PULSE 89; RESP 22; TEMP 97.9; O2SAT 99
[2024-03-30] VITALS (22 sets, daily range): BP systolic 95–121; BP diastolic 50–76; PULSE 72–104; RESP 18–22; TEMP 97.4–98.7; O2SAT 96–100
[2024-03-30] MEDS: VANCOMYCIN 1GM/200ML 200 ML IV ONE (00:07)
[2024-03-30] MEDS: InsuLIN REG 1unit/0.01ml Soln (100units/ml) SC SCH ×2 (06:05→21:58)
[2024-03-30] MEDS: ACCU-CHEK COMFORT CURVE STRIP VI SCH (06:05)
[2024-03-30] MEDS: methylPREDNISolone SOD SUCC 125 MG/2 ML VL IV SCH (06:09)
[2024-03-30] MEDS: BUDESONIDE (INHALATION) 0.5 MG/2 ML NEB NEB SCH (06:10)
[2024-03-30] MEDS: ALBUTEROL SULF 2.5 MG/0.5ML(0.5%) NEB SOLN NEB PRN (06:10)
[2024-03-30] MEDS: IPRATROPIUM BROM 0.5 MG/2.5ML INH SOL NEB PRN (06:10)
[2024-03-30 06:30] LABS: Hematocrit 37.9 % (41.0-53.0); Hemoglobin 12.8 g/dL (13.5-17.5); Mean Corpuscular Hemoglobin 33.6 pg (28.0-32.0); Mean Corpuscular Hgb Conc. 33.9 g/dL (32.0-36.0); Mean Corpuscular Volume 99.2 fL (80.0-100.0); Red Blood Cells 3.82 10^6/uL (4.5-5.90); Red Cell Distribution Width 14.5 % (11.8-14.3); White Blood Cell 9.4 10^3/uL (4.4-10.8)
[2024-03-30 06:49] LABS: Band Neutrophils % (manual) 0; Basophils % (manual) 0 (0.0-2.0); Blast Cells 0; Eosinophils % (manual) 0 (0-7); Metamyelocytes % 0; Myelocytes % 0; Promyelocytes % 0; Reactive Lymphocytes 0
[2024-03-30 06:53] LABS: Alanine Aminotransferase 31 U/L (7-40); Alkaline Phosphatase 80 U/L (46-116); Anion Gap 3 (5-15); BUN/Creatinine Ratio 19.3 (10.0-20.0); Blood Urea Nitrogen 17 mg/dL (9-23); Carbon Dioxide 29 mmol/L (20-30); Chloride 107 mmol/L (98-107); Glucose 257 mg/dL (74-106); Potassium 4.6 mmol/L (3.5-5.1); Sodium 139 mmol/L (136-145)
[2024-03-30 06:54] LABS: Albumin 3.8 g/dL (3.2-4.8); Aspartate Aminotransferase 14 U/L (13-40); Bilirubin, Total 0.7 mg/dL (0.2-1.0); Total Protein 5.7 g/dL (5.7-8.2)
[2024-03-30 09:03] LABS: Lymphocytes % (manual) 3 (10.0-50.0); Monocytes % (manual) 1 (0-12); Platelet Estimate Decreased
[2024-03-30] MEDS: Roflumilast (Daliresp) 500 MCG) PO SCH (10:00)
[2024-03-30] MEDS ORDERED: NITROGLYCERIN 0.4 MG SL TAB SL ONE (10:00)
[2024-03-30] MEDS: DOXYCYCLINE 100MG/250ML 250 ML IV SCH (11:01)
[2024-03-30] MEDS: busPIRone HCL 10 MG TAB PO SCH (11:02)
[2024-03-30] MEDS: ASCORBIC ACID 500 MG TAB PO SCH (11:03)
[2024-03-30] MEDS: CLOPIDOGREL BISULFATE 75 MG TAB PO SCH (11:04)
[2024-03-30] MEDS: BACLOFEN 10 MG TAB PO SCH (11:04)
[2024-03-30] MEDS: ATORVASTATIN 20 MG TAB PO SCH (11:05)
[2024-03-30] MEDS: FUROSEMIDE 20 MG TAB PO SCH (11:05)
[2024-03-30] MEDS: ENOXAPARIN SOD 40 MG/0.4 ML SYRINGE SC SCH (11:06)
[2024-03-30] MEDS: SERTRALINE HCL 50 MG TAB PO SCH (11:34)
[2024-03-30] MEDS: TAMSULOSIN HYDROCHLORIDE 0.4 MG CAP PO SCH (11:34)
[2024-03-30] MEDS: TOPIRAMATE 25 MG TAB PO SCH (11:34)
[2024-03-30] MEDS ORDERED: IPRATROPIUM BROM 0.5 MG/2.5ML INH SOL NEB SCH (12:00)
[2024-03-30] MEDS: ALBUTEROL SULF 2.5 MG/0.5ML(0.5%) NEB SOLN NEB SCH (14:08)
[2024-03-30] MEDS: IPRATROPIUM BROM 0.5 MG/2.5ML INH SOL NEB SCH (14:09)
[2024-03-30] MEDS: VANCOMYCIN 1GM/200ML 200 ML IV SCH (15:00)
[2024-03-30] MEDS: INSULIN LANTUS (GLARGINE) 1 /0.01ml (100units/ml) SC SCH (22:12)
[2024-03-30] MEDS: TEMAZEPAM 15 MG CAP PO PRN (22:12)
[2024-03-31] VITALS (23 sets, daily range): BP systolic 115–130; BP diastolic 64–82; PULSE 71–103; RESP 17–21; TEMP 97.5–98.9; O2SAT 97–100
[2024-03-31] MEDS: LORazepam 2MG/ML-1ML VIAL ONE (15:31)
[2024-03-31 16:16] LABS: Alanine Aminotransferase 36 U/L (7-40); Albumin 3.9 g/dL (3.2-4.8); Alkaline Phosphatase 78 U/L (46-116); Anion Gap 5 (5-15); Aspartate Aminotransferase 14 U/L (13-40); BUN/Creatinine Ratio 17.6 (10.0-20.0); Blood Urea Nitrogen 18 mg/dL (9-23); Calcium 9.6 mg/dL (8.7-10.4); Carbon Dioxide 29 mmol/L (20-30); Chloride 105 mmol/L (98-107); Magnesium 2.1 mg/dL (1.6-2.6); Potassium 4.2 mmol/L (3.5-5.1); Sodium 139 mmol/L (136-145)
[2024-03-31 16:17] LABS: Bilirubin, Total 0.6 mg/dL (0.2-1.0); Total Protein 6.1 g/dL (5.7-8.2)
[2024-03-31 16:18] LABS: Glucose 145 mg/dL (74-106)
[2024-03-31 16:31] LABS: Lactic Acid w/Reflex 3.1 mmol/L (0.4-2.0)
[2024-03-31 18:55] LABS: Basophils # (auto) 0 10 ^3/uL (0-0.2); Basophils % (auto) 0.1 % (0.0-2.0); Eosinophils # (auto) 0 10 ^3/uL (0-0.8); Hematocrit 37.5 % (41.0-53.0); Hemoglobin 12.8 g/dL (13.5-17.5); Lymphocytes # (auto) 0.6 10 ^3/uL (0.4-5.4); Lymphocytes % (auto) 4.3 % (10.0-50.0); Mean Corpuscular Hemoglobin 33.4 pg (28.0-32.0); Mean Corpuscular Volume 98.2 fL (80.0-100.0); Monocytes # (auto) 0.3 10 ^3/uL (0-1.3); Neutrophils # (auto) 12.2 10 ^3/uL (1.6-8.6); Neutrophils % (auto) 93.6 % (37.0-80.0); Red Blood Cells 3.82 10^6/uL (4.5-5.90); Red Cell Distribution Width 14.6 % (11.8-14.3); White Blood Cell 13.1 10^3/uL (4.4-10.8)
[2024-03-31] MEDS ORDERED: LORazepam 0.5 MG TAB PO PRN (23:30)
[2024-04-01] VITALS (23 sets, daily range): BP systolic 109–135; BP diastolic 62–74; PULSE 69–110; RESP 18–22; TEMP 97–99.6; O2SAT 94–100
[2024-04-01] MEDS: cefTRIAXone 1GM/50ML D5W 50 ML IV SCH (08:58)
[2024-04-01 08:59] LABS: Hepatitis B Surface Antigen Negative (Negative)
[2024-04-01] MEDS ORDERED: METF-370 PO (09:03)
[2024-04-01 09:20] LABS: Hepatitis C Antibody Negative (Negative)
[2024-04-01] MEDS: TOPIRAMATE 25 MG TAB PO SCH (10:45)
[2024-04-01] MEDS: LORazepam 2MG/ML-1ML VIAL IV PRN (13:25)
[2024-04-02] VITALS (20 sets, daily range): BP systolic 106–141; BP diastolic 67–78; PULSE 61–80; RESP 15–20; TEMP 96.9–98.7; O2SAT 95–99
[2024-04-02 13:57] LABS: COVID19 ANTIGEN SOFIA FIA NEGATIVE (NEGATIVE)
[2024-04-03] VITALS (18 sets, daily range): BP systolic 110–155; BP diastolic 52–75; PULSE 61–88; RESP 16–20; TEMP 97.9–98.7; O2SAT 96–100
[2024-04-03 13:41] LABS: Alanine Aminotransferase 32 U/L (7-40); Albumin 3.8 g/dL (3.2-4.8); Alkaline Phosphatase 65 U/L (46-116); Anion Gap 4 (5-15); Aspartate Aminotransferase 13 U/L (13-40); Bilirubin, Total 0.5 mg/dL (0.2-1.0); Blood Urea Nitrogen 23 mg/dL (9-23); Calcium 9.2 mg/dL (8.5-10.1); Carbon Dioxide 31 mmol/L (20-30); Chloride 104 mmol/L (98-107); Glucose 208 mg/dL (74-106); Potassium 4.3 mmol/L (3.5-5.1); Sodium 139 mmol/L (136-145); Total Protein 5.5 g/dL (5.7-8.2)
[2024-04-04] VITALS (12 sets, daily range): BP systolic 119–154; BP diastolic 64–75; PULSE 61–95; RESP 17–20; TEMP 97.4–98.7; O2SAT 96–100
[2024-04-04] MEDS: LACTULOSE 20Gm/30ML SOLN PO ONE (05:35)
[2024-04-04] MEDS ORDERED: TOPI25TA84 PO (10:50)
[2024-04-04] MEDS: GOLYTELY 4L KIT PO ONE (11:00)
== END 2024-04-04 14:00 | disposition home health service (06) | DRG 189 ==
LOC: EDBD 16:34 → ER 16:34 → TELE 23:07 → TELE-WESTW 03-30 04:07
PROVIDERS: ADMIT Nurse Practitioner; ATTEND Nurse Practitioner
PROC: 5A09357 Assistance with Respiratory Ventilation, Less than 24 Consecutive Hours, Continuous Positive Airway Pressure (ICD-10-PCS; principal; 2024-03-29)
PROC: 5A09357 Assistance with Respiratory Ventilation, Less than 24 Consecutive Hours, Continuous Positive Airway Pressure (ICD-10-PCS; 2024-03-30)
PROC: 5A09357 Assistance with Respiratory Ventilation, Less than 24 Consecutive Hours, Continuous Positive Airway Pressure (ICD-10-PCS; 2024-03-31)
PROC: 5A09357 Assistance with Respiratory Ventilation, Less than 24 Consecutive Hours, Continuous Positive Airway Pressure (ICD-10-PCS; 2024-04-01)
PROC: 5A09357 Assistance with Respiratory Ventilation, Less than 24 Consecutive Hours, Continuous Positive Airway Pressure (ICD-10-PCS; 2024-04-02)
PROC: 5A09357 Assistance with Respiratory Ventilation, Less than 24 Consecutive Hours, Continuous Positive Airway Pressure (ICD-10-PCS; 2024-04-03)
PROC: 5A09357 Assistance with Respiratory Ventilation, Less than 24 Consecutive Hours, Continuous Positive Airway Pressure (ICD-10-PCS; 2024-04-04)
DX: J96.21 Acute and chronic respiratory failure with hypoxia (principal); J44.1 Chronic obstructive pulmonary disease with (acute) exacerbation; J98.11 Atelectasis; I50.32 Chronic diastolic (congestive) heart failure; E88.01 Alpha-1-antitrypsin deficiency; I11.0 Hypertensive heart disease with heart failure; E78.5 Hyperlipidemia, unspecified; G40.909 Epilepsy, unspecified, not intractable, without status epilepticus; K21.9 Gastro-esophageal reflux disease without esophagitis; E11.65 Type 2 diabetes mellitus with hyperglycemia; F41.9 Anxiety disorder, unspecified; G43.909 Migraine, unspecified, not intractable, without status migrainosus; G47.30 Sleep apnea, unspecified; I25.10 Atherosclerotic heart disease of native coronary artery without angina pectoris; F32.A Depression, unspecified; Z20.822 Contact with and (suspected) exposure to COVID-19; Z80.3 Family history of malignant neoplasm of breast; Z82.5 Family history of asthma and other chronic lower respiratory diseases; Z82.3 Family history of stroke; Z82.49 Family history of ischemic heart disease and other diseases of the circulatory system; Z79.899 Other long term (current) drug therapy; Z79.02 Long term (current) use of antithrombotics/antiplatelets; Z79.51 Long term (current) use of inhaled steroids; Z85.038 Personal history of other malignant neoplasm of large intestine; Z86.73 Personal history of transient ischemic attack (TIA), and cerebral infarction without residual deficits; Z80.0 Family history of malignant neoplasm of digestive organs; Z87.891 Personal history of nicotine dependence
CPT/HCPCS: 36415; 36600; 71045; 80053; 80202; 81001; 82565; 82805; 82962; 83605; 83735; 83880; 84443; 84484; 85007; 85027; 85379; 85610; 85730; 86803; 87040; 87081; 87086; 87088; 87340; 87426; 93005; 94640; 94660; 94668; 95819; 96365; 96367; 96375; 97110; 97116; 97163; 97530; G0378; J1815; J2405; J3490

== ENCOUNTER 2024-05-24 19:54 | Inpatient (IN) | payer MEDICARE, MEDICAID ==
[~2024-05-24] VITALS: Ht 172.7 cm; Wt 78.0 kg
[~2024-05-24 19:54] MED LIST changes: -DOXY-447 PO; +METF-370 PO; -METH4PAK PO; -TOPI25TA43 PO; +TOPI25TA84 PO
[2024-05-25] MEDS: IPRATROPIUM BROM 0.5 MG/2.5ML INH SOL NEB ONE (01:35)
[2024-05-25] MEDS: ALBUTEROL SULF 2.5 MG/0.5ML(0.5%) NEB SOLN NEB ONE (01:35)
[2024-05-25 02:16] LABS: Basophils # (auto) 0 10 ^3/uL (0-0.2); Eosinophils # (auto) 0 10 ^3/uL (0-0.8); Monocytes # (auto) 0.6 10 ^3/uL (0-1.3); Nucleated Red Blood Cells % 0.1 %; White Blood Cell 10.4 10^3/uL (4.4-10.8)
[2024-05-25 02:17] LABS: Basophils % (auto) 0.3 % (0.0-2.0); Eosinophils % (auto) 0.3 % (0.0-7.0); Hemoglobin 13.4 g/dL (13.5-17.5); Lymphocytes % (auto) 19.1 % (10.0-50.0); Mean Corpuscular Hemoglobin 34.4 pg (28.0-32.0); Mean Corpuscular Hgb Conc. 35.2 g/dL (32.0-36.0); Monocytes % (auto) 5.9 % (0.0-12.0); Neutrophils # (auto) 7.7 10 ^3/uL (1.6-8.6); Neutrophils % (auto) 74.4 % (37.0-80.0); Red Blood Cells 3.88 10^6/uL (4.5-5.90); Red Cell Distribution Width 14.7 % (11.8-14.3)
[2024-05-25 02:30] LABS: Alanine Aminotransferase 44 U/L (7-40); Albumin 4.2 g/dL (3.2-4.8); Alkaline Phosphatase 73 U/L (46-116); Anion Gap 5 (5-15); Aspartate Aminotransferase 15 U/L (13-40); BUN/Creatinine Ratio 13.6 (10.0-20.0); Blood Urea Nitrogen 15 mg/dL (9-23); Calcium 9.9 mg/dL (8.7-10.4); Carbon Dioxide 29 mmol/L (20-30); Chloride 109 mmol/L (98-107); Glucose 138 mg/dL (74-106); Potassium 3.2 mmol/L (3.5-5.1); Sodium 143 mmol/L (136-145); Total Protein 6.3 g/dL (5.7-8.2)
[2024-05-25 02:47] LABS: Bilirubin, Total 0.6 mg/dL (0.2-1.0)
[2024-05-25] MEDS ORDERED: ONDANSETRON HCL 4 MG/2 ML VIAL IV PRN (05:30)
[2024-05-25] MEDS ORDERED: NITROGLYCERIN 0.4 MG SL TAB SL PRN (05:30)
[2024-05-25] MEDS ORDERED: HYDROcodone-ACET 10/325MG TAB PO PRN (05:30)
[2024-05-25] MEDS ORDERED: ALBUTEROL SULF 2.5 MG/0.5ML(0.5%) NEB SOLN NEB PRN ×2 (05:30→09:00)
[2024-05-25] MEDS ORDERED: ACETAMINOPHEN 325 MG TAB PO PRN (05:30)
[2024-05-25] MEDS ORDERED: MORPHINE SULFATE INJ 2 MG/ml SYRG IV PRN ×2 (05:30)
[2024-05-25 06:30] VITALS: BP 107/65; PULSE 80; RESP 18; TEMP 98; O2SAT 100
[2024-05-25] MEDS: methylPREDNISolone SOD SUCC 125 MG/2 ML VL IV ONE (06:59)
[2024-05-25] MEDS ORDERED: IPRATROPIUM BROM 0.5 MG/2.5ML INH SOL NEB PRN (09:00)
[2024-05-25] MEDS ORDERED: PANTOPRAZOLE 40 MG/10 ML VIAL INJ IV SCH (10:00)
[2024-05-25] MEDS ORDERED: TAMSULOSIN HYDROCHLORIDE 0.4 MG CAP PO SCH (10:00)
[2024-05-25] MEDS ORDERED: busPIRone HCL 10 MG TAB PO SCH (10:00)
[2024-05-25] MEDS ORDERED: BACLOFEN 10 MG TAB PO PRN (10:00)
[2024-05-25] MEDS ORDERED: levoFLOXacin 500MG 100 ML IV SCH (10:00)
[2024-05-25] MEDS ORDERED: FUROSEMIDE 20 MG TAB PO SCH (10:00)
[2024-05-25] MEDS ORDERED: BUDESONIDE (INHALATION) 0.5 MG/2 ML NEB HHN SCH (10:00)
[2024-05-25] MEDS ORDERED: ATORVASTATIN 20 MG TAB PO SCH (10:00)
[2024-05-25] MEDS ORDERED: CLOPIDOGREL BISULFATE 75 MG TAB PO SCH (10:00)
[2024-05-25] MEDS ORDERED: metFORMIN HYDROCHLORIDE 500 MG TAB PO SCH (10:00)
[2024-05-25] MEDS ORDERED: TOPIRAMATE 25 MG TAB PO SCH (10:00)
[2024-05-25] MEDS ORDERED: SERTRALINE HCL 50 MG TAB PO SCH (10:00)
[2024-05-25] MEDS ORDERED: POTASSIUM CHL 10 Meq TABLET PO SCH (10:00)
[2024-05-25] MEDS ORDERED: ASCORBIC ACID 500 MG TAB PO SCH (10:00)
[2024-05-25] MEDS ORDERED: hydroCHLOROthiazide 25 MG TAB PO SCH (10:00)
[2024-05-25] MEDS ORDERED: IPRATROPIUM BROM 0.5 MG/2.5ML INH SOL NEB SCH (12:00)
== END 2024-05-25 07:51 | disposition left against medical advice (07) | DRG 191 ==
LOC: EDUNIT# 19:54 → EDBD 19:54 → ER 19:54 → TELE 05-25 05:38
PROVIDERS: ADMIT Nurse Practitioner; ATTEND Nurse Practitioner
DX: J44.1 Chronic obstructive pulmonary disease with (acute) exacerbation (principal); J96.11 Chronic respiratory failure with hypoxia; I11.0 Hypertensive heart disease with heart failure; I50.9 Heart failure, unspecified; F41.9 Anxiety disorder, unspecified; K21.9 Gastro-esophageal reflux disease without esophagitis; F32.A Depression, unspecified; J43.9 Emphysema, unspecified; G40.909 Epilepsy, unspecified, not intractable, without status epilepticus; E11.65 Type 2 diabetes mellitus with hyperglycemia; Z53.29 Procedure and treatment not carried out because of patient's decision for other reasons; Z87.891 Personal history of nicotine dependence; Z99.81 Dependence on supplemental oxygen; Z82.5 Family history of asthma and other chronic lower respiratory diseases; Z80.0 Family history of malignant neoplasm of digestive organs; Z80.3 Family history of malignant neoplasm of breast; Z82.3 Family history of stroke; Z82.49 Family history of ischemic heart disease and other diseases of the circulatory system
CPT/HCPCS: 36415; 71045; 80053; 83880; 84484; 93005; 94640; G0378

== ENCOUNTER 2024-09-27 11:49 | Emergency (ER) | payer MEDICARE, MEDICAID ==
[~2024-09-27] VITALS: Ht 175.3 cm; Wt 86.3 kg
[2024-09-27 12:06] VITALS: BP 145/89; PULSE 110
--- NOTE | 2024-09-27 12:21 | ED.PDOC ---
HPI Comments HPI: Poor Historian. 64-year-old male presents to the emergency department for evaluation one day history generalized body tremors. Patient states that this happens usually when he misses his albuterol treatment. Patient had albuterol this morning at 5:30 a.m. in the morning. Patient then went to see his doctor PCP and to get some routine labs in preparation for a a colonoscopy. Patient missed his 2nd dose of albuterol. Patient denies any other acute symptoms. Patient has no history of seizures. Patient states he did not take any of his medications today. Past Medcial History: COPD, CHF, diabetes, atrial fibrillation, oxygen dependent at home 2 L nasal cannula. Past Surgical History: Denies any Patient is on Plavix REVIEW OF SYSTEMS: CONSTITUTIONAL: Denies acute: fever, diaphoresis, chills, generalized weakness. HEAD: Denies acute: headache, photophobia Eyes: Denies acute: Double vision, vision loss, eye pain, eye discharge. EARS: Denies acute: tinnitus, hearing loss, ear discharge, ear pain, THROAT: Denies acute: sore throat, swelling, difficulty swallowing , pain with swallowing, change in voice. NECK: Denies acute: neck pain, neck swelling, stiff neck. HEART: Denies acute : chest pain, palpitations, LUNGS: Denies acute: SOB, wheezing, cough, hemoptysis ABDOMEN: Denies acute: abdominal pain, Nausea, Vomiting, diarrhea, melena , hematemesis, hematochezia SKIN: Denies acute: rash, redness, lesions, itchiness. EXTREMITIES: Denies acute: calf pain, numbness, tingling, weakness, denies pain in extremity. Denies acute: Low back pain. Neuro: Denies acute: focal neurological deficit, motor or sensory focal neurological deficit, seizure like activity, confusion, dizziness, change in mental status, loss of bowel or bladder function, cauda equina like symptoms. : Denies acute: dysuria, hematuria, flank pain, increase in urinary frequency. PSYCH: Denies acute: hallucination, suicidal ideation, homicidal ideation. PHYSICAL EXAM: General: no acute distress, awake and alert. Head: normocephalic, atraumatic. Neck: supple, trachea is midline, no swelling. Throat: Normal phonation. Eyes:, no erythema, no purulent discharge, no proptosis, no icterus. Heart: regular rate, regular rhythm, no significant murmur appreciated. Lungs: no apparent respiratory distress, Able to speak in full sentences. No wheezing, no rhonchi, no crackles. No stridors Clear to auscultation bilaterally. Abdomen: non tender to palpation, non distended, soft, no guarding, no rebound, + bowel sounds. Neuro: Awake, Alert, oriented to name, self, situation, follows commands GCS=15. Speech is normal. Skin: no petechia, no purpura, no cyanosis, non-pale, not jaundice. Lower extremities: --no - Pitting edema no deformity, no focal swelling, no calf TTP. Makes eye contact. moves all four extremities. Face: no apparent facial droop. When patient extends his arms forward. There is noted resting tremors. Chief Complaint: Tremors Time Seen by MD: 12:00 Primary Care Provider: UNKNOWN Reviewed Notes: Nurses Notes, Allergies Allergies: Coded Allergies: NO KNOWN ALLERGIES (Unverified , 01/13/24) Home Meds Active Scripts Topiramate (Topiramate) 25 Mg Tab, 75 MG PO BID for 30 Days, #180 TAB Prov:JENISE CRAMER TOOL LATHE OPERATOR 04/04/24 Atorvastatin Calcium (Lipitor) 80 Mg Tab, 1 TAB PO DAILY, #30 TAB 5 Refills Prov:TAMRA DEL CID NP 09/25/23 Pantoprazole Sodium Sesquihydr (Pantoprazole Sodium) 40 Mg Tab, 40 MG PO BID for 30 Days, #60 TAB Prov:ABRAHAM LINCOLN MD 07/11/22 Reported Medications Metformin Hydrochloride (Metformin Hcl) 500 Mg Tab, 1 TAB PO DAILY 04/01/24 Ipratropium-Albuterol (Ipratropium Langdon/Albut) 1 Rizwana Rizwana, 3 ML NEB Q4HR PRN for COPD Ipratropium/Albuterol 0.5 mg/3 mL 01/20/24 Potassium Chloride (Potassium Chloride ER) 10 Meq Tab, 1 TAB PO BID 01/20/24 Revefenacin (Yupelri) 175 Mcg/3 Ml Rizwana, 175 MCG NEB DAILY 01/14/24 Albuterol Sulfate (Albuterol Sulfate) 1.25 Mg/3 Ml Neb, 105 MG IN, INH 01/14/24 Albuterol Sulfate (VENTOLIN MDI) 90 Mcg Ih, 90 MCG IN Q4HR, INH 01/14/24 Mhgiksmndun-Xlepqovlpcaf-Znyvo (Trelegy Ellipta 200-62.5-25 Mcg/INH) 1 Aer Aer, 1 PUFF INH DAILY 01/14/24 Clopidogrel Bisulfate (CLOPIDOGREL) 75 Mg Tab, 75 MG PO DAILY for 30 Days, MG 01/14/24 Sertraline Hcl (Sertraline Hcl) 50 Mg Tab, 100 MG PO DAILY for 30 Days, MG 10/21/23 Tamsulosin HCl (Tamsulosin Hydrochloride) 0.4 Mg Cap, 0.4 MG PO DAILY, CAP 10/21/23 Dulaglutide (Trulicity) 0.75 Mg/0.5 Ml Inj, 0.75 MG SC QWEEKLY, INJ 09/17/23 Baclofen (Baclofen) 10 Mg Tab, 10 MG PO BIDPRN for 30 Days, MG 08/09/23 Hydrocodone-Acetaminophen (Hydrocodone Bitartrate/AC 10-325 mg) 1 Tab Tab, 1 TAB PO [id number], TAB 08/09/23 Hydrochlorothiazide (Hydrochlorothiazide) 12.5 Mg Cap, 12.5 MG PO DAILY for 30 Days, MG 09/26/21 Budesonide (Inhalation) (Budesonide) 0.5 Mg/2 Ml Jaelyn, 0.5 MG IN BID Patient's fiancee reports patient is taking Q4Hrs 06/06/21 Ascorbic Acid (VITAMIN C) 500 Mg Cap, 1000 MG PO DAILY, CAP 06/06/21 Tiotropium Langdon Monohydrate (Spiriva Respimat) 2.5 Mcg/Act Spr, 1 SPRAY IN DAILY 06/06/21 Buspirone Hcl (Buspirone Hcl) 15 Mg Tab, 1 TAB PO BID Patient's fiancee reports patient is taking PRN 06/06/21 Roflumilast (DALIRESP) 500 Mcg Tab, 500 MCG PO DAILY 02/23/21 Furosemide (Furosemide) 20 Mg Tab, 1 TAB PO DAILY 05/31/17 Mode of Arrival: EMS Past Medical History PAST MEDICAL HISTORY: Anxiety, Cancer, CHF, COPD, Depression, DM, GERD, HTN, Seizures Surgical History: PTCA, Tonsillectomy Family History Family History: Unknown Social History Smoker: Quit Greater Than 1 Year Alcohol: Denies ETOH Use Drugs: Denies Drug Use Lives In: Home Was a procedure done? Was a procedure done?: No CP Differential Dx Differential Diagnosis: N/A Differential Diagnosis: N/A Differential Diagnosis: Other Comment Electrolyte abnormality, medication side effect, X-Ray, Labs, Meds, VS Vital Signs Date Time Temp Pulse Resp B/P (MAP) Pulse Ox O2 Delivery O2 Flow Rate FiO2 09/27/24 13:01 18 100 Nasal Cannula* 2 28 09/27/24 12:06 98.8 110 20 145/89 (107) 98 09/27/24 11:56 105 Lab Test 09/27/24 13:03 Range/Units White Blood Count 10.6 4.4-10.8 10^3/uL Red Blood Count 4.20 L 4.5-5.90 10^6/uL Hemoglobin 14.5 13.5-17.5 g/dL Hematocrit 40.8 L 41.0-53.0 % Mean Corpuscular Volume 97.3 80.0-100.0 fL Mean Corpuscular Hemoglobin 34.6 H 28.0-32.0 pg Mean Corpuscular Hemoglobin Concent 35.6 32.0-36.0 g/dL Red Cell Distribution Width 14.8 H 11.8-14.3 % Platelet Count 167 140-450 10^3/uL Mean Platelet Volume 7.0 6.9-10.8 fL Neutrophils (%) (Auto) 71.3 37.0-80.0 % Lymphocytes (%) (Auto) 20.9 10.0-50.0 % Monocytes (%) (Auto) 5.9 0.0-12.0 % Eosinophils (%) (Auto) 1.5 0.0-7.0 % Basophils (%) (Auto) 0.4 0.0-2.0 % Neutrophils # (Auto) 7.5 1.6-8.6 10 ^3/uL Lymphocytes # (Auto) 2.2 0.4-5.4 10 ^3/uL Monocytes # (Auto) 0.6 0-1.3 10 ^3/uL Eosinophils # (Auto) 0.2 0-0.8 10 ^3/uL Basophils # (Auto) 0 0-0.2 10 ^3/uL Nucleated Red Blood Cells 0.0 % Sodium Level 144 136-145 mmol/L Potassium Level 4.0 3.5-5.1 mmol/L Chloride Level 106 98-107 mmol/L Carbon Dioxide Level 30 20-31 mmol/L Anion Gap 8 5-15 Blood Urea Nitrogen 17 9-23 mg/dL Creatinine 1.13 0.700-1.30 mg/dL Glomerular Filtration Rate Calc 72 >90 mL/min BUN/Creatinine Ratio 15.0 10.0-20.0 Serum Glucose 97 74-106 mg/dL Lactic Acid Level 1.3 0.4-2.0 mmol/L Calcium Level 10.3 8.7-10.4 mg/dL Magnesium Level 2.4 1.6-2.6 mg/dL Total Bilirubin 1.0 0.2-1.0 mg/dL Aspartate Amino Transferase (AST) 18 13-40 U/L Alanine Aminotransferase (ALT) 32 7-40 U/L Alkaline Phosphatase 78 46-116 U/L Troponin I High Sensitivity 21 </=54 ng/L B-Type Natriuretic Peptide 26.54 0-100 pg/mL Total Protein 6.3 5.7-8.2 g/dL Albumin 4.4 3.2-4.8 g/dL Time of 1ST Reevaluation: 00:00 Reevaluation 1ST: N/A (Patient eloped) Patient Education/Counseling: Other (Patient eloped) Family Education/Counseling: No Family Present Comments Patient eloped Patient presented with the above HPI.---tremors and COPD---workup was initiated. patient was found with the above mentioned diagnosis. Patient was given: DuoNeb treatment. She was shoes any intervention Departure 1 Departure Time of Disposition: 00:00 Impression: Primary Impression: Mixed action and resting tremor Additional Impression: Eloped from emergency department Disposition: 07 LEFT AWOL/ELOPED Condition: Guarded Additional Instructions: Patient eloped Discharged With: Self Critical Care Note Critical Care Time?: No RACQUEL NAVARRO DO Sep 27, 2024 12:21
--- NOTE | 2024-09-27 12:43 | ECG ---
[facility] Test Date: 2024-09-27 Test Time: 11:56:38 Pat Name: TALI JANSEN Department: eer Room: Gender: M Acquisition Professional: santana : 1960 Requested By: RACQUEL NAVARRO Order Number: [id number] Reading MD: Measurements Intervals [place] Rate: 105 P: 66 NV: 171 QRS: 91 QRSD: 99 T: 43 QT: 341 QTc: 451 Interpretive Statements Sinus tachycardia Low voltage with right axis deviation Please click the below link to view image of tracing.
[2024-09-27 13:01] VITALS: RESP 18; O2SAT 100
[2024-09-27] MEDS: IPRATROPIUM BROM 0.5 MG/2.5ML INH SOL NEB ONE (13:01)
[2024-09-27] MEDS: ALBUTEROL SULF 2.5 MG/0.5ML(0.5%) NEB SOLN NEB ONE (13:01)
[2024-09-27 13:30] LABS: Eosinophils # (auto) 0.2 10 ^3/uL (0-0.8); Eosinophils % (auto) 1.5 % (0.0-7.0); Lymphocytes # (auto) 2.2 10 ^3/uL (0.4-5.4); Monocytes # (auto) 0.6 10 ^3/uL (0-1.3); Red Cell Distribution Width 14.8 % (11.8-14.3); White Blood Cell 10.6 10^3/uL (4.4-10.8)
[2024-09-27 13:32] LABS: Basophils # (auto) 0 10 ^3/uL (0-0.2); Basophils % (auto) 0.4 % (0.0-2.0); Hematocrit 40.8 % (41.0-53.0); Hemoglobin 14.5 g/dL (13.5-17.5); Lymphocytes % (auto) 20.9 % (10.0-50.0); Mean Corpuscular Hemoglobin 34.6 pg (28.0-32.0); Mean Corpuscular Hgb Conc. 35.6 g/dL (32.0-36.0); Mean Corpuscular Volume 97.3 fL (80.0-100.0); Monocytes % (auto) 5.9 % (0.0-12.0); Neutrophils # (auto) 7.5 10 ^3/uL (1.6-8.6); Neutrophils % (auto) 71.3 % (37.0-80.0); Platelet Count (auto) 167 10^3/uL (140-450)
[2024-09-27 13:50] LABS: Alanine Aminotransferase 32 U/L (7-40); Albumin 4.4 g/dL (3.2-4.8); Alkaline Phosphatase 78 U/L (46-116); Anion Gap 8 (5-15); Aspartate Aminotransferase 18 U/L (13-40); Blood Urea Nitrogen 17 mg/dL (9-23); Calcium 10.3 mg/dL (8.7-10.4); Carbon Dioxide 30 mmol/L (20-31); Chloride 106 mmol/L (98-107); Glucose 97 mg/dL (74-106); Magnesium 2.4 mg/dL (1.6-2.6); Sodium 144 mmol/L (136-145); Total Protein 6.3 g/dL (5.7-8.2)
== END 2024-09-27 13:45 | disposition left against medical advice (07) ==
LOC: ER 11:49 → EDBD 11:49 → ER 13:45
DX: R25.1 Tremor, unspecified (principal); R07.9 Chest pain, unspecified; F41.9 Anxiety disorder, unspecified; I11.0 Hypertensive heart disease with heart failure; I50.9 Heart failure, unspecified; J44.9 Chronic obstructive pulmonary disease, unspecified; K21.9 Gastro-esophageal reflux disease without esophagitis; I48.91 Unspecified atrial fibrillation; F32.A Depression, unspecified; E11.9 Type 2 diabetes mellitus without complications; Z79.84 Long term (current) use of oral hypoglycemic drugs; Z79.02 Long term (current) use of antithrombotics/antiplatelets; Z79.85 Long-term (current) use of injectable non-insulin antidiabetic drugs; Z79.899 Other long term (current) drug therapy; Z90.89 Acquired absence of other organs; Z99.81 Dependence on supplemental oxygen; Z87.891 Personal history of nicotine dependence
CPT/HCPCS: 36415; 80053; 83605; 83735; 83880; 84484; 85025; 93005; 94640

== ENCOUNTER 2025-06-03 11:56 | Inpatient (IN) | payer MEDICARE, MEDICAID ==
[2025-06-03] VITALS (15 sets, daily range): BP systolic 93–110; BP diastolic 68–83; PULSE 68–91; RESP 16–20; TEMP 96.9–97.7; O2SAT 95–100
[~2025-06-03] VITALS: Ht 177.8 cm; Wt 74.0 kg
--- NOTE | 2025-06-03 12:06 | ED.PDOC ---
HPI (NEURO) HPI Comments This is a 64 year old male JONH presenting to the ED with chief complaint of seizure. 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 EMS relays that the patient had a recent fall about 2 days ago according to him. Patient notes he is on home O2 for COPD. Patient denies any chest pain, SOB, dizziness, headache, N/V/D, numbness, or weakness. Time Seen by MD: 12:03 Primary Care Provider: UNKNOWN Reviewed Notes: Nurses Notes, Silk Blocker Notes, Medications, Allergies Information Source: Patient, Emergency Med Personnel Mode of Arrival: EMS Severity: Moderate Timing: Hours Duration: Since onset Prehospital treatment: None Seizure Quality: Tonic-clonic, Mulitple Episodes Seizure Location: Generalized Onset: At rest Circumstances: Spontaneous History of: DM, Hypertension, Seizure Disorder Past Medical History PAST MEDICAL HISTORY: Anxiety, CAD, Cancer, CHF, COPD, Depression, DM, GERD, HTN, Seizures Surgical History: PTCA, Tonsillectomy Family History Family History: Reviewed,noncontributory to illness, Unknown Social History Smoker: Quit Greater Than 1 Year Alcohol: Denies ETOH Use Drugs: Denies Drug Use Lives In: Home Constitutional: denies: chills, diaphoresis, fatigue, fever, malaise, sweats, weakness, others EENTM: denies: blurred vision, double vision, ear bleeding, ear discharge, ear drainage, ear pain, ear ringing, eye pain, eye redness, hearing loss, mouth pain, mouth swelling, nasal discharge, nose bleeding, nose congestion, nose pain, photophobia, tearing, throat pain, throat swelling, voice changes, others Respiratory: denies: cough, hemoptysis, orthopnea, SOB at rest, shortness of breath, SOB with excertion, stridor, wheezing, others Cardiovascular: denies: chest pain, dizzy spells, diaphoresis, Dyspnea on exertion, edema, irregular heart beat, left arm pain, lightheadedness, pal pitations, PND, syncope, others Gastrointestinal: denies: abdomen distended, abdominal pain, blood streaked bowels, constipated, diarrhea, dysphagia, difficulty swallowing, hematemesis, melena, nausea, poor appetite, poor fluid intake, rectal bleeding, rectal pain, vomiting, others Genitourinary: denies: burning, dysuria, flank pain, frequency, hematuria, incontinence, penile discharge, penile sore, pain, testicle pain, testicle swelling, urgency, others Neurological: denies: dizziness, fainting, headache, left sided numbness, left sided weakness, numbness, paresthesia, pre-existing deficit, right sided numbness, right sided weakness, seizure, speech problems, tingling, tremors, weakness, others Musculoskeletal: denies: back pain, gout, joint pain, joint swelling, muscle pain, muscle stiffness, neck pain, others Integumetry: denies: bruises, change in color, change in hair/nails, dryness, laceration, lesions, lumps, rash, wounds, others Allergic/Immunocompromised: denies: Difficulty Healing, Frequent Infections, Hives, Itching, others Hematologic/Lymphatic: denies: anemia, blood clots, easy bleeding, easy bru ising, swollen glands, others Endocrine: denies: excessive hunger, excessive sweating, excessive thirst, e xcessive urination, flushing, intolerance to cold, intolerance to heat, unexplained weight gain, unexplained weight loss, others Psychiatric: denies: anxiety, bipolar disorder, depression, hopeless, panic disorder, schizophrenia, sleepless, suicidal, others All Other Systems: Reviewed and Negative Physical Exam General Appearance: Moderate Distress, Normal HEENT: Normal ENT Inspection, Pharynx Normal, TMs Normal Neck: Full Range of Motion, Non-Tender, Normal, Normal Inspection Respiratory: Chest Non-Tender, Lungs Clear, No Accessory Muscle Use, No Respiratory Distress, Normal Breath Sounds Cardiovascular: No Edema, No JVD, No Murmur, No Gallop, Normal Peripheral Pulses, Regular Rate/Rhythm Breast Exam: Deferred Gastrointestinal: No Organomegaly, Non Tender, No Pulsatile Mass, Normal Bowel Sounds, Soft Genitalia: Deferred Pelvic: Deferred Rectal: Deferred Extremities: No calf tenderness, Normal capillary refill, Non-tender, No pedal edema Musculoskeletal : Apperance: Normal Neurologic: Alert, wedding photographer II-XII nml as Tested, No Motor Deficits, Normal Affect, Normal Mood, No Sensory Deficits Cerebellar Function: NOT DONE Reflexes: NOT DONE Skin: Dry, Normal Color, Warm Peripheral Pulses: 3+ Radial (R), 3+ Radial (L) Lymphatic: No Adenopathy EKG EKG : Pulse Rate (adult): 94 Niland: Normal Cardiac Rhythm: NSR Block: None Hypertrophy: None ST: Normal Was a procedure done? Was a procedure done?: No Differential Diagnosis (SZ) Seizure: Psychogenic Seizure, Closed Head Injury, CVA/TIA X-Ray, Labs, Meds, VS Vital Signs Date Time Temp Pulse Resp B/P (MAP) Pulse Ox O2 Delivery O2 Flow Rate FiO2 06/03/25 12:06 94 06/03/25 12:05 98.5 94 18 128/81 (97) 94 98.5 06/03/25 11:57 94 Patient alert. Complaining of shortness a breath seizure. Had a seizure yesterday. Vitals stable. He is on oxygen. Referred from cardiology office. Establish intravenous access. Was given fluids. Explained to the patient. Continue to monitor. Time of 1ST Reevaluation: 13:01 Reevaluation 1ST: Unchanged Patient Education/Counseling: Diagnosis, Treatment Family Education/Counseling: No Family Present Additional Information Previous visits reviewed: 09/27/24 for chest pain The following tests were ordered, and results were reviewed by me: Head CT, CBC, BMP, UA Additional Information was gathered from interviewing the following independent historians: EMS I reviewed and agreed with the following test results read by other providers: Head CT I discussed treatment and results with medical personnel and: patient Comprehensive systems review obtained and negative except for what is stated in the HPI. Departure 1 Departure Time of Disposition: 13:06 Impression: Primary Impression: Seizure disorder Additional Impression: COPD exacerbation Disposition: ADMITTED INPATIENT Admit to: Med Surg Condition: Guarded Critical Care Note Critical Care Time?: Yes (90 min-critical care time only) Stability Stability form required: No Heart Score Heart Score: Heart Score Response (Comments) Value History N/A 0 EKG N/A 0 Age N/A 0 Risk Factors N/A 0 Troponin N/A 0 Total 0 I personally scribed for AMISHA MCNEILL MD ([email or web address]) on 06/03/25 at 12:06. Electronically submitted by Brayden Hollingsworth ([email or web address]). AMISHA MCNEILL MD Jun 03, 2025 12:06
[2025-06-03 13:39] LABS: Hemoglobin 14.6 g/dL (13.5-17.5); Mean Corpuscular Hemoglobin 34.3 pg (28.0-32.0); Nucleated Red Blood Cells % 0.1 %
[2025-06-03 13:40] LABS: Hematocrit 41.5 % (41.0-53.0); Mean Corpuscular Volume 97.2 fL (80.0-100.0)
[2025-06-03 13:48] LABS: Chloride 103 mmol/L (98-107); Potassium 3.9 mmol/L (3.5-5.1); Sodium 141 mmol/L (136-145)
[2025-06-03 13:49] LABS: Anion Gap 10 (5-15); Calcium 10.2 mg/dL (8.7-10.4); Carbon Dioxide 28 mmol/L (20-31)
[2025-06-03 13:54] LABS: BUN/Creatinine Ratio 12.7 (10.0-20.0); Blood Urea Nitrogen 16 mg/dL (9-23)
[2025-06-03 13:56] LABS: Glucose 193 mg/dL (74-106)
[2025-06-03 14:10] LABS: Urine Protein, UAD Negative (Negative)
--- NOTE | 2025-06-03 14:51 | DVH ---
EXAM: CT HEAD WITHOUT CONTRAST HISTORY: seizure COMPARISON: CT HEAD WITHOUT CONTRAST on DOS: 01/13/24, CT HEAD WITHOUT CONTRAST on DOS: 08/08/23, CT HEA D WITHOUT CONTRAST on DOS: 06/03/23, CT HEAD WITHOUT CONTRAST on DOS: 05/30/23, CT HEAD WITHOUT CONTRAS T on DOS: 04/20/23 TECHNIQUE: Noncontrast axial CT images of the head were performed. Sagittal and coronal reformatted i mages were obtained. This CT exam was performed using 1 or more of the following dose reduction techn iques: Automated exposure control, adjustment of the mA and/or kv according to patient size, or the u se of iterative reconstruction techniques. Radiation Dose: CTDI volume is 65.45 mGy. Dose-length product is 1287.85 mGy*cm FINDINGS: No intracranial hemorrhage, mass, midline shift, hydrocephalus, or evidence of acute large vessel inf arct. The paranasal sinuses are clear. The bilateral mastoid air cells and middle ear spaces are joseph ar. The patient is edentulous. No cranial fracture. There may be mild right frontal supraorbital sca lp edema versus artifactual appearance. IMPRESSION: No acute intracranial process.
[2025-06-03] MEDS ORDERED: NITROGLYCERIN 0.4 MG SL TAB SL PRN (15:00)
[2025-06-03] MEDS ORDERED: MORPHINE SULFATE INJ 2 MG/ml SYRG IV PRN (15:00)
--- NOTE | 2025-06-03 15:03 | DVHHP2 ---
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 Patient has underlying history of COPD on home O2 2 L. Patient denies any chest pain fever chills. Review of Systems Constitutional: No: Fever, Chills, Sweats, Weakness, Malaise, Other Respiratory: Cough, Dry, Shortness of breath Gastrointestinal: No: Nausea, Vomiting, Abdominal Pain, Diarrhea, Constipation, Melena, Hematochezia, Other Skin: No: Rash, Lesions, Jaundice, Bruising, Other Allergies: Coded Allergies: NO KNOWN ALLERGIES (Unverified , 01/13/24) Medications Current Medications Medications Dose Ordered Sig/Romina Route Start Time Stop Time Status Last Admin Dose Admin Acetaminophen/ Hydrocodone Bitart 1 tab Q4HP PRN PO 06/03/25 15:00 UNV Enoxaparin Sodium 30 mg DAILY SC 06/04/25 10:00 UNV Nitroglycerin 0.4 mg Q5MINP PRN SL 06/03/25 15:00 UNV Morphine Sulfate 2 mg Q30M PRN IV 06/03/25 15:00 UNV Albuterol 2.5 mg Q4HWA NEB 06/03/25 18:00 UNV Budesonide 0.5 mg BID NEB 06/03/25 22:00 UNV Baclofen 10 mg BIDPRN PO 06/03/25 22:00 UNV Clopidogrel Bisulfate 75 mg DAILY PO 06/04/25 10:00 UNV Furosemide 20 mg DAILY PO 06/04/25 10:00 UNV Sertraline HCl 100 mg DAILY PO 06/04/25 10:00 UNV Tamsulosin HCl 0.4 mg DAILY PO 06/04/25 10:00 UNV Topiramate 75 mg BID PO 06/03/25 22:00 UNV Patient Own Medication 1 tab DAILY PO 06/04/25 10:00 UNV Patient Own Medication 1 tab BID PO 06/03/25 22:00 UNV Patient Own Medication 500 mcg DAILY PO 06/04/25 10:00 UNV Exam Vital Signs Vital Signs Date Time Temp Pulse Resp B/P (MAP) Pulse Ox O2 Delivery O2 Flow Rate FiO2 06/03/25 14:46 91 18 98 Nasal Cannula 2.0 06/03/25 14:46 97.5 93/68 (76) 97.5 General Appearance: Alert, Oriented X3, Cooperative, No acute distress Respiratory: Other (Diminished in anterior lobes) Cardiovascular: Regular rate, Normal S1, Normal S2, No murmurs Abdominal: Normal bowel sounds, No tenderness, No hepatospenomegaly Extremities: No clubbing, No edema Labs/Xrays Labs Test 06/03/25 13:45 06/03/25 13:24 Range/Units Urine Color Light-yellow Yellow Urine Clarity Clear Clear Urine pH 5.5 5.0-9.0 Urine Specific [place] 1.008 1.001-1.035 Urine Protein Negative Negative Urine Ketones Negative Negative Urine Blood Negative Negative /uL Urine Nitrite Negative Negative Urine Bilirubin Negative Negative Urine Urobilinogen Normal Negative mg/dL Urine Leukocyte Esterase Negative Negative /uL Urine RBC 2 0 - 3 /hpf Urine Microscopic WBC 1 0-3 /HPF Urine Squamous Epithelial Cells None seen <5 /hpf Urine Bacteria None seen None Seen /hpf Urine Glucose Normal Normal mg/dL White Blood Count 9.5 4.4-10.8 10^3/uL Red Blood Count 4.27 L 4.5-5.90 10^6/uL Hemoglobin 14.6 13.5-17.5 g/dL Hematocrit 41.5 41.0-53.0 % Mean Corpuscular Volume 97.2 80.0-100.0 fL Mean Corpuscular Hemoglobin 34.3 H 28.0-32.0 pg Mean Corpuscular Hemoglobin Concent 35.3 32.0-36.0 g/dL Red Cell Distribution Width 15.1 H 11.8-14.3 % Platelet Count 164 140-450 10^3/uL Mean Platelet Volume 7.1 6.9-10.8 fL Neutrophils (%) (Auto) 88.6 H 37.0-80.0 % Lymphocytes (%) (Auto) 9.4 L 10.0-50.0 % Monocytes (%) (Auto) 1.7 0.0-12.0 % Eosinophils (%) (Auto) 0.2 0.0-7.0 % Basophils (%) (Auto) 0.1 0.0-2.0 % Neutrophils # (Auto) 8.4 1.6-8.6 10 ^3/uL Lymphocytes # (Auto) 0.9 0.4-5.4 10 ^3/uL Monocytes # (Auto) 0.2 0-1.3 10 ^3/uL Eosinophils # (Auto) 0 0-0.8 10 ^3/uL Basophils # (Auto) 0 0-0.2 10 ^3/uL Nucleated Red Blood Cells 0.1 % Sodium Level 141 136-145 mmol/L Potassium Level 3.9 3.5-5.1 mmol/L Chloride Level 103 98-107 mmol/L Carbon Dioxide Level 28 20-31 mmol/L Anion Gap 10 5-15 Blood Urea Nitrogen 16 9-23 mg/dL Creatinine 1.26 0.700-1.30 mg/dL Glomerular Filtration Rate Calc 63 >90 mL/min BUN/Creatinine Ratio 12.7 10.0-20.0 Serum Glucose 193 H 74-106 mg/dL Calcium Level 10.2 8.7-10.4 mg/dL SEPSIS Sepsis Screen Date sepsis recognized/suspect: Jun 03, 2025 Time Sepsis recognized/suspect: 1204 Recent Procedure: No On Antibiotic Therapy: No Respiratory Rate >20: No Heart Rate >90: No Temp<36 C (96.8 F) or >38.3 C: No SBP <90 or MAP <65 mmHG: No New Acute Mental Status Change: No Is the patient on CPAP, BIPAP,: No Physician Orders Head Without Contrast (06/03/25 12:15) Electrocardigram (06/03/25 12:46) Admit (06/03/25 14:55) Allergies (06/03/25 14:55) Code Status (06/03/25 14:55) 2 Gm Sodium Diet (06/03/25 Dinner) Hydrocodone-Acet 5/325mg Tab ([place] 5/32 (06/03/25 15:00) Condition: Fair (06/03/25 14:55) Enoxaparin Sodium (Lovenox) (06/04/25 10:00) Nitroglycerin Sublingual (Ntrostat Subli (06/03/25 15:00) Morphine Sulfate Injection (06/03/25 15:00) Stat Ekg For Chest Pain (06/03/25 14:55) Notify Md Of Changes From Base (06/03/25 14:55) Green Chain Puller For 24 Hours (06/03/25 14:55) Emergency Dysrhythmia Protocol (06/03/25 14:55) Rhythm Strips Once Every Shift (06/03/25 14:55) Oxygen By Nasal Cannula (06/03/25 14:55) Albuterol Medneb (Ventolin Medneb) (06/03/25 18:00) Budesonide (Inhalation) (Pulmicort) (06/03/25 22:00) Baclofen Tablet (Liorisal Tablet) (06/03/25 22:00) Clopidogrel Bisulfate (Plavix) (06/04/25 10:00) Furosemide Tablet (Lasix Tablet) (06/04/25 10:00) Sertraline Hcl (Zoloft) (06/04/25 10:00) Tamsulosin Hydrochloride (Flomax) (06/04/25 10:00) Topiramate (Topamax) (06/03/25 22:00) (Nf) Atorvastatin Calcium (Lipitor) (06/04/25 10:00) (Nf) Buspirone Hcl (06/03/25 22:00) (Nf) Roflumilast (Daliresp) (06/04/25 10:00) *Consult Dr. Pietro Mcdonald (06/03/25 14:59) *Consult Dr. Jayme Castillo (06/03/25 14:59) *Consult / (06/03/25 14:59) Vital Signs Date Time Temp Pulse Resp B/P (MAP) Pulse Ox O2 Delivery O2 Flow Rate FiO2 06/03/25 14:46 91 18 98 Nasal Cannula 2.0 06/03/25 14:46 97.5 91 18 93/68 (76) 98 97.5 06/03/25 12:06 94 06/03/25 12:05 98.5 94 18 128/81 (97) 94 98.5 06/03/25 11:57 94 Laboratory Tests Test 06/03/25 13:24 White Blood Count 9.5 10^3/uL (4.4-10.8) Assessment/Plan Assessment/Plan 1. Loss of consciousness possibly Seizures which are likely psychogenic Neurology consult, continue seizure medication 2. COPD exacerbation Med neb treatments, pulmonary consult 3. GERD Continue Protonix 4. DM II with hyperglycemia Insulin sliding scale 5. End-stage COPD 6. Acute on chronic respiratory failure due to COPD exacerbation 7. History of alpha one antitrypsin deficiency 8. Hypertension Continue home meds 9. Hyperlipidemia Monitor, continue home meds 10. Chronic diastolic heart failure Cardiology consult, continue home meds Plan discussed with: Patient My Orders Orders - JENISE CRAMER Procedure Category Date Status Time Admit ADMIT 06/03/25 Transmitted 14:55 Allergies [facility] 06/03/25 In Process 14:55 Code Status CODE 06/03/25 Transmitted 14:55 2 Gm Sodium Diet DIET 06/03/25 Transmitted Dinner Hydrocodone-Acet PHA 06/03/25 Logged 5/325mg Tab ([place] 15:00 Condition: Fair [facility] 06/03/25 In Process 14:55 Enoxaparin Sodium PHA 06/04/25 Logged (Lovenox) 10:00 Nitroglycerin [facility] 06/03/25 Logged Sublingual (Ntrostat 15:00 Morphine Sulfate PHA 06/03/25 Logged Injection 15:00 Stat Ekg For Chest [facility] 06/03/25 In Process Pain 14:55 Notify Md Of Changes [facility] 06/03/25 In Process From Base 14:55 Green Chain Puller For [facility] 06/03/25 In Process 24 Hours 14:55 Emergency Dysrhythmia [facility] 06/03/25 In Process Protocol 14:55 Rhythm Strips Once [facility] 06/03/25 In Process Every Shift 14:55 Oxygen By Nasal RT 06/03/25 Transmitted Cannula 14:55 Albuterol Medneb [facility] 06/03/25 Logged (Ventolin Medneb) 18:00 Budesonide PHA 06/03/25 Logged (Inhalation) 22:00 Baclofen Tablet [facility] 06/03/25 Logged (Liorisal Tablet) 22:00 Clopidogrel Bisulfate PH[facility] 06/04/25 Logged (Plavix) 10:00 Furosemide Tablet [facility] 06/04/25 Logged (Lasix Tablet) 10:00 Sertraline Hcl PHA 06/04/25 Logged (Zoloft) 10:00 Tamsulosin PHA 06/04/25 Logged Hydrochloride (Flomax) 10:00 Topiramate (Topamax) PHA 06/03/25 Logged 22:00 (Nf) Atorvastatin PHA 06/04/25 Logged Calcium (Lipitor) 10:00 (Nf) Buspirone Hcl PHA 06/03/25 Logged 22:00 (Nf) Roflumilast PHA 06/04/25 Logged (Richardiresp) 10:00 *Consult Dr. Westbrook CONS 06/03/25 Transmitted Harry 14:59 *Consult Dr. Delacruz CONS 06/03/25 Transmitted Jonathan 14:59 *Consult CONS 06/03/25 Transmitted / 14:59 Date of Service: Jun 03, 2025 Billing Provider: DON TAMEZ MD Common Visit Codes: [id number] INP/OBS CARE (MOD) JENISE CRAMER JEWEL DIAMETER GAUGER Jun 03, 2025 15:03
--- NOTE | 2025-06-03 16:14 | DVHINCON2 ---
Date of service: Jun 03, 2025 History of Present Illness HPI Patient is a 64-year-old gentleman who was sent to the hospital for repeated loss of consciousness. He was seen in our cardiology office as outpatient earlier before coming to the hospital. While in the office and in waiting room, patient had repeated presyncopal episodes. He was caught before falling to the ground. Loss of consciousness was not accompanied with any major loss of composure. Presentation questioned Pet[place]. It is of note that the patient became significantly more short of breath than baseline during the episodes. It is of note that the patient does have baseline chronic respiratory failure and is on chronic oxygen supplementation. He usually goes to pulmonary (Dr. Melendez). He was recently started on a new medication by Pulmonary (Dupixent). Patient also complains of more than usual headaches and some chest discomforts for the past few days. Mentions that he is compliant with his medications. He does have history of baseline advanced COPD and alpha-1 antitrypsin deficiency. Home Meds Active Scripts Topiramate (Topiramate) 25 Mg Tab, 75 MG PO BID for 30 Days, #180 TAB Prov:JENISE CRAMER 04/04/24 Atorvastatin Calcium (Lipitor) 80 Mg Tab, 1 TAB PO DAILY, #30 TAB 5 Refills Prov:TAMRA DEL CID NP 09/25/23 Pantoprazole Sodium Sesquihydr (Pantoprazole Sodium) 40 Mg Tab, 40 MG PO BID for 30 Days, #60 TAB Prov:ABRAHAM LINCOLN MD 07/11/22 Reported Medications Metformin Hydrochloride (Metformin Hcl) 500 Mg Tab, 1 TAB PO DAILY 04/01/24 Ipratropium-Albuterol (Ipratropium [place]/Albut) 1 Rizwana Rizwana, 3 ML NEB Q4HR PRN for COPD Ipratropium/Albuterol 0.5 mg/3 mL 01/20/24 Potassium Chloride (Potassium Chloride ER) 10 Meq Tab, 1 TAB PO BID 01/20/24 Revefenacin (Yupelri) 175 Mcg/3 Ml Rizwana, 175 MCG NEB DAILY 01/14/24 Albuterol Sulfate (Albuterol Sulfate) 1.25 Mg/3 Ml Neb, 105 MG IN, INH 01/14/24 Albuterol Sulfate (VENTOLIN MDI) 90 Mcg Ih, 90 MCG IN Q4HR, INH 3/6/24 Phxpokzpext-Qhgbmvxntlyq-Agwix (Trelegy Ellipta 200-62.5-25 Mcg/INH) 1 Aer Aer, 1 PUFF INH DAILY 01/14/24 Clopidogrel Bisulfate (CLOPIDOGREL) 75 Mg Tab, 75 MG PO DAILY for 30 Days, MG 01/14/24 Sertraline Hcl (Sertraline Hcl) 50 Mg Tab, 100 MG PO DAILY for 30 Days, MG 10/21/23 Tamsulosin HCl (Tamsulosin Hydrochloride) 0.4 Mg Cap, 0.4 MG PO DAILY, CAP 10/21/23 Dulaglutide (Trulicity) 0.75 Mg/0.5 Ml Inj, 0.75 MG SC QWEEKLY, INJ 09/17/23 Baclofen (Baclofen) 10 Mg Tab, 10 MG PO BIDPRN for 30 Days, MG 08/09/23 Hydrocodone-Acetaminophen (Hydrocodone Bitartrate/AC 10-325 mg) 1 Tab Tab, 1 TAB PO [id number], TAB 08/09/23 Hydrochlorothiazide (Hydrochlorothiazide) 12.5 Mg Cap, 12.5 MG PO DAILY for 30 Days, MG 09/26/21 Budesonide (Inhalation) (Budesonide) 0.5 Mg/2 Ml Jaelyn, 0.5 MG IN BID Patient's fiancee reports patient is taking Q4Hrs 06/06/21 Ascorbic Acid (VITAMIN C) 500 Mg Cap, 1000 MG PO DAILY, CAP 06/06/21 Tiotropium [place] Monohydrate (Spiriva Respimat) 2.5 Mcg/Act Spr, 1 SPRAY IN DAILY 06/06/21 Buspirone Hcl (Buspirone Hcl) 15 Mg Tab, 1 TAB PO BID Patient's fiancee reports patient is taking PRN 06/06/21 Roflumilast (DALIRESP) 500 Mcg Tab, 500 MCG PO DAILY 02/23/21 Furosemide (Furosemide) 20 Mg Tab, 1 TAB PO DAILY 05/31/17 Past Medical History Others Past medical history includes hypertension, hyperlipidemia, diabetes mellitus, depression/anxiety disorder, GERD, advanced COPD (on chronic oxygen supplementation), chronic respiratory failure, history of alpha 1 antitrypsin deficiency, coronary artery disease (status post multiple PCI many years ago), diastolic congestive heart failure, anemia and seizure disorder. He is on 24 hour oxygen supplementation. His history also includes psychogenic seizures. Patient Family History: Cancer Cancer of colon G8 FATHER, Chronic obstructive lung disease (situation) G8 MOTHER, G8 FATHER, FH: breast cancer G8 MOTHER, FH: chronic obstructive pulmonary disease FH: stroke G8 BROTHER FH: uterine cancer G8 MOTHER, Family history: Cardiovascular disease G8 MOTHER, G8 FATHER, Family history: Thyroid disorder G8 SISTER Stroke G8 BROTHER Smoker: No Hx (Negative) Alocohol: None Drugs: None Lives with: With family Review of Systems Constitutional: Weakness Ears, Nose, & Throat: No symptom reported Pulmonary/Respiratory: Dyspnea Cardiovascular: Chest Pain All Other Systems Fourteen point review of system was performed. Relevant findings as per above and as per HPI. Otherwise negative. H&P Exam Vital Signs Vital Signs Date Time Temp Pulse Resp B/P (MAP) Pulse Ox O2 Delivery O2 Flow Rate FiO2 06/03/25 15:35 91 18 98 Nasal Cannula* 2 28 06/03/25 15:07 97.5 93/68 97.5 General Appeara: Well developed Head Exam: Normal inspection Neck Exam: Normal inspection Eye Exam: bilateral eye PERRL Mouth: Normal Inspection Pulmonary/Respiratory: Rhonci Cardiovascular/Chest: Regular rate, Systolic murmur Peripheral Pulses: 2+ carotid (R), 2+ carotid (L), 2+ femoral (R), 2+ femoral (L), 2+ dorsalis pedis (R), 2+ dorsalis pedis (L), 2+ Radial (R), 2+ Radial (L) Abdominal Exam: Normal bowel sounds, Soft Neuro/Mental St: Alert, Oriented Eye contact/ Speech: Cooperative Labs/Xrays Labs Test 06/03/25 13:45 06/03/25 13:24 Range/Units Urine Color Light-yellow Yellow Urine Clarity Clear Clear Urine pH 5.5 5.0-9.0 Urine Specific [place] 1.008 1.001-1.035 Urine Protein Negative Negative Urine Ketones Negative Negative Urine Blood Negative Negative /uL Urine Nitrite Negative Negative Urine Bilirubin Negative Negative Urine Urobilinogen Normal Negative mg/dL Urine Leukocyte Esterase Negative Negative /uL Urine RBC 2 0 - 3 /hpf Urine Microscopic WBC 1 0-3 /HPF Urine Squamous Epithelial Cells None seen <5 /hpf Urine Bacteria None seen None Seen /hpf Urine Glucose Normal Normal mg/dL White Blood Count 9.5 4.4-10.8 10^3/uL Red Blood Count 4.27 L 4.5-5.90 10^6/uL Hemoglobin 14.6 13.5-17.5 g/dL Hematocrit 41.5 41.0-53.0 % Mean Corpuscular Volume 97.2 80.0-100.0 fL Mean Corpuscular Hemoglobin 34.3 H 28.0-32.0 pg Mean Corpuscular Hemoglobin Concent 35.3 32.0-36.0 g/dL Red Cell Distribution Width 15.1 H 11.8-14.3 % Platelet Count 164 140-450 10^3/uL Mean Platelet Volume 7.1 6.9-10.8 fL Neutrophils (%) (Auto) 88.6 H 37.0-80.0 % Lymphocytes (%) (Auto) 9.4 L 10.0-50.0 % Monocytes (%) (Auto) 1.7 0.0-12.0 % Eosinophils (%) (Auto) 0.2 0.0-7.0 % Basophils (%) (Auto) 0.1 0.0-2.0 % Neutrophils # (Auto) 8.4 1.6-8.6 10 ^3/uL Lymphocytes # (Auto) 0.9 0.4-5.4 10 ^3/uL Monocytes # (Auto) 0.2 0-1.3 10 ^3/uL Eosinophils # (Auto) 0 0-0.8 10 ^3/uL Basophils # (Auto) 0 0-0.2 10 ^3/uL Nucleated Red Blood Cells 0.1 % Sodium Level 141 136-145 mmol/L Potassium Level 3.9 3.5-5.1 mmol/L Chloride Level 103 98-107 mmol/L Carbon Dioxide Level 28 20-31 mmol/L Anion Gap 10 5-15 Blood Urea Nitrogen 16 9-23 mg/dL Creatinine 1.26 0.700-1.30 mg/dL Glomerular Filtration Rate Calc 63 >90 mL/min BUN/Creatinine Ratio 12.7 10.0-20.0 Serum Glucose 193 H 74-106 mg/dL Calcium Level 10.2 8.7-10.4 mg/dL Assessment/Plan Plan Patient is a 64-year-old gentleman who was sent to the hospital for repeated loss of consciousness. He was seen in our cardiology office as outpatient earlier before coming to the hospital. While in the office and in waiting room, patient had repeated presyncopal episodes. He was caught before falling to the ground. Loss of consciousness was not accompanied with any major loss of composure. Presentation questioned Pet[place]. It is of note that the patient became significantly more short of breath than baseline during the episodes. It is of note that the patient does have baseline chronic respiratory failure and is on chronic oxygen supplementation. He usually goes to pulmonary (Dr. Melendez). He was recently started on a new medication by Pulmonary (Dupixent). Patient also complains of more than usual headaches and some chest discomforts for the past few days. Mentions that he is compliant with his medications. He does have history of baseline advanced COPD and alpha-1 antitrypsin deficiency. [place] and wet mucosa, no goiter, no carotid bruit. Chest: Poor air entry with positive rhonchi, cardiac: Distant sounds, no thrill/gallop/murmur. Abdomen: Soft, positive bowel sounds, no gross mass. Extremities: No edema. Dorsalis pedis 2+ bilateral. Past medical history includes hypertension, hyperlipidemia, diabetes mellitus, depression/anxiety disorder, GERD, advanced COPD (on chronic oxygen supplementation), chronic respiratory failure, history of alpha 1 antitrypsin deficiency, coronary artery disease (status post multiple PCI many years ago), diastolic congestive heart failure, anemia and seizure disorder. He is on 24 hour oxygen supplementation. His history also includes psychogenic seizures. Echocardiogram on May 2021 had reported ejection fraction of 40% Echocardiogram of September 21, 2021 revealed: Technically limited study secondary to poor acoustic windows. Left ventricle: Left ventricle is normal sized. LVEF was assessed at 50-55%. Right ventricle was normal size with normal systolic function. Left and right atrium were normal size. Aortic valve was not well visualized. There was no gross aortic insufficiency/stenosis. Mitral valve: Trivial mitral regurgitation. Tricuspid valve had grossly normal anatomy. Pulmonary valve was not well visualized Echocardiogram of June 23, 2022 revealed ejection fraction of 50 to 55%, mild MR/TR Echocardiogram of June 04, 2023 revealed ejection fraction of 65%, dilated right-sided chambers Echocardiogram of September 18, 2023 revealed ejection fraction of 55% and normal- sized right-sided chambers Echocardiogram of January 14, 2024 revealed ejection fraction of 50%, no wall motion abnormality, mild MR/TR and right ventricular systolic pressure of 25 mmHg Echocardiogram of February 15, 2025 (performed in the office) revealed ejection fraction of 60-65%, trace MR/TR, right ventricular systolic pressure of less than 35, right-sided chambers were normal-sized with normal systolic function Nuclear stress test of June 30, 2024 (performed in the office) revealed fixed defect, no ischemia and ejection fraction of 63%. Left heart catheterization of July 2022 (performed in [facility] had revealed patent stents in LAD and RCA. LCX was small-caliber vessel. Creatinine: 1.26 Potassium: 3.9 CT of the head revealed: IMPRESSION: No acute intracranial process. Patient is a 64-year-old gentleman who presented with repeated loss of cons ciousness/presyncope/questionable Petit mal. He also had significant shortness of breath prior to presentation. Does have baseline history of chronic respiratory failure and is usually on 24 hour oxygen supplementation. He has history also includes advanced COPD/emphysema secondary to alpha-1 antitrypsin deficiency. Usually follows with Pulmonary who has recently started the patient on a new medicine (Dupixent). Could the presentation be a side effect secondary to Dupixent? Few days prior to presentation patient started to have more chest discomfort and headaches. Presentation is less likely cardiac. Still, the patient does have baseline history of coronary artery disease and has had multiple stents before. Last nuclear stress test of June 2024 brief only revealed fixed defects and there was no ischemia. Evaluation by Neurology and Pulmonary can be justified. Loss of consciousness Presyncope Seizures, history of Breakthrough seizure, less likely Acute on chronic respiratory failure COPD exacerbation History of alpha-1 antitrypsin deficiency Diabetes mellitus Hypertension Hyperlipidemia Diastolic heart failure, history of Seizure disorder, psychogenic Suggestion for management: Manage on telemetry floor Follow-up electrolytes and kidney function test and correct abnormalities. Keep potassium above 4 magnesium above 2 EKG Chest xry Continue Plavix at 75 mg daily, Lipitor at 80 mg daily, ranolazine at 500 twice daily Serial troponin is advised ProBNP Echocardiogram Neurology evaluation is suggested Pulmonary evaluation is suggested Further evaluation and management depends on the above and clinical course Thank you for consultation A total of 75 minutes was spent reviewing the patient record, examining the patient, making a diagnostic and therapeutic plan, discussing this plan with medical personnel, following up on diagnostic studies and following the patient for clinical stability excluding any and all procedures. At least 50% of this time was spent in direct, [id number] contact. Thank you for allowing me to participate in this patient's care. Further recommendations will depend on patient's clinical course. Please do not hesitate to contact me if you have any questions or concerns. This medical document was created using electronic medical record system with [employer] computerized dictation system. Although this document has been carefully reviewed, there may still be some phonetic and typographical errors. These areas are purely typographical due to the imperfection of the software programs, and do not reflect any compromise in the patient's medical care. Plan discussed with: Patient, Other (nurse) DEVORAH WALLACE MD Jun 03, 2025 16:14
[2025-06-03] MEDS: ALBUTEROL SULF 2.5 MG/0.5ML(0.5%) NEB SOLN ONE (16:15)
--- NOTE | 2025-06-03 18:46 | DVH ---
CHEST RADIOGRAPH Indication: PMHX Technique: Single frontal view of the chest was obtained Comparison: XY CHEST XRAY 1 VIEW on DOS: 05/25/24, XY CHEST PORTABLE on DOS: 03/29/24, XY CHEST XRAY 1 VIEW on DOS: 01/18/24 FINDINGS: Lines and Tubes: Port-A-Cath in place from a left internal jugular vein with the tip in the superior vena cava above the right atrium. Lungs: No focal consolidation. Unchanged from 03/29/2024 Pleura: No effusion. No pneumothorax. Cardiomediastinal contours: Unremarkable Bones: No acute osseous abnormality. IMPRESSION: 1. No acute cardiopulmonary disease. No change from 03/29/2024. 2. Port-A-Cath in place unchanged.
[2025-06-03] MEDS: ALBUTEROL SULF 2.5 MG/0.5ML(0.5%) NEB SOLN NEB SCH (18:52)
[2025-06-03] MEDS: BACLOFEN 10 MG TAB PO SCH (21:33)
--- NOTE | 2025-06-03 21:33 | DVHINCON2 ---
Date of service: Jun 03, 2025 Referring Physician Riki Dutton NP [facility] Reason for Consultation Acute on chronic hypoxic respiratory failure and COPD exacerbation. 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 Pt had a witnessed fall and seizure-like activity at the potato chip maker's office. Per EMS, pt had a recent fall about 2 days ago. He denied any chest pain, fever or chills. Patient was admitted for further care, and pulmonary consultation is requested for evaluation and management of acute on chronic hypoxic respiratory failure and COPD exacerbation. Review of Systems: 14-point review of systems negative unless otherwise noted above. Past Medical History: COPD, CAD, Cancer, CHF, DM, GERD, HTN, Seizures, Depression, Anxiety Past Surgical History: PTCA, Tonsillectomy Medications: Reviewed. Allergies: No known drug allergies. Family History: No family history of premature CAD. No family history of lung disorders. Social History: Former smoker, quit greater than 1 year ago. No alcohol or illicit drug use. Family History: Cancer Cancer of colon G8 FATHER, Chronic obstructive lung disease (situation) G8 MOTHER, G8 FATHER, FH: breast cancer G8 MOTHER, FH: chronic obstructive pulmonary disease FH: stroke G8 BROTHER FH: uterine cancer G8 MOTHER, Family history: Cardiovascular disease G8 MOTHER, G8 FATHER, Family history: Thyroid disorder G8 SISTER Stroke G8 BROTHER Allergies: Coded Allergies: NO KNOWN ALLERGIES (Unverified , 01/13/24) Home Meds Active Scripts Topiramate (Topiramate) 25 Mg Tab, 75 MG PO BID for 30 Days, #180 TAB Prov:RIKI CRAMER 04/04/24 Atorvastatin Calcium (Lipitor) 80 Mg Tab, 1 TAB PO DAILY, #30 TAB 5 Refills Prov:TAMRA DEL CID NP 09/25/23 Pantoprazole Sodium Sesquihydr (Pantoprazole Sodium) 40 Mg Tab, 40 MG PO BID for 30 Days, #60 TAB Prov:ABRAHAM LINCOLN MD 07/11/22 Reported Medications Metformin Hydrochloride (Metformin Hcl) 500 Mg Tab, 1 TAB PO DAILY 04/01/24 Ipratropium-Albuterol (Ipratropium [place]/Albut) 1 Rizwana Rizwana, 3 ML NEB Q4HR PRN for COPD Ipratropium/Albuterol 0.5 mg/3 mL 01/20/24 Potassium Chloride (Potassium Chloride ER) 10 Meq Tab, 1 TAB PO BID 01/20/24 Revefenacin (Yupelri) 175 Mcg/3 Ml Rizwana, 175 MCG NEB DAILY 01/14/24 Albuterol Sulfate (Albuterol Sulfate) 1.25 Mg/3 Ml Neb, 105 MG IN, INH 01/14/24 Albuterol Sulfate (VENTOLIN MDI) 90 Mcg Ih, 90 MCG IN Q4HR, INH 01/14/24 Dzkufhhtayx-Jlmlbtoeptbs-Ndsfq (Trelegy Ellipta 200-62.5-25 Mcg/INH) 1 Aer Aer, 1 PUFF INH DAILY 01/14/24 Clopidogrel Bisulfate (CLOPIDOGREL) 75 Mg Tab, 75 MG PO DAILY for 30 Days, MG 01/14/24 Sertraline Hcl (Sertraline Hcl) 50 Mg Tab, 100 MG PO DAILY for 30 Days, MG 10/21/23 Tamsulosin HCl (Tamsulosin Hydrochloride) 0.4 Mg Cap, 0.4 MG PO DAILY, CAP 10/21/23 Dulaglutide (Trulicity) 0.75 Mg/0.5 Ml Inj, 0.75 MG SC QWEEKLY, INJ 09/17/23 Baclofen (Baclofen) 10 Mg Tab, 10 MG PO BIDPRN for 30 Days, MG 08/09/23 Hydrocodone-Acetaminophen (Hydrocodone Bitartrate/AC 10-325 mg) 1 Tab Tab, 1 TAB PO [id number], TAB 08/09/23 Hydrochlorothiazide (Hydrochlorothiazide) 12.5 Mg Cap, 12.5 MG PO DAILY for 30 Days, MG 09/26/21 Budesonide (Inhalation) (Budesonide) 0.5 Mg/2 Ml Jaelyn, 0.5 MG IN BID Patient's fiancee reports patient is taking Q4Hrs 06/06/21 Ascorbic Acid (VITAMIN C) 500 Mg Cap, 1000 MG PO DAILY, CAP 06/06/21 Tiotropium [place] Monohydrate (Spiriva Respimat) 2.5 Mcg/Act Spr, 1 SPRAY IN DAILY 06/06/21 Buspirone Hcl (Buspirone Hcl) 15 Mg Tab, 1 TAB PO BID Patient's fiancee reports patient is taking PRN 06/06/21 Roflumilast (DALIRESP) 500 Mcg Tab, 500 MCG PO DAILY 02/23/21 Furosemide (Furosemide) 20 Mg Tab, 1 TAB PO DAILY 05/31/17 Current Medications Current Medications Medications (Trade) Dose Ordered Sig/Romina Route PRN Reason Start Time Stop Time Status Last Admin Acetaminophen/ Hydrocodone Bitart ([place] 5/325MG Tab) 1 tab Q4HP PRN PO MODERATE PAIN (4-6 PAIN SCALE) 06/03/25 15:00 Enoxaparin Sodium (Lovenox) 30 mg DAILY SC 06/04/25 10:00 Nitroglycerin (Ntrostat Sublingual) 0.4 mg Q5MINP PRN SL FOR CHEST PAIN 06/03/25 15:00 UNV Morphine Sulfate 2 mg Q30M PRN IV FOR CHEST PAIN 06/03/25 15:00 UNV Albuterol (Ventolin Medneb) 2.5 mg Q4HWA NEB 06/03/25 18:00 06/03/25 18:52 Budesonide (Pulmicort) 0.5 mg BID NEB 06/03/25 22:00 Baclofen (Liorisal Tablet) 10 mg BIDPRN PO 06/03/25 22:00 Clopidogrel Bisulfate (Plavix) 75 mg DAILY PO 06/04/25 10:00 Furosemide (Lasix Tablet) 20 mg DAILY PO 06/04/25 10:00 UNV Sertraline HCl (Zoloft) 100 mg DAILY PO 06/04/25 10:00 UNV Tamsulosin HCl (Flomax) 0.4 mg DAILY PO 06/04/25 10:00 UNV Topiramate (Topamax) 75 mg BID PO 06/03/25 22:00 UNV Patient Own Medication 1 tab DAILY PO 06/04/25 10:00 UNV Patient Own Medication 1 tab BID PO 06/03/25 22:00 UNV Patient Own Medication 500 mcg DAILY PO 06/04/25 10:00 UNV Vital Signs Vital Signs Date Time Temp Pulse Resp B/P (MAP) Pulse Ox O2 Delivery O2 Flow Rate FiO2 06/03/25 18:58 97.7 86 19 110/79 (89 96 97.7 06/03/25 18:52 Nasal Cannula 2.0 06/03/25 18:52 28 Physical Exam Gen.: Patient lying in bed in no apparent distress. On supplemental oxygen. Head: Normocephalic, atraumatic. Eyes: EOMI/PERRLA. Ears: Normal hearing. Normal anatomy. Neck/trachea: Trachea midline, supple. Nose: Normal external anatomy. Mouth: Moist mucous membranes. Chest: Decreased air entry bilaterally. No wheezing or rhonchi. Cardiovascular: Positive S1, positive S2. Regular rate and rhythm. Abdomen: Positive bowel sounds in all 4 quadrants. Soft, non-tender, non- distended. : Deferred. Rectal: Deferred. Skin: Warm, dry. Intact. Extremities: 2+ radial pulses bilaterally. No lower extremity edema. Neuro: Awake, alert, oriented x3. No gross motor or sensory deficits. Cranial nerves II through XII intact. Gait not assessed. Labs/Diagnostic Data Labs Test 06/03/25 17:13 06/03/25 13:45 06/03/25 13:24 Range/Units Troponin I High Sensitivity 7 </=54 ng/L Urine Color Light-yellow Yellow Urine Clarity Clear Clear Urine pH 5.5 5.0-9.0 Urine Specific [place] 1.008 1.001-1.035 Urine Protein Negative Negative Urine Ketones Negative Negative Urine Blood Negative Negative /uL Urine Nitrite Negative Negative Urine Bilirubin Negative Negative Urine Urobilinogen Normal Negative mg/dL Urine Leukocyte Esterase Negative Negative /uL Urine RBC 2 0 - 3 /hpf Urine Microscopic WBC 1 0-3 /HPF Urine Squamous Epithelial Cells None seen <5 /hpf Urine Bacteria None seen None Seen /hpf Urine Glucose Normal Normal mg/dL White Blood Count 9.5 4.4-10.8 10^3/uL Red Blood Count 4.27 L 4.5-5.90 10^6/uL Hemoglobin 14.6 13.5-17.5 g/dL Hematocrit 41.5 41.0-53.0 % Mean Corpuscular Volume 97.2 80.0-100.0 fL Mean Corpuscular Hemoglobin 34.3 H 28.0-32.0 pg Mean Corpuscular Hemoglobin Concent 35.3 32.0-36.0 g/dL Red Cell Distribution Width 15.1 H 11.8-14.3 % Platelet Count 164 140-450 10^3/uL Mean Platelet Volume 7.1 6.9-10.8 fL Neutrophils (%) (Auto) 88.6 H 37.0-80.0 % Lymphocytes (%) (Auto) 9.4 L 10.0-50.0 % Monocytes (%) (Auto) 1.7 0.0-12.0 % Eosinophils (%) (Auto) 0.2 0.0-7.0 % Basophils (%) (Auto) 0.1 0.0-2.0 % Neutrophils # (Auto) 8.4 1.6-8.6 10 ^3/uL Lymphocytes # (Auto) 0.9 0.4-5.4 10 ^3/uL Monocytes # (Auto) 0.2 0-1.3 10 ^3/uL Eosinophils # (Auto) 0 0-0.8 10 ^3/uL Basophils # (Auto) 0 0-0.2 10 ^3/uL Nucleated Red Blood Cells 0.1 % Sodium Level 141 136-145 mmol/L Potassium Level 3.9 3.5-5.1 mmol/L Chloride Level 103 98-107 mmol/L Carbon Dioxide Level 28 20-31 mmol/L Anion Gap 10 5-15 Blood Urea Nitrogen 16 9-23 mg/dL Creatinine 1.26 0.700-1.30 mg/dL Glomerular Filtration Rate Calc 63 >90 mL/min BUN/Creatinine Ratio 12.7 10.0-20.0 Serum Glucose 193 H 74-106 mg/dL Calcium Level 10.2 8.7-10.4 mg/dL B-Type Natriuretic Peptide 14.51 0-100 pg/mL Assessment Impression: Acute on chronic hypoxic respiratory failure Acute exacerbation of COPD Chronic obstructive pulmonary disease 2/2 A1AT deficiency Diastolic congestive heart failure Alpha-1 antitrypsin deficiency Syncope Hx of nicotine dependence Obesity Plan: Supplemental oxygen Titrate to keep O2 sats above 92%. Continue bronchodilators. Continue steroids Cardiology recommendations appreciated. Patient received Dupixent on Friday He has been having dizziness for several days prior to Dupixent. Maintain euvolemia Monitor renal function. Monitor electrolytes. Supplement as necessary. Monitor ins and outs. Diet and lifestyle modifications for weight reduction Obesity - complicates all care DVT prophylaxis. Prognosis: Poor given patient's multiple co-morbidities. Rest of plan per hospitalist and other consultants. Thank you, [employer] Dax Dutton, for allowing me to participate in this patient's care. Further recommendations will depend on the patient's clinical course. Please do not hesitate to contact me if you have any questions or concerns. This medical document was created using an electronic medical record system with [employer] dictation system. Although these documentations are being carefully reviewed, there may still be some phonetic and typographical changes. The errors are purely typographical, due to imperfection on the software program, and do not reflect any compromise in the patient's medical care. Plan discussed with: Other ([employer]/SHAGUFTA Malave/) QUINTEN TOBIAS MD Jun 03, 2025 21:33
--- NOTE | 2025-06-03 21:47 | DVHINCON2 ---
Date of service: Jun 03, [address] Osullivan Reason for Consultation Seizure History of Present Illness Mr. Beltre is a 64 years old gentleman with a history of COPD, alpha-1 antitrypsin deficiency, anxiety, migraine headache, traumatic brain injury, sleep apnea, the patient came to the hospital on 06/03/25 with a chief complaint of seizure activity. At this time he is alert and fully oriented, he is able to provide history I saw him on 09/08/2015, 10/03/2015, 02/2016, 05/31/17, 07/09/17, 08/17/17, 11/25/2018, 02/23/2021 (atypical features), 06/06/2021, 09/21/2021, 01/09/22, 05/03/2022, 06/24/2022, 05/31/2023, 09/17/2023, 01/14/2024, 03/31/[address] Ramirez saw him in 10/2016, 11/2016, for seizure. At this time, he is alert and fully oriented, he provided the following history. 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 He had one more seizure in the [facility] again with company amnesia, He has a long history of seizure disorder. He went through a lot of testing, after continuous video EEG in the [facility], he was said to have nonepileptic seizure and his seizure medication was discontinued by the [facility] He has a history of migraine headache, he is on topiramate 75 mg b.i.d. but he has headache every day, intense headache once weekly, for 1-2 days He is on [place] 4 times daily for low back pain He has sleep apnea, he sees a sleep specialist, he is on CPAP Urinalysis, 06/03/2025: Unremarkable CBC, 06/03/2025: Unremarkable BMP 06/03/2025: Unremarkable TG/CHO L/LDL/HDL, 09/2023: 115/163/100/45 Vitamin B12, 09/2023: 547 TSH, 09/17/2023: 0.17 CT head, 06/03/2025:No acute intracranial process MRI head, 08/14/2023: No acute abnormal MRI findings of the brain. Past Medical History Hypertension, coronary artery disease, congestive heart failure, COPD, anxiety, migraine headache, traumatic brain injury, seizure, sleep apnea, GERD Past Surgical History PTCA, Tonsillectomy, soft tissue tumor removal from the neck Family History: Cancer Cancer of colon G8 FATHER, Chronic obstructive lung disease (situation) G8 MOTHER, G8 FATHER, FH: breast cancer G8 MOTHER, FH: chronic obstructive pulmonary disease FH: stroke G8 BROTHER FH: uterine cancer G8 MOTHER, Family history: Cardiovascular disease G8 MOTHER, G8 FATHER, Family history: Thyroid disorder G8 SISTER Stroke G8 BROTHER Family History COPD, heart disease, stroke, thyroid disease, cancer Social History Smoker: Quit Greater Than 1 Year Alcohol: Denies ETOH Use Drugs: Denies Drug Use Lives In: Home Allergies: Coded Allergies: NO KNOWN ALLERGIES (Unverified , 01/13/24) Home Meds Active Scripts Topiramate (Topiramate) 25 Mg Tab, 75 MG PO BID for 30 Days, #180 TAB Prov:JENISE CRAMER 04/04/24 Atorvastatin Calcium (Lipitor) 80 Mg Tab, 1 TAB PO DAILY, #30 TAB 5 Refills Prov:TAMRA DEL CID NP 09/25/23 Pantoprazole Sodium Sesquihydr (Pantoprazole Sodium) 40 Mg Tab, 40 MG PO BID for 30 Days, #60 TAB Prov:ABRAHAM LINCOLN MD 07/11/22 Reported Medications Metformin Hydrochloride (Metformin Hcl) 500 Mg Tab, 1 TAB PO DAILY 04/01/24 Ipratropium-Albuterol (Ipratropium [place]/Albut) 1 Rizwana Rizwana, 3 ML NEB Q4HR PRN for COPD Ipratropium/Albuterol 0.5 mg/3 mL 01/20/24 Potassium Chloride (Potassium Chloride ER) 10 Meq Tab, 1 TAB PO BID 01/20/24 Revefenacin (Yupelri) 175 Mcg/3 Ml Rizwana, 175 MCG NEB DAILY 01/14/24 Albuterol Sulfate (Albuterol Sulfate) 1.25 Mg/3 Ml Neb, 105 MG IN, INH 01/14/24 Albuterol Sulfate (VENTOLIN MDI) 90 Mcg Ih, 90 MCG IN Q4HR, INH 01/14/24 Svlxkflfpgs-Bzdrnpiezxml-Ydrkh (Trelegy Ellipta 200-62.5-25 Mcg/INH) 1 Aer Aer, 1 PUFF INH DAILY 01/14/24 Clopidogrel Bisulfate (CLOPIDOGREL) 75 Mg Tab, 75 MG PO DAILY for 30 Days, MG 01/14/24 Sertraline Hcl (Sertraline Hcl) 50 Mg Tab, 100 MG PO DAILY for 30 Days, MG 10/21/23 Tamsulosin HCl (Tamsulosin Hydrochloride) 0.4 Mg Cap, 0.4 MG PO DAILY, CAP 10/21/23 Dulaglutide (Trulicity) 0.75 Mg/0.5 Ml Inj, 0.75 MG SC QWEEKLY, INJ 09/17/23 Baclofen (Baclofen) 10 Mg Tab, 10 MG PO BIDPRN for 30 Days, MG 08/09/23 Hydrocodone-Acetaminophen (Hydrocodone Bitartrate/AC 10-325 mg) 1 Tab Tab, 1 TAB PO [id number], TAB 08/09/23 Hydrochlorothiazide (Hydrochlorothiazide) 12.5 Mg Cap, 12.5 MG PO DAILY for 30 Days, MG 09/26/21 Budesonide (Inhalation) (Budesonide) 0.5 Mg/2 Ml Jaelyn, 0.5 MG IN BID Patient's fiancee reports patient is taking Q4Hrs 06/06/21 Ascorbic Acid (VITAMIN C) 500 Mg Cap, 1000 MG PO DAILY, CAP 06/06/21 Tiotropium [place] Monohydrate (Spiriva Respimat) 2.5 Mcg/Act Spr, 1 SPRAY IN DAILY 06/06/21 Buspirone Hcl (Buspirone Hcl) 15 Mg Tab, 1 TAB PO BID Patient's fiancee reports patient is taking PRN 06/06/21 Roflumilast (DALIRESP) 500 Mcg Tab, 500 MCG PO DAILY 02/23/21 Furosemide (Furosemide) 20 Mg Tab, 1 TAB PO DAILY 05/31/17 Current Medications Current Medications Medications (Trade) Dose Ordered Sig/Romina Route PRN Reason Start Time Stop Time Status Last Admin Acetaminophen/ Hydrocodone Bitart ([place] 5/325MG Tab) 1 tab Q4HP PRN PO MODERATE PAIN (4-6 PAIN SCALE) 06/03/25 15:00 Enoxaparin Sodium (Lovenox) 30 mg DAILY SC 06/04/25 10:00 Nitroglycerin (Ntrostat Sublingual) 0.4 mg Q5MINP PRN SL FOR CHEST PAIN 06/03/25 15:00 UNV Morphine Sulfate 2 mg Q30M PRN IV FOR CHEST PAIN 06/03/25 15:00 UNV Albuterol (Ventolin Medneb) 2.5 mg Q4HWA NEB 06/03/25 18:00 06/03/25 18:52 Budesonide (Pulmicort) 0.5 mg BID NEB 06/03/25 22:00 Baclofen (Liorisal Tablet) 10 mg BIDPRN PO 06/03/25 22:00 06/03/25 21:33 Clopidogrel Bisulfate (Plavix) 75 mg DAILY PO 06/04/25 10:00 Furosemide (Lasix Tablet) 20 mg DAILY PO 06/04/25 10:00 UNV Sertraline HCl (Zoloft) 100 mg DAILY PO 06/04/25 10:00 UNV Tamsulosin HCl (Flomax) 0.4 mg DAILY PO 06/04/25 10:00 UNV Topiramate (Topamax) 75 mg BID PO 06/03/25 22:00 UNV Patient Own Medication 1 tab DAILY PO 06/04/25 10:00 UNV Patient Own Medication 1 tab BID PO 06/03/25 22:00 UNV Patient Own Medication 500 mcg DAILY PO 06/04/25 10:00 UNV Review of Systems As above, the other system negative Vital Signs Vital Signs Date Time Temp Pulse Resp B/P (MAP) Pulse Ox O2 Delivery O2 Flow Rate FiO2 06/03/25 18:58 97.7 86 19 110/79 (89) 96 97.7 06/03/25 18:52 Nasal Cannula 2.0 06/03/25 18:52 28 Physical Exam GENERAL EXAM: General: the patient is well developed and nourished. No acute distress. HEENT: Normocephalic, neck is supple, no carotid bruits. No mass. RESPIRATORY: Normal respiratory effort with symmetrical lung expansion. Lungs clear to auscultation. CARDIOVASCULAR: Regular rate and rhythm with no murmurs. S1, S2. ABDOMEN: Soft, nontender, normal bowel sound NEUROLOGICAL: MENTAL STATUS: Awake and alert. Oriented to person, place, time and general circumstances. Able to give personal history SPEECH, LANGUAGE, HIGHER CORTICAL FUNCTION: no aphasia or dysathria. CRANIAL NERVES: #2: Intact visual iqbal to confrontation. The optic discs were sharp. Retinal background was uniformly pink in appearance. There was no hemorrhages or exudates. #3,4,6: Pupils are equal, round and reactive. EOMs full and conjugate #5: Facial sensation intact in all three divisions bilaterally. Mandibular strength intact. #7: Facial muscles symmetrical and strength intact. #8: Hearing grossly normal to voice. #9,10: Uvula and soft palate rise in the midline. Swallow and voice are normal. #11: Trapezius and sternomastoid strength intact bilaterally. #12: Tongue midline. No fasciculations or atrophy. SENSATION: Sensation to touch and pinprick is normal. MOTOR: Normal tone in the upper and lower extremity. Normal muscle bulk. No fasciculations. No abnormal movements or posturing. Muscle strength of the major groups in the upper extremities is 5/5. Muscle strength of the major groups in the lower extremities is 5/5. REFLEXES: Deep tendon reflexes normal and symmetrical. No pathological reflexes. CEREBELLAR/COORDINATION: Finger to nose and heel to leos are normal bilaterally. GAIT/STATION: deferred Labs/Diagnostic Data Labs Test 06/03/25 17:13 06/03/25 13:45 06/03/25 13:24 Range/Units Troponin I High Sensitivity 7 </=54 ng/L Urine Color Light-yellow Yellow Urine Clarity Clear Clear Urine pH 5.5 5.0-9.0 Urine Specific [place] 1.008 1.001-1.035 Urine Protein Negative Negative Urine Ketones Negative Negative Urine Blood Negative Negative /uL Urine Nitrite Negative Negative Urine Bilirubin Negative Negative Urine Urobilinogen Normal Negative mg/dL Urine Leukocyte Esterase Negative Negative /uL Urine RBC 2 0 - 3 /hpf Urine Microscopic WBC 1 0-3 /HPF Urine Squamous Epithelial Cells None seen <5 /hpf Urine Bacteria None seen None Seen /hpf Urine Glucose Normal Normal mg/dL White Blood Count 9.5 4.4-10.8 10^3/uL Red Blood Count 4.27 L 4.5-5.90 10^6/uL Hemoglobin 14.6 13.5-17.5 g/dL Hematocrit 41.5 41.0-53.0 % Mean Corpuscular Volume 97.2 80.0-100.0 fL Mean Corpuscular Hemoglobin 34.3 H 28.0-32.0 pg Mean Corpuscular Hemoglobin Concent 35.3 32.0-36.0 g/dL Red Cell Distribution Width 15.1 H 11.8-14.3 % Platelet Count 164 140-450 10^3/uL Mean Platelet Volume 7.1 6.9-10.8 fL Neutrophils (%) (Auto) 88.6 H 37.0-80.0 % Lymphocytes (%) (Auto) 9.4 L 10.0-50.0 % Monocytes (%) (Auto) 1.7 0.0-12.0 % Eosinophils (%) (Auto) 0.2 0.0-7.0 % Basophils (%) (Auto) 0.1 0.0-2.0 % Neutrophils # (Auto) 8.4 1.6-8.6 10 ^3/uL Lymphocytes # (Auto) 0.9 0.4-5.4 10 ^3/uL Monocytes # (Auto) 0.2 0-1.3 10 ^3/uL Eosinophils # (Auto) 0 0-0.8 10 ^3/uL Basophils # (Auto) 0 0-0.2 10 ^3/uL Nucleated Red Blood Cells 0.1 % Sodium Level 141 136-145 mmol/L Potassium Level 3.9 3.5-5.1 mmol/L Chloride Level 103 98-107 mmol/L Carbon Dioxide Level 28 20-31 mmol/L Anion Gap 10 5-15 Blood Urea Nitrogen 16 9-23 mg/dL Creatinine 1.26 0.700-1.30 mg/dL Glomerular Filtration Rate Calc 63 >90 mL/min BUN/Creatinine Ratio 12.7 10.0-20.0 Serum Glucose 193 H 74-106 mg/dL Calcium Level 10.2 8.7-10.4 mg/dL B-Type Natriuretic Peptide 14.51 0-100 pg/mL Assessment Respiratory failure Seizure disorder: He has psychogenic seizure Seizure breakthrough Anxiety COPD/respiratory failure Migraine headache Sleep apnea Plan/Recommendation Monitoring Supportive treatment Telemetry Increase Topamax to 100 mg twice daily for migraine headache Ativan for seizure breakthrough Ativan 1 mg p.o. 4 times daily as needed anxiety Zoloft 100 mg daily Buspirone DVT prophylaxis GI prophylaxis PAP in the hospital Prognosis: Poor This medical document was created using an electronic medical record system with [employer] computerized dictation system. Although this document has been carefully reviewed, there may still be some phonetic and typographical errors. These areas are purely typographical due to imperfections of the software programs, and do not reflect any compromise in the patient's medical care Plan discussed with: Patient, Other WENDY LYONS MD Jun 03, 2025 21:47
[2025-06-03] MEDS ORDERED: PATIENTS OWN MEDICATION (Buspirone Hcl 1 TAB) PO SCH (22:00)
[2025-06-03] MEDS ORDERED: LORazepam 0.5 MG TAB PO PRN (22:00)
[2025-06-03] MEDS ORDERED: LORazepam 2MG/ML-1ML VIAL IV PRN (22:00)
[2025-06-03] MEDS: BUDESONIDE (INHALATION) 0.5 MG/2 ML NEB NEB SCH (22:25)
[2025-06-03] MEDS: TOPIRAMATE 25 MG TAB PO SCH (23:16)
[2025-06-03] MEDS: ATORVASTATIN 20 MG TAB PO ONE (23:17)
[2025-06-04] VITALS (22 sets, daily range): BP systolic 90–115; BP diastolic 58–74; PULSE 73–105; RESP 17–26; TEMP 97.6–98.3; O2SAT 90–100
--- NOTE | 2025-06-04 01:50 | ECG ---
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
[2025-06-04] MEDS: ALBUTEROL SULF 2.5 MG/0.5ML(0.5%) NEB SOLN NEB ONE (05:51)
[2025-06-04 08:05] LABS: Anion Gap 9 (5-15); Chloride 104 mmol/L (98-107); Sodium 144 mmol/L (136-145)
[2025-06-04 08:06] LABS: Calcium 10.0 mg/dL (8.7-10.4)
[2025-06-04 08:07] LABS: Hemoglobin 13.4 g/dL (13.5-17.5)
[2025-06-04 08:09] LABS: Hematocrit 36.7 % (41.0-53.0); Mean Corpuscular Hemoglobin 35.0 pg (28.0-32.0); Mean Corpuscular Volume 95.6 fL (80.0-100.0); Nucleated Red Blood Cells % 0.0 %
[2025-06-04 08:11] LABS: BUN/Creatinine Ratio 15.5 (10.0-20.0); Blood Urea Nitrogen 17 mg/dL (9-23); Carbon Dioxide 31 mmol/L (20-31); Glucose 86 mg/dL (74-106); Potassium 3.4 mmol/L (3.5-5.1)
[2025-06-04] MEDS: SERTRALINE HCL 50 MG TAB PO SCH (09:09)
[2025-06-04] MEDS: CLOPIDOGREL BISULFATE 75 MG TAB PO SCH (09:11)
[2025-06-04] MEDS: ENOXAPARIN SOD 30 MG/0.3 ML SYRINGE SC SCH (09:13)
[2025-06-04] MEDS: HYDROcodone-ACET 5/325MG TAB PO PRN (09:34)
[2025-06-04] MEDS: FUROSEMIDE 20 MG TAB PO SCH (09:36)
[2025-06-04] MEDS ORDERED: PATIENTS OWN MEDICATION (Atorvastatin Calcium (Lipitor) 1 TAB) PO SCH (10:00)
--- NOTE | 2025-06-04 11:40 | DVHSR ---
APPROVED REPORT EXAM: Two-dimensional and M-mode echocardiogram with Doppler and color Doppler. Blood Pressure: 93/68 mmHg INDICATION PMHX RISK FACTORS Height: 70, Weight: 205 DIMENSIONS LVDd4.3 (3.8-5.7cm)LA (2D) (1.9-4.0cm)Aortic Root4.2 (2.0-3.7cm) LVDs2.9 (2.5-4.0cm)LA (MM) (1.9-4.0cm)Aortic Cusp Exc1.9 (1.5-2.0cm) EF (%) 60.0 (55-70%)Rt. Atrium (1.9-4.0cm)Asc. Aorta cm IVSd1.1 (0.7-1.1cm)RV (D) (1.8-2.4cm) PWd1.0 (0.7-1.1cm) Mitral Valve MitralMitral Stenosis E/A ratio0.02D MVAcm2 Aortic Valve Aortic ValveAortic Stenosis LVOT Diameter2.1 (1.8-2.4cm)Doppler AVAcm2 Pulmonic Valve V20.89m/s Other Information Technically limited study due to body habitus. Conclusion Left ventricle: Mild concentric left ventricular hypertrophy was seen. LVEF is around 60%. There w as no gross wall motion abnormality. Right ventricle was normal sized with normal systolic function. Both atria were normal sized. Aortic valve was not well visualized. There was no aortic insufficiency/stenosis. There was trace m itral regurgitation. There was no tricuspid regurgitation. Pulmonary valve was not well visualized. As there was no good tricuspid regurgitation jet, right ventricular systolic pressure could not be es timated. There was no pericardial effusion.
--- NOTE | 2025-06-04 11:47 | DVHPN2 ---
Progress Note - Dictate Date Seen: Jun 04, 2025 Medical Necessity Reason Pt with a Central, PICC or Fol: No vital signs Vital Sign Date Time Temp Pulse Resp B/P (MAP) Pulse Ox O2 Delivery O2 Flow Rate FiO2 06/04/25 09:46 76 26 100 06/04/25 09:40 Nasal Cannula* 3 32 06/04/25 09:36 105/61 06/04/25 09:00 97.8 97.8 Total Intake and Output 06/03/25 06/03/25 06/04/25 15:00 23:00 07:00 Intake Total 480 ml 1075 ml Output Total 0 ml Balance 480 ml 1075 ml medications Current Medications Medications Dose Ordered Sig/Ormina Route Start Time Stop Time Status Last Admin Dose Admin Acetaminophen/ Hydrocodone Bitart 1 tab Q4HP PRN PO 06/03/25 15:00 06/04/25 09:34 1 TAB Enoxaparin Sodium 30 mg DAILY SC 06/04/25 10:00 06/04/25 09:13 30 MG Nitroglycerin 0.4 mg Q5MINP PRN SL 06/03/25 15:00 Morphine Sulfate 2 mg Q30M PRN IV 06/03/25 15:00 Albuterol 2.5 mg Q4HWA NEB 06/03/25 18:00 06/04/25 09:40 2.5 MG Budesonide 0.5 mg BID NEB 06/03/25 22:00 06/04/25 05:51 0.5 MG Baclofen 10 mg BIDPRN PO 06/03/25 22:00 06/04/25 09:11 10 MG Clopidogrel Bisulfate 75 mg DAILY PO 06/04/25 10:00 06/04/25 09:11 75 MG Furosemide 20 mg DAILY PO 06/04/25 10:00 06/04/25 09:36 20 MG Sertraline HCl 100 mg DAILY PO 06/04/25 10:00 06/04/25 09:09 100 MG Tamsulosin HCl 0.4 mg QPM PO 06/04/25 18:00 Topiramate 75 mg BID PO 06/03/25 22:00 06/04/25 09:08 75 MG Patient Own Medication 500 mcg DAILY PO 06/04/25 10:00 Lorazepam 1 mg Q5MINP PRN IV 06/03/25 22:00 Lorazepam 1 mg Q6HP PRN PO 06/03/25 22:00 Atorvastatin Calcium 80 mg HS PO 06/04/25 22:00 Buspirone HCl 15 mg BID PO 06/04/25 10:00 06/04/25 09:09 15 MG laboratory and microbiology Laboratory Tests 06/04/25 06:30 Test 06/04/25 06:30 Range/Units Serum Glucose 86 # 74-106 mg/dL Assessment/Plan Patient is a 64-year-old gentleman who was sent to the hospital for repeated loss of consciousness. He was seen in our cardiology office as outpatient earlier before coming to the hospital. While in the office and in waiting room, patient had repeated presyncopal episodes. He was caught before falling to the ground. Loss of consciousness was not accompanied with any major loss of composure. Presentation questioned Petit Mal. It is of note that the patient became significantly more short of breath than baseline during the episodes. It is of note that the patient does have baseline chronic respiratory failure and is on chronic oxygen supplementation. He usually goes to pulmonary (Dr. Melendez). He was recently started on a new medication by Pulmonary (Dupixent). Patient also complains of more than usual headaches and some chest discomforts for the past few days. Mentions that he is compliant with his medications. He does have history of baseline advanced COPD and alpha-1 antitrypsin deficiency. Neotsu and wet mucosa, no goiter, no carotid bruit. Chest: Poor air entry with positive rhonchi, cardiac: Distant sounds, no thrill/gallop/murmur. Abdomen: Soft, positive bowel sounds, no gross mass. Extremities: No edema. Dorsalis pedis 2+ bilateral. Past medical history includes hypertension, hyperlipidemia, diabetes mellitus, depression/anxiety disorder, GERD, advanced COPD (on chronic oxygen supplementation), chronic respiratory failure, history of alpha 1 antitrypsin deficiency, coronary artery disease (status post multiple PCI many years ago), diastolic congestive heart failure, anemia and seizure disorder. He is on 24 hour oxygen supplementation. His history also includes psychogenic seizures. Echocardiogram on May 2021 had reported ejection fraction of 40% Echocardiogram of September 21, 2021 revealed: Technically limited study secondary to poor acoustic windows. Left ventricle: Left ventricle is normal sized. LVEF was assessed at 50-55%. Right ventricle was normal size with normal systolic function. Left and right atrium were normal size. Aortic valve was not well visualized. There was no gross aortic insufficiency/stenosis. Mitral valve: Trivial mitral regurgitation. Tricuspid valve had grossly normal anatomy. Pulmonary valve was not well visualized Echocardiogram of June 23, 2022 revealed ejection fraction of 50 to 55%, mild MR/TR Echocardiogram of June 04, 2023 revealed ejection fraction of 65%, dilated right-sided chambers Echocardiogram of September 18, 2023 revealed ejection fraction of 55% and normal- sized right-sided chambers Echocardiogram of January 14, 2024 revealed ejection fraction of 50%, no wall motion abnormality, mild MR/TR and right ventricular systolic pressure of 25 mmHg Echocardiogram of February 15, 2025 (performed in the office) revealed ejection fraction of 60-65%, trace MR/TR, right ventricular systolic pressure of less than 35, right-sided chambers were normal-sized with normal systolic function Nuclear stress test of June 30, 2024 (performed in the office) revealed fixed defect, no ischemia and ejection fraction of 63%. Left heart catheterization of July 2022 (performed in [facility] had revealed patent stents in LAD and RCA. LCX was small-caliber vessel. Creatinine: 1.26 - 1.10 Potassium: 3.9 - 3.4 Trop (high sensitive): 8 - 7 - 8 BNP: 14.51 CT of the head revealed: IMPRESSION: No acute intracranial process. Chest xry reported: IMPRESSION: 1. No acute cardiopulmonary disease. No change from 03/29/2024. 2. Port-A-Cath in place unchanged. Echocardiogram revealed: Left ventricle: Mild concentric left ventricular hypertrophy was seen. LVEF is around 60%. There was no gross wall motion abnormality. Right ventricle was normal sized with normal systolic function. Both atria were normal sized. Aortic valve was not well visualized. There was no aortic insufficiency/stenosis. There was trace mitral regurgitation. There was no tricuspid regurgitation. Pulmonary valve was not well visualized. As there was no good tricuspid regurgitation jet, right ventricular systolic pressure could not be estimated. There was no pericardial effusion. Patient is a 64-year-old gentleman who presented with repeated loss of consciousness/presyncope/questionable Petit mal. He also had significant shortness of breath prior to presentation. Does have baseline history of chronic respiratory failure and is usually on 24 hour oxygen supplementation. He has history also includes advanced COPD/emphysema secondary to alpha-1 antitrypsin deficiency. Usually follows with Pulmonary who has recently started the patient on a new medicine (Dupixent). Could the presentation be a side effect secondary to Dupixent? Few days prior to presentation patient started to have more chest discomfort and headaches. Presentation is less likely cardiac. Still, the patient does have baseline history of coronary artery disease and has had multiple stents before. Serial high sensitive trop has been negative. Last nuclear stress test of June 2024 brief only revealed fixed defects and there was no ischemia. Being followed by Neurology and Pulmonary. Loss of consciousness Presyncope Seizures, history of Breakthrough seizure, less likely Acute on chronic respiratory failure COPD exacerbation History of alpha-1 antitrypsin deficiency Diabetes mellitus Hypertension Hyperlipidemia Diastolic heart failure, history of Seizure disorder, psychogenic Suggestion for management: Manage on telemetry floor Follow-up electrolytes and kidney function test and correct abnormalities. Keep potassium above 4 magnesium above 2 TSH EKG Ranolazine at 500 twice daily Evaluation and management of seizures as per Neurology Neurology follow up Pulmonary follow up Further evaluation and management depends on the above and clinical course A total of 55 minutes was spent reviewing the patient record, examining the patient, making a diagnostic and therapeutic plan, discussing this plan with medical personnel, following up on diagnostic studies and following the patient for clinical stability excluding any and all procedures. At least 50% of this time was spent in direct, [id number] contact. Thank you for allowing me to participate in this patient's care. Further recommendations will depend on patient's clinical course. Please do not hesitate to contact me if you have any questions or concerns. This medical document was created using electronic medical record system with [employer] computerized dictation system. Although this document has been carefully reviewed, there may still be some phonetic and typographical errors. These areas are purely typographical due to the imperfection of the software programs, and do not reflect any compromise in the patient's medical care. Plan discussed with: Patient, Other (nurse) DEVORAH WALLACE MD Jun 04, 2025 11:47
[2025-06-04] MEDS: POTASSIUM EFFERVESENT TAB 25 MEQ PO ONE (13:15)
[2025-06-04] MEDS: DOXYCYCLINE 100MG/100ML 100 ML IV SCH (13:46)
--- NOTE | 2025-06-04 14:41 | DVHPN2 ---
Progress Note Date Seen: Jun 04, 2025 Medical Necessity Reason Pt with a Central, PICC or Fol: No Subjective Review of Systems: CVS:Normal, RESPIRATORY:Normal, GI:Normal, NEURO:Normal Objective vital signs Vital Sign Date Time Temp Pulse Resp B/P (MAP) Pulse Ox O2 Delivery O2 Flow Rate FiO2 06/04/25 13:56 82 18 100 06/04/25 13:50 Nasal Cannula 3.0 06/04/25 13:50 32 06/04/25 09:36 105/61 06/04/25 09:00 97.8 97.8 Total Intake and Output 06/03/25 06/03/25 06/04/25 15:00 23:00 07:00 Intake Total 480 ml 1075 ml Output Total 0 ml Balance 480 ml 1075 ml medications Current Medications Medications Dose Ordered Sig/Romina Route Start Time Stop Time Status Last Admin Dose Admin Acetaminophen/ Hydrocodone Bitart 1 tab Q4HP PRN PO 06/03/25 15:00 06/04/25 09:34 1 TAB Enoxaparin Sodium 30 mg DAILY SC 06/04/25 10:00 06/04/25 09:13 30 MG Nitroglycerin 0.4 mg Q5MINP PRN SL 06/03/25 15:00 Morphine Sulfate 2 mg Q30M PRN IV 06/03/25 15:00 Albuterol 2.5 mg Q4HWA NEB 06/03/25 18:00 06/04/25 13:50 2.5 MG Budesonide 0.5 mg BID NEB 06/03/25 22:00 06/04/25 05:51 0.5 MG Baclofen 10 mg BIDPRN PO 06/03/25 22:00 06/04/25 09:11 10 MG Clopidogrel Bisulfate 75 mg DAILY PO 06/04/25 10:00 06/04/25 09:11 75 MG Furosemide 20 mg DAILY PO 06/04/25 10:00 06/04/25 09:36 20 MG Sertraline HCl 100 mg DAILY PO 06/04/25 10:00 06/04/25 09:09 100 MG Tamsulosin HCl 0.4 mg QPM PO 06/04/25 18:00 Topiramate 75 mg BID PO 06/03/25 22:00 06/04/25 09:08 75 MG Patient Own Medication 500 mcg DAILY PO 06/04/25 10:00 Lorazepam 1 mg Q5MINP PRN IV 06/03/25 22:00 Lorazepam 1 mg Q6HP PRN PO 06/03/25 22:00 Atorvastatin Calcium 80 mg HS PO 06/04/25 22:00 Buspirone HCl 15 mg BID PO 06/04/25 10:00 06/04/25 09:09 15 MG Ranolazine 500 mg BID PO 06/04/25 22:00 Prednisone 20 mg DAILY PO 06/05/25 10:00 Doxycycline Hyclate 100 ml @ 50 mls/hr Q12H IV 06/04/25 13:15 06/04/25 13:46 50 MLS/HR Examination: GENERAL:Normal, LUNGS:Normal, CVS:Normal, SKIN:Normal, NEURO:Normal laboratory and microbiology Laboratory Tests 06/04/25 06:30 Test 06/04/25 06:30 Range/Units Serum Glucose 86 # 74-106 mg/dL Labs and/or images reviewed: Labs reviewed by me, Image(s) reviewed by me Problem List/Assessment/Plan Problem List/Assessment/Plan 1. Loss of consciousness possibly Seizures which are likely psychogenic Neurology consult, continue seizure medication 2. COPD exacerbation Med neb treatments, pulmonary consult 3. GERD Continue Protonix 4. DM II with hyperglycemia Insulin sliding scale 5. End-stage COPD 6. Acute on chronic respiratory failure due to COPD exacerbation 7. History of alpha one antitrypsin deficiency 8. Hypertension Continue home meds 9. Hyperlipidemia Monitor, continue home meds 10. Chronic diastolic heart failure Cardiology consult, continue home meds Subjective: awake and alert Objective: Patient was sent by his solderer furnace Dr. Mcdonald to the hospital. Apparently patient was having brief episodes of loss of consciousness in the waiting room. Patient does have underlying history of seizures which are likely psychogenic. Patient is compliant with medications. Unclear if loss of consciousness was due to seizure-like activity. Neurologist was consulted and adjusted medication. Patient is also reporting increased shortness of breath. Patient has history of alpha one antitrypsin deficiency and end-stage COPD. Patient is on chronic home O2 use at 2 L. patient was started on med neb treatments and IV doxycycline. Plan: Continue with med neb treatments, IV antibiotics, cardiac consult appreciated, neurology consult appreciated, continue with current treatment Plan discussed with: Patient My Orders My Orders Orders - JENISE CRAMER Procedure Category Date Status Time Admit ADMIT 06/03/25 Transmitted 14:55 Allergies AMADA 06/03/25 In Process 14:55 Code Status CODE 06/03/25 Transmitted 14:55 2 Gm Sodium Diet DIET 06/03/25 Transmitted Dinner Hydrocodone-Acet PHA 06/03/25 In Process 5/325mg Tab ([place]graws 15:00 Condition: Fair AMADA 06/03/25 In Process 14:55 Enoxaparin Sodium PHA 06/04/25 In Process (Lovenox) 10:00 Nitroglycerin PHA 06/03/25 In Process Sublingual (Ntrostat 15:00 Morphine Sulfate PHA 06/03/25 In Process Injection 15:00 Stat Ekg For Chest AMADA 06/03/25 In Process Pain 14:55 Notify Of Changes AMADA 06/03/25 In Process From Base 14:55 Application Manager For AMADA 06/03/25 In Process 24 Hours 14:55 Emergency Dysrhythmia AMADA 06/03/25 In Process Protocol 14:55 Rhythm Strips Once AMADA 06/03/25 In Process Every Shift 14:55 Oxygen By Nasal RT 06/03/25 Transmitted Cannula 14:55 Albuterol Medneb PHA 06/03/25 In Process (Ventolin Medneb) 18:00 Budesonide PHA 06/03/25 In Process (Inhalation) 22:00 Baclofen Tablet PHA 06/03/25 In Process (Liorisal Tablet) 22:00 Clopidogrel Bisulfate PHA 06/04/25 In Process (Plavix) 10:00 Furosemide Tablet PHA 06/04/25 In Process (Lasix Tablet) 10:00 Sertraline Hcl PHA 06/04/25 In Process (Zoloft) 10:00 Tamsulosin PHA 06/04/25 In Process Hydrochloride (Flomax) 18:00 Topiramate (Topamax) PHA 06/03/25 In Process 22:00 (Nf) Roflumilast PHA 06/04/25 In Process (Daliresp) 10:00 *Consult Dr. Westbrook CONS 06/03/25 Transmitted Harry 14:59 *Consult Dr. Delacruz CONS 06/03/25 Transmitted Jonathan 14:59 *Consult CONS 06/03/25 Transmitted / 14:59 Bipap/Cpap For Sleep RT 06/03/25 Logged Apnea 23:05 * Wound Consult CONS 06/04/25 Transmitted Prednisone Tablet PHA 06/05/25 In Process 10:00 Doxycycline PHA 06/04/25 In Process 100mg/100ml 13:15 Cleanse Wound With AMADA 06/04/25 In Process Wound Clean 14:23 * Dietary Consult CONS 06/04/25 Transmitted 14:26 Date of Service: Jun 04, 2025 Billing Provider: DON TAMEZ MD Common Visit Codes: [id number] INP/OBS CARE (MOD) JENISE CRAMER TRADER Jun 04, 2025 14:41
[2025-06-04] MEDS: TAMSULOSIN HYDROCHLORIDE 0.4 MG CAP PO SCH (18:13)
[2025-06-04] MEDS: RANOLAZINE ER 500 MG TAB PO SCH (21:33)
[2025-06-04] MEDS: ATORVASTATIN 20 MG TAB PO SCH (21:34)
--- NOTE | 2025-06-04 22:43 | DVHPN2 ---
Progress Note - Dictate Date Seen: Jun 04, 2025 Medical Necessity Reason Pt with a Central, PICC or Fol: No Subjective Mr. Beltre is a 64 years old gentleman with a history of COPD, alpha-1 antitrypsin deficiency, anxiety, migraine headache, traumatic brain injury, sleep apnea, the patient came to the hospital on 06/03/25 with a chief complaint of seizure activity. I saw him on 09/08/2015, 10/03/2015, 02/2016, 05/31/17, 07/09/17, 08/17/17, 11/25/2018, 02/23/2021 (atypical features), 06/06/2021, 09/21/2021, 01/09/22, 05/03/2022, 06/24/2022, 05/31/2023, 09/17/2023, 01/14/2024, 03/31/[address] Ramirez saw him in 10/2016, 11/2016, for seizure. I have seen and examined the patient, I have talked to his nurseRiki's input appreciated Urinalysis, 06/03/2025: Unremarkable CBC, 06/03/2025: Unremarkable BMP 06/03/2025: Unremarkable TG/CHO L/LDL/HDL, 09/2023: 115/163/100/45 Vitamin B12, 09/2023: 547 TSH, 09/17/2023: 0.17 CT head, 06/03/2025:No acute intracranial process MRI head, 08/14/2023: No acute abnormal MRI findings of the brain. vital signs Vital Sign Date Time Temp Pulse Resp B/P (MAP) Pulse Ox O2 Delivery O2 Flow Rate FiO2 06/04/25 22:05 105 20 100 06/04/25 21:59 Facial BiPAP Mask 35 06/04/25 21:00 97.9 115/74 (88) 97.9 06/04/25 19:57 3 Total Intake and Output 06/03/25 06/03/25 06/04/25 15:00 23:00 07:00 Intake Total 480 ml 1075 ml Output Total 0 ml Balance 480 ml 1075 ml medications Current Medications Medications Dose Ordered Sig/Romina Route Start Time Stop Time Status Last Admin Dose Admin Acetaminophen/ Hydrocodone Bitart 1 tab Q4HP PRN PO 06/03/25 15:00 06/04/25 20:32 1 TAB Enoxaparin Sodium 30 mg DAILY SC 06/04/25 10:00 06/04/25 09:13 30 MG Nitroglycerin 0.4 mg Q5MINP PRN SL 06/03/25 15:00 Morphine Sulfate 2 mg Q30M PRN IV 06/03/25 15:00 Albuterol 2.5 mg Q4HWA NEB 06/03/25 18:00 06/04/25 21:58 2.5 MG Budesonide 0.5 mg BID NEB 06/03/25 22:00 06/04/25 21:58 0.5 MG Baclofen 10 mg BIDPRN PO 06/03/25 22:00 06/04/25 21:33 10 MG Clopidogrel Bisulfate 75 mg DAILY PO 06/04/25 10:00 06/04/25 09:11 75 MG Furosemide 20 mg DAILY PO 06/04/25 10:00 06/04/25 09:36 20 MG Sertraline HCl 100 mg DAILY PO 06/04/25 10:00 06/04/25 09:09 100 MG Tamsulosin HCl 0.4 mg QPM PO 06/04/25 18:00 06/04/25 18:13 0.4 MG Topiramate 75 mg BID PO 06/03/25 22:00 06/04/25 21:39 75 MG Patient Own Medication 500 mcg DAILY PO 06/04/25 10:00 Lorazepam 1 mg Q5MINP PRN IV 06/03/25 22:00 Lorazepam 1 mg Q6HP PRN PO 06/03/25 22:00 Atorvastatin Calcium 80 mg HS PO 06/04/25 22:00 06/04/25 21:34 80 MG Buspirone HCl 15 mg BID PO 06/04/25 10:00 06/04/25 21:33 15 MG Ranolazine 500 mg BID PO 06/04/25 22:00 06/04/25 21:33 500 MG Prednisone 20 mg DAILY PO 06/05/25 10:00 Doxycycline Hyclate 100 ml @ 50 mls/hr Q12H IV 06/04/25 13:15 06/04/25 13:46 50 MLS/HR objective General: the patient is well developed and nourished. No acute distress. MENTAL STATUS: Awake and alert. Oriented to person, place, time and general circumstances. Able to give personal history SPEECH, LANGUAGE, HIGHER CORTICAL FUNCTION: no aphasia or dysathria. CRANIAL NERVES: Pupils are equal, round and reactive. EOMs full and conjugate Facial sensation intact in all three divisions bilaterally. Mandibular strength intact. Facial muscles symmetrical and strength intact. SENSATION: Sensation to touch and pinprick is normal. MOTOR: Normal tone in the upper and lower extremity. Normal muscle bulk. No fasciculations. No abnormal movements or posturing. Muscle strength of the major groups in the extremities is 5/5. REFLEXES: Deep tendon reflexes normal and symmetrical. No pathological reflexes. CEREBELLAR/COORDINATION: Finger to nose and heel to leos are normal bilaterally. GAIT/STATION: deferred laboratory and microbiology Laboratory Tests 06/04/25 06:30 Test 06/04/25 06:30 Range/Units Serum Glucose 86 # 74-106 mg/dL Problem List Respiratory failure Seizure disorder: He has psychogenic seizure Seizure breakthrough Anxiety COPD/respiratory failure Migraine headache Sleep apnea Assessment/Plan Monitoring Supportive treatment Telemetry Increase Topamax to 100 mg twice daily for migraine headache Ativan for seizure breakthrough Ativan 1 mg p.o. 4 times daily as needed anxiety Zoloft 100 mg daily Buspirone DVT prophylaxis GI prophylaxis PAP in the hospital Okay to discharge from a neurologic point of view This medical document was created using an electronic medical record system with [employer] dictation system. Although this document has been carefully reviewed, there may still be some phonetic and typographical errors. These areas are purely typographical due to imperfections of the software programs, and do not reflect any compromise in the patient's medical care Prognosis poor Dietary Evaluation Review Comments: 1) Felix 1 pk BID 2) CCHO 60gm + cardiac diet 3) Refer [facility] for diabetes education Expected Outcomes/Goals: To meet >75% estimated needs Wound to improve Fu 3-5 days Plan discussed with: Other WENDY LYONS MD Jun 04, 2025 22:43
--- NOTE | 2025-06-04 23:22 | DVHPN2 ---
Progress Note - Dictate Date Seen: Jun 04, 2025 Medical Necessity Reason Pt with a Central, PICC or Fol: No Subjective Patient seen and examined at bedside. Remains on supplemental oxygen Overnight events reviewed. vital signs Vital Sign Date Time Temp Pulse Resp B/P (MAP) Pulse Ox O2 Delivery O2 Flow Rate FiO2 06/04/25 22:05 105 20 100 06/04/25 21:59 Facial BiPAP Mask 35 06/04/25 21:00 97.9 115/74 (88) 97.9 06/04/25 19:57 3 Total Intake and Output 06/03/25 06/03/25 06/04/25 15:00 23:00 07:00 Intake Total 480 ml 1075 ml Output Total 0 ml Balance 480 ml 1075 ml medications Current Medications Medications Dose Ordered Sig/Romina Route Start Time Stop Time Status Last Admin Dose Admin Acetaminophen/ Hydrocodone Bitart 1 tab Q4HP PRN PO 06/03/25 15:00 06/04/25 20:32 1 TAB Enoxaparin Sodium 30 mg DAILY SC 06/04/25 10:00 06/04/25 09:13 30 MG Nitroglycerin 0.4 mg Q5MINP PRN SL 06/03/25 15:00 Morphine Sulfate 2 mg Q30M PRN IV 06/03/25 15:00 Albuterol 2.5 mg Q4HWA NEB 06/03/25 18:00 06/04/25 21:58 2.5 MG Budesonide 0.5 mg BID NEB 06/03/25 22:00 06/04/25 21:58 0.5 MG Baclofen 10 mg BIDPRN PO 06/03/25 22:00 06/04/25 21:33 10 MG Clopidogrel Bisulfate 75 mg DAILY PO 06/04/25 10:00 06/04/25 09:11 75 MG Furosemide 20 mg DAILY PO 06/04/25 10:00 06/04/25 09:36 20 MG Sertraline HCl 100 mg DAILY PO 06/04/25 10:00 06/04/25 09:09 100 MG Tamsulosin HCl 0.4 mg QPM PO 06/04/25 18:00 06/04/25 18:13 0.4 MG Topiramate 75 mg BID PO 06/03/25 22:00 06/04/25 21:39 75 MG Patient Own Medication 500 mcg DAILY PO 06/04/25 10:00 Lorazepam 1 mg Q5MINP PRN IV 06/03/25 22:00 Lorazepam 1 mg Q6HP PRN PO 06/03/25 22:00 Atorvastatin Calcium 80 mg HS PO 06/04/25 22:00 06/04/25 21:34 80 MG Buspirone HCl 15 mg BID PO 06/04/25 10:00 06/04/25 21:33 15 MG Ranolazine 500 mg BID PO 06/04/25 22:00 06/04/25 21:33 500 MG Prednisone 20 mg DAILY PO 06/05/25 10:00 Doxycycline Hyclate 100 ml @ 50 mls/hr Q12H IV 06/04/25 13:15 06/04/25 13:46 50 MLS/HR objective Gen.: Patient lying in bed in no apparent distress. On supplemental oxygen. Head: Normocephalic, atraumatic. Eyes: EOMI/PERRLA. Ears: Normal hearing. Normal anatomy. Neck/trachea: Trachea midline, supple. Nose: Normal external anatomy. Mouth: Moist mucous membranes. Chest: Decreased air entry bilaterally. No wheezing or rhonchi. Cardiovascular: Positive S1, positive S2. Regular rate and rhythm. Abdomen: Positive bowel sounds in all 4 quadrants. Soft, non-tender, non- distended. : Deferred. Rectal: Deferred. Skin: Warm, dry. Intact. Extremities: 2+ radial pulses bilaterally. No lower extremity edema. Neuro: Awake, alert, oriented x3. No gross motor or sensory deficits. Cranial nerves II through XII intact. Gait not assessed. laboratory and microbiology Laboratory Tests 06/04/25 06:30 Test 06/04/25 06:30 Range/Units Serum Glucose 86 # 74-106 mg/dL Assessment/Plan Impression: Acute on chronic hypoxic respiratory failure Dependence on supplemental oxygen Acute exacerbation of COPD Chronic obstructive pulmonary disease 2/2 A1AT deficiency Diastolic congestive heart failure Alpha-1 antitrypsin deficiency Syncope Hx of seizures Hx of nicotine dependence Obesity Events: Remains on supplemental oxygen, 3 LPM NC Taper O2 as tolerated Dupixent likely not cause of patient's symptoms. Review for medication interactions. Patient with hx of seizures. Continue bronchodilators Start Pulmicort BID. No wheezing, can de-escalate steroids. Follow up Cardiology recommendations CXR from 06/03/25 revealed no acute disease. Labs and imaging reviewed. Rest of plan as noted below Plan: Supplemental oxygen Titrate to keep O2 sats above 92%. Continue bronchodilators. Continue steroids Cardiology recommendations appreciated. Patient received Dupixent on Friday He has been having dizziness for several days prior to Dupixent. Maintain euvolemia Monitor renal function. Monitor electrolytes. Supplement as necessary. Monitor ins and outs. Diet and lifestyle modifications for weight reduction Obesity - complicates all care DVT prophylaxis. Prognosis: Poor given patient's multiple co-morbidities. Rest of plan per hospitalist and other consultants. Thank you, MICHELLE Dutton, for allowing me to participate in this patient's care. Further recommendations will depend on the patient's clinical course. Please do not hesitate to contact me if you have any questions or concerns. This medical document was created using an electronic medical record system with [employer] dictation system. Although these documentations are being carefully reviewed, there may still be some phonetic and typographical changes. The errors are purely typographical, due to imperfection on the software program, and do not reflect any compromise in the patient's medical care. Dietary Evaluation Review Comments: 1) Felix 1 pk BID 2) CCHO 60gm + cardiac diet 3) Refer Addictions Counselor Assistant for diabetes education Expected Outcomes/Goals: To meet >75% estimated needs Wound to improve Fu 3-5 days Plan discussed with: Patient, Other (SHAGUFTA Malave) QUINTEN TOBIAS MD Jun 04, 2025 23:22
[2025-06-05] VITALS (17 sets, daily range): BP systolic 101–125; BP diastolic 61–79; PULSE 70–104; RESP 16–19; TEMP 97.6–98.3; O2SAT 96–100
--- NOTE | 2025-06-05 08:40 | DVHPN2 ---
Progress Note - Dictate Date Seen: Jun 05, 2025 Medical Necessity Reason Pt with a Central, PICC or Fol: No vital signs Vital Sign Date Time Temp Pulse Resp B/P (MAP) Pulse Ox O2 Delivery O2 Flow Rate FiO2 06/05/25 06:24 74 98 Facial BiPAP Mask 35 06/05/25 05:00 97.7 18 108/66 (80) 97.7 06/04/25 20:00 3 Total Intake and Output 06/04/25 06/04/25 06/05/25 15:00 23:00 07:00 Intake Total 1000 ml 550 ml Output Total 1100 ml 1200 ml Balance -100 ml -650 ml medications Current Medications Medications Dose Ordered Sig/Romina Route Start Time Stop Time Status Last Admin Dose Admin Acetaminophen/ Hydrocodone Bitart 1 tab Q4HP PRN PO 06/03/25 15:00 06/04/25 20:32 1 TAB Enoxaparin Sodium 30 mg DAILY SC 06/04/25 10:00 06/04/25 09:13 30 MG Nitroglycerin 0.4 mg Q5MINP PRN SL 06/03/25 15:00 Morphine Sulfate 2 mg Q30M PRN IV 06/03/25 15:00 Albuterol 2.5 mg Q4HWA NEB 06/03/25 18:00 06/05/25 06:25 2.5 MG Budesonide 0.5 mg BID NEB 06/03/25 22:00 06/05/25 06:25 0.5 MG Baclofen 10 mg BIDPRN PO 06/03/25 22:00 06/04/25 21:33 10 MG Clopidogrel Bisulfate 75 mg DAILY PO 06/04/25 10:00 06/04/25 09:11 75 MG Furosemide 20 mg DAILY PO 06/04/25 10:00 06/04/25 09:36 20 MG Sertraline HCl 100 mg DAILY PO 06/04/25 10:00 06/04/25 09:09 100 MG Tamsulosin HCl 0.4 mg QPM PO 06/04/25 18:00 06/04/25 18:13 0.4 MG Topiramate 75 mg BID PO 06/03/25 22:00 06/04/25 21:39 75 MG Patient Own Medication 500 mcg DAILY PO 06/04/25 10:00 Lorazepam 1 mg Q5MINP PRN IV 06/03/25 22:00 Lorazepam 1 mg Q6HP PRN PO 06/03/25 22:00 Atorvastatin Calcium 80 mg HS PO 06/04/25 22:00 06/04/25 21:34 80 MG Buspirone HCl 15 mg BID PO 06/04/25 10:00 06/04/25 21:33 15 MG Ranolazine 500 mg BID PO 06/04/25 22:00 06/04/25 21:33 500 MG Prednisone 20 mg DAILY PO 06/05/25 10:00 Doxycycline Hyclate 100 ml @ 50 mls/hr Q12H IV 06/04/25 13:15 06/05/25 01:15 50 MLS/HR laboratory and microbiology Laboratory Tests 06/04/25 06:30 Test 06/04/25 06:30 Range/Units Serum Glucose 86 # 74-106 mg/dL Assessment/Plan Patient is a 64-year-old gentleman who was sent to the hospital for repeated loss of consciousness. He was seen in our cardiology office as outpatient earlier before coming to the hospital. While in the office and in waiting room, patient had repeated presyncopal episodes. He was caught before falling to the ground. Loss of consciousness was not accompanied with any major loss of composure. Presentation questioned Petit Mal. It is of note that the patient became significantly more short of breath than baseline during the episodes. It is of note that the patient does have baseline chronic respiratory failure and is on chronic oxygen supplementation. He usually goes to pulmonary (Dr. Melendez). He was recently started on a new medication by Pulmonary (Dupixent). Patient also complains of more than usual headaches and some chest discomforts for the past few days. Mentions that he is compliant with his medications. He does have history of baseline advanced COPD and alpha-1 antitrypsin deficiency. Nicholson and wet mucosa, no goiter, no carotid bruit. Chest: Poor air entry with positive rhonchi, cardiac: Distant sounds, no thrill/gallop/murmur. Abdomen: Soft, positive bowel sounds, no gross mass. Extremities: No edema. Dorsalis pedis 2+ bilateral. Past medical history includes hypertension, hyperlipidemia, diabetes mellitus, depression/anxiety disorder, GERD, advanced COPD (on chronic oxygen supplementation), chronic respiratory failure, history of alpha 1 antitrypsin deficiency, coronary artery disease (status post multiple PCI many years ago), diastolic congestive heart failure, anemia and seizure disorder. He is on 24 hour oxygen supplementation. His history also includes psychogenic seizures. Echocardiogram on May 2021 had reported ejection fraction of 40% Echocardiogram of September 21, 2021 revealed: Technically limited study secondary to poor acoustic windows. Left ventricle: Left ventricle is normal sized. LVEF was assessed at 50-55%. Right ventricle was normal size with normal systolic function. Left and right atrium were normal size. Aortic valve was not well visualized. There was no gross aortic insufficiency/stenosis. Mitral valve: Trivial mitral regurgitation. Tricuspid valve had grossly normal anatomy. Pulmonary valve was not well visualized Echocardiogram of June 23, 2022 revealed ejection fraction of 50 to 55%, mild MR/TR Echocardiogram of June 04, 2023 revealed ejection fraction of 65%, dilated right-sided chambers Echocardiogram of September 18, 2023 revealed ejection fraction of 55% and normal- sized right-sided chambers Echocardiogram of January 14, 2024 revealed ejection fraction of 50%, no wall motion abnormality, mild MR/TR and right ventricular systolic pressure of 25 mmHg Echocardiogram of February 15, 2025 (performed in the office) revealed ejection fraction of 60-65%, trace MR/TR, right ventricular systolic pressure of less than 35, right-sided chambers were normal-sized with normal systolic function Nuclear stress test of June 30, 2024 (performed in the office) revealed fixed defect, no ischemia and ejection fraction of 63%. Left heart catheterization of July 2022 (performed in [facility] had revealed patent stents in LAD and RCA. LCX was small-caliber vessel. Creatinine: 1.26 - 1.10 Potassium: 3.9 - 3.4 Trop (high sensitive): 8 - 7 - 8 BNP: 14.51 TSH: 0.39 CT of the head revealed: IMPRESSION: No acute intracranial process. Chest xry reported: IMPRESSION: 1. No acute cardiopulmonary disease. No change from 03/29/2024. 2. Port-A-Cath in place unchanged. Echocardiogram revealed: Left ventricle: Mild concentric left ventricular hypertrophy was seen. LVEF is around 60%. There was no gross wall motion abnormality. Right ventricle was normal sized with normal systolic function. Both atria were normal sized. Aortic valve was not well visualized. There was no aortic insufficiency/stenosis. There was trace mitral regurgitation. There was no tricuspid regurgitation. Pulmonary valve was not well visualized. As there was no good tricuspid regurgitation jet, right ventricular systolic pressure could not be estimated. There was no pericardial effusion. Patient is a 64-year-old gentleman who presented with repeated loss of consciousness/presyncope/questionable Petit mal. He also had significant shortness of breath prior to presentation. Does have baseline history of chronic respiratory failure and is usually on 24 hour oxygen supplementation. He has history also includes advanced COPD/emphysema secondary to alpha-1 antitrypsin deficiency. Usually follows with Pulmonary who has recently started the patient on a new medicine (Dupixent). Could the presentation be a side effect secondary to Dupixent? Few days prior to presentation patient started to have more chest discomfort and headaches. Presentation is less likely cardiac. Still, the patient does have baseline history of coronary artery disease and has had multiple stents before. Serial high sensitive trop has been negative. Last nuclear stress test of June 2024 brief only revealed fixed defects and there was no ischemia. Being followed by Neurology and Pulmonary. Loss of consciousness Presyncope Seizures, history of Breakthrough seizure, less likely Acute on chronic respiratory failure COPD exacerbation History of alpha-1 antitrypsin deficiency Diabetes mellitus Hypertension Hyperlipidemia Diastolic heart failure, history of Seizure disorder, psychogenic Suggestion for management: Manage on telemetry floor Follow-up electrolytes and kidney function test and correct abnormalities. Keep potassium above 4 magnesium above 2 Evaluation and management of seizures as per Neurology Neurology follow up Pulmonary follow up Cardiac sanchez is stable and can be followed as outpatient Further evaluation and management depends on the above and clinical course A total of 55 minutes was spent reviewing the patient record, examining the patient, making a diagnostic and therapeutic plan, discussing this plan with medical personnel, following up on diagnostic studies and following the patient for clinical stability excluding any and all procedures. At least 50% of this time was spent in direct, [id number] contact. Thank you for allowing me to participate in this patient's care. Further recommendations will depend on patient's clinical course. Please do not hesitate to contact me if you have any questions or concerns. This medical document was created using electronic medical record system with [employer] dictation system. Although this document has been carefully reviewed, there may still be some phonetic and typographical errors. These areas are purely typographical due to the imperfection of the software programs, and do not reflect any compromise in the patient's medical care. Dietary Evaluation Review Comments: 1) Felix 1 pk BID 2) CCHO 60gm + cardiac diet 3) Refer Manager Mobility for diabetes education Expected Outcomes/Goals: To meet >75% estimated needs Wound to improve Fu 3-5 days Plan discussed with: Patient, Other (nurse) DEVORAH WALLACE MD Jun 05, 2025 08:40
[2025-06-05] MEDS: predniSONE 20 MG TAB PO SCH (10:51)
--- NOTE | 2025-06-05 13:36 | DVHPN2 ---
Progress Note Date Seen: Jun 05, 2025 Medical Necessity Reason Pt with a Central, PICC or Fol: No Subjective Review of Systems: CVS:Normal, RESPIRATORY:Abnormal (SOB), GI:Normal, NEURO:Normal Objective vital signs Vital Sign Date Time Temp Pulse Resp B/P (MAP) Pulse Ox O2 Delivery O2 Flow Rate FiO2 06/05/25 12:32 97.8 87 17 104/61 (75) 97 97.8 06/05/25 10:04 Nasal Cannula 3.0 06/05/25 10:04 32 Total Intake and Output 06/04/25 06/04/25 06/05/25 15:00 23:00 07:00 Intake Total 1000 ml 550 ml Output Total 1100 ml 1200 ml Balance -100 ml -650 ml medications Current Medications Medications Dose Ordered Sig/Romina Route Start Time Stop Time Status Last Admin Dose Admin Acetaminophen/ Hydrocodone Bitart 1 tab Q4HP PRN PO 06/03/25 15:00 06/05/25 12:11 1 TAB Enoxaparin Sodium 30 mg DAILY SC 06/04/25 10:00 06/05/25 10:51 30 MG Nitroglycerin 0.4 mg Q5MINP PRN SL 06/03/25 15:00 Morphine Sulfate 2 mg Q30M PRN IV 06/03/25 15:00 Albuterol 2.5 mg Q4HWA NEB 06/03/25 18:00 06/05/25 10:04 2.5 MG Budesonide 0.5 mg BID NEB 06/03/25 22:00 06/05/25 06:25 0.5 MG Baclofen 10 mg BIDPRN PO 06/03/25 22:00 06/05/25 10:55 10 MG Clopidogrel Bisulfate 75 mg DAILY PO 06/04/25 10:00 06/05/25 10:56 75 MG Furosemide 20 mg DAILY PO 06/04/25 10:00 06/05/25 10:56 20 MG Sertraline HCl 100 mg DAILY PO 06/04/25 10:00 06/05/25 10:53 100 MG Tamsulosin HCl 0.4 mg QPM PO 06/04/25 18:00 06/04/25 18:13 0.4 MG Topiramate 75 mg BID PO 06/03/25 22:00 06/05/25 10:55 75 MG Patient Own Medication 500 mcg DAILY PO 06/04/25 10:00 Lorazepam 1 mg Q5MINP PRN IV 06/03/25 22:00 Lorazepam 1 mg Q6HP PRN PO 06/03/25 22:00 Atorvastatin Calcium 80 mg HS PO 06/04/25 22:00 06/04/25 21:34 80 MG Buspirone HCl 15 mg BID PO 06/04/25 10:00 06/05/25 10:52 15 MG Ranolazine 500 mg BID PO 06/04/25 22:00 06/05/25 10:56 500 MG Prednisone 20 mg DAILY PO 06/05/25 10:00 06/05/25 10:51 20 MG Doxycycline Hyclate 100 ml @ 50 mls/hr Q12H IV 06/04/25 13:15 06/05/25 01:15 50 MLS/HR Examination: GENERAL:Normal, LUNGS:Abnormal (diminished), ABDOMEN:Normal, SKIN:Normal, NEURO:Normal laboratory and microbiology Laboratory Tests 06/04/25 06:30 Test 06/04/25 06:30 Range/Units Serum Glucose 86 # 74-106 mg/dL Labs and/or images reviewed: Labs reviewed by me, Image(s) reviewed by me Problem List/Assessment/Plan Problem List/Assessment/Plan 1. Loss of consciousness possibly Seizures which are likely psychogenic Neurology consult, continue seizure medication 2. COPD exacerbation Med neb treatments, pulmonary consult 3. GERD Continue Protonix 4. DM II with hyperglycemia Insulin sliding scale 5. End-stage COPD 6. Acute on chronic respiratory failure due to COPD exacerbation 7. History of alpha one antitrypsin deficiency 8. Hypertension Continue home meds 9. Hyperlipidemia Monitor, continue home meds 10. Chronic diastolic heart failure Cardiology consult, continue home meds Subjective: awake and alert Objective: Patient was sent by his heel cementer machine Dr. Mcdonald to the hospital. Apparently patient was having brief episodes of loss of consciousness in the waiting room. Patient does have underlying history of seizures which are likely psychogenic. Patient is compliant with medications. Unclear if loss of consciousness was due to seizure-like activity. Neurologist was consulted and adjusted medication. Patient is also reporting increased shortness of breath. Patient has history of alpha one antitrypsin deficiency and end-stage COPD. Patient is on chronic home O2 use at 2 L. patient was started on med neb treatments and IV doxycycline. Plan: Continue with med neb treatments, IV antibiotics, cardiac consult appreciated, neurology consult appreciated, continue with current treatment Plan discussed with: Patient My Orders My Orders Orders - JENISE CRAMER Procedure Category Date Status Time Cleanse Wound With AMADA 06/04/25 In Process Wound Clean 14:23 * Dietary Consult CONS 06/04/25 Transmitted 14:26 Dietary Evaluation Review Comments: 1) Felix 1 pk BID 2) CCHO 60gm + cardiac diet 3) Refer Data Virtualization Consultant for diabetes education Expected Outcomes/Goals: To meet >75% estimated needs Wound to improve Fu 3-5 days Date of Service: Jun 05, 2025 Billing Provider: DON TAMEZ MD Common Visit Codes: [id number] INP/OBS CARE (MOD) JENISE CRAMER Jun 05, 2025 13:36
[2025-06-05 14:40] LABS: Hemoglobin 13.8 g/dL (13.5-17.5); Mean Corpuscular Volume 97.0 fL (80.0-100.0); Nucleated Red Blood Cells % 0.0 %
[2025-06-05 14:42] LABS: Hematocrit 38.7 % (41.0-53.0); Mean Corpuscular Hemoglobin 34.7 pg (28.0-32.0)
[2025-06-05 14:53] LABS: Alanine Aminotransferase 17 U/L (7-40); Albumin 4.2 g/dL (3.2-4.8); Alkaline Phosphatase 57 U/L (46-116); Anion Gap 9 (5-15); BUN/Creatinine Ratio 12.0 (10.0-20.0); Bilirubin, Total 0.8 mg/dL (0.2-1.0); Blood Urea Nitrogen 14 mg/dL (9-23); Calcium 9.9 mg/dL (8.7-10.4); Carbon Dioxide 28 mmol/L (20-31); Chloride 103 mmol/L (98-107); Magnesium 2.0 mg/dL (1.6-2.6); Potassium 4.3 mmol/L (3.5-5.1); Sodium 140 mmol/L (136-145); Total Protein 5.8 g/dL (5.7-8.2)
[2025-06-05 14:59] LABS: Glucose 270 mg/dL (74-106)
--- NOTE | 2025-06-05 23:52 | DVHPN2 ---
Progress Note - Dictate Date Seen: Jun 05, 2025 Medical Necessity Reason Pt with a Central, PICC or Fol: No Subjective [facility] [place] Patient seen and examined at bedside. Remains on supplemental oxygen Overnight events reviewed. vital signs Vital Sign Date Time Temp Pulse Resp B/P (MAP) Pulse Ox O2 Delivery O2 Flow Rate FiO2 06/05/25 22:18 95 98 Facial BiPAP Mask 35 06/05/25 18:40 18 06/05/25 18:34 3 06/05/25 16:24 97.6 101/63 (76) 97.6 Total Intake and Output 06/04/25 06/04/25 06/05/25 15:00 23:00 07:00 Intake Total 100 ml 1000 ml 550 ml Output Total 1100 ml 1200 ml Balance 100 ml -100 ml -650 ml medications Current Medications Medications Dose Ordered Sig/Romina Route Start Time Stop Time Status Last Admin Dose Admin Acetaminophen/ Hydrocodone Bitart 1 tab Q4HP PRN PO 06/03/25 15:00 06/05/25 21:30 1 TAB Enoxaparin Sodium 30 mg DAILY SC 06/04/25 10:00 06/05/25 10:51 30 MG Nitroglycerin 0.4 mg Q5MINP PRN SL 06/03/25 15:00 Morphine Sulfate 2 mg Q30M PRN IV 06/03/25 15:00 Albuterol 2.5 mg Q4HWA NEB 06/03/25 18:00 06/05/25 22:18 2.5 MG Budesonide 0.5 mg BID NEB 06/03/25 22:00 06/05/25 18:34 0.5 MG Baclofen 10 mg BIDPRN PO 06/03/25 22:00 06/05/25 21:30 10 MG Clopidogrel Bisulfate 75 mg DAILY PO 06/04/25 10:00 06/05/25 10:56 75 MG Furosemide 20 mg DAILY PO 06/04/25 10:00 06/05/25 10:56 20 MG Sertraline HCl 100 mg DAILY PO 06/04/25 10:00 06/05/25 10:53 100 MG Tamsulosin HCl 0.4 mg QPM PO 06/04/25 18:00 06/05/25 17:53 0.4 MG Topiramate 75 mg BID PO 06/03/25 22:00 06/05/25 21:30 75 MG Patient Own Medication 500 mcg DAILY PO 06/04/25 10:00 Lorazepam 1 mg Q5MINP PRN IV 06/03/25 22:00 Lorazepam 1 mg Q6HP PRN PO 06/03/25 22:00 Atorvastatin Calcium 80 mg HS PO 06/04/25 22:00 06/05/25 21:31 80 MG Buspirone HCl 15 mg BID PO 06/04/25 10:00 06/05/25 21:34 15 MG Ranolazine 500 mg BID PO 06/04/25 22:00 06/05/25 21:30 500 MG Prednisone 20 mg DAILY PO 06/05/25 10:00 06/05/25 10:51 20 MG Doxycycline Hyclate 100 ml @ 50 mls/hr Q12H IV 06/04/25 13:15 06/05/25 16:40 50 MLS/HR objective Gen.: Patient lying in bed in no apparent distress. On supplemental oxygen. Head: Normocephalic, atraumatic. Eyes: EOMI/PERRLA. Ears: Normal hearing. Normal anatomy. Neck/trachea: Trachea midline, supple. Nose: Normal external anatomy. Mouth: Moist mucous membranes. Chest: Improved air entry into right lung field, diminished air entry into left lung field. No wheezing or rhonchi. Cardiovascular: Positive S1, positive S2. Regular rate and rhythm. Abdomen: Positive bowel sounds in all 4 quadrants. Soft, non-tender, non- distended. : Deferred. Rectal: Deferred. Skin: Warm, dry. Intact. Extremities: 2+ radial pulses bilaterally. No lower extremity edema. Neuro: Awake, alert, oriented x3. No gross motor or sensory deficits. Cranial nerves II through XII intact. Gait not assessed. laboratory and microbiology Laboratory Tests 06/05/25 14:24 Test 06/05/25 14:24 Range/Units Serum Glucose 270 #H 74-106 mg/dL Assessment/Plan Impression: Acute on chronic hypoxic respiratory failure Dependence on supplemental oxygen Acute exacerbation of COPD Chronic obstructive pulmonary disease 2/2 A1AT deficiency Diastolic congestive heart failure Alpha-1 antitrypsin deficiency Syncope Hx of seizures Hx of nicotine dependence Obesity Events: Remains on supplemental oxygen, 3 LPM NC Taper O2 as tolerated Dupixent likely not cause of patient's symptoms. Review for medication interactions. Patient with hx of seizures. Continue bronchodilators Pulmicort BID. Continue steroids - wheezing resolved. Continue antibiotics Wound care. Cardiology recommendations appreciated Patient is feeling better. He is stable from the pulmonary standpoint for discharge Recommend followup in [facility] as outpatient with Dr. Melendez in 1-2 weeks . CXR from 06/03/25 revealed no acute disease. Labs and imaging reviewed. Rest of plan as noted below Plan: Supplemental oxygen Titrate to keep O2 sats above 92%. Continue bronchodilators. Continue steroids Cardiology recommendations appreciated. Maintain euvolemia Monitor renal function. Monitor electrolytes. Supplement as necessary. Monitor ins and outs. Diet and lifestyle modifications for weight reduction Obesity - complicates all care DVT prophylaxis. Prognosis: Guarded given patient's multiple co-morbidities. Rest of plan per hospitalist and other consultants. Thank you, MICHELLE Dutton, for allowing me to participate in this patient's care. Further recommendations will depend on the patient's clinical course. Please do not hesitate to contact me if you have any questions or concerns. This medical document was created using an electronic medical record system with [employer] dictation system. Although these documentations are being carefully reviewed, there may still be some phonetic and typographical changes. The errors are purely typographical, due to imperfection on the software program, and do not reflect any compromise in the patient's medical care. Dietary Evaluation Review Comments: 1) Felix 1 pk BID 2) CCHO 60gm + cardiac diet 3) Refer Avionics Electrical Engineer for diabetes education Expected Outcomes/Goals: To meet >75% estimated needs Wound to improve Fu 3-5 days Plan discussed with: Patient, Other (SHAGUFTA Malave) QUINTEN MELENDEZ MD Jun 05, 2025 23:52
[2025-06-06] VITALS (18 sets, daily range): BP systolic 93–116; BP diastolic 56–75; PULSE 67–94; RESP 16–20; TEMP 36.4; O2SAT 95–100
--- NOTE | 2025-06-06 07:35 | ECG ---
[facility] Test Date: 2025-06-04 Test Time: 15:20:27 Pat Name: TALI JANSEN Department: Room: 0293T B Gender: M Renewable Energy Engineer: Ananda Barajas : 1960 Requested By: DEVORAH WALLACE Order Number: [id number] Reading MD: Jaison Baker Measurements Intervals [place] Rate: 89 P: 86 PA: 173 QRS: 84 QRSD: 102 T: 58 QT: 359 QTc: 437 Interpretive Statements Sinus rhythm Borderline right axis deviation Low voltage, precordial leads Electronically Signed On 06-08-2025 13:52:22 PDT by Jaison Baker Please click the below link to view image of tracing.
--- NOTE | 2025-06-06 08:33 | DVHPN2 ---
Progress Note - Dictate Date Seen: Jun 06, 2025 Medical Necessity Reason Pt with a Central, PICC or Fol: No vital signs Vital Sign Date Time Temp Pulse Resp B/P (MAP) Pulse Ox O2 Delivery O2 Flow Rate FiO2 06/06/25 08:00 Nasal Cannula* 3 32 06/06/25 07:16 87 20 99 06/06/25 05:00 98.1 116/69 (85) 98.1 Total Intake and Output 06/05/25 06/05/25 06/06/25 15:00 23:00 07:00 Intake Total 2100 ml 1250 ml Output Total 1000 ml 2350 ml Balance 1100 ml -1100 ml medications Current Medications Medications Dose Ordered Sig/Romina Route Start Time Stop Time Status Last Admin Dose Admin Acetaminophen/ Hydrocodone Bitart 1 tab Q4HP PRN PO 06/03/25 15:00 06/05/25 21:30 1 TAB Enoxaparin Sodium 30 mg DAILY SC 06/04/25 10:00 06/05/25 10:51 30 MG Nitroglycerin 0.4 mg Q5MINP PRN SL 06/03/25 15:00 Morphine Sulfate 2 mg Q30M PRN IV 06/03/25 15:00 Albuterol 2.5 mg Q4HWA NEB 06/03/25 18:00 06/06/25 07:07 2.5 MG Budesonide 0.5 mg BID NEB 06/03/25 22:00 06/05/25 18:34 0.5 MG Baclofen 10 mg BIDPRN PO 06/03/25 22:00 06/05/25 21:30 10 MG Clopidogrel Bisulfate 75 mg DAILY PO 06/04/25 10:00 06/05/25 10:56 75 MG Furosemide 20 mg DAILY PO 06/04/25 10:00 06/05/25 10:56 20 MG Sertraline HCl 100 mg DAILY PO 06/04/25 10:00 06/05/25 10:53 100 MG Tamsulosin HCl 0.4 mg QPM PO 06/04/25 18:00 06/05/25 17:53 0.4 MG Topiramate 75 mg BID PO 06/03/25 22:00 06/05/25 21:30 75 MG Patient Own Medication 500 mcg DAILY PO 06/04/25 10:00 Lorazepam 1 mg Q5MINP PRN IV 06/03/25 22:00 Lorazepam 1 mg Q6HP PRN PO 06/03/25 22:00 Atorvastatin Calcium 80 mg HS PO 06/04/25 22:00 06/05/25 21:31 80 MG Buspirone HCl 15 mg BID PO 06/04/25 10:00 06/05/25 21:34 15 MG Ranolazine 500 mg BID PO 06/04/25 22:00 06/05/25 21:30 500 MG Prednisone 20 mg DAILY PO 06/05/25 10:00 06/05/25 10:51 20 MG Doxycycline Hyclate 100 ml @ 50 mls/hr Q12H IV 06/04/25 13:15 06/06/25 01:56 50 MLS/HR laboratory and microbiology Laboratory Tests 06/05/25 14:24 Test 06/05/25 14:24 Range/Units Serum Glucose 270 #H 74-106 mg/dL Assessment/Plan Patient is a 64-year-old gentleman who was sent to the hospital for repeated loss of consciousness. He was seen in our cardiology office as outpatient earlier before coming to the hospital. While in the office and in waiting room, patient had repeated presyncopal episodes. He was caught before falling to the ground. Loss of consciousness was not accompanied with any major loss of composure. Presentation questioned [place]. It is of note that the patient became significantly more short of breath than baseline during the episodes. It is of note that the patient does have baseline chronic respiratory failure and is on chronic oxygen supplementation. He usually goes to pulmonary (Dr. Melendez). He was recently started on a new medication by Pulmonary (Dupixent). Patient also complains of more than usual headaches and some chest discomforts for the past few days. Mentions that he is compliant with his medications. He does have history of baseline advanced COPD and alpha-1 antitrypsin deficiency. [place] and wet mucosa, no goiter, no carotid bruit. Chest: Poor air entry with positive rhonchi, cardiac: Distant sounds, no thrill/gallop/murmur. Abdomen: Soft, positive bowel sounds, no gross mass. Extremities: No edema. Dorsalis pedis 2+ bilateral. Past medical history includes hypertension, hyperlipidemia, diabetes mellitus, depression/anxiety disorder, GERD, advanced COPD (on chronic oxygen supplementation), chronic respiratory failure, history of alpha 1 antitrypsin deficiency, coronary artery disease (status post multiple PCI many years ago), diastolic congestive heart failure, anemia and seizure disorder. He is on 24 hour oxygen supplementation. His history also includes psychogenic seizures. Echocardiogram on May 2021 had reported ejection fraction of 40% Echocardiogram of September 21, 2021 revealed: Technically limited study secondary to poor acoustic windows. Left ventricle: Left ventricle is normal sized. LVEF was assessed at 50-55%. Right ventricle was normal size with normal systolic function. Left and right atrium were normal size. Aortic valve was not well visualized. There was no gross aortic insufficiency/stenosis. Mitral valve: Trivial mitral regurgitation. Tricuspid valve had grossly normal anatomy. Pulmonary valve was not well visualized Echocardiogram of June 23, 2022 revealed ejection fraction of 50 to 55%, mild MR/TR Echocardiogram of June 04, 2023 revealed ejection fraction of 65%, dilated right-sided chambers Echocardiogram of September 18, 2023 revealed ejection fraction of 55% and normal- sized right-sided chambers Echocardiogram of January 14, 2024 revealed ejection fraction of 50%, no wall motion abnormality, mild MR/TR and right ventricular systolic pressure of 25 mmHg Echocardiogram of February 15, 2025 (performed in the office) revealed ejection fraction of 60-65%, trace MR/TR, right ventricular systolic pressure of less than 35, right-sided chambers were normal-sized with normal systolic function Nuclear stress test of June 30, 2024 (performed in the office) revealed fixed defect, no ischemia and ejection fraction of 63%. Left heart catheterization of July 2022 (performed in [facility] had revealed patent stents in LAD and RCA. LCX was small-caliber vessel. Creatinine: 1.26 - 1.10 - 1.17 Potassium: 3.9 - 3.4 - 4.3 Trop (high sensitive): 8 - 7 - 8 BNP: 14.51 TSH: 0.39 CT of the head revealed: IMPRESSION: No acute intracranial process. Chest xry reported: IMPRESSION: 1. No acute cardiopulmonary disease. No change from 03/29/2024. 2. Port-A-Cath in place unchanged. Echocardiogram revealed: Left ventricle: Mild concentric left ventricular hypertrophy was seen. LVEF is around 60%. There was no gross wall motion abnormality. Right ventricle was normal sized with normal systolic function. Both atria were normal sized. Aortic valve was not well visualized. There was no aortic insufficiency/stenosis. There was trace mitral regurgitation. There was no tricuspid regurgitation. Pulmonary valve was not well visualized. As there was no good tricuspid regurgitation jet, right ventricular systolic pressure could not be estimated. There was no pericardial effusion. Patient is a 64-year-old gentleman who presented with repeated loss of consciousness/presyncope/questionable Petit mal. He also had significant shortness of breath prior to presentation. Does have baseline history of chronic respiratory failure and is usually on 24 hour oxygen supplementation. He has history also includes advanced COPD/emphysema secondary to alpha-1 antitrypsin deficiency. Usually follows with Pulmonary who has recently started the patient on a new medicine (Dupixent). Could the presentation be a side effect secondary to Dupixent? Few days prior to presentation patient started to have more chest discomfort and headaches. Presentation is less likely cardiac. Still, the patient does have baseline history of coronary artery disease and has had multiple stents before. Serial high sensitive trop has been negative. Last nuclear stress test of June 2024 brief only revealed fixed defects and there was no ischemia. Being followed by Neurology and Pulmonary. Loss of consciousness Presyncope Seizures, history of Breakthrough seizure, less likely Acute on chronic respiratory failure COPD exacerbation History of alpha-1 antitrypsin deficiency Diabetes mellitus Hypertension Hyperlipidemia Diastolic heart failure, history of Seizure disorder, psychogenic Suggestion for management: Manage on telemetry floor Follow-up electrolytes and kidney function test and correct abnormalities. Keep potassium above 4 magnesium above 2 Evaluation and management of seizures as per Neurology Neurology follow up Pulmonary follow up Cardiac sanchez is stable and can be followed as outpatient Further evaluation and management depends on the above and clinical course A total of 55 minutes was spent reviewing the patient record, examining the patient, making a diagnostic and therapeutic plan, discussing this plan with medical personnel, following up on diagnostic studies and following the patient for clinical stability excluding any and all procedures. At least 50% of this time was spent in direct, [id number] contact. Thank you for allowing me to participate in this patient's care. Further recommendations will depend on patient's clinical course. Please do not hesitate to contact me if you have any questions or concerns. This medical document was created using electronic medical record system with [employer] computerized dictation system. Although this document has been carefully reviewed, there may still be some phonetic and typographical errors. These areas are purely typographical due to the imperfection of the software programs, and do not reflect any compromise in the patient's medical care. Dietary Evaluation Review Comments: 1) Felix 1 pk BID 2) [facility] + cardiac diet 3) Refer Guidance And Control System Engineer for diabetes education Expected Outcomes/Goals: To meet >75% estimated needs Wound to improve Fu 3-5 days Plan discussed with: Patient, Other (nurse) DEVORAH WALLACE MD Jun 06, 2025 08:33
[2025-06-06] MEDS ORDERED: PRED20TA2 PO (16:25)
[2025-06-06] MEDS ORDERED: DOXY1CAP58 PO (16:25)
[2025-06-06] MEDS ORDERED: RANO500T3 PO (16:25)
--- NOTE | 2025-06-06 16:27 | DVHDS2 ---
Discharge Summary Date of Admission Jun 03, 2025 at 14:55 Date of Discharge: Jun 06, 2025 Labs/Diagnostic Data: Laboratory Results Test 06/05/25 14:24 06/04/25 06:30 06/03/25 22:24 06/03/25 13:45 White Blood Count 10.5 10^3/uL (4.4-10.8) Red Blood Count 3.99 10^6/uL (4.5-5.90) Hemoglobin 13.8 g/dL (13.5-17.5) Hematocrit 38.7 % (41.0-53.0) Mean Corpuscular Volume 97.0 fL (80.0-100.0) Mean Corpuscular Hemoglobin 34.7 pg (28.0-32.0) Mean Corpuscular Hemoglobin Concent 35.8 g/dL (32.0-36.0) Red Cell Distribution Width 15.0 % (11.8-14.3) Platelet Count 155 10^3/uL (140-450) Mean Platelet Volume 6.8 fL (6.9-10.8) Neutrophils (%) (Auto) 91.1 % (37.0-80.0) Lymphocytes (%) (Auto) 6.2 % (10.0-50.0) Monocytes (%) (Auto) 2.2 % (0.0-12.0) Eosinophils (%) (Auto) 0.2 % (0.0-7.0) Basophils (%) (Auto) 0.3 % (0.0-2.0) Neutrophils # (Auto) 9.6 10 ^3/uL (1.6-8.6) Lymphocytes # (Auto) 0.7 10 ^3/uL (0.4-5.4) Monocytes # (Auto) 0.2 10 ^3/uL (0-1.3) Eosinophils # (Auto) 0 10 ^3/uL (0-0.8) Basophils # (Auto) 0 10 ^3/uL (0-0.2) Nucleated Red Blood Cells 0.0 % Sodium Level 140 mmol/L (136-145) Potassium Level 4.3 mmol/L (3.5-5.1) Chloride Level 103 mmol/L (98-107) Carbon Dioxide Level 28 mmol/L (20-31) Anion Gap 9 (5-15) Blood Urea Nitrogen 14 mg/dL (9-23) Creatinine 1.17 mg/dL (0.700-1.30) Glomerular Filtration Rate Calc 69 mL/min (>90) BUN/Creatinine Ratio 12.0 (10.0-20.0) Serum Glucose 270 mg/dL (74-106) Calcium Level 9.9 mg/dL (8.7-10.4) Magnesium Level 2.0 mg/dL (1.6-2.6) Total Bilirubin 0.8 mg/dL (0.2-1.0) Aspartate Amino Transferase (AST) 10 U/L (13-40) Alanine Aminotransferase (ALT) 17 U/L (7-40) Alkaline Phosphatase 57 U/L (46-116) Total Protein 5.8 g/dL (5.7-8.2) Albumin 4.2 g/dL (3.2-4.8) Thyroid Stimulating Hormone (TSH) 0.39 uIU/mL (0.55-4.78) Troponin I High Sensitivity 8 ng/L (</=54) Urine Color Light-yellow (Yellow) Urine Clarity Clear (Clear) Urine pH 5.5 (5.0-9.0) Urine Specific [place] 1.008 (1.001-1.035) Urine Protein Negative (Negative) Urine Ketones Negative (Negative) Urine Blood Negative /uL (Negative) Urine Nitrite Negative (Negative) Urine Bilirubin Negative (Negative) Urine Urobilinogen Normal mg/dL (Negative) Urine Leukocyte Esterase Negative /uL (Negative) Urine RBC 2 /hpf (0 - 3) Urine Microscopic WBC 1 /HPF (0-3) Urine Squamous Epithelial Cells None seen /hpf (<5) Urine Bacteria None seen /hpf (None Seen) Urine Glucose Normal mg/dL (Normal) Test 06/03/25 13:24 B-Type Natriuretic Peptide 14.51 pg/mL (0-100) Other Laboratory Tests 06/05/25 14:24 Brief Hx & Hospital Course: 64-year-old male presents to emergency room for seizure-like activity during appointment with his artillery meteorological man. Patient has underlying history of COPD on home O2 2 L. Patient denies any chest pain fever chills. While in the emergency department the patient was evaluated by the provider, As per provider: Labs, vital signs, and imagining monitored. Patient was admitted on June 03, 2025 for a syncopal episode. Patient has a history of psychogenic seizures. Patient was seen by cardiology as well as neurology. Cardiac sanchez patient was deemed as stable. Patient was prescribed Ranexa for angina. Her neurology seizures most likely psychogenic. No breakthrough seizures noted. Patient was also seen by Doctor Al for COPD exacerbation. Patient has a history of antitrypsin deficiency. Patient was prescribed doxycycline as well as prednisone. Ranexa was also sent to pharmacy. He was instructed to follow up with his PCP Doctor Jason in one week, and patient stated he has a follow up appointment with pulmonary. There were no complaints or new complaints upon discharge, all questions and concerns were answered. Patient was advised to return to the ER or call 911 if any headaches, dizziness, shortness of breath, chest pain, bleeding, fevers, or worsening of medical condition. Patient/Family was counseled about treatment plan, medications, possible side effects, patientverbalized understanding. All questions were answered to the best of my ability. The patient symptoms improved and they are okay to be DC. Condition at Discharge: Stable Final Diagnosis/Problems List Syncope copd exac Loss of consciousness possibly Seizures which are likely psychogenic COPD exacerbation GERD DM II with hyperglycemia End-stage COPD Acute on chronic respiratory failure due to COPD exacerbation History of alpha one antitrypsin deficiency Hypertension Hyperlipidemia Chronic diastolic heart failure Discharge Disposition: Home Discharge Instruct/Medications Diet: Cardiac 2g Na,low cholest Activity: No Restrictions, As Tolerated Follow Up/Referral: pcp 1 week Scheduled Albuterol Sulfate (Ventolin Mdi), 90 MCG IN Q4HR, (Reported) Ascorbic Acid (Vitamin C), 1,000 MG PO DAILY, (Reported) Atorvastatin Calcium (Lipitor), 1 TAB PO DAILY Baclofen (Baclofen), 10 MG PO BIDPRN, (Reported) Budesonide (Inhalation) (Budesonide), 0.5 MG IN BID, (Reported) Buspirone Hcl (Buspirone Hcl), 1 TAB PO BID, (Reported) Clopidogrel Bisulfate (Clopidogrel), 75 MG PO DAILY, (Reported) Doxycycline (Monohydrate) (Doxycycline), 100 MG PO BID Dulaglutide (Trulicity), 0.75 MG SC QWEEKLY, (Reported) Tuychghqtpe-Oxovegxyvnno-Mfqpo (Trelegy Ellipta 200-62.5-25 Mcg/INH), 1 PUFF INH DAILY, (Reported) Furosemide (Furosemide), 1 TAB PO DAILY, (Reported) Hydrochlorothiazide (Hydrochlorothiazide), 12.5 MG PO DAILY, (Reported) Hydrocodone-Acetaminophen (Hydrocodone Bitartrate/AC 10-325 mg), 1 TAB PO [id number], (Reported) Metformin Hydrochloride (Metformin Hcl), 1 TAB PO DAILY, (Reported) Pantoprazole Sodium Sesquihydr (Pantoprazole Sodium), 40 MG PO BID Potassium Chloride (Potassium Chloride ER), 1 TAB PO BID, (Reported) Prednisone (Prednisone), 20 MG PO DAILY Ranolazine (Ranolazine ER), 500 MG PO BID Revefenacin (Yupelri), 175 MCG NEB DAILY, (Reported) Roflumilast (Daliresp), 500 MCG PO DAILY, (Reported) Sertraline Hcl (Sertraline Hcl), 100 MG PO DAILY, (Reported) Tamsulosin HCl (Tamsulosin Hydrochloride), 0.4 MG PO DAILY, (Reported) Tiotropium [place] Monohydrate (Spiriva Respimat), 1 SPRAY IN DAILY, (Reported) Topiramate (Topiramate), 75 MG PO BID Scheduled PRN Ipratropium-Albuterol (Ipratropium [place]/Albut), 3 ML NEB Q4HR PRN for COPD, (Reported) Miscellaneous Medications Albuterol Sulfate (Albuterol Sulfate), 105 MG IN, (Reported) Discharge Statement: "Patient was advised to return to the ER or call 911 if any headaches, dizziness, shortness of breath, chest pain, abdominal pain, bleeding, fevers, or worsening of medical condition. Patient was counseled about treatment plan, medications, possible side effects, patientverbalized understanding. All questions were answered to the best of my ability. This discharge took greater then 30 minutes in planning, reviewing documentation, counseling the patient, and discussing with other team members." ASSESSMENT ASSESSMENT Assessment Syncope copd TAMRA Jung NP Jun 06, 2025 16:27
--- NOTE | 2025-06-06 23:40 | DVHPN2 ---
Progress Note - Dictate Date Seen: Jun 06, 2025 Medical Necessity Reason Pt with a Central, PICC or Fol: No Subjective [facility] Patient seen and examined at bedside. Remains on supplemental oxygen Overnight events reviewed. vital signs Vital Sign Date Time Temp Pulse Resp B/P (MAP) Pulse Ox O2 Delivery O2 Flow Rate FiO2 06/06/25 19:54 94 06/06/25 19:30 18 99 06/06/25 19:20 Nasal Cannula 3.0 06/06/25 19:20 32 06/06/25 17:58 36.4 06/06/25 16:00 114/70 (85) Total Intake and Output 06/05/25 06/05/25 06/06/25 15:00 23:00 07:00 Intake Total 2100 ml 1250 ml Output Total 1000 ml 2350 ml Balance 1100 ml -1100 ml objective Gen.: Patient lying in bed in no apparent distress. On supplemental oxygen. Head: Normocephalic, atraumatic. Eyes: EOMI/PERRLA. Ears: Normal hearing. Normal anatomy. Neck/trachea: Trachea midline, supple. Nose: Normal external anatomy. Mouth: Moist mucous membranes. Chest: Improved air entry into right lung field, diminished air entry into left lung field. No wheezing or rhonchi. Cardiovascular: Positive S1, positive S2. Regular rate and rhythm. Abdomen: Positive bowel sounds in all 4 quadrants. Soft, non-tender, non- distended. : Deferred. Rectal: Deferred. Skin: Warm, dry. Intact. Extremities: 2+ radial pulses bilaterally. No lower extremity edema. Neuro: Awake, alert, oriented x3. No gross motor or sensory deficits. Cranial nerves II through XII intact. Gait not assessed. laboratory and microbiology Laboratory Tests 06/05/25 14:24 Test 06/05/25 14:24 Range/Units Serum Glucose 270 #H 74-106 mg/dL Assessment/Plan Impression: Acute on chronic hypoxic respiratory failure Dependence on supplemental oxygen Acute exacerbation of COPD Chronic obstructive pulmonary disease 2/2 A1AT deficiency Diastolic congestive heart failure Alpha-1 antitrypsin deficiency Syncope Hx of seizures Hx of nicotine dependence Obesity Events: Remains on supplemental oxygen, 3 LPM NC Taper O2 as tolerated Continue bronchodilators Pulmicort BID. Continue steroids - wheezing resolved. Discharge on prednisone 20 mg PO BID for 7 days. Complete antibiotic course Wound care. Pain control for back pain. Avoid oversedation Patient is feeling better. He is stable from the pulmonary standpoint for discharge Recommend followup in [facility] as outpatient with Dr. Melendez in 1-2 weeks . Dupixent likely not cause of patient's symptoms. Reviewed for medication interactions. Patient with hx of seizures. CXR from 06/03/25 revealed no acute disease. Labs and imaging reviewed. Plan: Supplemental oxygen Titrate to keep O2 sats above 92%. Continue bronchodilators. Complete steroid and antibiotic course Cardiology recommendations appreciated. Maintain euvolemia Monitor renal function. Monitor electrolytes. Supplement as necessary. Monitor ins and outs. Diet and lifestyle modifications for weight reduction Obesity - complicates all care DVT prophylaxis. Prognosis: Guarded given patient's multiple co-morbidities. Rest of plan per hospitalist and other consultants. Thank you, MICHELLE Dutton, for allowing me to participate in this patient's care. Further recommendations will depend on the patient's clinical course. Please do not hesitate to contact me if you have any questions or concerns. This medical document was created using an electronic medical record system with [email or web address] dictation system. Although these documentations are being carefully reviewed, there may still be some phonetic and typographical changes. The errors are purely typographical, due to imperfection on the software program, and do not reflect any compromise in the patient's medical care. Dietary Evaluation Review Comments: 1) Felix 1 pk BID 2) CCHO 60gm + cardiac diet 3) Refer Fishing Guide for diabetes education Expected Outcomes/Goals: To meet >75% estimated needs Wound to improve Fu 3-5 days Plan discussed with: Patient, Other (SHAGUFTA Malave) QUINTEN MELENDEZ MD Jun 06, 2025 23:40
--- NOTE | 2025-06-07 07:19 | ECG ---
[facility] Test Date: 2025-06-04 Test Time: 15:12:50 Pat Name: TALI JANSEN Department: Room: 0293T B Gender: M Cleaner Signs: Ananda Barajas : 1960 Requested By: JENISE HOLLIDAY Order Number: [id number] Reading MD: Jaison Baker Measurements Intervals [place] Rate: 92 P: 63 [place]: 168 QRS: 89 QRSD: 121 T: 62 QT: 376 QTc: 466 Interpretive Statements Sinus rhythm Nonspecific intraventricular conduction delay Anterior infarct, old Electronically Signed On 06-08-2025 13:52:19 PDT by Jaison Baker Please click the below link to view image of tracing.
== END 2025-06-06 19:55 | disposition home or self-care (01) | DRG 100 ==
LOC: ER 11:56 → EDBD 11:56 → OVERFLOW 14:55 → TELE-WESTW 16:27
PROVIDERS: ADMIT Nurse Practitioner Family; ATTEND Nurse Practitioner Family
PROC: 5A09357 Assistance with Respiratory Ventilation, Less than 24 Consecutive Hours, Continuous Positive Airway Pressure (ICD-10-PCS; principal; 2025-06-03)
PROC: 5A09357 Assistance with Respiratory Ventilation, Less than 24 Consecutive Hours, Continuous Positive Airway Pressure (ICD-10-PCS; 2025-06-04)
PROC: 5A09357 Assistance with Respiratory Ventilation, Less than 24 Consecutive Hours, Continuous Positive Airway Pressure (ICD-10-PCS; 2025-06-05)
PROC: 5A09357 Assistance with Respiratory Ventilation, Less than 24 Consecutive Hours, Continuous Positive Airway Pressure (ICD-10-PCS; 2025-06-06)
DX: G40.909 Epilepsy, unspecified, not intractable, without status epilepticus (principal); J96.21 Acute and chronic respiratory failure with hypoxia; J44.1 Chronic obstructive pulmonary disease with (acute) exacerbation; I50.32 Chronic diastolic (congestive) heart failure; I95.1 Orthostatic hypotension; I11.0 Hypertensive heart disease with heart failure; E88.01 Alpha-1-antitrypsin deficiency; G43.909 Migraine, unspecified, not intractable, without status migrainosus; K21.9 Gastro-esophageal reflux disease without esophagitis; E11.65 Type 2 diabetes mellitus with hyperglycemia; E66.9 Obesity, unspecified; E78.5 Hyperlipidemia, unspecified; F41.9 Anxiety disorder, unspecified; J43.9 Emphysema, unspecified; G47.30 Sleep apnea, unspecified; F32.A Depression, unspecified; Z68.29 Body mass index [BMI] 29.0-29.9, adult; M54.50 Low back pain, unspecified; I25.119 Atherosclerotic heart disease of native coronary artery with unspecified angina pectoris; Z79.02 Long term (current) use of antithrombotics/antiplatelets; Z79.51 Long term (current) use of inhaled steroids; Z79.84 Long term (current) use of oral hypoglycemic drugs; Z79.899 Other long term (current) drug therapy; Z80.0 Family history of malignant neoplasm of digestive organs; Z80.3 Family history of malignant neoplasm of breast; Z82.3 Family history of stroke; Z82.49 Family history of ischemic heart disease and other diseases of the circulatory system; Z82.5 Family history of asthma and other chronic lower respiratory diseases; Z87.891 Personal history of nicotine dependence; Z99.81 Dependence on supplemental oxygen; F06.8 Other specified mental disorders due to known physiological condition
CPT/HCPCS: 36415; 70450; 71045; 80048; 80053; 81001; 83735; 83880; 84443; 84484; 85025; 93005; 93306; 94640; 94660; 97110; 97163; 99291; G0378